=== PATIENT | female | born 1950 | race Caucasian/White ===

== ENCOUNTER 2022-09-09 07:56 | Outpatient (OUT) | payer MEDICARE, SELFPAY ==
--- NOTE | 2022-09-09 | MM_ITS ---
Patient: VERONIQUE MONTES DE OCA Exam Date: 09/09/2022 : 1950 Gender:F Ordering : DR BUD [facility]OU[facility] Admission #: [id number] Family : Order #: [id number] CLICK HERE TO VIEW EXAM RADIOLOGY REPORT PROCEDURE: MM TOMOSYNTHESIS DIAGNOSTIC BI, 09/09/2022, 07:50 US BREAST LT LIMITED, 09/09/2022, 08:25 COMPARISON: MG MAMM SCREEN 3D DYLAN CAD, 05/20/2020. MG MAMM SCREEN DYLAN W CAD, 02/27/2018. MG MAMM SCREEN DYLAN W CAD, 01/12/2017. MG MAMM DYLAN SCRN W CAD DIG, 07/19/2013. INDICATIONS: Subareolar mass of left breast, N63.42 Calculator Name NCI Breast Cancer Risk Assessment Tool 5 Year Breast Cancer Risk 1.30% Lifetime Breast Cancer Risk 3.30% Personal Breast Cancer No Personal Ovarian Cancer No Treatments None Family Cancers Aunt-maternal with breast cancer at age ~50; Mother with lymphoma cancer at age 80; Father with bladder/colon cancer at age 78; Uncle-paternal with colon cancer at age 82. LOCATION: [facility] BREAST COMPOSITION: Almost entirely fatty. FINDINGS: DIAGNOSTIC CATEGORY 2--BENIGN FINDING: RIGHT BREAST: No significant suspicious finding. No significant change has occurred. LEFT BREAST: No significant suspicious finding. No significant change has occurred. Ultrasound evaluation demonstrates a few minimally dilated ducts within the anterior breast with anechoic fluid; no mass, debris, or suspicious findings. Annual screening mammography is recommended. RECOMMENDATIONS: ROUTINE MAMMOGRAM AND CLINICAL EVALUATION IN 12 MONTHS. PLEASE NOTE: A NORMAL MAMMOGRAM DOES NOT EXCLUDE THE POSSIBILITY OF BREAST CANCER. A CLINICALLY SUSPICIOUS PALPABLE LUMP SHOULD BE BIOPSIED. Dictated by: Messi Marlow M.D. on 09/09/2022 at 11:36 Approved by: Messi Marlow M.D. on 09/09/2022 at 11:42
== END 2022-09-09 07:57 | disposition home or self-care (01) ==
LOC: MAMMO 07:57
PROVIDERS: PCP Family Medicine; Visit Provider Family Medicine
DX: N63.42 Unspecified lump in left breast, subareolar (principal)
CPT/HCPCS: 76642; 77066; G0279

== ENCOUNTER 2023-08-21 13:40 | Outpatient (OUT) | payer MEDICARE, SELFPAY ==
[2023-08-21 14:21] LABS: Basophils Percent Auto 0.6 % (0.2-2.0); Eosinophils Percent Auto 0.4 % (0.9-7.0); Hematocrit 34.4 % (36.0-48.0); Hemoglobin 11.2 g/dL (12.0-16.0); Immature Granulocytes Abs Auto 0.01 10^3/uL (0.00-0.03); Immature Granulocytes Pct Auto 0.1 % (0.0-0.5); Lymphocytes Absolute Auto 2.2 10^3/uL (1.2-3.8); Lymphocytes Percent Auto 32.1 % (20.5-60.0); Mean Corpuscular HGB Conc 32.6 g/dL (29.9-35.2); Mean Corpuscular Volume 95.3 fL (81.0-99.0); Mean Platelet Volume 9.3 fL (9.5-13.5); Monocytes Absolute Auto 0.8 10^3/uL (0.3-0.8); Monocytes Percent Auto 11.5 % (1.7-12.0); Neutrophils Absolute Auto 3.8 10^3/uL (1.4-6.5); Neutrophils Percent Auto 55.3 % (43.0-75.0); Platelet Count 217 10^3/uL (150-450); Red Blood Count 3.61 10^6/uL (4.20-5.40); Red Cell Distribution Width 12.7 % (11.0-15.0); White Blood Count 6.8 10^3/uL (4.0-11.0)
[2023-08-21 15:29] LABS: Alanine Aminotransferase 29 U/L (14-59); Albumin Level 3.9 g/dL (3.4-5.0); Alkaline Phosphatase 151 U/L (46-116); Anion Gap 14.9; Aspartate Amino Transferase 36 U/L (15-37); Bilirubin Total 0.6 mg/dL (0.2-1.0); Calcium 9.5 mg/dL (8.5-10.1); Carbon Dioxide 22.2 mmol/L (21.0-32.0); Chloride 104 mmol/L (98-107); Estimated GFR (African America 55 (>=60); Estimated GFR (Non-African Ame 46 (>=60); Globulin 3.9 g/dL; Glucose 102 mg/dL (74-106); Potassium 5.1 mmol/L (3.5-5.1); Sodium 136 mmol/L (136-145); Total Protein 7.8 g/dL (6.4-8.2)
== END 2023-08-21 13:41 | disposition home or self-care (01) ==
PROVIDERS: PCP Family Medicine; Visit Provider Internal Medicine Interventional Cardiology
DX: R55 Syncope and collapse (principal)
CPT/HCPCS: 36415; 80053; 85025

== ENCOUNTER 2023-12-20 13:54 | Outpatient (OUT) | payer MEDICARE, SELFPAY ==
--- NOTE | 2023-12-20 14:00 | MM_ITS ---
Patient Name: VERONIQUE MONTES DE OCA MR#: [id number] : 1950 Exam Date: 12/20/2023 Ordering Doctor: DR BUD LOUIS RADIOLOGY REPORT PROCEDURE: MM TOMOSYNTHESIS SCREENING BI COMPARISON: MM TOMOSYNTHESIS DIAGNOSTIC BI, 09/09/2022. MG MAMM SCREEN 3D DYLAN CAD, 05/20/2020. INDICATIONS: Screening Calculator Name NCI Breast Cancer Risk Assessment Tool 5 Year Breast Cancer Risk 1.30% Lifetime Breast Cancer Risk 3.10% Personal Breast Cancer No Personal Ovarian Cancer No Treatments None Family Cancers Aunt-maternal with breast cancer at age ~50; Mother with lymphoma cancer at age 80; Father with bladder/colon cancer at age 78; Uncle-paternal with colon cancer at age 82. LOCATION: [facility] BREAST COMPOSITION: The breasts are almost entirely fatty. FINDINGS: DIAGNOSTIC CATEGORY 2--BENIGN FINDING. NO CHANGE FROM COMPARISON. Scattered benign-appearing calcifications are present. RIGHT BREAST: No significant suspicious finding. LEFT BREAST: No significant suspicious finding. RECOMMENDATIONS: ROUTINE MAMMOGRAM AND CLINICAL EVALUATION IN 12 MONTHS. PLEASE NOTE: A NORMAL MAMMOGRAM DOES NOT EXCLUDE THE POSSIBILITY OF BREAST CANCER. A CLINICALLY SUSPICIOUS PALPABLE LUMP SHOULD BE BIOPSIED. Dictated by: Finn Solano MD on 12/20/2023 at 15:05 Approved by: Finn Solano MD on 12/20/2023 at 15:05
== END 2023-12-20 13:55 | disposition home or self-care (01) ==
LOC: MAMMO 13:56
PROVIDERS: PCP Family Medicine; Visit Provider Family Medicine
DX: Z12.31 Encounter for screening mammogram for malignant neoplasm of breast (principal); Z80.3 Family history of malignant neoplasm of breast; Z80.7 Family history of other malignant neoplasms of lymphoid, hematopoietic and related tissues; Z80.52 Family history of malignant neoplasm of bladder; Z80.0 Family history of malignant neoplasm of digestive organs
CPT/HCPCS: 77063; 77067

== ENCOUNTER 2024-03-20 12:05 | Outpatient (OUT) | payer MEDICARE, SELFPAY ==
--- OUTSIDE RECORDS SUMMARY | 2024-03-20 12:10 | XMS_ITS | CCD ---
Author Organization [facility] CliniSysd Care Team Providers Care 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 Name Role Phone PHYSICIAN, DEFAULT Admitting Unavailable PHYSICIAN, DEFAULT Attending Unavailable BOBBY, MATHEW Primary Care Unavailable Harry Alejandro Unavailable DEMETRICE FOX Admitting Unavailable DEMETRICE FOX Attending Unavailable DEMETRICE FOX Consulting Unavailable VALSANIA, DR CARMONA Primary Care Unavailable MERRILL, DR HENRY Lepe Attending Unavailable MERRILL, DR HENRY Lepe Consulting Unavailable MERRILL, DR HENRY Lepe Admitting Unavailable VALONE, DR CARMONA Primary Care Unavailable DAMIEN MOORE Consulting Unavailable MERRILL, DR HENRY Lepe Admitting Unavailable MERRILL, DR HENRY Lepe Attending Unavailable VALONE, DR CARMONA Primary Care Unavailable CARLOSEMILY Lepe Attending Unavailable CARLOS, EMILY Admitting Unavailable VALONE, DR CARMONA Primary Care Unavailable CARLOS, EMILY Consulting Unavailable ELTAHAWY, DR OSHEA Attending Unavailable ELTAHAWY, DR OSHEA Consulting Unavailable ELTAHAWY, DR OSHEA Admitting Unavailable VALONE, DR CARMONA Primary Care Unavailable Hope Nam Unavailable Lizzie Hare Unavailable MD Harry Alejandro Attending Provider [phone] DO Uday Louis Primary Care Provider MD Phillip Merchant Attending Provider [phone] DO Uday Louis Primary Care Provider DO Uday Louis Attending Provider Uday Louis DO Primary Care Provider [phone] DO Uday Louis Primary Care Provider MD Harry Alejandro Attending Provider DO Uday Louis Primary Care Provider MD Harry Alejandro Attending Provider Shoaibng, Uday Primary Care Unavailable Harry Alejandro Admitting Unavailable Harry Alejandro Attending Unavailable Furlong, Uday Primary Care Unavailable Harry Alejandro Admitting Unavailable Harry Alejandro Attending Unavailable Furlong, Uday Primary Care Unavailable Furlong, Uday Attending Unavailable Furlong, Uday Admitting Unavailable FURLONG, UDAY G Primary Care Unavailable NOAM RODRIGUEZ Attending Unavailable NOAM RODRIGUEZ Attending Unavailable NOAM RODRIGUEZ Referring Unavailable FURLONG, UDAY G Primary Care Unavailable NOAM RODRIGUEZ Attending Unavailable NOAM RODRIGUEZ Referring Unavailable FURLONG, UDAY G Primary Care Unavailable NOAM RODRIGUEZ Attending Unavailable NOAM RODRIGUEZ Referring Unavailable FURLONG, UDAY G Primary Care Unavailable PHONG DICKSON Referring Unavailable FURLONG, UDAY G Primary Care Unavailable MINAL MCDONALD Attending Unavailable FURLONG, UDAY G Primary Care Unavailable FURLONG, UDAY G Referring Unavailable FURLONG, UDAY G Primary Care Unavailable MINAL MCDONALD Attending Unavailable MINAL MCDONALD Referring Unavailable FURLONG, UDAY G Primary Care Unavailable Furlong DO Uday G Primary Care Provider CALOS, GENARO F Admitting Unavailable CALOS, GENARO F Attending Unavailable NOAM RODRIGUEZ Referring Unavailable FURLONG, UDAY G Primary Care Unavailable TITUS COLLINS Consulting Unavailable NOAM RODRIGUEZ Referring Unavailable FURLONG, UDAY G Primary Care Unavailable FURLONG, UDAY G Referring Unavailable FURLONG, UDAY G Primary Care Unavailable FURLONG, UDAY G Referring Unavailable FURLONG, UDAY G Primary Care Unavailable FURLONG, UDAY Primary Care Physician MISSY, UDAY Referring Unavailable CORI KAHN Attending Unavailable CORI KAHN Attending Unavailable TENISHALONG, UDAY Referring Unavailable CORI KAHN Attending Unavailable CORI KAHN Admitting Unavailable CORI KAHN Attending Unavailable YON KAHN Attending Unavailab le YON KAHN Admitting Unavailab le Unavailable Primary Care Provider UnavailMARLENE Moeller Attending Unavailable CRISS, CORI Perdue Attending Unavailable CRISS, CORI Perdue Admitting Unavailable CRISS, CORI Perdue Attending Unavailable CORINNA, JIMBO Admitting Unavailable CORINNA, JIMBO Attending Unavailable ELTAHAWY, EHAB Attending Unavailable CORINNA, JIMBO Attending Unavailable ELTAHAWY, EHAB Attending Unavailable ELTAHAWY, EHAB Attending Unavailable FURLONG, UDAY G Referring Unavailable FURLONG, UDAY G Primary Care Unavailable CASSIUS, ROSIE Attending Unavailable FURLONG, UDAY G Attending Unavailable FURLONG, UDAY G Referring Unavailable FURLONG, UDAY G Primary Care Unavailable FURLONG, UDAY G Referring Unavailable FURLONG, UDAY G Primary Care Unavailable FURLONG, UDAY G Attending Unavailable FURLONG, UDAY G Referring Unavailable FURLONG, UDAY G Primary Care Unavailable FURLONG, UDAY G Referring Unavailable FURLONG, UDAY G Primary Care Unavailable FURLONG, UDAY G Attending Unavailable FURLONG, UDAY G Referring Unavailable FURLONG, UDAY G Primary Care Unavailable Allergies Allergy Classification Reported Allergen(s) Allergy Type Date of Onset Reaction(s) Facility (9 sources) Nalbuphine; Translations: [Nubain] Drug Allergy 1 bad reaction sick [facility] Repository (20 sources) Nalbuphine; Translations: [nalbuphine] Drug Allergy 2 Unknown (qualifier value) [facility] Medications Current Medications Medication Drug Class(es) Dates Sig (Normalized) Sig (Original) [id number] 200 actuat albuterol 0.09 mg/actuat metered dose inhaler (14 sources) beta2-Adrenergic Agonist Start: 03-23-2023 take 2 puff(s) by inhalation every six hours as needed for wheezing albuterol (PROVENTIL HFA;VENTOLIN HFA) 90 mcg/actuation inhaler Indications: Moderate persistent asthma without complication Inhale 2 puffs every 6 (six) hours as needed for wheezing or shortness of breath. 18 g 1 03/23/2023 Active Albuterol (Eqv-ProAir HFA) 90 mcg/inh inhalation aerosol (2 sources) Start: 12-26-2023 Albuterol (Eqv-ProAir HFA) 90 mcg/inh inhalation aerosol 2 inh, As Directed Start Date: 12/26/23 Status: Ordered alendronic acid 70 mg oral tablet (11 sources) Bisphosphonate Start: 03-07-2022 take 1 tablet by mouth in the morning alendronate (FOSAMAX) 70 mg tablet Take 1 tablet (70 mg total) by mouth every 7 days. In a.m. with water on empty stomach, nothing else by mouth and remain upright for 30min 4 tablet 11 11/29/2023 Active amLODIPine 10 mg oral tablet (20 sources) Dihydropyridine Calcium Channel Paige Start: 12-26-2023 amLODIPine 10 mg Tab 10 mg = 1 tab(s) Start Date: 12/26/23 Status: Ordered Start: 06-23-2021 take 10 mg by mouth once daily in the morning Amlodipine Active 10 MG PO Every morning June 23, 2021 12:00am take 0.5 tablet by m outh in the morning amLODIPine (NORVASC) 10 mg tablet Take 0.5 tablets (5 mg total) by mouth in the morning. Active amLODIPine (Norv asc) 5 MG tablet 1 (one) time each day at the same time. Active amoxicillin 875 mg / clavulanate 125 mg oral tablet (2 sources) Penicillin-class Antibacterial Start: 11-28-2021 take 1 tablet by mouth every twelve hours Amoxicillin-Pot Clavulanate 875-125 MG 1 tablet Orally every 12 hrs for 10 day(s) Nov, Active Aspir-81 81 MG (8 sources) take 1 tablet by mouth once daily Aspir-81 81 MG 1 tablet Orally Once a day Active Aspirin (20 sources) Platelet Aggregation Inhibitor, Nonsteroidal Anti-inflammatory Drug Start: 12-26-2023 aspirin 81 mg Start Date: 12/26/23 Status: Ordered Start: 06-23-2021 take 1 tablet by leeroy th in the morning aspirin 81 mg Take 1 tablet (81 mg total) by mouth in the morning. 11/29/2023 Active atorvastatin 40 mg oral tablet (20 sources) HMG-CoA Reductase Inhibitor Start: 11-13-2023 take 1 tablet by mouth once daily atorvastatin (LIPITOR) 40 mg tablet take 1 tablet by mouth daily 90 tablet 1 11/13/2023 Active Start: 06-23-2021 End: 05-01-2023 take 1 tablet by mouth once daily atorvastatin (LIPITOR) 40 mg tablet TAKE ONE TABLET BY MOUTH DAILY 90 tablet 1 11/01/2022 Active Atorvastatin Jaspreet cium Active benzonatate 100 mg oral capsule (2 sources) Non-narcotic Antitussive Start: 11-28-2021 take 1 capsule by mouth every eight hours Tessalon Perles 100 MG 1 capsule as needed Orally Three times a day for 7 days Nov, Active Symbicort (20 sources) Corticosteroid, beta2-Adrenergic Agonist Start: 12-26-2023 Symbicort Inhalation, BID Start Date: 12/26/23 Status: Ordered Start: 06-23-2021 take 1 puff(s) by in halation twice daily Budesonide-Formoterol (Symbicort) 160-4.5 mcg/actuation Hfa Aerosol Inhaler Active 2 PUFF INHALATION Twice daily June 23, 2021 12:00am take 2 puff(s) by in halation twice daily budesonide-formoterol (Symbicort) 160-4.5 MCG/ACT inhaler Inhale 2 puffs twice a day by inhalation route. Active take 2 puff(s) by in halation in the morning budesonide-formoteroL (SYMBICORT) 80-4.5 mcg/actuation inhaler Inhale 2 puffs in the morning and 2 puffs before bedtime. Active take 2 puff(s) by in halation in the morning budesonide-formoteroL (SYMBICORT) 80-4.5 mcg/actuation inhaler Inhale 2 puffs in the morning and 2 puffs before bedtime. 0 Active Symbicort Active Calcium Citrate (6 sources) Calcium Citrate Active carvedilol 12.5 mg oral tablet (20 sources) alpha-Adrenergic Paige, beta-Adrenergic Paige Start: 06-23-2021 take 12.5 mg by mouth twice daily Carvedilol Active 12.5 MG PO Twice daily June 23, 2021 12:00am carvedilol (Core g) 6.25 MG tablet every 12 (twelve) hours. Active Carvedilol Activ e celecoxib 100 mg oral capsule (17 sources) Nonsteroidal Anti-inflammatory Drug Start: 12-26-2023 celecoxib 100 mg Cap 100 mg = 1 cap(s) Start Date: 12/26/23 Status: Ordered Start: 05-06-2023 take 1 capsule by [facility] twice daily as needed for pain celecoxib (CeleBREX) 100 mg capsule TAKE ONE CAPSULE BY MOUTH TWICE A DAY NEEDED FOR PAIN 60 capsule 3 05/06/2023 Active End: 11-29-2023 take 1 capsule by mouth in the morning as needed, then take 1 capsule by mouth at bedtime as needed celecoxib (CeleBREX) 100 mg capsule Take 1 capsule (100 mg total) by mouth in the morning and 1 capsule (100 mg total) before bedtime. Taking as needed . 11/29/2023 Discontinued (Side effects) Celecoxib Active clobetasol propionate 0.5 mg/ml medicated shampoo (3 sources) Corticosteroid Start: 11-01-2022 Clobetasol Propionate 0.05 % shampoo Indications: Other seborrheic dermatitis Apply to scalp, leave on 5 min, rinse. 2-3 x week 118 mL 11 11/01/2022 Active clopidogrel 75 mg oral tablet (9 sources) P2Y12 Platelet Inhibitor Start: 07-09-2021 take 1 tablet by mouth once daily Clopidogrel (Plavix) 75 mg tablet Active 75 MG PO Daily July 09, 2021 12:00am Plavix Active dicloxacillin 500 mg oral capsule (3 sources) Penicillin-class Antibacterial Start: 09-19-2022 dicloxacillin (Dynapen) 500 MG capsule 09/19/2022 Active doxycycline hyclate 100 mg oral tablet (1 source) Tetracycline-class Drug Start: 12-01-2021 take 1 tablet by mouth every twelve hours Doxycycline Hyclate 100 MG 1 tablet Orally Twice a day for 10 day(s) Nov, Active Ergocalciferol (20 sources) Provitamin D2 Compound Start: 12-26-2023 ergocalciferol Oral Start Date: 12/26/23 Status: Ordered Start: 07-13-2022 End: 11-23-2023 take 1 capsule by mouth every week ergocalciferol (DRISDOL) 1,250 mcg (50,000 unit) capsule take 1 capsule by mouth once weekly 12 capsule 1 11/23/2023 Active Start: 06-23-2021 take 1 capsule by [facility] week Ergocalciferol (Vitamin D2) (Vitamin D2) 1,250 mcg (50,000 unit) Capsule Active 1250 MCG PO every week June 23, 2021 12:00am estradiol 0.1 mg/ml vaginal cream (2 sources) Estrogen Start: 12-26-2023 Estrace 0.1 mg/g Cream See Instructions, 42.5 gm, Refill(s) 3, Apply pea size with your fingertip vaginally and around the urethra every night for 3 weeks and 3x/wk thereafter for maintenance., [facility] [id number], 155, cm, 12/26/23 9:59:00 EST, Height/Length Dosing, 64, kg, 12/26/23 9:59:00 EST, Weight Dosing Start Date: 12/26/23 Status: Ordered ferrous sulfate (3 sources) Ferrous Sulfate (IRON PO) Active hydroCHLOROthiazide 12.5 mg oral tablet (2 sources) Thiazide Diuretic Start: 03-12-2024 take 1 tablet by mouth once daily hydroCHLOROthiazide (HYDRODIURIL) 12.5 mg tablet Take 1 tablet (12.5 mg total) by mouth daily. 30 tablet 1 03/12/2024 Active losartan potassium 50 mg oral tablet (7 sources) Angiotensin 2 Receptor Paige take 1 tablet by mouth every twenty-fou r hours Losartan Potassium 50 MG 1 tablet Orally Once a day Active metoprolol tartrate 25 mg oral tablet (13 sources) beta-Adrenergic Paige Start: 12-26-2023 take 1 tablet by mouth once daily Lopressor 25 mg oral tablet 25 mg = 1 tab(s), Oral, Daily, Refills(s) 0 Start Date: 12/26/23 Status: Ordered take 1 tablet by leeroy th every twenty-four hours metoprolol succinate XL (Toprol-XL) 25 M G 24 hr tablet Take by mouth Do not crush or chew. Active montelukast 10 mg oral tablet (20 sources) Leukotriene Receptor Antagonist Start: 02-09-2024 take 1 tablet by mouth once daily montelukast (SINGULAIR) 10 mg tablet TAKE ONE TABLET BY MOUTH ONCE NIGHTLY 90 tablet 1 02/09/2024 Active Start: 02-03-2023 take 1 tablet by leeroy th once daily montelukast (SINGULAIR) 10 mg tablet TAKE ONE TABLET BY MOUTH ONCE NIGHTLY 90 tablet 1 02/03/2023 Active Start: 06-23-2021 End: 02-09-2024 take 1 tablet by mouth once daily montelukast (SINGULAIR) 10 mg tablet TAKE ONE TABLET BY MOUTH ONCE NIGHTLY 90 tablet 1 08/09/2022 02/03/2023 Discontinued Singulair Active Multi Vitamins oral tablet (2 sources) Start: 12-26-2023 Multi Vitamins oral tablet Oral, Daily Start Date: 12/26/23 Status: Ordered pviomyyh-wdb-lsdwrbl sulfate 4.5 mg iron powder in packet (5 sources) tlsuugni-uvs-utt mallory sulfate 4.5 mg iron powder in packet Multivitamin preparation (8 sources) Multivitamin Act azeb ckqtmhqsonbv-epw-yhiz-FA -vit K 45 mg iron- 800 mcg-120 mcg capsule (15 sources) take 1 tablet by mouth once in the morning nkkgqbejrcll-lop-ijde-F A-vit K 45 mg iron- 800 mcg-120 mcg capsule Take 1 tablet by mouth in the morning. Active multivitamin-min -iron-FA-vit K 45 mg iron- 800 mcg-120 mcg capsule nitroglycerin 0.4 mg sublingual tablet (20 sources) Nitrate Vasodilator Start: 06-23-2021 Nitroglyce rin Active 0.4 MG SUBLINGUAL As Directed June 23, 2021 12:00am nitroglycerin (N ITROSTAT) 0.4 MG SL tablet nitroglycerin 0.4 mg sublingual tablet Active predniSONE 20 mg oral tablet (7 sources) Start: 12-01-2021 take 1 tablet by mouth every twelve hours predniSONE 20 MG 1 tablet Orally 2 times a day for 5 day(s) Nov, Active Start: 11-28-2021 prednisone 10 MG as directed with food Orally 3 tablet x 3 days, 2 tablet x 3 days for 6 days Nov, Active Start: 07-08-2018 predniSONE 10 MG 3 tablets for 3 days, then 2 tablets for 3 days Orally Once a day for 6 days June, Not-Taking spironolactone 25 mg oral tablet (20 sources) Aldosterone Antagonist Start: 12-26-2023 spironolactone 25 mg Tab 25 mg = 1 tab(s) Start Date: 12/26/23 Status: Ordered Start: 06-13-2023 End: 12-10-2023 take 1 tablet by mouth in the morning spironolactone (ALDACTONE) 25 mg tablet Take 1 tablet (25 mg total) by mouth in the morning for 180 days. 90 tablet 1 06/13/2023 12/10/2023 Active Start: 12-21-2021 take 0.5 tablet by m outh once daily spironolactone (Aldactone) 25 MG tablet Take 0.5 tablets every day by oral route for 30 days. 12/21/2021 Active Start: 06-23-2021 take 12.5 mg by mout h once daily in the morning Spironolactone Active 12.5 MG PO Every morning June 23, 2021 12:00am Spironolactone A ctive valsartan 320 mg oral tablet (20 sources) Angiotensin 2 Receptor Paige Start: 06-23-2021 valsartan 320 mg Tab 320 mg = 1 tab(s) Start Date: 12/26/23 Status: Ordered valsartan (Diova n) 160 MG tablet every 12 (twelve) hours. Active Valsartan Active Vitamin D (8 sources) Vitamin D Active Completed/Discontinued Medications Medication Drug Class(es) Dates Sig (Normalized) Sig (Original) baclofen 10 mg oral tablet (14 sources) gamma-Aminobutyri c Acid-ergic Agonist Start: 06-23-2021 End: 05-15-2023 take 10 mg by mouth once daily Baclofen Discontinued 10 MG PO Daily June 23, 2021 12:00am May 15, 2023 10:05am End: 03-23-2023 take 1 tablet by mouth three times daily as needed baclofen (LIORESAL) 10 mg tablet Take 1 tablet (10 mg total) by mouth 3 (three) times a day as needed. 0 03/23/2023 Discontinued (Therapy completed) Baclofen Active lactulose 667 mg/ml oral solution (12 sources) Osmotic Laxative Start: 06-23-2021 End: 05-15-2023 take 1 mL by mouth once daily Lactulose Discontinued 15 ML PO Daily June 23, 2021 12:00am May 15, 2023 10:05am Lactulose Active nystatin [id number] unt/ml oral suspension (4 sources) Polyene Antifungal Start: 07-21-2018 take 6 mL by mouth four times daily Nystatin [id number] UNIT/ML 6 ml swish around in mouth and retain in mouth as long as possible before swallowing Four times a day for 10 days Jul, Not-Taking traMADol hydrochloride 50 mg oral tablet (4 sources) Opioid Agonist take 1 tablet by mouth every six hours traMADol HCl 50 MG 1 tablet as needed Orally every 6 hrs Not-Taking Problems Active Problems Problem Classification Problem Date Documented Da te Episodic/Chronic Acute bronchitis (1 source) Acute bronchitis, unspecified Episodic Acute cerebrovascular disease (16 sources) Nontraumatic intracerebral hemorrhage in hemisphere, cortical; Translations: [Nontraumatic intracerebral hemorrhage, unspecified] Onset: 06-10-2023 06-10-2023 Chronic Acute cerebrovascular disease (1 source) Acute cerebrovascular disease Onset: 06-10-2023 Aortic; peripheral; and visceral artery aneurysms (8 sources) Abdominal aortic aneurysm 3.0 to 5.0 centimeters in female; Translations: [Abdominal aortic aneurysm, without rupture] Onset: 08-02-2021 Resolved: 08-02-2021 Chronic Asthma (12 sources) Uncomplicated moderate persistent asthma; Translations: [Moderate persistent asthma, uncomplicated] Onset: 03-23-2023 03-23-2023 Chronic Chronic obstructive pulmonary disease and bronchiectasis (2 sources) Chronic obstructive lung disease 12-26-2023 Chronic Chronic obstructive pulmonary disease and bronchiectasis (1 source) Bronchitis, not specified as acute or chronic Episodic Congestive heart failure; nonhypertensive (2 sources) Diastolic dysfunction 12-26-2023 Chronic Coronary atherosclerosis and other heart disease (20 sources) Atherosclerotic heart disease of [place] coronary artery without angina pectoris; Translations: [Coronary atherosclerosis] Onset: 09-13-2016 Chronic Coronary atherosclerosis and other heart disease (1 source) Coronary atherosclerosis and other heart disease; Translations: [Atherosclerosis of [place] arteries of extremities with intermittent claudication, bilateral legs] Onset: 03-27-2023 Disorders of lipid metabolism (20 sources) Mixed hyperlipidemia; Translations: [Mixed hyperlipidemia] Onset: 03-07-2022 03-07-2022 Chronic Essential hypertension (20 sources) Essential hypertension; Translations: [Essential (primary) hypertension] Onset: 09-04-2019 03-07-2022 Chronic Fluid and electrolyte disorders (2 sources) Hyperkalemia; Translations: [Hyperkalemia] Onset: 03-12-2024 03-12-2024 Episodic Fracture of upper limb (1 source) Other fracture of lower end of right ulna, initial encounter for closed fracture; Translations: [Other fracture of lower end of right ulna, initial encounter for closed fracture] Onset: 08-08-2023 Episodic Hypertension with complications and secondary hypertension (2 sources) Hypertensive heart disease with heart failure; Translations: [Hypertensive heart disease with heart failure] Onset: 12-26-2023 Chronic Nutritional deficiencies (18 sources) Vitamin D deficiency; Translations: [Vitamin D deficiency, unspecified] Onset: 03-07-2022 03-07-2022 Chronic Occlusion or stenosis of precerebral arteries (14 sources) Left carotid artery stenosis; Translations: [Occlusion and stenosis of left carotid artery] Onset: 05-15-2023 Chronic Osteoarthritis (9 sources) Degenerative joint disease involving multiple joints; Translations: [Primary generalized (osteo)arthritis] 11-29-2023 Chronic Osteoporosis (15 sources) Osteoporosis; Translations: [Age-related osteoporosis without current pathological fracture] Onset: 03-07-2022 03-07-2022 Chronic Other and ill-defined heart disease (4 sources) Heart disease, unspecified; Translations: [HEART DISEASE UNSPECIFIED] Onset: 02-08-2021 Chronic Other circulatory disease (2 sources) Spider nevus; Translations: [Nevus, non-neoplastic] 01-02-2024 Episodic Other connective tissue disease (1 source) Pain in upper limb Onset: 08-08-2023 Episodic Other diseases of kidney and ureters (1 source) Disorder of kidney and/or ureter; Translations: [Disorder of kidney and ureter, unspecified] Onset: 12-26-2023 Episodic Other gastrointestinal disorders (15 sources) Irritable bowel syndrome characterized by constipation; Translations: [Irritable bowel syndrome with constipation] Onset: 09-19-2022 09-19-2022 Chronic Other injuries and conditions due to external causes (2 sources) Injury of head 12-26-2023 Episodic Other liver diseases (1 source) Alkaline phosphatase raised; Translations: [Abnormal levels of other serum enzymes] 03-24-2023 Episodic Other nervous system disorders (1 source) Other chronic pain; Translations: [OTHER CHRONIC PAIN] Onset: 10-12-2020 Chronic Other nervous system disorders (1 source) Slurred speech Onset: 06-10-2023 Episodic Other non-epithelial cancer of skin (2 sources) History of squamous cell carcinoma of skin; Translations: [Personal history of other malignant neoplasm of skin] 01-02-2024 Episodic Other skin disorders (2 sources) Lentiginosis; Translations: [Other melanin hyperpigmentation] 01-02-2024 Episodic Other skin disorders (2 sources) Seborrheic keratosis; Translations: [Other seborrheic keratosis] 01-02-2024 Episodic Other skin disorders (2 sources) Actinic keratosis; Translations: [Actinic keratosis] 01-02-2024 Episodic Peripheral and visceral atherosclerosis (20 sources) Peripheral vascular disease, unspecified; Translations: [Peripheral arterial disease with history of revascularization] Onset: 06-01-2021 Resolved: 08-02-2021 Chronic Residual codes; unclassified (2 sources) Other specified postprocedural states Onset: 08-02-2021 Resolved: 08-02-2021 Episodic Spondylosis; intervertebral disc disorders; other back problems (2 sources) Spondylosis without myelopathy or radiculopathy, lumbar region; Translations: [Other intervertebral disc degeneration, lumbar region] Onset: 10-12-2020 Chronic Thyroid disorders (15 sources) Thyroid nodule; Translations: [Nontoxic single thyroid nodule] Onset: 09-19-2022 09-19-2022 Chronic Unclassified (1 source) Low back pain, unspecified; Translations: [Low back pain, unspecified] Onset: 08-22-2022 Unclassified (1 source) ICH Onset: 06-10-2023 Unclassified (1 source) MAW Onset: 09-26-2023 Past or Other Problems Problem Classification Problem Date Documented Da te Episodic/Chronic Cardiac dysrhythmias (12 sources) Bradycardia; Translations: [Bradycardia, unspecified] Onset: 06-10-2023 06-11-2023 Episodic Genitourinary symptoms and ill-defined conditions (10 sources) Dysuria; Translations: [Dysuria] Onset: 03-23-2023 03-23-2023 Episodic Mood disorders (15 sources) Mild depression; Translations: [Mild depressive disorder] Onset: 03-07-2022 Resolved: 11-29-2023 03-07-2022 Chronic Mood disorders (15 sources) Mood disorders Onset: 03-23-2023 Resolved: 03-12-2024 03-23-2023 Other connective tissue disease (1 source) Muscle wasting and atrophy, not elsewhere classified, unspecified site; Translations: [MUSCLE WASTING ATROPHY NEC UNS SITE] Onset: 10-12-2020 Episodic Other connective tissue disease (1 source) Other muscle spasm; Translations: [OTHER MUSCLE SPASM] Onset: 10-12-2020 Episodic Other connective tissue disease (1 source) Sarcopenia; Translations: [SARCOPENIA] Onset: 10-12-2020 Episodic Other liver diseases (1 source) Abnormal levels of other serum enzymes; Translations: [Abnormal levels of other serum enzymes] Onset: 04-07-2023 Episodic Other nutritional; endocrine; and metabolic disorders (9 sources) Overweight; Translations: [Overweight] Onset: 11-29-2023 11-29-2023 Episodic Other screening for suspected conditions (not mental disorders or infectious disease) (4 sources) Patient encounter status; Translations: [Encounter for screening mammogram for malignant neoplasm of breast] Onset: 11-29-2023 11-29-2023 Episodic Pathological fracture (2 sources) Osteoporosis; Translations: [Age-related osteoporosis with current pathological fracture, unspecified site, sequela] Onset: 11-29-2023 11-29-2023 Episodic Spondylosis; intervertebral disc disorders; other back problems (4 sources) Low back pain; Translations: [LOW BACK PAIN] Onset: 10-06-2020 Episodic Urinary tract infections (4 sources) Recurrent urinary tract infection; Translations: [Urinary tract infection, site not specified] Onset: 03-23-2023 04-12-2023 Episodic Results Test Name Value Interpretation Reference Range Facility [facility] 02-05-2024 Thank you [place] [facility] Consult Note [place] [facility] Reason for visit: Palpitations HPI: Veronique Gaitan is a 73 y.o. year old with past medical history of CAD, hypertension , CAD s/p PCI, bilateral aortofemoral artery bypass grafts , DVT after left foot fracture approximately 17 years ago, AAA , COPD PVD, hyperlipidemia, diastolic heart failure had been seen by Dr. BURNS for description of palpitations. She was placed under the care of vascular surgery with Abbi and her blood pressure has been an issue and therefore her amlodipine dosage was cut down from 10 mg to 5 mg due to low blood pressure readings. Subsequently she was admitted to [facility] for a small temporal intracerebral hemorrhage and she recovered with no residual neurological deficits. Given this she was placed on a 30-day event monitor which revealed episodes of SVTs and PVCs the symptoms correlated with sinus rhythm as well as sinus tachycardia. Maximal heart rate was noted on 07/31/2023 at 12:42 PM at the rate of 142 bpm which appeared to be a long RP tachycardia. She is currently on Lopressor 12.5 twice daily, valsartan 320 once daily and amlodipine 5 mg once daily And her blood pressure today is elevated. PMH: Past Medical History: Diagnosis Date AAA (abdominal aortic aneurysm) ([facility]) COPD (chronic obstructive pulmonary disease) ([facility]) Coronary artery disease Diastolic dysfunction Hyperlipidemia Hypertension PVD (peripheral vascular disease) ([facility]) PSH: Past Surgical History: Procedure Laterality Date CARDIAC CATHETERIZATION CHOLECYSTECTOMY HYSTERECTOMY VASCULAR SURGERY SH: Social Determinants of Health Tobacco Use: Low Risk (01/02/2024) Received from [facility] Patient History Smoking Tobacco Use: Never Smokeless Tobacco Use: Never Passive Exposure: Not on file Recent Concern: Tobacco Use - Medium Risk (11/29/2023) Re[facility] from [facility] Patient History Smoking Tobacco Use: Former Smokeless Tobacco Use: Never Passive Exposure: Not on file Alcohol Use: Not At Risk (06/10/2023) Received from [facility], [facility] AUDIT-C Frequency of Alcohol Consumption: Never Average Number of Drinks: Patient does not drink Frequency of Binge Drinking: Never Financial Resource Strain: Low Risk (09/26/2023) [facility] Overall Financial Resource Strain (CARDIA) Difficulty of Paying Living Expenses: Not very hard Food Insecurity: No Food Insecurity (11/29/2023) Received from [facility], [facility] Hunger Screening Within the past 12 months we worried whether our food would run out before we got money to buy more.: Never True Within the past 12 months the food we bought just didn't last and we didn't have money to get more.: Never True Transportation Needs: No Transportation Needs (06/10/2023) Received from [facility], [facility] PRAPARE - Transportation Lack of Transportation (Medical): No Lack of Transportation (Non-Medical): No Physical Activity: Insufficiently Active (11/29/2023) [facility] from [facility] Exercise Vital Sign Days of Exercise per Week: 3 days Minutes of Exercise per Session: 20 min Stress: Stress Concern Present (09/26/2023) Received from [facility] [place] [facility] - Occupational Stress Questionnaire Feeling of Stress : Rather much Social Connections: Moderately Isolated (09/26/2023) Received from [facility] Social Connection and Isolation Panel [NHANES] Frequency of Communication with Friends and Family: Three times a week Frequency of Social Gatherings with Friends and Family: Three times a week Attends Judaism Services: More than 4 times per year Active Member of Clubs or Organizations: No Attends Club or Organization Meetings: Never Marital Status: Intimate Partner Violence: Unknown (04/06/2023) [place] Safety & Environment Fear of Current or Ex-Partner: Not on file Emotionally Abused: Not on file Physically Abused: Not on file Sexually Abused: Not on file Physically or Sexually Abused: Not on file Depression: Not at risk (11/29/2023) Received from [facility] PHQ-2 Total Score: 0 Housing Stability: Low Risk (06/10/2023) Received from [facility] Housing Instability Are you worried or concerned that in the next two months you may not have stable housing that you own, rent or stay in as a part of a household?: No Utilities: Not At Risk (06/10/2023) Received from [facility] Utilities Threatened with loss of utilities: No Health Literacy: Not on file (more content not included)... [facility] NURSNOTEon 02-05-2024 NURSNOTE RN educated pt on discharge instructions. RN encouraged pt to voice any questions or concerns. Pt verbalizes no questions or concerns at this time. Pt was walked off unit to proper entrance with all belongings. [facility] Letter (Out)on 01-05-2024 Letter (Out) [id number] Veronique Gaitan 1950 F Date Provider Department Center 01/05/2024 None-None [facility] Family History Problem Relation Age of Onset Coronary artery disease Mother Cancer Mother Cancer Father Family Status - Relation Status Age at Mother Father Normal [facility] No Panel Informationon 01-01 [facility] C Urineon 12-30-2023 Bacteria identified Cx Nom (U) Microbiology PROCEDURE: Urine Culture [R1] SOURCE: U Random BODY SITE: COLLECTED DATE/TIME: 12/26/2023 12:00 EST RECEIVED DATE/TIME: 12/28/2023 11:34 EST START DATE/TIME: 12/28/2023 11:34 EST FREE TEXT SOURCE: CRISS MARVIN, CORI KAHN PA-C, CORI Perdue FINAL REPORTS Final Report [] Verified Date/Time: 12/30/2023 07:13 EST 2,000 cfu/ml Mixed skin contaminants Performing Locations R1: This test was performed at: [facility], [address] [place] [address], [facility] , , [facility] Comment on above: Performed By: #### 2 [id number] #### [facility] [address] [place] [address] Ambulatory Visit Summaryon 1 02-24-2023 Ambulatory Visit Summary Ambulatory Visit Summary VERONIQUE GAITAN :1950 Visit Date:04/14/2023 Ambulatory Visit Instructions Your Care Team Primary Care Physician - UDAY LOUIS DO This Is Your Medications List albuterol (Albuterol (Eqv-ProAir HFA) 90 mcg/inh inhalation aerosol) amlodipine (amLODIPine 10 mg Tab) aspirin atorvastatin (atorvastatin 40 mg Tab) budesonide-formotero l (Symbicort) celecoxib (celecoxib 100 mg Cap) ergocalciferol estradiol topical (Estrace 0.1 mg/g Cream) metoprolol (Lopressor 25 mg oral tablet) montelukast (montelukast 10 mg Tab) multivitamin (Multi Vitamins oral tablet) spironolactone (spironolactone 25 mg Tab) valsartan (valsartan 320 mg Tab) Procedures Performed Appendectomy, Cardiac catheterization, CE - Cataract extraction, Cholecystectomy, Colonoscopy, Hysterectomy, Vascular surgery. Medications What How Much When Instructions Unchanged albuterol (Albuterol (Eqv-ProAir HFA) 90 mcg/ inh inhalation aerosol) 2 Inhalation As Directed Unchanged amlodipine (amLODIPine 10 mg Tab) 1 Tablets Unchanged aspirin 81 Milligram Unchanged atorvastatin (atorvastatin 40 mg Tab) 1 Tablets Unchanged budesonide-formotero l (Symbicort) Inhalation 2 times a day Unchanged celecoxib (celecoxib 100 mg Cap) 1 Capsules Unchanged ergocalciferol By Mouth Unchanged estradiol topical (Estrace 0.1 mg/ g Cream) See instructions Apply pea size with your fingertip vaginally and around the urethra every night for 3 weeks and 3x/ wk thereafter for maintenance. Unchanged metoprolol (Lopressor 25 mg oral tablet) 1 Tablets By Mouth Every day Unchanged montelukast (montelukast 10 mg Tab) Unchanged multivitamin (Multi Vitamins oral tablet) By Mouth Every day Unchanged spironolactone (spironolactone 25 mg Tab) 1 Tablets Unchanged valsartan (valsartan 320 mg Tab) 1 Tablets Allergies nalbuphine (Unknown) Problems Ongoing - Any problem that you are currently receiving treatment for. AAA (abdominal aortic aneurysm) Abnormal kidney function Chronic obstructive pulmonary disease Coronary artery disease Diastolic dysfunction Dysuria Head injury Hyperlipidemia Hypertension Microhematuria Peripheral vascular disease Recurrent UTI Stroke Patient Survey You may receive a survey via text or e-mail asking about your office visit. Please share your experience with us by completing your survey. We appreciate your feedback and thank you for choosing us for your care. Normal [facility] Office Visiton 12-26-2023 Follow-up visit [id number] Veronique Gaitan 1950 F Date Provider Department Center 12/26/2023 241-JIMBO WEINSTEIN Family History Problem Relation Age of Onset Coronary artery disease Mother Cancer Mother Cancer Father Family Status - Relation Status Age at Mother Father Level of Service:27668 [place] OFFICE/OUTPATIENT NEW MODERATE MDM 45 MINUTES Reason for Visit and Comments: Follow-up [447520] - Palpitations and increased blood pressure Normal [facility] Reminderson 12-26-2023 Reminders Reminders - From: Nataliia Brooks To: EU - Administrative; Sent: 12/26/2023 11:47:08 EST Show up: 02/28/2024 11:46:00 EST Subject: 6 month F/U Due Date/Time: 06/22/2024 11:46:00 EDT Reminder/Recall Patient needs scheduled with [facility] in [place] for a 6 month f/u with Bun and Creatinine levels. Due back in June of 2024 Normal [facility] URINALYSISOrdered By: SYSTEM SYSTEM on 12-26-2023 Clarity (U) Clear (12/26/23 12:00 PM) Normal Clear [facility] UA Auto SS Color (U) Light-Yellow 1 (12/26/23 12:00 PM) Normal Yellow [facility] UA Auto SS Comment on above: Interpretive Data: M icroscopic readings are only performed on those samples that meet specific criteria set forth by [facility]. pH (U) 6.0 *NA* (12/26/23 12:00 PM) Invalid Interpretation Code 5.0 - 9.0 [facility] UA Auto SS Specific gravity (U) [Rel density] 1.008 *NA* (12/26/23 12:00 PM) Invalid Interpretation Code 1.005 - 1.030 [facility] UA Auto SS URINALYSISOrdered By: Zhanna Delgado on 12-26-2023 UA Spec Desc Random Urine (12/26/23 12:00 PM) Normal [facility] UA Auto SS Urinalysis with MicroOrdered By: SYSTEM SYSTEM on 12-26-2023 Bilirubin Ql (U) Negative Normal Negative [facility] UA Auto SS Comment on above: Performed By: #### 4 [id number] #### [facility] [address] [place] [address] Glucose Ql (U) Negative Normal Negative [facility] UA Au to SS Comment on above: Performed By: #### 4 [id number] #### [facility] [address] [place] [address] Hemoglobin Auto test strip (U) [Mass/Vol] Negative Normal Negative [facility] UA Aut o SS Comment on above: Performed By: #### 4 [id number] #### [facility] [address] [place] [address] Ketones Auto test strip Ql (U) Negative Normal Negative [facility] Auto SS Comment on above: Performed By: #### 4 [id number] #### [facility] [address] [place] [address] Leukocyte esterase Auto test strip Ql (U) Negative Normal Negative [facility] A uto SS Comment on above: Performed By: #### 4 [id number] #### [facility] [address] [place] [address] Nitrite Auto test strip Ql (U) Negative Normal Negative FT [facility]A Auto SS Comment on above: Performed By: #### 4 [id number] #### [facility] [address] [place] [address] Protein Ql (U) Negative Normal Negative FT [facility]A Au to SS Comment on above: Performed By: #### 4 [id number] #### [facility] [address] [place] [address] Urobilinogen (U) [Mass/Vol] Negative Normal Negative FT [facility]A Auto SS Comment on above: Performed By: #### 4 [id number] #### [facility] [address] [place] [address] Urinalysis with Microon 12-14 Clarity (U) Clear Normal Clear [facility] Comment on above: Performed By: #### 4 [id number] #### [facility] [address] [place] [address] Color (U) Light-Yellow Normal Yellow [facility] Comment on above: Result Comment: Micr oscopic readings are only performed on those samples that meet specific criteria set forth by [facility]. Performed By: #### 4 [id number] #### [facility] [address] [place] [address] pH (U) 6.0 [pH] Invalid Interpretation Code 5.0-9.0 [facility] Comment on above: Performed By: #### 4 [id number] #### [facility] [address] [place] [address] Specific gravity (U) [Rel density] 1.008 Invalid Interpretation Code 1.005-1.030 [facility] Comment on above: Performed By: #### 4 [id number] #### [facility] [address] [place] [address] Type of Urine collection method Random Urine Normal [facility] Comment on above: Performed By: #### 4 [id number] #### [facility] [address] [place] [address] BASIC METABOLIC PANLon 11-28 Anion gap [Moles/Vol] 10 mmol/L Normal 5-15 [facility] Comment on above: Performed By: #### Sloane HAGAN, 67234-8, 31782-1 #### [facility] ([id number]) [address], [address] [place] [address] Calcium [Mass/Vol] 9.7 mg/dL Normal 8.5-10.5 [facility] Comment on above: Performed By: #### Sloane HAGAN, 76689-3, 95921-8 #### [facility] ([id number]) [address], [address] [place] [address] Chloride [Moles/Vol] 107 mmol/L Normal 98-109 [facility] Comment on above: Performed By: #### Sloane HAGAN, 24825-8, 89884-5 #### [facility] ([id number]) [address], [address] [place] [address] CO2 [Moles/Vol] 21 mmol/L Low 22-32 [facility] Comment on above: Performed By: #### Sloane HAGAN, 90354-5, 43826-9 #### [facility] ([id number]) [address], [address] [place] [address] Creatinine [Mass/Vol] 1.17 mg/dL High 0.40-1.00 [facility] Comment on above: Result Comment: METH OD TRACEABLE TO IDMS STANDARD Performed By: #### Sloane HAGAN, 69707-8, 05948-2 #### [facility] ([id number]) [address], [address] [place] [address] GFR/1.73 sq M.predicted among non-blacks MDRD (S/P/Bld) [Vol rate/Area] 49 mL/min/{1.73_m2} Low >59 [facility] Comment on above: Result Comment: Reported eGFR is based on the CKD-EPI 2020 equation that does not use a race coefficient. Performed By: #### Sloane HAGAN, 83655-1, 67709-2 #### [facility] ([id number]) [address], [address] [place] [address] Glucose [Mass/Vol] 97 mg/dL Normal 65-99 [facility] Comment on above: Performed By: #### Sloane HAGAN, 79694-2, 28396-3 #### [facility] ([id number]) [address], [address] [place] [address] Potassium [Moles/Vol] 5.5 mmol/L High 3.5-5.0 [facility] Comment on above: Performed By: #### Sloane HAGAN, 12288-4, 38487-1 #### [facility] ([id number]) [address], [address] [place] [address] Sodium [Moles/Vol] 138 mmol/L Normal 134-146 [facility] Comment on above: Performed By: #### Sloane HAGAN, 62080-2, 09681-0 #### [facility] ([id number]) [address], [address] [place] [address] Urea nitrogen [Mass/Vol] 34 mg/dL High 5-27 [facility] Comment on above: Performed By: #### Sloane HAGAN, 19948-1, 82301-9 #### [facility] ([id number]) [address], [address] [place] [address] Basic Metabolic Panelon 10-1 Anion gap [Moles/Vol] 10 mmol/L 5 - 15 mmol/L [facility] Calcium [Mass/Vol] 9.7 mg/dL 8.5 - 10. 5 mg/dL [facility] Chloride [Moles/Vol] 107 mmol/L 98 - 10 9 mmol/L [facility] CO2 [Moles/Vol] 21 mmol/L Low 22 - 32 mmol/L [facility] Creatinine [Mass/Vol] 1.17 mg/dL High 0.40 - 1.00 mg/dL [facility] Comment on above: METHOD TRACEABLE TO [facility] STANDARD eGFR (CKD-EPI)non-race dependent 49 Low - PINF [facility] Comment on above: Reported eGFR is based on the CKD-EPI 2020 equation that does not use a race coefficient. Glucose [Mass/Vol] 97 mg/dL 65 - 99 mg/dL [facility] Interpretation and review of laboratory results Abnormal [facility] Potassium [Moles/Vol] 5.5 mmol/L High 3.5 - 5.0 mmol/L [facility] Sodium [Moles/Vol] 138 mmol/L 134 - 146 mmol/L [facility] Urea nitrogen [Mass/Vol] 34 mg/dL High 5 - 27 mg/dL [facility] 36on 09-25-2023 36 Patient called to make you aware that when you started her on metoprolol last month, it made her palpitations go away. She states now palpitations are slowly coming back. Patient wanted to know if you wanted to increase the dose of metoprolol. I then asked her what her BP and HR have been. She said this morning her BP was 140's systolic and HR was 48. Please advise. Thanks. Normal [facility] Office Visiton 08-21-2023 Follow-up visit [id number] Veronique Gaitan 1950 F Date Provider Department Center 08/21/2023 [facility] Family History Problem Relation Age of Onset Coronary artery disease Mother Cancer Mother Cancer Father Family Status - Relation Status Age at Mother Father Level of Service:92743 [place] OFFICE/OUTPATIENT ESTABLISHED MOD MDM 30 MIN Normal [facility] XR FOREARM RT 2 VWSon 2023 XR FOREARM RT 2 VWS XR FOREARM RT 2 VWS CLINICAL HISTORY: Injury and pain Comparison: None Views: 2 view FINDINGS: * Nondisplaced spiral fracture distal ulnar shaft. No displacement. No angulation. Calcification of triangular cartilage complex. Advanced osteoarthritis of the medial carpus. IMPRESSION: * Acute nondisplaced fracture distal ulnar shaft Finalized by Phillip Sal MD on 08/08/2023 9:17 AM Normal [facility] MR BRAIN W WO CONTon 024 MR BRAIN W WO CONT MR BRAIN W WO CONT MR BRAIN W WO CONT 07/12/2023 9:57 AM INDICATION: 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 (CMS-HCC) COMPARISON: 06/10/2023 brain MRI, 06/10/2023 CT head, 06/09/2023 CT brain. TECHNIQUE: Multiplanar multisequence MR images of the brain were obtained with and without intravenous contrast. FINDINGS: Continued evolution of late subacute hemorrhage in the left temporal lobe measuring 1.8 x 1.2 cm. No new or enlarging intraparenchymal hemorrhage. No territorial infarct, significant mass effect, midline shift or extra-axial fluid collection. No significant cortical atrophy for age. Unchanged encephalomalacia and likely gliosis in the left frontal operculum. Moderate to severe burden of subcortical T2/FLAIR hyperintensities compatible chronic microvascular ischemic changes. Globes and orbits unremarkable. Bilateral maxillary antrostomies. Paranasal sinuses and mastoid air cells are clear. Major intracranial arterial flow voids are broadly preserved. No pathologic intraparenchymal enhancement. IMPRESSION: * Continued evolution and decrease in size of the late subacute left temporal intraparenchymal hematoma. No new or enlarging intracranial hemorrhage. * Moderate to severe burden of probable chronic microvascular ischemic changes. Approved by Resident Andry Underwood MD on 07/13/2023 8:41 AM Fareed Covarrubias have personally reviewed the image(s) and agree with and/or edited the report Finalized by Fareed Magallon on 07/13/2023 11:07 AM Normal [facility] Office Visiton 06-19-2023 Follow-up visit [id number] Veronique Gaitan Manuel 1950 F Date Provider Department Center 06/19/2023 271-DORIE DEWEY CARD [facility] Family History Problem Relation Age of Onset Coronary artery disease Mother Cancer Mother Cancer Father Family Status - Relation Status Age at Mother Father Level of Service:50700 [place] OFFICE/OUTPATIENT ESTABLISHED LOW MDM 20 MIN Normal [facility] BASIC METABOLIC PANLon 06-11 Anion gap [Moles/Vol] 10 mmol/L Normal 5-15 [facility] Comment on above: Performed By: #### Sloane HAGAN, 83714-7, 41244-3 #### [facility] ([id number]) [address], [address] [place] [address] Calcium [Mass/Vol] 9.2 mg/dL Normal 8.5-10.5 [facility] Comment on above: Performed By: #### Sloane HAGAN, 83100-2, 28550-3 #### [facility] ([id number]) [address], [address] [place] [address] Chloride [Moles/Vol] 107 mmol/L Normal 98-109 [facility] Comment on above: Performed By: #### Sloane HAGAN, 59772-7, 80585-6 #### [facility] ([id number]) [address], [address] [place] [address] CO2 [Moles/Vol] 23 mmol/L Normal 22-32 [facility] Comment on above: Performed By: #### Sloane HAGAN, 04648-5, 01488-9 #### [facility] ([id number]) [address], [address] [place] [address] Creatinine [Mass/Vol] 0.77 mg/dL Normal 0.40-1.00 [facility] Comment on above: Result Comment: METH OD TRACEABLE TO IDMS STANDARD Performed By: #### Sloane HAGAN, 22758-6, 63071-4 #### [facility] ([id number]) [address], [facility] [address] [place] [address] GFR/1.73 sq M.predicted among non-blacks MDRD (S/P/Bld) [Vol rate/Area] 81 mL/min/{1.73_m2} Normal >59 [facility] Comment on above: Result Comment: Reported eGFR is based on the CKD-EPI 2020 equation that does not use a race coefficient. Performed By: #### Sloane HAGAN, 72223-3, 33876-8 #### [facility] ([id number]) [address] [address] [place] [address] Glucose [Mass/Vol] 90 mg/dL Normal 65-99 [facility] Comment on above: Performed By: #### Sloane HAGAN, 81707-5, 61330-7 #### [facility] ([id number]) [address] [address] Potassium [Moles/Vol] 4.5 mmol/L Normal 3.5-5.0 [facility] Comment on above: Performed By: #### Sloane HAGAN, 84917-5, 40768-3 #### [facility] ([id number]) [address] [address] Sodium [Moles/Vol] 140 mmol/L Normal 134-146 [facility] Comment on above: Performed By: #### Sloane HAGAN, 78413-8, 32039-8 #### [facility] ([id number]) [address] [address] [place] [address] Urea nitrogen [Mass/Vol] 21 mg/dL Normal 5-27 [facility] Comment on above: Performed By: #### Sloane HAGAN, 02026-4, 44303-2 #### [facility] ([id number]) [address] [address] [place] [address] CBC AND AUTO DIFFon 06-12-19 24 ABSOLUTE BASOPHIL 0.0 X10E9/L Normal 0.0-0.2 [facility] [facility] Comment on above: Performed By: #### Sloane HAGAN, 53019-4, 46562-9 #### [facility] ([id number]) [address], [address] [place] [address] ABSOLUTE NEUTROPHIL 3.7 X10E9/L Normal 1.5-6.6 [facility] Comment on above: Performed By: #### Sloane HAGAN, 61483-4, 63436-3 #### [facility] ([id number]) [address], [address] [place] [address] Basophils/100 WBC (Bld) 0.7 % Normal [facility] Comment on above: Performed By: #### Sloane HAGAN, 51323-9, 46947-7 #### [facility] ([id number]) [address], [address] [place] [address] Eosinophils (Bld) [#/Vol] 0.0 10*3/uL Normal 0.0-0.4 [facility] Comment on above: Performed By: #### Sloane HAGAN, 65783-5, 95319-7 #### [facility] ([id number]) [address], [address] [place] [address] Eosinophils/100 WBC (Bld) 0.7 % Normal [facility] Comment on above: Performed By: #### Sloane HAGAN, 89141-2, 65330-1 #### [facility] ([id number]) [address], [address] [place] [address] Erythrocyte distribution width (RBC) [Ratio] 13.6 % Normal 11.5-15.0 [facility] Comment on above: Performed By: #### Sloane HAGAN, 44600-6, 88271-5 #### [facility] ([id number]) [address], [address] [place] [address] Hematocrit (Bld) [Volume fraction] 36.5 % Normal 35-47 [facility] Comment on above: Performed By: #### Sloane HAGAN, 87920-3, 25465-9 #### [facility] ([id number]) [address], [address] [place] [address] Hemoglobin (Bld) [Mass/Vol] 12.3 g/dL Normal 11.7-15.5 [facility] Comment on above: Performed By: #### Sloane HAGAN, 94081-9, 12088-6 #### [facility] ([id number]) [address], [address] [place] [address] Lymphocytes (Bld) [#/Vol] 1.9 10*3/uL Normal 1.0-3.5 [facility] Comment on above: Performed By: #### Sloaen HAGAN, 91907-1, 72264-1 #### [facility] ([id number]) [address], [address] [place] [address] Lymphocytes/100 WBC (Bld) 28.6 % Normal [facility] Comment on above: Performed By: #### Sloane HAGAN, 16826-3, 73808-0 #### [facility] ([id number]) [address], [address] [place] [address] MCH (RBC) [Entitic mass] 32.3 pg Normal 27-34 [facility] Comment on above: Performed By: #### Sloane HAGAN, 01515-2, 65373-4 #### [facility] ([id number]) [address], [address] [place] [address] MCHC (RBC) [Mass/Vol] 33.6 g/dL Normal 32-36 [facility] Comment on above: Performed By: #### Sloane HAGAN, 20557-9, 84972-8 #### [facility] ([id number]) [address], [address] [place] [address] MCV (RBC) [Entitic vol] 96 fL Normal 80-100 [facility] Comment on above: Performed By: #### C DANYA, 25020-7, 60017-7 #### [facility] ([id number]) [address], [address] [place] [address] Monocytes (Bld) [#/Vol] 0.8 10*3/uL Normal 0-0.9 [facility] Comment on above: Performed By: #### C DANYA, 84353-7, 61709-7 #### [facility] ([id number]) [address], [address] [place] [address] Monocytes/100 WBC (Bld) 12.6 % Normal [facility] Comment on above: Performed By: #### Sloane HAGAN, 90056-9, 56298-6 #### [facility] ([id number]) [address], [address] [place] [address] Neutrophils/100 WBC (Bld) 57.4 % Normal [facility] Comment on above: Performed By: #### Sloane HAGAN, 24929-1, 21673-3 #### [facility] ([id number]) [address], [address] [place] [address] Platelet mean volume (Bld) [Entitic vol] 8.0 fL Normal 7-12 [facility] Comment on above: Performed By: #### Sloane HAGAN, 53009-3, 58375-4 #### [facility] ([id number]) [address], [address] [place] [address] Platelets (Bld) [#/Vol] 152 10*3/uL Normal 150-450 [facility] Comment on above: Performed By: #### Sloane HAGAN, 23524-3, 35892-6 #### [facility] ([id number]) [address], [address] [place] [address] RBC COUNT 3.80 X10E12/L Normal 3.80-5.20 [facility] Comment on above: Performed By: #### Sloane HAGAN, 59414-4, 52505-7 #### [facility] ([id number]) [address], [address] [place] [address] WBC (Bld) [#/Vol] 6.5 10*3/uL Normal 4.0-11.0 [facility] Comment on above: Performed By: #### Sloane HAGAN, 77929-8, 07626-0 #### [facility] ([id number]) [address], [address] [place] [address] BASIC METABOLIC PANLon 06-10 Anion gap [Moles/Vol] 9 mmol/L Normal 5-15 [facility] Comment on above: Performed By: #### Sloane HAGAN, 90037-1, 24240-8 #### [facility] ([id number]) [address], [address] [place] [address] Calcium [Mass/Vol] 9.4 mg/dL Normal 8.5-10.5 [facility] Comment on above: Performed By: #### Sloane HAGAN, 39432-2, 32519-7 #### [facility] ([id number]) [address], [address] [place] [address] Chloride [Moles/Vol] 108 mmol/L Normal 98-109 [facility] Comment on above: Performed By: #### Sloane HAGAN, 12506-9, 09102-6 #### [facility] ([id number]) [address], [address] [place] [address] CO2 [Moles/Vol] 23 mmol/L Normal 22-32 [facility] Comment on above: Performed By: #### Sloane HAGAN, 02720-2, 15727-3 #### [facility] ([id number]) [address], [address] [place] [address] Creatinine [Mass/Vol] 0.80 mg/dL Normal 0.40-1.00 [facility] Comment on above: Result Comment: METH OD TRACEABLE TO IDMS STANDARD Performed By: #### Sloane HAGAN, 29347-4, 96462-0 #### [facility] ([id number]) [address], [address] [place] [address] GFR/1.73 sq M.predicted among non-blacks MDRD (S/P/Bld) [Vol rate/Area] 78 mL/min/{1.73_m2} Normal >59 [facility] Comment on above: Result Comment: Reported eGFR is based on the CKD-EPI 2020 equation that does not use a race coefficient. Performed By: #### Sloane HAGAN, 99410-0, 50951-5 #### [facility] ([id number]) [address], [address] [place] [address] Glucose [Mass/Vol] 89 mg/dL Normal 65-99 [facility] Comment on above: Performed By: #### Sloane HAGAN, 13889-1, 05058-4 #### [facility] ([id number]) [address], [address] [place] [address] Potassium [Moles/Vol] 4.2 mmol/L Normal 3.5-5.0 [facility] Comment on above: Performed By: #### Sloane HAGAN, 86683-5, 28335-4 #### [facility] ([id number]) [address], [address] [place] [address] Sodium [Moles/Vol] 140 mmol/L Normal 134-146 [facility] Comment on above: Performed By: #### Sloane HAGAN, 16467-9, 58973-6 #### [facility] ([id number]) [address], [address] [place] [address] Urea nitrogen [Mass/Vol] 18 mg/dL Normal 5-27 [facility] Comment on above: Performed By: #### Sloane HAGAN, 64044-7, 13376-5 #### [facility] ([id number]) [address], [address] [place] [address] CBC AND AUTO DIFFon 06-11-19 ABSOLUTE BASOPHIL 0.0 X10E9/L Normal 0.0-0.2 [facility] Comment on above: Performed By: #### Sloane HAGAN, 03984-9, 88274-4 #### [facility] ([id number]) [address], [address] [place] [address] ABSOLUTE NEUTROPHIL 3.1 X10E9/L Normal 1.5-6.6 [facility] Comment on above: Performed By: #### Sloane HAGAN, 17012-4, 10831-8 #### [facility] ([id number]) [address], [address] [place] [address] Basophils/100 WBC (Bld) 0.6 % Normal [facility] Comment on above: Performed By: #### Sloane HAGAN, 71226-2, 13927-5 #### [facility] ([id number]) [address], [address] [place] [address] Eosinophils (Bld) [#/Vol] 0.1 10*3/uL Normal 0.0-0.4 [facility] Comment on above: Performed By: #### Sloane HAGAN, 93163-9, 50740-4 #### [facility] ([id number]) [address], [address] [place] [address] Eosinophils/100 WBC (Bld) 0.9 % Normal [facility] Comment on above: Performed By: #### Sloane HAGAN, 51595-5, 38324-9 #### [facility] ([id number]) [address], [address] [place] [address] Erythrocyte distribution width (RBC) [Ratio] 13.6 % Normal 11.5-15.0 [facility] Comment on above: Performed By: #### Sloane HAGAN, 36113-5, 41848-6 #### [facility] ([id number]) [address] [address] [place] [address] Hematocrit (Bld) [Volume fraction] 34.6 % Low 35-47 [facility] Comment on above: Performed By: #### Sloane HAGAN, 64180-7, 81600-2 #### [facility] ([id number]) [address], [facility] [address] [place] [address] Hemoglobin (Bld) [Mass/Vol] 11.9 g/dL Normal 11.7-15.5 [facility] Comment on above: Performed By: #### Sloane HAGAN, 18504-3, 18085-2 #### [facility] ([id number]) [address], [facility] [address] [place] [address] Lymphocytes (Bld) [#/Vol] 2.2 10*3/uL Normal 1.0-3.5 [facility] Comment on above: Performed By: #### Sloane HAGAN, 62482-7, 03397-1 #### [facility] ([id number]) [address], [facility] [address] [place] [address] Lymphocytes/100 WBC (Bld) 35.5 % Normal [facility] Comment on above: Performed By: #### Sloane HAGAN, 62877-0, 25420-7 #### [facility] ([id number]) [address], [facility] [address] [place] [address] MCH (RBC) [Entitic mass] 32.5 pg Normal 27-34 [facility] Comment on above: Performed By: #### Sloane HAGAN, 79375-4, 67348-4 #### [facility] ([id number]) [address], [facility] [address] [place] [address] MCHC (RBC) [Mass/Vol] 34.3 g/dL Normal 32-36 [facility] Comment on above: Performed By: #### Sloane HAGAN, 29828-4, 89211-9 #### [facility] ([id number]) [address], [address] [place] [address] MCV (RBC) [Entitic vol] 95 fL Normal 80-100 [facility] Comment on above: Performed By: #### Sloane HAGAN, 09949-7, 10469-8 #### [facility] ([id number]) [address], [address] [place] [address] Monocytes (Bld) [#/Vol] 0.8 10*3/uL Normal 0-0.9 [facility] Comment on above: Performed By: #### Sloane HAGAN, 14499-6, 72423-9 #### [facility] ([id number]) [address], [address] [place] [address] Monocytes/100 WBC (Bld) 12.7 % Normal [facility] Comment on above: Performed By: #### Sloane HAGAN, 92022-6, 27131-6 #### [facility] ([id number]) [address], [address] [place] [address] Neutrophils/100 WBC (Bld) 50.3 % Normal [facility] Comment on above: Performed By: #### Sloane HAGAN, 73409-5, 86621-1 #### [facility] ([id number]) [address], [address] [place] [address] Platelet mean volume (Bld) [Entitic vol] 8.0 fL Normal 7-12 [facility] Comment on above: Performed By: #### Sloane HAGAN, 85432-0, 45714-3 #### [facility] ([id number]) [address], [address] [place] [address] Platelets (Bld) [#/Vol] 158 10*3/uL Normal 150-450 [facility] Comment on above: Performed By: #### Sloane HAGAN, 36115-6, 79076-9 #### [facility] ([id number]) [address], [address] [place] [address] RBC COUNT 3.65 X10E12/L Low 3.80-5.20 [facility] Comment on above: Performed By: #### C DANYA, 26639-2, 43016-6 #### [facility] ([id number]) [address] [address] [place] [address] WBC (Bld) [#/Vol] 6.1 10*3/uL Normal 4.0-11.0 [facility] Comment on above: Performed By: #### Sloane HAGAN, 08883-6, 05378-3 #### [facility] ([id number]) [address] [address] PROTIME AND INRon 06-11-2023 INR Coag (PPP) [Relative time] 1.5 {INR} High 0.8-1.1 [facility] Comment on above: Performed By: #### Sloane HAGAN, 68230-5, 70740-8 #### [facility] ([id number]) [address] [address] PT Coag (PPP) [Time] 17.6 s High 9.8-13.2 [facility] Comment on above: Performed By: #### Sloane HAGAN, 18148-8, 20424-3 #### [facility] ([id number]) [address], [address] [place] [address] TSH WITH REFLEXon 06-11-2023 TSH 1.87 uIU/mL Normal 0.49-4.67 [facility] Comment on above: Performed By: #### Sloane HAGAN, 72913-9, 34551-4 #### [facility] ([id number]) [address], [address] [place] [address] XR CHEST 1 VWon 06-11-2023 XR CHEST 1 VW XR CHEST 1 VW XR CHEST 1 VW: 06/11/2023 5:14 PM CLINICAL INDICATION: Pain TECHNIQUE: AP view of the chest COMPARISON: 11/13/2007. FINDINGS: The cardiomediastinal silhouette and pulmonary vessels are within normal limits. Linear right basilar atelectasis. Hazy left mid and lower lung airspace opacity. There is no pneumothorax. IMPRESSION: Bibasilar atelectasis, no acute process. Finalized by Aleyda Bear MD on 06/11/2023 7:08 PM Normal [facility] BASIC METABOLIC PANLon 06-09 Anion gap [Moles/Vol] 7 mmol/L Normal 5-15 [facility] Comment on above: Performed By: #### Sloane MARTINEZ, 2324-2, 2777-1, 2731-8 #### [facility] ([id number]) [address], [address] [place] [address] Calcium [Mass/Vol] 9.0 mg/dL Normal 8.5-10.5 [facility] Comment on above: Performed By: #### Sloane MARTINEZ, 2324-2, 2777-1, 2731-8 #### [facility] ([id number]) [address], [address] [place] [address] Chloride [Moles/Vol] 105 mmol/L Normal 98-109 [facility] Comment on above: Performed By: #### Sloane MARTINEZ, 2324-2, 2777-1, 2731-8 #### [facility] ([id number]) [address] [place] [address] CO2 [Moles/Vol] 24 mmol/L Normal 22-32 [facility] Comment on above: Performed By: #### Sloane MARTINEZ, 2324-2, 2777-1, 2731-8 #### [facility] ([id number]) [address], [address] [place] [address] Creatinine [Mass/Vol] 0.80 mg/dL Normal 0.40-1.00 [facility] Comment on above: Result Comment: METH OD TRACEABLE TO IDMS STANDARD Performed By: #### Sloane MARTINEZ, 4-2, 2776-, 8 #### [facility] ([id number]) [address], [address] [place] [address] GFR/1.73 sq M.predicted among non-blacks MDRD (S/P/Bld) [Vol rate/Area] 78 mL/min/{1.73_m2} Normal >59 [facility] Comment on above: Result Comment: Reported eGFR is based on the CKD-EPI 2020 equation that does not use a race coefficient. Performed By: #### Sloane MARTINEZ, 4-2, 2776-, 8 #### [facility] ([id number]) [address], [address] [place] [address] Glucose [Mass/Vol] 101 mg/dL High 65-99 [facility] Comment on above: Performed By: #### Sloane MARTINEZ, 4-2, 2776-, 2730-8 #### [facility] ([id number]) [address], [facility] [address] [place] [address] Potassium [Moles/Vol] 4.6 mmol/L Normal 3.5-5.0 [facility] Comment on above: Performed By: #### Sloane MARTINEZ, 4-2, 2776-, 8 #### [facility] ([id number]) [address], [address] [place] [address] Sodium [Moles/Vol] 136 mmol/L Normal 134-146 [facility] Comment on above: Performed By: #### Sloane MARTINEZ, 2324-2, 2776-, 2730-8 #### [facility] ([id number]) [address], [address] [place] [address] Urea nitrogen [Mass/Vol] 25 mg/dL Normal 5-27 [facility] Comment on above: Performed By: #### Sloane MARTINEZ, 2324-2, 2777-1, 2731-8 #### [facility] ([id number]) [address], [address] [place] [address] CBC AND AUTO DIFFon 06-10-19 24 ABSOLUTE BASOPHIL 0.0 X10E9/L Normal 0.0-0.2 [facility] Comment on above: Performed By: #### Sloane HENLEY, 16111-1, PINSadi, HAFeli #### [facility] ([id number]) [address], [address] [place] [address] ABSOLUTE NEUTROPHIL 4.8 X10E9/L Normal 1.5-6.6 [facility] Comment on above: Performed By: #### Sloane HENLEY, 81766-0, HAI GLOVER #### [facility] ([id number]) [address], [address] [place] [address] Basophils/100 WBC (Bld) 0.6 % Normal [facility] Comment on above: Performed By: #### Sloane HENLEY, 54836-9, ADALBERTO, HAFeli #### [facility] ([id number]) [address], [address] [place] [address] Eosinophils (Bld) [#/Vol] 0.1 10*3/uL Normal 0.0-0.4 [facility] Comment on above: Performed By: #### Sloane HENLEY, 59827-7, PINSadi, HAFeli #### [facility] ([id number]) [address], [address] [place] [address] Eosinophils/100 WBC (Bld) 0.7 % Normal [facility] Comment on above: Performed By: #### Sloane HENLEY, 27191-7, PINSadi, HAI #### [facility] ([id number]) [address], [address] [place] [address] Erythrocyte distribution width (RBC) [Ratio] 13.4 % Normal 11.5-15.0 [facility] Comment on above: Performed By: #### C KALE, 78760-6, ADALBERTO, HAFeli #### [facility] ([id number]) [address], [address] [place] [address] Hematocrit (Bld) [Volume fraction] 35.9 % Normal 35-47 [facility] Comment on above: Performed By: #### Sloane HENLEY 25195-8, ADALBERTO HAFeli #### [facility] ([id number]) [address], [address] [place] [address] Hemoglobin (Bld) [Mass/Vol] 12.5 g/dL Normal 11.7-15.5 [facility] Comment on above: Performed By: #### Sloane HENLEY, 32351-3, ADALBERTO HAFeli #### [facility] ([id number]) [address] [place] [address] Lymphocytes (Bld) [#/Vol] 2.2 10*3/uL Normal 1.0-3.5 [facility] Comment on above: Performed By: #### Sloane HENLEY 14711-9, ADALBERTO HAFeli #### [facility] ([id number]) [address], [address] [place] [address] Lymphocytes/100 WBC (Bld) 28.2 % Normal [facility] Comment on above: Performed By: #### Sloane HENLEY 82148-8, ADALBERTO HAFeli #### [facility] ([id number]) [address], [address] [place] [address] MCH (RBC) [Entitic mass] 33.0 pg Normal 27-34 [facility] Comment on above: Performed By: #### Sloane HENLEY, 91349-5, PINSadi, HA1C #### [facility] ([id number]) [address], [address] [place] [address] MCHC (RBC) [Mass/Vol] 34.9 g/dL Normal 32-36 [facility] Comment on above: Performed By: #### Sloane HENLEY, 31839-2, PINSadi, HA1C #### [facility] ([id number]) [address], [address] [place] [address] MCV (RBC) [Entitic vol] 95 fL Normal 80-100 [facility] Comment on above: Performed By: #### Sloane HENLEY, 09069-9, PINR, HA1C #### [facility] ([id number]) [address] [place] [address] Monocytes (Bld) [#/Vol] 0.7 10*3/uL Normal 0-0.9 [facility] Comment on above: Performed By: #### Sloane HENLEY, 86420-5, PINR, HAFeli #### [facility] ([id number]) [address] [place] [address] Monocytes/100 WBC (Bld) 9.4 % Normal [facility] Comment on above: Performed By: #### Sloane HENLEY, 96236-5, PINR, HA1C #### [facility] ([id number]) [address] [place] [address] Neutrophils/100 WBC (Bld) 61.1 % Normal [facility] Comment on above: Performed By: #### Sloane HENLEY, 41715-7, PINSadi, HA1C #### [facility] ([id number]) [address] [place] [address] Platelet mean volume (Bld) [Entitic vol] 7.6 fL Normal 7-12 [facility] Comment on above: Performed By: #### Sloane HENLEY, 87167-7, PINR, HA1C #### [facility] ([id number]) [address], [address] [place] [address] Platelets (Bld) [#/Vol] 177 10*3/uL Normal 150-450 [facility] Comment on above: Performed By: #### Sloane HENLEY, 40792-8, PINSadi, HA1C #### [facility] ([id number]) [address], [address] [place] [address] RBC COUNT 3.79 X10E12/L Low 3.80-5.20 [facility] Comment on above: Performed By: #### Sloane HENLEY, 23664-6, PINSadi, HA1C #### [facility] ([id number]) [address] [place] [address] WBC (Bld) [#/Vol] 7.9 10*3/uL Normal 4.0-11.0 [facility] Comment on above: Performed By: #### Sloane HENLEY, 75535-1, ADALBERTO, HA1C #### [facility] ([id number]) [address], [address] [place] [address] ABSOLUTE BASOPHIL 0.0 X10E9/L Normal 0.0-0.2 [facility] Comment on above: Performed By: #### ADALBERTO Anton BCA, 16258-1 #### [facility] ([id number]) [address] [place] [address] ABSOLUTE NEUTROPHIL 2.9 X10E9/L Normal 1.5-6.6 [facility] Comment on above: Performed By: #### DAILY Anton BCAR, 20716-2 #### [facility] ([id number]) [address] [place] [address] Basophils/100 WBC (Bld) 0.7 % Normal [facility] Comment on above: Performed By: #### DAILY Anton BCAR, 18353-8 #### [facility] ([id number]) [address] [place] [address] Eosinophils (Bld) [#/Vol] 0.1 10*3/uL Normal 0.0-0.4 [facility] Comment on above: Performed By: #### C KALE, PINR, 56410-9 #### [facility] ([id number]) [address] [place] [address] Eosinophils/100 WBC (Bld) 1.3 % Normal [facility] Comment on above: Performed By: #### Sloane HENLEY, PINR, 96925-7 #### [facility] ([id number]) [address] [place] [address] Erythrocyte distribution width (RBC) [Ratio] 13.3 % Normal 11.5-15.0 [facility] Comment on above: Performed By: #### Sloane HENLEY, PINR, 09068-0 #### [facility] ([id number]) [address] [place] [address] Hematocrit (Bld) [Volume fraction] 35.3 % Normal 35-47 [facility] Comment on above: Performed By: #### Sloane HENLEY, PINR, 10778-7 #### [facility] ([id number]) [address] [place] [address] Hemoglobin (Bld) [Mass/Vol] 12.4 g/dL Normal 11.7-15.5 [facility] Comment on above: Performed By: #### Sloane HENLEY, PINR, 34374-4 #### [facility] ([id number]) [address] [place] [address] Lymphocytes (Bld) [#/Vol] 2.8 10*3/uL Normal 1.0-3.5 [facility] Comment on above: Performed By: #### Sloane HENLEY, PINR, 64260-1 #### [facility] ([id number]) [address] [place] [address] Lymphocytes/100 WBC (Bld) 41.4 % Normal [facility] Comment on above: Performed By: #### Sloane HENLEY, PINR, 06009-0 #### [facility] ([id number]) [address] [place] [address] 57288 MCH (RBC) [Entitic mass] 32.8 pg Normal 27-34 [facility] Comment on above: Performed By: #### Sloane HENLEY, PINR, 54945-2 #### [facility] ([id number]) [address] [place] [address] 05163 MCHC (RBC) [Mass/Vol] 35.3 g/dL Normal 32-36 [facility] Comment on above: Performed By: #### Sloane HENLEY, PINR, 63812-3 #### [facility] ([id number]) [address] [place] [address] 57692 MCV (RBC) [Entitic vol] 93 fL Normal 80-100 [facility] Comment on above: Performed By: #### Sloane HENLEY, PINR, 21521-1 #### [facility] ([id number]) [address] [place] [address] 57933 Monocytes (Bld) [#/Vol] 1.0 10*3/uL High 0-0.9 [facility] Comment on above: Performed By: #### Sloane HENLEY, PINR, 67209-8 #### [facility] ([id number]) [address] [place] [address] 67657 Monocytes/100 WBC (Bld) 14.3 % Normal [facility] Comment on above: Performed By: #### Sloane HENLEY, PINR, 80924-3 #### [facility] ([id number]) [address] [place] [address] 09523 Neutrophils/100 WBC (Bld) 42.3 % Normal [facility] Comment on above: Performed By: #### Sloane HENLEY, PINR, 86922-7 #### [facility] ([id number]) [address] [place] [address] 43055 Platelet mean volume (Bld) [Entitic vol] 7.2 fL Normal 7-12 [facility] Comment on above: Performed By: #### DAILY Anton BCAR, 13152-8 #### [facility] ([id number]) [address] [place] [address] 15737 Platelets (Bld) [#/Vol] 191 10*3/uL Normal 150-450 [facility] Comment on above: Performed By: #### Sloane HENLEY PINR, 83724-6 #### [facility] ([id number]) [address] [place] [address] 73063 RBC COUNT 3.79 X10E12/L Low 3.80-5.20 [facility] Comment on above: Performed By: #### DAILY Anton BCAR, 51138-3 #### [facility] ([id number]) [address] [place] [address] 96731 WBC (Bld) [#/Vol] 6.8 10*3/uL Normal 4.0-11.0 [facility] Comment on above: Performed By: #### DAILY Anton BCAR, 98259-0 #### [facility] ([id number]) [address] [place] [address] BRAIN WO CONT STROKE ALER Ton 06-10-2023 CT BRAIN WO CONT STROKE ALERT CT BRAIN WO CONT STROKE ALERT CT BRAIN WO CONT STROKE ALERT 06/10/2023 12:15 AM INDICATION: Stroke, follow up; assessment of stroke/hemorrhage:, Slurred speech COMPARISON: None. TECHNIQUE: Serial axial images were obtained on a multidetector CT through the head without the use of intravenous contrast, as per the standard departmental protocol. Multiplanar 2D MPR reformatted images were then generated. FINDINGS: Extra-axial spaces: The ventricles, sulci and cisterns are age-appropriate. Brain: No midline shift. Hyperattenuating slightly heterogeneous round area in left temporal lobe measuring 1.7 x 1.5 cm and 72 Hounsfield units and mild surrounding hypoattenuation suggesting edema with mild effacement of adjacent sulci. No acute territorial infarct. Confluent hypodense areas in white matter, although nonspecific, are likely sequela of chronic microangiopathy. Mild intracranial atherosclerosis with vascular calcification. Pneumatized spaces: Visualized paranasal sinuses and mastoid air cells are well aerated. Calvarium: No displaced calvarial fracture. Orbits: Bilateral pseudophakia. Globes intact. Soft tissues: No hematomas or masses. IMPRESSION: * Acute intracerebral hemorrhage in the left temporal lobe measuring 1.7 x 1.5 cm. Mild surrounding edema. This report contains a significant result and/or recommendation, which requires the attention of the licensed caregiver responsible for this patient. This report was called to NOAM RODRIGUEZ M.D. by Dr. Stevie Jarquin on 06/10/2023 12:49 AM. Approved by Resident: Stevie Jarquin MD on 06/10/2023 12:40 AM I, Ritu Gee MD have personally reviewed the image(s) and agree with and/or edited the report Finalized by Ritu Gee MD on 06/10/2023 1:08 AM Normal [facility] CT CTA CAROTIDon 06-10-[address] CTA CAROTID CLINICAL INFORMATION: Neuro deficit, acute, stroke suspected TECHNIQUE: CT angiogram performed following intravenous administration of nonionic intravenous contrast. Coronal and sagittal and 3-D volume rendered maximum intensity projection images generated and reviewed under concurrent physician supervision. Automated exposure control utilized. The [place] Symptomatic Carotid Endarterectomy Trial (NASCET) method for calculating the degree of stenosis was utilized for stenosis measurements. All CT scans at this facility use dose modulation, iterative reconstruction, and/or weight based dosing when appropriate to reduce radiation dose to as low as reasonably achievable. COMPARISON: No relevant prior studies available. FINDINGS: The aortic arch and origins of great vessels were not visualized. The common, internal, and external carotid arteries are patent bilaterally. There are described calcifications seen in the carotid artery bifurcation extending into the origins of the internal carotid arteries bilaterally however no hemodynamically significant stenoses are identified. The vertebral arteries are patent bilaterally. IMPRESSION: * Atherosclerotic changes in the carotid artery bifurcations bilaterally. No hemodynamically significant stenoses are identified. Finalized by Finn Linn MD on 06/10/2023 1:27 AM Normal [facility] CT CTA HEADon 06-10-[address] CTA HEAD CLINICAL INFORMATION: Stroke, follow up; Stroke, follow up screening for LVO (large vessel occlusion) TECHNIQUE: CT angiogram of the head was performed following intravenous administration of nonionic intravenous contrast. 3-D maximum intensity projection images generated and reviewed under concurrent physician supervision. Automated exposure control was utilized. Arterial blood flow was measured to assist the stroke clinical team in the diagnosis of large vessel occlusion in patients undergoing screening for acute ischemic stroke using Rapid AI software when clinically indicated. All CT scans at this facility use dose modulation, iterative reconstruction, and/or weight based dosing when appropriate to reduce radiation dose to as low as reasonably achievable. COMPARISON: No relevant prior studies available. FINDINGS: Intracranial portions of the internal carotid arteries widely patent bilaterally. The anterior middle terminate are also widely patent and unremarkable. No stenoses, occlusions, or aneurysms are identified. The vertebrobasilar system is normal in appearance. No basilar tip aneurysms are seen. IMPRESSION: * Normal CT angiogram of the intracranial vessels. Finalized by Finn Linn MD on 06/10/2023 1:30 AM Normal [facility] DRUG SCREEN, URINEon 024 AMPHETAMINE/METHAMP Negative Normal NEG [facility] Comment on above: Result Comment: AMPH /METH screening cut off = 1000 ng/mL Performed By: #### D BRIZUELA #### [facility] ([id number]) [address], [address] [place] [address] BARBITURATES Negative Normal NEG [facility] Comment on above: Result Comment: Maren iturates screening cut off value = 200 ng/mL Performed By: #### D BRIZUELA #### [facility] ([id number]) [address] [address] BENZODIAZEPINES Negative Normal [facility] Comment on above: Result Comment: Pietro odiazepines screening cut off value = 200 ng/mL Performed By: #### D BRIZUELA #### [facility] ([id number]) [address], [address] [place] [address] CANNABINOIDS Negative Normal NEG [facility] Comment on above: Result Comment: Octavia abinoids/THC screening cut off value = 50 ng/mL Performed By: #### D BRIZUELA #### [facility] ([id number]) [address], [address] [place] [address] COCAINE METABOLITE Negative Normal NEG [facility] Comment on above: Result Comment: Coca ine screening cut off value = 300 ng/mL Performed By: #### D BRIZUELA #### [facility] ([id number]) [address], [address] [place] [address] ECSTASY Negative Normal NEG [facility] Comment on above: Result Comment: Ecst asy screening cut off value = 500 ng/mL This report is intended for use in clinical monitoring or management of patients. Performed By: #### D BRIZUELA #### [facility] ([id number]) [address], [address] [place] [address] METHADONE Negative Normal [facility] Comment on above: Result Comment: Meth adone screening cut off value = 300 ng/mL. Performed By: #### D BRIZUELA #### [facility] ([id number]) [address], [address] [place] [address] OPIATES Negative Normal NEG [facility] Comment on above: Result Comment: Opia luz maria screening cut off value = 300 ng/mL NOTE: This test is used for the detection of codeine, hydrocodone (>1000 ng/mL), morphine and hydromorphone (>900 ng/mL) in urine. Performed By: #### D BRIZUELA #### [facility] ([id number]) [address], [address] [place] [address] OXYCODONE Negative Normal NEG [facility] Comment on above: Result Comment: Oxyc odone screening cut off value = 300 ng/mL NOTE: This test is used for the detection of oxycodone and oxymorphone in urine. Performed By: #### D BRIZUELA #### [facility] ([id number]) [address], [address] [place] [address] PHENCYCLIDINE Negative Normal NEG [facility] Comment on above: Result Comment: Phen cyclidine screening cut off value = 25 ng/mL Performed By: #### D BRIZUELA #### [facility] ([id number]) [address], [address] [place] [address] Glucose Glucometer (BldC) [M ass/Vol]on 06-10-2023 Glucose [Mass/Vol] 88 mg/dL Normal 65-99 [facility] Glucose [Mass/Vol] 125 mg/dL High 65-99 [facility] Glucose [Mass/Vol] 101 mg/dL High 65-99 [facility] Glucose [Mass/Vol] 94 mg/dL Normal 65-99 [facility] HGB A1C (GLYCO-HGB)on 2023 Glucose [Mass/Vol] 108 mg/dL Normal [facility] Comment on above: Performed By: #### C KALE, 85966-6, HAI GLOVER #### [facility] ([id number]) [address] [place] [address] HbA1c (Bld) [Mass fraction] 5.4 % Normal 4.4-5.6 [facility] Comment on above: Result Comment: NOTE ADA Guidelines Result HgbA1c Normal : less than 5.7 % Prediabetes : 5.7 % to 6.4 % Diabetes : > 6.4 % Use with caution in patients with abnormal hemoglobin variants as the half-life of red blood cells and in vivo glycation rates are affected. Performed By: #### C BCA, 20135-4, PINSadi HA1C #### [facility] ([id number]) [address] [place] [address] Lipid 1996 panelon 04-27-202 4 Cholesterol [Mass/Vol] 102 mg/dL Low 150-200 [facility] Comment on above: Performed By: ###Allison Anton BCA, 87003-8, HAI GLOVER #### [facility] ([id number]) [address], [address] [place] [address] Cholesterol in HDL [Mass/Vol] 39 mg/dL Low >39 [facility] Comment on above: Result Comment: HDL <40 mg/dL - High Risk HDL > or = 40mg/dL- Desirable HDL >60 mg/dL - Negative Risk Performed By: ###Allison Anton BCA, 67020-4, HAI GLOVER #### [facility] ([id number]) [address], [address] [place] [address] Cholesterol in LDL [Mass/Vol] 44 mg/dL Normal <130 [facility] Comment on above: Result Comment: LDL <100 mg/dL - Desirable LDL >160 mg/dL - High Risk Performed By: #### Sloane HENLEY, 04119-3, HAI GLOVER #### [facility] ([id number]) [address], [address] [place] [address] Cholesterol in VLDL [Mass/Vol] 19 mg/dL Normal 0-30 [facility] Comment on above: Performed By: ###Allison Anton BCA 69105-3, HAI GLOVER #### [facility] ([id number]) [address], [address] [place] [address] CHOLESTEROL:HDL 2.6 Normal 1.0-5.0 [facility] Comment on above: Performed By: ###Yaya Link BCA31-1, HAI GLOVER #### [facility] ([id number]) [address], [address] [place] [address] Triglyceride [Mass/Vol] 94 mg/dL Normal 27-150 [facility] Comment on above: Performed By: #### C KALE, 99359-6, ADALBERTO, LIGIA1C #### [facility] ([id number]) [address] [place] [address] MR BRAIN W WO CONTon 024 MR BRAIN W WO CONT MR BRAIN W WO CONT HISTORY: A 73-year-old female with the history of the intracranial hemorrhage. Stroke. Follow-up examination. TECHNIQUE: Multiplanar and multisequence MRI examination of the brain is performed without and with intravenous contrast administration. COMPARISON: Comparison is made with the CT scan of brain of 06/09/2023. FINDINGS: Ventricular system is normal in size and configuration. There are numerous foci of signal abnormality in the deep white matter supratentorially consistent with severe degree of small vessels ischemic change. There is a 1.8 cm parenchymal hemorrhage or hematoma involving the left temporal lobe. There is surrounding parenchymal edema. Hemorrhage appears to be acute in age. There is no evidence of intracranial mass. No midline shift of the structures is identified. Cerebellum and brainstem are unremarkable. Postcontrast examination reveals no evidence of abnormal enhancing pathology. Cavernous carotid and vertebrobasilar arteries are patent. Dural venous sinuses are patent without evidence of thrombosis. IMPRESSION: * There is a 1.8 cm parenchymal hematoma involving the left temporal lobe with surrounding parenchymal edema. * Severe small vessels ischemic change in the deep white matter supratentorially. * No abnormal enhancing pathology seen. Finalized by Noé Lopez MD on 06/10/2023 12:07 PM Normal [facility] PROTIME AND INRon 06-10-2023 INR Coag (PPP) [Relative time] 0.9 {INR} Normal 0.8-1.1 [facility] Comment on above: Performed By: #### C KALE, 14756-9, ADALBERTO, LIGIA1C #### [facility] ([id number]) [address] [place] [address] PT Coag (PPP) [Time] 11.0 s Normal 9.8-13.2 [facility] Comment on above: Performed By: #### Sloane HENLEY, 92647-4, ADALBERTO, HA1C #### [facility] ([id number]) [address], [address] [place] [address] INR Coag (PPP) [Relative time] 0.9 {INR} Normal 0.8-1.1 [facility] Comment on above: Performed By: #### Sloane HENLEY, PINR, 83565-8 #### [facility] ([id number]) [address] [place] [address] PT Coag (PPP) [Time] 11.0 s Normal 9.8-13.2 [facility] Comment on above: Result Comment: NEW REFERENCE RANGE Performed By: #### Sloane HENLEY, PINR, 65824-9 #### [facility] ([id number]) [address] [place] [address] Troponin I.cardiac High sens itivity method [Mass/Vol]on 06-10-2023 1 HOUR TROP I, HIGH SENSITIVITY 6 ng/L Normal <16 [facility] Comment on above: Performed By: #### Sloane MARTINEZ, 2324-2, 2777-1, 2731-8 #### [facility] ([id number]) [address], [address] [place] [address] TROPONIN I, HIGH SENSITIVITY 6 ng/L Normal <16 [facility] Comment on above: Performed By: #### Sloane MARTINEZ, 2324-2, 2777-1, 2731-8 #### [facility] ([id number]) [address] [place] [address] aPTT Coag (PPP) [Time]on aPTT Coag (Bld) [Time] 33 s Normal 26-37 [facility] Comment on above: Result Comment: NEW REFERENCE RANGE Performed By: #### C BCA, PINR, 42097-9 #### [facility] ([id number]) [address] [facility] [place] [address] US carotid doppler BIon 04-0 US carotid doppler BI [facility] [address] [place] [address] [place] [address] Ultrasound Report Signed Patient: Veronique Gaitan MR#: [id number] : 1950 Acct:[id number] Age/Sex: 73 / F ADM Date: 05/15/23 Loc: [facility] Room: Type: [facility] Attending Dr: Harry Alejandro MD Ordering Provider: Harry Alejandro MD Date of Service: 05/15/23 US/US carotid doppler BI: [id number] Copies to: Harry Alejandro MD CAROTID DUPLEX INDICATION: Follow-up known carotid occlusive disease PROCEDURE: Color-flow duplex scanning is used to interrogate the extracranial carotid arterial system, as well as both vertebral arteries. Both carotid bifurcations show mild to moderate heterogeneous plaque formation. The proximal right internal carotid artery shows a highest peak systolic velocity of 67.5 cm/s with an end-diastolic velocity of 24.1 cm/s . The mid internal carotid artery measures 81.8 cm/s peak systolic and 31.8 cm/s end diastolic. The distal segment measures 87.8 cm/s peak systolic with an end diastolic velocity of 26.3 cm/s . The velocities of the right common carotid artery are 110 cm/s peak systolic and 18 cm/s end-diastolic proximally and 91.9 cm/s peak systolic and 21.1 cm/s end diastolic distally. The peak systolic velocity ratio of the internal to the common carotid artery is 0.96. The right external carotid artery measures 109 cm/s peak systolic. The right vertebral artery is patent at 72.7 cm/s with antegrade flow. The proximal left internal carotid artery shows a highest peak systolic velocity of 159 cm/s with an end-diastolic velocity of 46.8 cm/s . The mid internal carotid artery measures 157 cm/s peak systolic and 52.3 cm/s end diastolic. The distal segment measures 96.9 cm/s peak systolic with an end diastolic velocity of 29.2 cm/s . The velocities of the left common carotid artery are 105 cm/s peak systolic and 20.3 cm/s end-diastolic proximally and 90.1 cm/s peak systolic and 25.5 cm/s end diastolic distally. The peak systolic velocity ratio of the internal to the common carotid artery is 1.76 . The left external carotid artery measures 107 cm/s peak systolic. The left vertebral artery is patent at 53.7 cm/s with antegrade flow. US/US carotid doppler BI IMPRESSION: Mild plaque formation is noted in the right internal carotid artery with less than 50% stenosis. 50-69% stenosis is seen in the left extracranial internal carotid artery. Both vertebral arteries are patent with antegrade flow. Impression dictated by: Harry Alejandro M.D.05/15/2023 10:01 AM Dictation Location: [place] [address] Tech: Tracie Horan Transcribed By: JANE 05/15/23 1001 Dictated By: Harry Alejandro MD 05/15/23 1000 Signed By: 05/15/23 1001 Normal [facility] Office Visiton 04-19-2023 Follow-up visit [id number] Veronique Gaitan 1950 F Date Provider Department Center 04/19/2023 Mark-DORIE DEWEY CARLENE Paz [facility] Family History Problem Relation Age of Onset Coronary artery disease Mother Cancer Mother Cancer Father Family Status - Relation Status Age at Mother Father Level of Service:19133 DE OFFICE/OUTPATIENT ESTABLISHED LOW MDM 20 MIN Normal [facility] ALP Isos Sudhir [Interp]on 03-17 ALK PHOS ISOENZYME See Below [facility] Comment on above: Result Comment: NOTE TEST RESULT FLAG UNIT REF.RANGE ------- Alkaline Phosphatase 162 H U/L 34-123 Alk Phos Bone % 78.6 H % 10.7-68.3 Bone Fraction 127.3 H U/L 12.9-52.6 Alk Phos Liver % 21.4 L % 26.0-86.2 Liver Fraction 34.7 U/L 16.0-69.3 Alk Phos Intestine % 0.0 % 0.0-24.2 Intestine Fraction 0.0 U/L 0.0-16.3 Test Performed By: [facility] [address] [place] [address] Tower Erector Helper: Kirill Hathaway III, M.D. CLIA #[id number] Performed By: #### 4 9243-9 #### [facility] ([id number]) [address] [place] [address] COMPLETE BLOOD COUNTon 04-07 Erythrocyte distribution width (RBC) [Ratio] 13.5 % Normal 11.5-15.0 [facility] Comment on above: Performed By: #### Sloane MARTINEZ, 2324-2, 2776-, 273-8 #### [facility] ([id number]) [address] [place] [address] Hematocrit (Bld) [Volume fraction] 37.7 % Normal 35-47 [facility] Comment on above: Performed By: #### Sloane MARTINEZ, 4-2, 2776-, 2731-8 #### [facility] ([id number]) [address] [place] [address] Hemoglobin (Bld) [Mass/Vol] 12.6 g/dL Normal 11.7-15.5 [facility] Comment on above: Performed By: #### Sloane MARTINEZ, 4-2, 2776-, 273-8 #### [facility] ([id number]) [address] [place] [address] MCH (RBC) [Entitic mass] 31.7 pg Normal 27-34 [facility] Comment on above: Performed By: #### Sloane MARTINEZ, 2324-2, 2776-02, 2730-09 #### [facility] ([id number]) [address] [place] [address] MCHC (RBC) [Mass/Vol] 33.5 g/dL Normal 32-36 [facility] Comment on above: Performed By: #### Sloane MARTINEZ, 2323-2, 2776-, 8 #### [facility] ([id number]) [address], [facility] [address] [place] [address] MCV (RBC) [Entitic vol] 95 fL Normal 80-100 [facility] Comment on above: Performed By: #### Sloane MARTINEZ, 2323-2, 2776-02, 2730-09 #### [facility] ([id number]) [address], [facility] [address] [place] [address] Platelet mean volume (Bld) [Entitic vol] 7.8 fL Normal 7-12 [facility] Comment on above: Performed By: #### Sloane MARTINEZ, 2323-2, 2776-02, 2730-09 #### [facility] ([id number]) [address] [address] [place] [address] Platelets (Bld) [#/Vol] 205 10*3/uL Normal 150-450 [facility] Comment on above: Performed By: #### Sloane MARTINEZ, 2323-2, 2776-02, 2730-09 #### [facility] ([id number]) [address], [facility] [address] [place] [address] RBC COUNT 3.98 X10E12/L Normal 3.80-5.20 [facility] Comment on above: Performed By: #### Sloane MARTINEZ, 2323-2, 2776-02, 8 #### [facility] ([id number]) [address] [address] [place] [address] WBC (Bld) [#/Vol] 6.0 10*3/uL Normal 4.0-11.0 [facility] Comment on above: Performed By: #### Sloane , 2324-2, 2777-1, 2731-8 #### [facility] ([id number]) [address] [place] [address] GGTon 04-07-2023 Gamma glutamyl transferase [Catalytic activity/Vol] 14 U/L Normal 7-33 [facility] Comment on above: Performed By: #### Sloane , 2324-2, 2777-1, 2731-8 #### [facility] ([id number]) [address] [place] [address] PHOSPHORUSon 04-07-2023 Phosphate [Mass/Vol] 4.2 mg/dL Normal 2.4-4.9 [facility] Comment on above: Performed By: #### Sloane , 2324-2, 2777-1, 1-8 #### [facility] ([id number]) [address] [place] [address] Parathyrin.intact [Mass/Vol] on 04-07-2023 PTH INTACT 76 pg/mL Normal 12-88 [facility] Comment on above: Performed By: #### Sloane , 2324-2, 2777-1, 2731-8 #### [facility] ([id number]) [address] [place] [address] URINALYSISon 04-07-2023 Bilirubin Ql (U) Negative Normal NEG [facility] BLOOD/HGB Small Abnormal NEG [facility] Color (U) YELLOW Normal YELLOW [facility] Glucose Ql (U) Negative Normal NEG [facility] Ketones Ql (U) Negative Normal NEG [facility] Leukocyte esterase Test strip Ql (U) Large Abnormal NEG [facility] MUCOUS PRESENT Abnormal NONE [facility] Nitrite Ql (U) Negative Normal NEG [facility] pH (U) 5.5 [pH] Normal 5.0-8.5 [facility] Protein Ql (U) Trace Abnormal NEG [facility] R.B.CELLS 1 /hpf Normal 0-5 [facility] Specific gravity (U) [Rel density] 1.018 Normal 1.003-1.035 [facility] SQUAMOUS EPITHELIUM 2 /hpf Normal 0-5 [facility] Normal CLEAR [facility] Urobilinogen (U) [Mass/Vol] mg/dL Normal <1.1 [facility] W.B.CELLS 7 /hpf High 0-5 [facility] US ankle/arm indiceson 03-27 US ankle/arm indices [facility] [place] [address] [place] [address] Ultrasound Report Signed Patient: Veronique Gaitan MR#: [id number] : 1950 Acct:[id number] Age/Sex: 72 / F ADM Date: 03/27/23 Loc: [facility] Room: Type: [facility] Attending Dr: Harry Alejandro MD Ordering Provider: Harry Alejandro MD Date of Service: 03/27/23 US/US ankle/arm indices: I70.213 Copies to: Harry Alejandro MD LOWER EXTREMITY SEGMENTAL ARTERIAL DOPSCAN (PVR) INDICATION: Known peripheral vascular occlusive disease status post bilateral iliac intervention PROCEDURE: Right arm blood pressure is 164 , left is 154 . Pressures at the right ankle are 154 using the posterior tibial artery, and 155 using the dorsalis pedis artery with ankle-brachial index of 0.94 0.95 . Pressures at the left ankle are 150 using the posterior tibial artery, and 152 with ankle-brachial index of 0.91 0.93 . Wave forms by plethysmography are mildly blunted US/US ankle/arm indices IMPRESSION: Mild bilateral peripheral vascular occlusive disease at rest. The ankle brachial indices are within normal limits but the plethysmographic waveforms suggest at least mild disease. Impression dictated by: Harry Alejandro M.D.03/27/2023 10:20 AM Dictation Location: [place] [address] Tech: Liya Scarlet Transcribed By: JANE 03/27/23 1020 Dictated By: Harry Alejandro MD 03/27/23 1018 Signed By: 03/27/23 1020 Normal [facility] Bacteria identified Cx Nom ( U)on 03-24-2023 Service comment (Unsp spec) [Interp] NO GROWTH AT <1000 CFU/mL [facility] COMPREHENSIVE METABOLIC PANE Prince 03-23-2023 Albumin [Mass/Vol] 4.3 g/dL Normal 3.2-5.3 [facility] Comment on above: Performed By: #### Sloane HAGAN, 02662-8, 07248-3 #### [facility] ([id number]) [address], [address] [place] [address] ALP [Catalytic activity/Vol] 173 U/L High 39-130 [facility] Comment on above: Performed By: #### Sloane HAGAN, 68623-9, 70850-4 #### [facility] ([id number]) [address], [address] [place] [address] ALT [Catalytic activity/Vol] 23 U/L Normal 0-31 [facility] Comment on above: Performed By: #### Sloane HAGAN, 89218-4, 17794-2 #### [facility] ([id number]) [address], [address] [place] [address] Anion gap [Moles/Vol] 9 mmol/L Normal 5-15 [facility] Comment on above: Performed By: #### Sloane HAGAN, 06207-9, 31716-1 #### [facility] ([id number]) [address], [address] [place] [address] AST [Catalytic activity/Vol] 27 U/L Normal 0-41 [facility] Comment on above: Performed By: #### Sloane HAGAN, 85621-0, 01781-1 #### [facility] ([id number]) [address], [address] [place] [address] Bilirubin [Mass/Vol] 0.5 mg/dL Normal 0.3-1.2 [facility] Comment on above: Performed By: #### Sloane HAGAN, 86256-8, 48070-4 #### [facility] ([id number]) [address], [address] [place] [address] Calcium [Mass/Vol] 9.7 mg/dL Normal 8.5-10.5 [facility] Comment on above: Performed By: #### Sloane HAGAN, 78135-2, 62501-9 #### [facility] ([id number]) [address], [address] [place] [address] Chloride [Moles/Vol] 104 mmol/L Normal 98-109 [facility] Comment on above: Performed By: #### Sloane HAGAN, 92891-1, 71874-6 #### [facility] ([id number]) [address], [address] [place] [address] CO2 [Moles/Vol] 25 mmol/L Normal 22-32 [facility] Comment on above: Performed By: #### Sloane HAGAN, 41237-8, 96845-5 #### [facility] ([id number]) [address], [facility] [address] [place] [address] Creatinine [Mass/Vol] 0.92 mg/dL Normal 0.40-1.00 [facility] Comment on above: Result Comment: METH OD TRACEABLE TO IDMS STANDARD Performed By: #### Sloane HAGAN, 10273-3, 91918-7 #### [facility] ([id number]) [address] [address] [place] [address] GFR/1.73 sq M.predicted among non-blacks MDRD (S/P/Bld) [Vol rate/Area] 66 mL/min/{1.73_m2} Normal >59 [facility] Comment on above: Result Comment: Reported eGFR is based on the CKD-EPI 2020 equation that does not use a race coefficient. Performed By: #### Sloane HAGAN, 01740-3, 92736-1 #### [facility] ([id number]) [address], [address] [place] [address] Glucose [Mass/Vol] 91 mg/dL Normal 65-99 [facility] Comment on above: Performed By: #### Sloane HAGAN, 03973-2, 03263-8 #### [facility] ([id number]) [address], [address] [place] [address] Potassium [Moles/Vol] 4.5 mmol/L Normal 3.5-5.0 [facility] Comment on above: Performed By: #### Sloane HAGAN, 76986-5, 60961-4 #### [facility] ([id number]) [address], [address] [place] [address] Protein [Mass/Vol] 7.4 g/dL Normal 6.0-8.0 [facility] Comment on above: Performed By: #### Sloane HAGAN, 80659-5, 04036-8 #### [facility] ([id number]) [address], [address] [place] [address] Sodium [Moles/Vol] 138 mmol/L Normal 134-146 [facility] Comment on above: Performed By: #### Sloane HAGAN, 12877-7, 00223-7 #### [facility] ([id number]) [address], [address] [place] [address] Urea nitrogen [Mass/Vol] 24 mg/dL Normal 5-27 [facility] Comment on above: Performed By: #### Sloane HAGAN, 04687-3, 35672-9 #### [facility] ([id number]) [address], [address] [place] [address] Comprehensive metabolic pane prince 03-23-2023 Albumin [Mass/Vol] 4.3 g/dL 3.2 - 5.3 g/dL [facility] ALP [Catalytic activity/Vol] 173 U/L High 39 - 130 U/L [facility] ALT No additional P-5'-P [Catalytic activity/Vol] 23 U/L 0 - 31 U/L [facility] Anion gap [Moles/Vol] 9 mmol/L 5 - 15 mmol/L [facility] AST [Catalytic activity/Vol] 27 U/L 0 - 41 U/L [facility] Bilirubin [Mass/Vol] 0.5 mg/dL 0.3 - 1 .2 mg/dL [facility] Calcium [Mass/Vol] 9.7 mg/dL 8.5 - 10. 5 mg/dL [facility] Chloride [Moles/Vol] 104 mmol/L 98 - 10 9 mmol/L [facility] CO2 [Moles/Vol] 25 mmol/L 22 - 32 mmol/L [facility] Creatinine [Mass/Vol] 0.92 mg/dL 0.40 - 1.00 mg/dL [facility] Comment on above: METHOD TRACEABLE TO [facility] STANDARD eGFR (CKD-EPI)non-race dependent 66 - PINF [facility] Comment on above: Reported eGFR is based on the CKD-EPI 2020 equation that does not use a race coefficient. Glucose [Mass/Vol] 91 mg/dL 65 - 99 mg/dL [facility] Potassium [Moles/Vol] 4.5 mmol/L 3.5 - 5.0 mmol/L [facility] Protein [Mass/Vol] 7.4 g/dL 6.0 - 8.0 g/dL [facility] Sodium [Moles/Vol] 138 mmol/L 134 - 146 mmol/L [facility] Urea nitrogen [Mass/Vol] 24 mg/dL 5 - 27 mg/dL [facility] Lipid 1996 panelon 4 Cholesterol [Mass/Vol] 147 mg/dL Low 150 - 200 mg/dL [facility] Cholesterol in HDL [Mass/Vol] 50 mg/dL 39 - PINF mg/dL [facility] Comment on above: HDL <40 mg/dL - High Risk HDL > or = 40mg/dL- Desirable HDL >60 mg/dL - Negative Risk Cholesterol in LDL [Mass/Vol] 73 mg/dL NINF - 130 mg/dL [facility] Comment on above: LDL <100 mg/dL - Desirable LDL >160 mg/dL - High Risk Cholesterol in VLDL [Mass/Vol] 24 mg/dL 0 - 30 mg/dL [facility] Cholesterol.total/Chol esterol in HDL [Mass ratio] 2.9 {ratio} 1.0 - 5.0 [facility] Triglyceride [Mass/Vol] 121 mg/dL 27 - 150 mg/dL [facility] Cholesterol [Mass/Vol] 147 mg/dL Low 150-200 [facility] Comment on above: Performed By: #### C DANYA, 69008-8, 82351-8 #### [facility] ([id number]) [address], [address] [place] [address] Cholesterol in HDL [Mass/Vol] 50 mg/dL Normal >39 [facility] Comment on above: Result Comment: HDL <40 mg/dL - High Risk HDL > or = 40mg/dL- Desirable HDL >60 mg/dL - Negative Risk Performed By: #### C DANYA, 80835-8, 82110-8 #### [facility] ([id number]) [address], [address] [place] [address] Cholesterol in LDL [Mass/Vol] 73 mg/dL Normal <130 [facility] Comment on above: Result Comment: LDL <100 mg/dL - Desirable LDL >160 mg/dL - High Risk Performed By: #### Sloane HAGAN, 54659-5, 77593-3 #### [facility] ([id number]) [address], [address] [place] [address] Cholesterol in VLDL [Mass/Vol] 24 mg/dL Normal 0-30 [facility] Comment on above: Performed By: #### Sloane HAGAN, 03440-3, 03939-9 #### [facility] ([id number]) [address], [address] [place] [address] CHOLESTEROL:HDL 2.9 Normal 1.0-5.0 [facility] Comment on above: Performed By: #### Sloane HAGAN, 34522-0, 82890-9 #### [facility] ([id number]) [address], [address] [place] [address] Triglyceride [Mass/Vol] 121 mg/dL Normal 27-150 [facility] Comment on above: Performed By: #### Sloane HAGAN, 76588-0, 65927-5 #### [facility] ([id number]) [address], [address] [place] [address] No Panel Informationon 03-23 Interpretation and review of laboratory results Abnormal [facility] POCT urinalysis dipstick onl yOrdered By: Allie Blake on 03-23-2023 Appearance (U) clear [facility] External Poct Urine Bilirubin Negative [facility] Urine Blood Moderate [facility] Urine Color yellow [facility]ct Urine Glucose Negative [facility] Urine Ketones Negative [facility] Urine Leukocyte Esterase Trace [facility] Urine Nitrite Negative [facility] Urine Ph 5.[address] [facility] External Poct Urine Protein Negative [facility] External [facility]ct Urine Specific Maple 1.030 [facility] Comment on above: >=1.030 External Poct Urine Urobilinogen 0.2 [facility] URINE CULTUREon 03-23-2023 Bacteria identified Cx Nom (U) CULTURE RESULTS NO GROWTH AT <1000 CFU/mL Normal [facility] Comment on above: Performed By: #### 6 30-4 #### [facility] ([id number]) [address] [place] [address] Vitamin D 25 hydroxyon 03-23 Vitamin D+Metabolites [Mass/Vol] 75.6 ng/mL 30 - 100 ng/mL [facility] Comment on above: Vitamin D status 25 [place] Vitamin D Deficiency <20 ng/mL Insufficiency 20-29 ng/mL Sufficiency 30-100 ng/mL Toxicity >100 ng/mL NOTE: A pediatric reference range has not been established by the academic dean of this kit. The [place] [employer] recommends a Vitamin D level of = or >20ng/mL in infants and children. Vitamin D+Metabolites [Mass/ Vol]on 03-23-2023 [facility] VITAMIN D 25 HYD TOT 75.6 ng/mL Normal 30-100 [facility] Comment on above: Result Comment: Vitamin D status 25 [place] Vitamin D Deficiency <20 ng/mL Insufficiency 20-29 ng/mL Sufficiency 30-100 ng/mL Toxicity >100 ng/mL NOTE: A pediatric reference range has not been established by the academic dean of this kit. The [place] [employer] recommends a Vitamin D level of = or >20ng/mL in infants and children. Performed By: #### C , 82280-7, 30208-8 #### [facility] ([id number]) [address] [place] [address] XR thoracic spine 3V*on 08-13 XR thoracic spine 3V* [facility] [place] [address] [place] [address] XRay Report Signed Patient: Veronique Gaitan MR#: [id number] : 1950 Acct:[id number] Age/Sex: 72 / F ADM Date: 08/22/22 Loc: XD Room: Type: [facility] Attending Dr: Uday Louis DO Copies to: Uday Louis DO Ordering Provider: Uday Louis DO Date of Service: 08/22/22 XR/XR cervical spine 2V: M54.2 ([id number]) XR/XR thoracic spine 3V*: M54.6, G89,29 ([id number]) XR/XR lumbar spine 2-3V*: M54.6, G89,29 CLINICAL DATA: Follow-up fractures. CERVICAL SPINE - 2 views COMPARISON: None AP and lateral views were obtained. There is osteopenia. C7 and T1 are not well seen on the lateral view. There are no acute compression fractures. There is slight anterolisthesis of C3 on C4 and C4 on C5. There is also minor retrolisthesis of C5 on C6. There is disc space narrowing at C5-6 and C6-7. There are small endplate spurs and mild bilateral facet disease. No prevertebral soft tissue swelling is noted. XR/XR cervical spine 2V IMPRESSION: OSTEOPENIA AND DEGENERATIVE CHANGES. THORACIC SPINE - 3 views COMPARISON: Chest x-ray 07/08/[address] abdomen 06/10/2021 AP, lateral and swimmer's views were obtained. There is osteopenia. No displacement is seen. There is redemonstration of slight wedge deformity and superior and plate concavity at T11 as well as minor superior endplate concavity at T12 there is moderate anterior wedge deformity at T6 which was not seen on the prior. The pedicles appear intact. There is minor endplate spurring. No paraspinal soft tissue masses are seen. IMPRESSION: OSTEOPENIA AND MINOR DEGENERATIVE CHANGES. 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 NEW T6 COMPRESSION DEFORMITY. LUMBAR SPINE - 2 views COMPARISON: CT 06/02/2021 AP and lateral views were obtained. The bony structures are osteopenic. There is subtle thoracolumbar dextroscoliotic curvature. No acute compression fractures or displacement are seen. There is disc space narrowing at the lumbosacral junction. There is no prominent endplate spurring though there is mild lower lumbar facet disease. The SI joints are intact. There are bilateral iliac artery stents. IMPRESSION: OSTEOPENIA, SUBTLE SCOLIOSIS AND MINOR DEGENERATIVE CHANGES. Impression dictated by: Clementina Arroyo M.D.08/22/2022 4:43 PM Dictation Location: [place] [address] Transcribed By: [facility] 08/22/22 1643 Dictated By: Clementina Arroyo MD 08/22/22 1636 Signed By: 08/22/22 1643 Normal [facility] CBC (INCLUDES DIFF/PLT)on Basophils (Bld) [#/Vol] 0.047 10*3/uL Normal 0-200 [facility] Comment on above: Performed By: #### 6 399 #### [facility] [place] [address] Lumber Checker: Vance Gandhi MD Basophils/100 WBC (Bld) 0.6 % Normal [facility] Comment on above: Performed By: #### 6 399 #### [facility] [place] [address] Lumber Checker: Vance Gandhi MD Eosinophils (Bld) [#/Vol] 0.032 10*3/uL Normal 15-500 [facility] Comment on above: Performed By: #### 6 399 #### [facility] [place] [address] Lumber Checker: Vance Gandhi MD Eosinophils/100 WBC (Bld) 0.4 % Normal [facility] Comment on above: Performed By: #### 6 399 #### [facility] [place] [address] Lumber Checker: Vance Gandhi MD Erythrocyte distribution width (RBC) [Ratio] 12.1 % Normal 11.0-15.0 [facility] Comment on above: Performed By: #### 6 399 #### [facility] of [address], [address] [place] [address] Lumber Checker: Vance Gandhi MD Hematocrit (Bld) [Volume fraction] 34.8 % Low 35.0-45.0 [facility] Comment on above: Performed By: #### 6 399 #### [facility] of [place] [address] Lumber Checker: Vance Gandhi MD Hemoglobin (Bld) [Mass/Vol] 11.9 g/dL Normal 11.7-15.5 [facility] Comment on above: Performed By: #### 6 399 #### [facility] of [place] [address] Lumber Checker: Vance Gandhi MD Lymphocytes (Bld) [#/Vol] 1.983 10*3/uL Normal 850-3900 [facility] Comment on above: Performed By: #### 6 399 #### [facility] of [place] [address] Lumber Checker: Vance Gandhi MD Lymphocytes/100 WBC (Bld) 25.1 % Normal [facility] Comment on above: Performed By: #### 6 399 #### [facility] of [place] [address] Lumber Checker: Vance Gandhi MD MCH (RBC) [Entitic mass] 34.2 pg High 27.0-33.0 [facility] Comment on above: Performed By: #### 6 399 #### [facility] of [place] [address] Lumber Checker: Vance Gandhi MD MCHC (RBC) [Mass/Vol] 34.2 g/dL Normal 32.0-36.[address] [facility] Comment on above: Performed By: #### 6 399 #### [facility] of [place] [address] Lumber Checker: Vance Gandhi MD MCV (RBC) [Entitic vol] 100.0 fL Normal 80.0-100.0 [facility] Comment on above: Performed By: #### 6 399 #### [facility] of [place] [address] Lumber Checker: Vance Gandhi MD Monocytes (Bld) [#/Vol] 0.909 10*3/uL Normal 200-950 [facility] Comment on above: Performed By: #### 6 399 #### [facility] of [place] [address] Lumber Checker: Vance Gandhi MD Monocytes/100 WBC (Bld) 11.5 % Normal [facility] Comment on above: Performed By: #### 6 399 #### [facility] of [place] [address] Lumber Checker: Vance Gandhi MD Neutrophils (Bld) [#/Vol] 4.93 10*3/uL Normal 3801-1340 [facility] Comment on above: Performed By: #### 6 399 #### [facility] of [place] [address] Lumber Checker: Vance Gandhi MD Neutrophils/100 WBC (Bld) 62.4 % Normal [facility] Comment on above: Performed By: #### 6 399 #### [facility] of [place] [address] Lumber Checker: Vance Gandhi MD Platelet mean volume (Bld) [Entitic vol] 9.0 fL Normal 7.5-12.5 [facility] Comment on above: Performed By: #### 6 399 #### [facility] of [place] [address] Lumber Checker: Vance Gandhi MD Platelets (Bld) [#/Vol] 232 10*3/uL Normal 140-400 [facility] Comment on above: Performed By: #### 6 399 #### [facility] of [place] [address] Lumber Checker: Vance Gandhi MD RBC (Bld) [#/Vol] 3.48 10*6/uL Low 3.80-5.10 [facility] Comment on above: Performed By: #### 6 399 #### [facility] [address], [address] Lumber Checker: Vance Gandhi MD WBC (Bld) [#/Vol] 7.9 10*3/uL Normal 3.8-10.8 [facility] Comment on above: Performed By: #### 6 399 #### [facility] [address], [address] [place] [address] Lumber Checker: Vance Gandhi MD CBC AUTO DIFFon 08-12-2021 BASO # 0.0 103/ul Normal 0.0-0.1 [facility] Comment on above: Performed By: #### C BC #### [facility] [address] [place] [address] Dr. Nathanael Flores Basophils/100 WBC (Bld) 0.6 % Normal 0.2-2.0 [facility] Comment on above: Performed By: #### C BC #### [facility] [address] [place] [address] [address] Nathanael Flores EO # 0.0 103/ul Normal 0.0-0.7 [facility] Comment on above: Performed By: #### C BC #### [facility] [address] [place] [address] [address] Nathanael Flores Eosinophils/100 WBC (Bld) 0.4 % Critically low 0.9-7.0 [facility] Comment on above: Performed By: #### C BC #### [facility] [address] [place] [address] Dr. Nathanael Flores Erythrocyte distribution width (RBC) [Ratio] 13.4 % Normal 11.0-15.0 [facility] Comment on above: Performed By: #### C BC #### [facility] [address] [place] [address] Dr. Nathanael Flores Hematocrit (Bld) [Volume fraction] 34.6 % Critically low 36.0-48.0 [facility] Comment on above: Performed By: #### C BC #### [facility] [address] [place] [address] [address] Nathanael Flores Hemoglobin (Bld) [Mass/Vol] 11.1 g/dL Critically low 12.0-16.0 [facility] Comment on above: Performed By: #### C BC #### [facility] [address] [place] [address] [address] Nathanael Flores IG # 0.06 10e3/ul Critically high 0.00-0.03 [facility] Comment on above: Performed By: #### C BC #### [facility] [address] [place] [address] [address] Nathanael Flores IG % 0.9 % Critically high 0.0-0.5 [facility] Comment on above: Performed By: #### C BC #### [facility] [address] [place] [address] [address] Nathanael Flores LYMPH # 1.9 103/ul Normal 1.2-3.8 [facility] Comment on above: Performed By: #### C BC #### [facility] [address] [place] [address] [address] Nathanael Flores Lymphocytes/100 WBC (Bld) 27.1 % Normal 20.5-60.0 [facility] Comment on above: Performed By: #### C BC #### [facility] [address] [place] [address] [address] Nathanael Flores MANUAL DIFF REQ NO Normal [facility] Comment on above: Performed By: #### C BC #### [facility] [address] [place] [address] [address] Nathanael Flores MCH (RBC) [Entitic mass] 33.6 pg Normal 26.7-34.0 [facility] Comment on above: Performed By: #### C BC #### [facility] [address] [place] [address] [address] Nathanael Flores MCHC (RBC) [Mass/Vol] 32.1 g/dL Normal 29.9-35.2 [facility] Comment on above: Performed By: #### C BC #### [facility] [address] [place] [address] [address] Nathanael Flores MCV (RBC) [Entitic vol] 104.8 fL Critically high 81.0-99.0 [facility] Comment on above: Performed By: #### C BC #### [facility] [address] [place] [address] [address] Nathanael Flores MONO # 0.8 103/ul Normal 0.3-0.8 [facility] Comment on above: Performed By: #### C BC #### [facility] [address] [place] [address] [address] Nathanael Flores Monocytes/100 WBC (Bld) 10.9 % Normal 1.7-12.0 [facility] Comment on above: Performed By: #### C BC #### [facility] [address] [place] [address] Dr. Nathanael Flores NEUT # 4.2 103/ul Normal 1.4-6.5 [facility] Comment on above: Performed By: #### C BC #### [facility] [address] [place] [address] Dr. Nathanael Flores Neutrophils/100 WBC (Bld) 60.1 % Normal 43.0-75.0 [facility] Comment on above: Performed By: #### C BC #### [facility] [address] [place] [address] Dr. Nathanael Flores Platelet mean volume (Bld) [Entitic vol] 9.2 fL Critically low 9.5-13.5 [facility] Comment on above: Performed By: #### C BC #### [facility] [address] [place] [address] Dr. Nathanael Flores PLT 191 103/ul Normal 150-450 [facility] Comment on above: Performed By: #### C BC #### [facility] [address] [place] [address] Dr. Nathanael Flores RBC 3.30 106/ul Critically low 4.20-5.40 [facility] Comment on above: Performed By: #### C BC #### [facility] [address] [address] [address] Nathanael Flores WBC 7.0 103/ul Normal 4.0-11.0 [facility] Comment on above: Performed By: #### C BC #### [facility] [address] [place] [address] [address] Nathanael Flores LIPID PROFILEon 08-12-2021 CHOL-HDL RATIO NORM SEE BELOW Normal [facility] Comment on above: Result Comment: 3.3 - 4.4 LOW RISK 4.4 - 7.1 AVERAGE RISK 7.1 - 11.0 MODERATE RISK >11.0 HIGH RISK Performed By: #### L IPID, CMP #### [facility] [address] [place] [address] [address] Nathanael Flores Cholesterol [Mass/Vol] 139 mg/dL Normal <=200 [facility] Comment on above: Performed By: #### L IPID, CMP #### [facility] [address] [address] [address] Nathanael Flores Cholesterol in HDL [Mass/Vol] 47 mg/dL Normal 40-60 [facility] Comment on above: Performed By: #### L IPID, CMP #### [facility] [address] [address] [address] Nathanael Flores Cholesterol in LDL [Mass/Vol] 69.2 mg/dL Normal [facility] Comment on above: Performed By: #### L IPID, CMP #### [facility] [address] [place] [address] [address] Nathanael Flores Cholesterol.total/Chol esterol in HDL [Mass ratio] 3.0 {ratio} Normal [facility] Comment on above: Performed By: #### L IPID, CMP #### [facility] [address] [place] [address] [address] Nathanael Flores HDL NORMAL > or = 60 mg/dl - LOW CARDIOVASCULAR RISK <40 mg/dl - HIGH CARDIOVASCULAR RISK Normal [facility] Comment on above: Performed By: #### L IPID, CMP #### [facility] [address] [address] [address] Nathanael Flores LDL CALC NORMAL SEE BELOW Normal [facility] Comment on above: Result Comment: <100 mg/dl OPTIMAL 100 - 129 mg/dl NEAR OR ABOVE OPTIMAL 130 - 159 mg/dl BORDERLINE HIGH 160 - 189 mg/dl HIGH >190 mg/dl VERY HIGH Performed By: #### L IPID, CMP #### [facility] [address] [place] [address] [address] Nathanael Flores Triglyceride [Mass/Vol] 114 mg/dL Normal <=150 [facility] Comment on above: Performed By: #### L IPID, CMP #### [facility] [address] [address] [address] Nathanael Flores VLDL CALC 22.8 mg/dL Normal [facility] Comment on above: Performed By: #### L IPID, CMP #### [facility] [address] [place] [address] Dr. Nathanael Flores PROF 14(COMP METB)on 022 Albumin [Mass/Vol] 3.4 g/dL Normal 3.4-5.0 [facility] Comment on above: Performed By: #### L IPID, CMP #### [facility] [address] [place] [address] Dr. Nathanael Flores Albumin/Globulin [Mass ratio] 0.9 {ratio} Normal [facility] Comment on above: Performed By: #### L IPID, CMP #### [facility] [address] [place] [address] Dr. Nathanael Flores ALP [Catalytic activity/Vol] 83 U/L Normal 46-116 [facility] Comment on above: Performed By: #### L IPID, CMP #### [facility] [address] [place] [address] Dr. Nathanael Flores ALT [Catalytic activity/Vol] 29 U/L Normal 14-59 [facility] Comment on above: Performed By: #### L IPID, CMP #### [facility] [address] [place] [address] Dr. Nathanael Flores Anion gap [Moles/Vol] 10.5 mmol/L Normal [facility] Comment on above: Performed By: #### L IPID, CMP #### [facility] [address] [address] [address] Nathanael Flores AST [Catalytic activity/Vol] 21 U/L Normal 15-37 [facility] Comment on above: Performed By: #### L IPID, CMP #### [facility] [address] [place] [address] [address] Nathanael Flores Bilirubin [Mass/Vol] 0.3 mg/dL Normal 0.2-1.0 [facility] Comment on above: Performed By: #### L IPID, CMP #### [facility] [address] [place] [address] [address] Nathanael Flores Calcium [Mass/Vol] 9.2 mg/dL Normal 8.5-10.1 [facility] Comment on above: Performed By: #### L IPID, CMP #### [facility] [address] [place] [address] Dr. Nathanael Flores Chloride [Moles/Vol] 106 mmol/L Normal 98-107 [facility] Comment on above: Performed By: #### L IPID, CMP #### [facility] [address] [place] [address] Dr. Nathanael Flores CO2 [Moles/Vol] 25.0 mmol/L Normal 21.0-32.0 [facility] Comment on above: Performed By: #### L IPID, CMP #### [facility] [address] [place] [address] Dr. Nathanael Flores Creatinine [Mass/Vol] 0.91 mg/dL Normal 0.55-1.02 [facility] Comment on above: Performed By: #### L IPID, CMP #### [facility] [address] [place] [address] Dr. Nathanael Flores EGFR-AF GREENLANDIC >60 Normal >=60 [facility] Comment on above: Performed By: #### L IPID, CMP #### [facility] [address] [place] [address] [address] Nathanael Flores EGFR-NON AF GREENLANDIC >60 Normal >=60 [facility] Comment on above: Performed By: #### L IPID, CMP #### [facility] [address] [place] [address] [address] Nathanael Flores Globulin (S) [Mass/Vol] 3.6 g/dL Normal [facility] Comment on above: Performed By: #### L IPID, CMP #### [facility] [address] [place] [address] [address] Nathanael Flores Glucose [Mass/Vol] 98 mg/dL Normal 74-106 [facility] Comment on above: Performed By: #### L IPID, CMP #### [facility] [address] [place] [address] [address] Nathanael Flores Potassium [Moles/Vol] 4.5 mmol/L Normal 3.5-5.1 [facility] Comment on above: Performed By: #### L IPID, CMP #### [facility] [address] [place] [address] Dr. Nathanael Flores Protein [Mass/Vol] 7.0 g/dL Normal 6.4-8.2 [facility] Comment on above: Performed By: #### L IPID, CMP #### [facility] [address] [place] [address] [address] Nathanael Flores Sodium [Moles/Vol] 137 mmol/L Normal 136-145 [facility] Comment on above: Performed By: #### L IPID, CMP #### [facility] [address] [place] [address] Dr. Nathanael Flores Urea nitrogen [Mass/Vol] 16.0 mg/dL Normal 7.0-18.0 [facility] Comment on above: Performed By: #### L IPID, CMP #### [facility] [address] [address] [address] Nathanael Flores Urea nitrogen/Creatinine [Mass ratio] 17.6 mg/mg Normal [facility] Comment on above: Performed By: #### L IPID, CMP #### [facility] [address] [place] [address] Dr. Nathanael Flores PROF CHEM 8 (BAS METB)on Anion gap [Moles/Vol] 14.8 mmol/L Normal [facility] Comment on above: Performed By: #### B MP #### [facility] [address] [place] [address] [address] Nathanael Flores Calcium [Mass/Vol] 9.5 mg/dL Normal 8.4-10.2 [facility] Comment on above: Performed By: #### B MP #### [facility] [address] [place] [address] [address] Nathanael Flores Chloride [Moles/Vol] 101 mmol/L Normal 98-107 [facility] Comment on above: Performed By: #### B MP #### [facility] [address] [place] [address] [address] Nathanael Flores CO2 [Moles/Vol] 24.9 mmol/L Normal 22.0-30.0 [facility] Comment on above: Performed By: #### B MP #### [facility] [address] [place] [address] [address] Nathanael Flores Creatinine [Mass/Vol] 0.98 mg/dL Normal 0.52-1.04 [facility] Comment on above: Performed By: #### B MP #### [facility] [address] [address] [address] Nathanael Flores EGFR-AF GREENLANDIC >60 Normal >=60 [facility] Comment on above: Performed By: #### B MP #### [facility] [address] [place] [address] [address] Nathanael Flores EGFR-NON AF GREENLANDIC 56 mL/min/1.73m2 Critically low >=60 [facility] Comment on above: Performed By: #### B MP #### [facility] [address] [place] [address] [address] Nathanael Flores Glucose [Mass/Vol] 114 mg/dL Critically high 74-106 [facility] Comment on above: Performed By: #### B MP #### [facility] [address] [address] [address] Nathanael Flores Potassium [Moles/Vol] 4.7 mmol/L Normal 3.4-5.0 [facility] Comment on above: Performed By: #### B MP #### [facility] [address] [place] [address] [address] Nathanael Flores Sodium [Moles/Vol] 136 mmol/L Critically low 137-145 [facility] Comment on above: Performed By: #### B MP #### [facility] [address] [place] [address] [address] Nathanael Flores Urea nitrogen [Mass/Vol] 21.0 mg/dL Critically high 7.0-17.0 [facility] Comment on above: Performed By: #### B MP #### [facility] [address] [place] [address] [address] Nathanael Flores Urea nitrogen/Creatinine [Mass ratio] 21.4 mg/mg Normal [facility] Comment on above: Performed By: #### B MP #### [facility] [address] [address] [address] Nathanael Flores PROF CHEM 8 (BAS METB)on Anion gap [Moles/Vol] 10.7 mmol/L Normal [facility] Comment on above: Performed By: #### B MP #### [facility] [address] [place] [address] [address] Nathanael Flores Calcium [Mass/Vol] 9.9 mg/dL Normal 8.4-10.2 [facility] Comment on above: Performed By: #### B MP #### [facility] [address] [address] [address] Nathanael Flores Chloride [Moles/Vol] 102 mmol/L Normal 98-107 [facility] Comment on above: Performed By: #### B MP #### [facility] [address] [place] [address] [address] Nathanael Flores CO2 [Moles/Vol] 28.0 mmol/L Normal 22.0-30.0 [facility] Comment on above: Performed By: #### B MP #### [facility] [address] [place] [address] [address] Nathanael Flores Creatinine [Mass/Vol] 0.95 mg/dL Normal 0.52-1.04 [facility] Comment on above: Performed By: #### B MP #### [facility] [address] [place] [address] [address] Nathanael Flores EGFR-AF GREENLANDIC >60 Normal >=60 [facility] Comment on above: Performed By: #### B MP #### [facility] [address] [place] [address] [address] Nathanael Flores EGFR-NON AF GREENLANDIC 58 mL/min/1.73m2 Critically low >=60 [facility] Comment on above: Performed By: #### B MP #### [facility] [address] [place] [address] [address] Nathanael Flores Glucose [Mass/Vol] 97 mg/dL Normal 74-106 [facility] Comment on above: Performed By: #### B MP #### [facility] [address] [place] [address] [address] Nathanael Flores Potassium [Moles/Vol] 4.7 mmol/L Normal 3.4-5.0 [facility] Comment on above: Performed By: #### B MP #### [facility] [address] [place] [address] [address] Nathanael Flores Sodium [Moles/Vol] 136 mmol/L Critically low 137-145 [facility] Comment on above: Performed By: #### B MP #### [facility] [address] [place] [address] [address] Nathanael Flores Urea nitrogen [Mass/Vol] 18.0 mg/dL Critically high 7.0-17.0 [facility] Comment on above: Performed By: #### B MP #### [facility] [address] [address] [address] Nathanael Flores Urea nitrogen/Creatinine [Mass ratio] 18.9 mg/mg Normal [facility] Comment on above: Performed By: #### B MP #### [facility] [id number] Nathanael Flores Dermatopathologyon Dermatopathology [facility] [address] [place] [id number] DERMATOPATHOLOGY REPORT Name:VERONIQUE GAITAN [facility] Rec #. [id number] Location: [facility] Date of Procedure: 03/10/2020 Race: Date Received: 03/12/2020 /Sex: 1950 (Age: 69) / F Date Reported: 03/13/2020 Other: Submitting Physician:MARLENE GARCIA MD FINAL DIAGNOSIS A. 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 B. SKIN, L LOWER LEG, SHAVE EXCISION: CHANGES CONSISTENT WITH PREVIOUS PROCEDURE, INKED MARGINS FREE IN PLANES OF SECTIONS EXAMINED WITHOUT RESIDUAL INVASIVE SQUAMOUS CELL CARCINOMA. Electronically Signed Out by MICHELINE LOUIE M.D. Electronically Signed Out By MICHELINE LOUIE MD/[facility] By the signature on this report, the individual or group listed as making the Final Interpretation/Diagn osis certifies that they have reviewed this case. Clinical History: A: Verruca vs SCC. 1.0 x 0.7 cm. Biopsy. B: SCC, see attached path. Shave Excision. Specimens Submitted As: A: SKIN, R ANTERIOR THIGH B: SKIN, L LOWER LEG Gross Description: A: Received in formalin is a hawkins piece of skin measuring [id number]. The specimen is inked and embedded in toto. B: Received in formalin is one hawkins-brown piece of skin measuring [id number]. The specimen is inked and embedded in toto in two blocks. [facility]/03/12/2020 Microscopic Description: A. 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 B. Microscopic examination reveals a specimen that extends into the subcutaneous fat. An area with horizontally oriented collagen and vertically oriented vessels is present. Normal [facility] Comment on above: Performed By: #### D #### Dermatopathology Vital Signs Date Time Vital Sign Value Performing Clinician Facility 03-12-2024 10:30-0500 Body mass index (BMI) [Ratio] 27.96 kg/m2 Rosie Velazquez MD Work Phone: [facility] 03-12-2024 10:30-0500 Body weight 67.13 kg Rosie Velazquez MD Work Phone: [facility] 03-12-2024 10:30-0500 Diastolic blood pressure 75 mm[Hg] Rosie Velazquez MD Work Phone: [facility] 03-12-2024 10:30-0500 Heart rate 67 /min Rosie Velazquez MD Work Phone: [facility] 03-12-2024 10:30-0500 Systolic blood pressure 158 mm[Hg] Rosie Velazquez MD Work Phone: [facility] 12-26-2023 09:31-0500 Blood Pressure Location [facility] 12-26-2023 09:31-0500 Diastolic blood pressure 79 mm[Hg] CORI CR[facility] 12-26-2023 09:31-0500 Heart rate 55 /min CORI [facility] 12-26-2023 09:31-0500 Respiratory rate 19 /min CORI [facility] 12-26-2023 09:31-0500 Systolic blood pressure 150 mm[Hg] CORI CR[facility] 11-29-2023 10:31-0400 Body height 154.9 cm Uday DLVR [employer] DO [facility] 11-29-2023 10:31-0400 Body mass index (BMI) [Ratio] 26.7 kg/m2 Uday [employer]R [employer] DO [facility] 11-29-2023 10:31-0400 Body temperature 97.5 [degF] Uday Furlong DO Work Phone: [facility] 11-29-2023 10:31-0400 Body weight 64.09 kg Uday Furlong DO Work Phone: [facility] [facility] 11-29-2023 10:31-0400 Diastolic blood pressure 62 mm[Hg] Uday Furlong DO Work Phone: [facility] 11-29-2023 10:31-0400 Heart rate 67 /min Uday Furlong DO Work Phone: [facility] 11-29-2023 10:31-0400 SaO2% (BldA) [Mass fraction] 95 % Uday Furlong DO Work Phone: [facility] 11-29-2023 10:31-0400 Systolic blood pressure 120 mm[Hg] Uday Furlong DO Work Phone: [facility] 05-15-2023 10:06-0400 Body height 160.02 cm DO Uday Furlong Work Phone: [facility] 05-15-2023 10:06-0400 Body mass index (BMI) [Ratio] 21.7 kg/m2 DO Uday Furlong Work Phone: [facility] 05-15-2023 10:06-0400 Body temperature 98 [degF] DO Uday Furlong Work Phone: [facility] 05-15-2023 10:06-0400 Body weight 55.79 kg DO Uday Furlong Work Phone: [facility] 05-15-2023 10:06-0400 Diastolic blood pressure 60 mm[Hg] DO Uday Furlong Work Phone: [facility] 05-15-2023 10:06-0400 Heart rate 64 /min DO Uday Furlong Work Phone: [facility] 05-15-2023 10:06-0400 SaO2% (BldA) [Mass fraction] 96 % DO Uday Furlong Work Phone: [facility] 05-15-2023 10:06-0400 Systolic blood pressure 130 mm[Hg] DO Uday Furlong Work Phone: [facility] 03-27-2023 10:30-0500 Body height 160.02 cm Harry Alejandro Other [employer] Other 03-27-2023 10:30-0500 Body mass index (BMI) [Ratio] 21.79 kg/m2 Harry Beanrer Other [employer] Other 03-27-2023 10:30-0500 Body temperature 97.8 [degF] Harry Alejandro Other [employer] Other 03-27-2023 10:30-0500 Body weight 55.79 kg Harry Alejandro Other [employer] Other 03-27-2023 10:30-0500 Diastolic blood pressure 64 mm[Hg] Harry Beanrer Other [employer] Other 03-27-2023 10:30-0500 SaO2% (BldA) [Mass fraction] 96 % Harry Beanrer Other [employer] Other 03-27-2023 10:30-0500 Systolic blood pressure 114 mm[Hg] Harry Robledoehrer Other [employer] Other 03-23-2023 13:42-0500 Body height 162.6 cm Uday Furlong DO Work Phone: [employer] 03-23-2023 13:42-0500 Body mass index (BMI) [Ratio] 21.15 kg/m2 Uday Furlong DO Work Phone: [employer] 03-23-2023 13:42-0500 Body temperature 98.1 [degF] Uday Furlong DO Work Phone: [employer] 03-23-2023 13:42-0500 Body weight 55.88 kg Uday Furlong DO Work Phone: [employer] 03-23-2023 13:42-0500 Diastolic blood pressure 56 mm[Hg] Uday Furlong DO [facility] 03-23-2023 13:42-0500 Heart rate 64 /min Uday Furlong DO [facility] 03-23-2023 13:42-0500 SaO2% (BldA) [Mass fraction] 99 % Uday Furlong DO Work Phone: [employer] 03-23-2023 13:42-0500 Systolic blood pressure 104 mm[Hg] Uday Furlong DO Work Phone: [employer] 03-22-2022 11:45-0500 Body height 160.02 cm Harry Alejandro Other [employer] Other 03-22-2022 11:45-0500 Body mass index (BMI) [Ratio] 19.13 kg/m2 Harry Alejandro Other [employer] Other 03-22-2022 11:45-0500 Body temperature 97.2 [degF] Harry Alejandro Other [employer] Other 03-22-2022 11:45-0500 Body weight 48.99 kg Harry Velardesadi Other [employer] Other 03-22-2022 11:45-0500 Diastolic blood pressure 62 mm[Hg] Harry Beanalejandro Other [employer] Other 03-22-2022 11:45-0500 SaO2% (BldA) [Mass fraction] 98 % Harry Beanalejandro Other [employer] Other 03-22-2022 11:45-0500 Systolic blood pressure 130 mm[Hg] Harry Beanalejandro Other [employer] Other 12-01-2021 17:30-0400 Body height 160.02 cm Lizzie Ananya Other [employer] Other 12-01-2021 17:30-0400 Body mass index (BMI) [Ratio] 19.84 kg/m2 Lizzie Ananya Other [employer] Other 12-01-2021 17:30-0400 Body temperature 99.1 [degF] Lizzie Ananya Other [employer] Other 12-01-2021 17:30-0400 Body weight 50.8 kg Lizzie Ananya Other [employer] Other 12-01-2021 17:30-0400 Diastolic blood pressure 72 mm[Hg] Lizzie Ananya Other [employer] Other 12-01-2021 17:30-0400 Respiratory rate 18 /min Lizzie Ananya Other [employer] Other 12-01-2021 17:30-0400 SaO2% (BldA) [Mass fraction] 99 % Lizzie Hare Other [employer] Other 12-01-2021 17:30-0400 Systolic blood pressure 117 mm[Hg] Lizzie Hare Other [employer] Other 11-28-2021 10:55-0400 Body height 160.02 cm Hope Nam Other [employer] Other 11-28-2021 10:55-0400 Body mass index (BMI) [Ratio] 19.84 kg/m2 Hope Nam Other [employer] Other 11-28-2021 10:55-0400 Body temperature 96.2 [degF] Hope Nam Other [facility] Other 11-28-2021 10:55-0400 Body weight 50.8 kg Hope Nam Other [facility] Other 11-28-2021 10:55-0400 Respiratory rate 18 /min Hope Nam Other [facility] Other 11-28-2021 10:55-0400 SaO2% (BldA) [Mass fraction] 99 % Hope Nam Other [employer] Other 08-02-2021 10:45-0400 Body height 160.02 cm Harry Alejandro Other [employer] Other 08-02-2021 10:45-0400 Body mass index (BMI) [Ratio] 21.96 kg/m2 Harry Alejandro Other [employer] Other 08-02-2021 10:45-0400 Body temperature 98 [degF] Harry Buehrer Other [employer] Other 08-02-2021 10:45-0400 Body weight 56.25 kg Harry Buehrer Other [employer] Other 08-02-2021 10:45-0400 Diastolic blood pressure 62 mm[Hg] Harry Buehrer Other [employer] Other 08-02-2021 10:45-0400 SaO2% (BldA) [Mass fraction] 99 % Harry Buehrer Other [employer] Other 08-02-2021 10:45-0400 Systolic blood pressure 120 mm[Hg] Harry Buehrer Other [employer] Other 06-15-2021 11:45-0400 Body height 160.02 cm Harry Buehrer Other [facility] Other 06-15-2021 11:45-0400 Body mass index (BMI) [Ratio] 21.96 kg/m2 Harry Buehrer Other [employer] Other 06-15-2021 11:45-0400 Body temperature 97.5 [degF] Harry Buehrer Other [employer] Other 06-15-2021 11:45-0400 Body weight 56.25 kg Harry Buehrer Other [employer] Other 06-15-2021 11:45-0400 Diastolic blood pressure 70 mm[Hg] Harry Buehrer Other [facility] Other 06-15-2021 11:45-0400 SaO2% (BldA) [Mass fraction] 98 % Harry Buehrer Other [employer] Other 06-15-2021 11:45-0400 Systolic blood pressure 130 mm[Hg] Harry Buehrer Other [facility] Other 06-01-2021 11:00-0400 Body height 160.02 cm Harry Meenaehrer Other [facility] Other 06-01-2021 11:00-0400 Body mass index (BMI) [Ratio] 21.96 kg/m2 Harry Meenaehrer Other [facility] Other 06-01-2021 11:00-0400 Body temperature 97.5 [degF] Harry Buehrer Other [facility] Other 06-01-2021 11:00-0400 Body weight 56.25 kg Harry Beanrer Other [facility] Other 06-01-2021 11:00-0400 Diastolic blood pressure 66 mm[Hg] Harry Buehrer Other [employer] Other 06-01-2021 11:00-0400 SaO2% (BldA) [Mass fraction] 98 % Harry Buehrer Other [facility] Other 06-01-2021 11:00-0400 Systolic blood pressure 130 mm[Hg] Harry Buehrer Other [employer] Other Encounters Encounter Date Encounter Type Care Provider Facility Start: 06-14-2024 ambulatory CORI Brennan ty:ATUL Paz Start: 03-12-2024 End: 03-12-2024 Office outpatient visit 25 minutes Rosie Velazquez MD Work Phone: [facility] Comment on above: High potassium (Prim mariusz Dx); 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) Start: 03-12-2024 End: 03-12-2024 Orders Only Uday Sofiya Missy DO Work Phone: [facility] Start: 02-09-2024 End: 02-09-2024 Refill Uday Arriaza Missy DO Work Phone: [facility] Start: 02-05-2024 End: 02-05-2024 ambulatory [facility] Start: 01-02-2024 End: 01-02-2024 Bamboo flowsheet Marlene Garcia MD Work Phone: [facility] Start: 01-02-2024 End: 01-02-2024 Bamboo flowsfeng Garcia MD Work Phone: [facility] Start: 01-02-2024 End: 01-02-2024 Telephone encounter Marlene Dsouza RN [facility] Start: 01-02-2024 End: 01-02-2024 Office outpatient visit 15 minutes Marlene Garcia MD Work Phone: [facility] Comment on above: Seborrheic keratosis (Primary Dx); Capillary angioma; Lentigines; History of SCC (squamous cell carcinoma) of skin; Actinic keratosis Start: 01-02-2024 End: 01-02-2024 ambulatory MARLENE GARCIA Not Available Start: 12-26-2023 End: 12-26-2023 ambulatory CORI KAHN Facility:[facility] Start: 12-26-2023 End: 12-26-2023 Lab Drop off CORI KAHN [facility] Start: 12-26-2023 End: 12-26-2023 ambulatory CORI Iron CRISS Facility:[facility] Start: 12-26-2023 End: 12-26-2023 Patient encounter procedure CORI Perdue CRISS [facility] Start: 12-21-2023 End: 12-21-2023 Telephone encounter [facility] Start: 12-01-2023 End: 12-04-2023 Telephone encounter [facility] Start: 11-29-2023 End: 11-29-2023 ambulatory [facility] Start: 11-29-2023 End: 11-29-2023 Office outpatient visit 25 minutes Uday Sofiya Windthorst DO Work Phone: [facility] Comment on above: Essential hypertensi on (Primary Dx); Encounter for screening mammogram for malignant neoplasm of breast; Osteoporosis with current pathological fracture, unspecified osteoporosis type, sequela; Overweight; Moderate persistent asthma without complication; Primary osteoarthritis involving multiple joints Start: 11-29-2023 End: 11-29-2023 ambulatory [facility] Start: 11-23-2023 End: 11-23-2023 Refill [facility] DO Work Phone: [facility] Start: 10-10-2023 ambulatory UDAY TENISHAJACKY Facility :[facility] [place] Start: 09-26-2023 End: 09-26-2023 ambulatory [facility] Start: 08-21-2023 End: 08-21-2023 ambulatory [facility] Start: 08-15-2023 ambulatory CORI E CRISS Facili ty:[facility] Start: 08-08-2023 End: 08-09-2023 Emergency department patient visit MINAL MCDONALD [facility] Start: 07-27-2023 End: 07-27-2023 ambulatory [facility] Start: 07-12-2023 End: 07-12-2023 ambulatory PHONG DICKSON [facility] Start: 06-19-2023 End: 06-19-2023 ambulatory [facility] Start: 06-19-2023 End: 06-19-2023 ambulatory [facility] Start: 06-12-2023 End: 06-12-[address] [facility] Start: 06-10-2023 End: 06-12-2023 Evaluation and management of inpatient GENARO Rosas [facility] Start: 06-10-2023 End: 06-11-2023 Emergency department patient visit NOAM RODRIGUEZ [facility] Start: 05-15-2023 End: 05-15-2023 ambulatory Uday Furlong Facility:[facility] Start: 05-15-2023 End: 05-15-2023 ambulatory DO Uday Furlong Work Phone: [facility] Work Phone: Start: 05-15-2023 End: 05-15-2023 Patient encounter procedure DO Uday Furlong Work Phone: [facility] Vascular Surgery Work Phone: Start: 05-06-2023 Refill Uday G Furlo ng DO Work Phone: [facility] Start: 04-28-2023 Refill Uday G Furlo ng DO Work Phone: [facility] Start: 04-19-2023 End: 04-19-2023 ambulatory [facility] Start: 04-14-2023 ambulatory UDAY FURLONG Facility :[facility] Start: 04-12-2023 Orders Only Uday Suazo ng DO Work Phone: [facility] Comment on above: Hematuria, unspecifi ed type (Primary Dx); Recurrent UTI Start: 04-07-2023 End: 04-07-2023 ambulatory [facility] Start: 03-27-2023 Office outpatient vi sit 25 minutes Harry Alejandro [facility] Vascular Surgery Start: 03-27-2023 End: 03-27-2023 ambulatory [facility] Facility:[facility] Start: 03-27-2023 End: 03-27-2023 ambulatory DO Uday Louis Work Phone: [facility] [employer] Other Start: 03-27-2023 End: 03-27-2023 Patient encounter procedure DO Uday Louis Work Phone: [facility]-Ultrasound [facility] Start: 03-24-2023 Orders Only Uday Suazo ng DO Work Phone: [facility] Comment on above: Elevated alkaline ph osphatase level (Primary Dx) Start: 03-23-2023 End: 03-23-2023 [facility] Start: 03-23-2023 End: 03-23-2023 Office outpatient visit 25 minutes Uday Louis DO Work Phone: [facility] Comment on above: Essential hypertensi on (Primary Dx); Dysuria; Mixed hyperlipidemia; Vitamin D deficiency; Moderate persistent asthma without complication Start: 03-23-2023 End: 03-23-2023 ambulatory [facility] Start: 02-03-2023 Refill Uday Suazo ng DO Work Phone: [facility] Start: 08-22-2022 End: 08-22-2022 ambulatory [facility] Facility:[facility] Start: 08-22-2022 End: 08-22-2022 ambulatory DO Uday Furlong Work Phone: [facility] Work Phone: Start: 08-22-2022 End: 08-22-2022 Patient encounter procedure DO Uday Furlong Work Phone: [facility]XRay [facility] [place] Work Phone: Start: 03-22-2022 End: 03-22-2022 ambulatory Harry Alejandro Other [facility] Other Start: 03-22-2022 Office outpatient vi sit 25 minutes Harry Alejandro [facility] Vascular Surgery Start: 03-03-2022 End: 03-03-2022 ambulatory DO Uday Furlong Work Phone: [facility] Work Phone: Start: 03-03-2022 End: 03-03-2022 Departed Referred DO Uday Furlong Work Phone: [facility]-Lab [facility] [place] Work Phone: Start: 02-01-2022 End: 02-01-2022 ambulatory DO Uday Furlong Work Phone: [facility] Work Phone: Start: 02-01-2022 End: 02-01-2022 Patient encounter procedure DO Uday Furlong Work Phone: [facility]-Ultrasound [facility] Start: 12-01-2021 End: 12-01-2021 ambulatory Lizzie Haer Other [facility] Other Start: 12-01-2021 Office outpatient vi sit 15 minutes Lizzie Hare [facility] [place] Start: 11-28-2021 End: 11-28-2021 ambulatory Hope Nam Other [facility] Other Start: 11-28-2021 Office outpatient vi sit 25 minutes Hope Nam [facility] [place] Start: 08-12-2021 End: 08-13-2021 ambulatory EMILYMELLISSA GONZALEZ Facility:[facility] Start: 08-02-2021 End: 08-02-2021 ambulatory Harry Buchasityrer Other [facility] Other Start: 08-02-2021 Office outpatient vi sit 25 minutes Harry Buehrer [facility] Start: 06-15-2021 End: 06-15-2021 ambulatory Harry Buehrer Other [facility] Other Start: 06-15-2021 Office outpatient vi sit 25 minutes Harry Buehrer [facility] Start: 06-09-2021 End: 06-09-2021 ambulatory Harry Buehrer Other [facility] Other Start: 06-09-2021 Telephone encounter Harry Buehrer [facility] Start: 06-01-2021 End: 06-01-2021 ambulatory Harry Buehrer Other [facility] Other Start: 06-01-2021 Office outpatient ne w 45 minutes Harry Buehrer [facility] Start: 02-25-2021 ambulatory DAMIEN MOORE Facility:[facility] Start: 02-08-2021 End: 02-09-[address] DORIE DEWEY Facility:[facility] Start: 12-02-2020 End: 12-03-2020 ambulatory DEMETRICE FOX Facility:[facility] Start: 10-06-2020 End: 10-07-[address] HENRY MERRILL Facility:[facility] Start: 03-12-2018 End: 03-13-2018 Patient encounter procedure DEFAULT PHYSICIAN Facility:[facility] Procedures Date Procedure Procedure Detail Performing Clinician Start: 03-12-2024 Adult depression scr eening assessment Uday Louis DO Work Phone: Start: 01-02-2024 CRYOTHERAPY SKIN LESION Marlene Garcia MD Work Phone: Start: 12-20-2023 Mammography Mayte spain CMA Start: 11-29-2023 Adult depression scr eening assessment Uday Furlong DO Work Phone: Start: 09-26-2023 Adult depression scr eening assessment Uday Furlong DO Work Phone: Start: 06-19-2023 Follow-up visit Follow-up UDAY SUAZONG Start: 05-15-2023 Doppler ultrasonogra phy of bilateral carotid arteries DO Uday Furlong Work Phone: Start: 03-27-2023 Ankle brachial press ure index DO Uday Tenishalong Work Phone: Start: 03-23-2023 Urnls dip stick/tabl et rgnt non-auto w/o micrscp Udaymahsa Stevenlong DO Work Phone: Start: 03-23-2023 Adult depression scr eening assessment Uday Furlong DO Work Phone: Start: 09-19-2022 Adult depression scr eening assessment Uday Furlong DO Work Phone: Start: 09-12-2022 Mammography Uday bai DO Work Phone: Start: 08-22-2022 Radiography of thora cic spine DO Uday Furlong Work Phone: Start: 08-22-2022 X-ray of cervical spine DO Uday Furlong Work Phone: Start: 08-22-2022 X-ray of lumbar spin e, two or three views DO Uday Furlong Work Phone: Start: 02-01-2022 Ankle brachial press ure index DO Uday Furlong Work Phone: Appendectomy CORI KAHN Cardiac catheterization MANAV KAHN Cholecystectomy CORI PHILLIPS Colonoscopy CORI KAHN Extraction of cataract ALEXUS KAHN Hysterectomy CORI KAHN Vascular surgery (qu alifier value) CORI KAHN Plan of Treatment Date Care Activity Detail Author Start: 03-12-2025 Adult BMI Screening Adult BMI Screen ing [facility] Start: 03-12-2025 Depression Screening Depression Scre ening [facility] Start: 03-12-2025 Tobacco Screening Tobacco Screening [facility] Start: 03-11-2025 Screening for malign ant neoplasm of colon [facility] Start: 01-01-2025 End: 01-01-2025 Patient encounter procedure 01/01/2025 9:00 AM EST Office Visit [facility] [address] [place] [address] Marlene Garcia MD [address] [place] [address] [facility] Start: 12-19-2024 Screening for malign ant neoplasm of breast Mammogram [facility] Start: 11-28-2024 Adult BMI Screening Adult BMI Screen ing [facility] Start: 11-28-2024 Depression Screening Depression Scre ening [facility] Start: 11-28-2024 Fall Risk Screening Fall Risk Screen ing [facility] Start: 11-28-2024 Tobacco Screening Tobacco Screening [facility] Start: 09-26-2024 End: 09-26-2024 Patient encounter procedure 09/26/2024 9:00 AM EDT Office Visit [facility] [address] [place] [address] [facility] Start: 09-25-2024 Adult BMI Screening Adult BMI Screen ing [facility] Start: 09-25-2024 Depression Screening Depression Scre ening [facility] Start: 09-25-2024 Fall Risk Screening Fall Risk Screen ing [facility] Start: 09-25-2024 Medicare Annual Well ness Visit Medicare Annual Wellness Visit [facility] Start: 09-25-2024 Tobacco Screening Tobacco Screening [facility] Start: 05-29-2024 End: 05-29-2024 Patient encounter procedure 05/29/2024 9:30 AM EDT [facility] [address] [place] [address] Uday Louis, DO [address], [facility] [address] [facility] Start: 03-25-2024 End: 03-25-2024 Patient encounter procedure 03/25/2024 11:00 AM EST Office Visit [facility] [address] [place] [address] Uday Louis, [address], [facility] [address] [facility] Start: 03-23-2024 Adult BMI Screening Adult BMI Screen ing [facility] Start: 03-23-2024 Depression Screening Depression Scre ening [facility] Start: 03-23-2024 Fall Risk Screening Fall Risk Screen ing [facility] Start: 03-23-2024 Tobacco Screening Tobacco Screening [facility] Start: 03-12-2024 End: 03-12-2024 Patient encounter procedure 03/12/2024 10:30 AM EST Office Visit [facility] [address] [place] [phone] Rosie Velazquez MD [address] [place] [address], [address] [place] [address] [facility] Start: 02-22-2024 End: 02-22-2024 Patient encounter procedure 02/22/2024 9:30 AM EST Office Visit [facility] [address] [place] [address] [facility] Start: 01-02-2024 End: 01-02-2024 Patient encounter procedure 01/02/2024 1:35 PM EST Office Visit [facility] [address] [place] [phone] Marlene Garcia MD [address] [place] [address] Arrived [facility] Comment on above: Arrived Start: 12-06-2023 Influenza vaccination Influenza Vacc ine [facility] Comment on above: Postponed from 10/14 (Patient Refused) Start: 11-29-2023 End: 11-28-2024 DBT Breast - bilateral screening Mammography screening bilateral with CAD Imaging Routine Encounter for screening mammogram for malignant neoplasm of breast Expected: 11/29/2023, Expires: 11/28/2024 [facility]: Comment on above: Expected: 11/29/2023 , Expires: 11/28/2024 Start: 11-29-2023 End: 11-29-2023 Patient encounter procedure 11/29/2023 10:30 AM EDT [facility] [address] [place] [address] Uday Louis, DO [address], [place] [address] [facility] Start: 10-27-2023 Adult BMI Screening Adult BMI Screen ing [facility] Start: 10-27-2023 Tobacco Screening Tobacco Screening [facility] Start: 10-15-2023 COVID-19 Vaccine ( season) COVID-19 Vaccine () [facility] Start: 10-15-2023 COVID-19 Vaccine ( season) COVID-19 Vaccine ( season) [facility] Start: 10-15-2023 Influenza vaccination P [facility] Start: 09-26-2023 End: 09-26-2023 Patient encounter procedure 09/26/2023 9:00 AM EDT Office Visit [facility] - Family Medicine [address] [place] [address] [facility] Start: 09-20-2023 Depression Screening Depression Scre ening [facility] Start: 09-13-2023 Screening for malign ant neoplasm of breast Mammogram [facility] Start: 08-30-2023 Fall Risk Screening Fall Risk Screen ing [facility] Start: 03-22-2023 End: 03-22-2023 Patient encounter procedure 03/22/2023 9:40 AM EST Office Visit [facility] Family Medicine [address] [place] [address] Uday Louis, DO [address], [facility] [address] [facility] Start: 10-14-2022 COVID-19 Vaccine ( season) COVID-19 Vaccine ( season) [facility] Start: 10-14-2022 Influenza vaccination Influenza Vacc ine [facility] Start: 03-03-2022 Superficial Wound Culture Supe rficial Wound Culture [facility] Start: 02-01-2022 Ankle brachial press ure index [facility] Start: 11-14-2017 Pneumococcal Vaccine : 65+ Years (2 of 2 - PCV) Pneumococcal Vaccine: 65+ Years (2 of 2 - PCV) [facility] Start: 2000 Administration of varicella zoster vaccine Zoster (Shingles) Vaccine (1 of 2) [facility] Start: 1969 DTaP,Tdap and Td Vac cines (1 - Tdap) DTaP,Tdap and Td Vaccines (1 - Tdap) [facility] Start: 1968 Adult BMI Follow Up Plan Adult BMI Follow Up Plan [facility] Start: 1950 Medicare Annual Well ness Visit Medicare [facility] Start: 1950 Screening for malign ant neoplasm of colon [facility] End: 03-24-2024 Alkaline phosphatase, isoenzymes Alkaline phosphatase, isoenzymes Lab Routine Elevated alkaline phosphatase level 1 Occurrences starting 03/24/2023 until 03/24/2024 [facility] Work Phone: Comment on above: 1 Occurrences starti ng 03/24/2023 until 03/24/2024 Ankle brachial press ure index [facility] Bacteria identified in Unspecified specimen by Aerobe culture [facility] End: 03-12-2025 Basic metabolic 2000 panel - Serum or Plasma Basic Metabolic Panel Lab Routine High potassium 1 Occurrences starting 03/12/2024 until 03/12/2025 [facility] Work Phone: Comment on above: 1 Occurrences starti ng 03/12/2024 until 03/12/2025 End: 03-24-2024 CBC panel - Blood by Automated count CBC Lab Routine Elevated alkaline phosphatase level 1 Occurrences starting 03/24/2023 until 03/24/2024 [facility] Comment on above: 1 Occurrences starti ng 03/24/2023 until 03/24/2024 End: 03-24-2024 Gamma glutamyl transferase [Enzymatic activity/volume] in Serum or Plasma GGT Lab Routine Elevated alkaline phosphatase level 1 Occurrences starting 03/24/2023 until 03/24/2024 [facility] Comment on above: 1 Occurrences starti ng 03/24/2023 until 03/24/2024 End: 03-24-2024 Parathyroid Hormone, intact Parathyroid Hormone, intact Lab Routine Elevated alkaline phosphatase level 1 Occurrences starting 03/24/2023 until 03/24/2024 [facility] Comment on above: 1 Occurrences starti ng 03/24/2023 until 03/24/2024 End: 03-24-2024 Phosphate [Mass/volume] in Serum or Plasma Phosphorus Lab Routine Elevated alkaline phosphatase level 1 Occurrences starting 03/24/2023 until 03/24/2024 [facility] Comment on above: 1 Occurrences starti ng 03/24/2023 until 03/24/2024 End: 03-24-2024 Urinalysis Urinalysis (clean catch) Lab Routine Elevated alkaline phosphatase level 1 Occurrences starting 03/24/2023 until 03/24/2024 [facility] Comment on above: 1 Occurrences starti ng 03/24/2023 until 03/24/2024 US.doppler Carotid arteries - bilateral [facility] Immunizations Immunization Date Immunization Notes Care Provider Fa colt 01-22-2022 Influenza, High-dose , Quadrivalent Uday Furlong DO Work Phone: [facility] 01-22-2022 influenza virus vacc ine, unspecified formulation Uday Furlong DO Work Phone: [facility] 10-27-2021 Covid-19, Mrna, Lnp- s, Bivalent, Pf, 30mcg/0.3 ml Uday Furlong DO Work Phone: [facility] 02-02-2021 COVID-19 mRNA, Comir escobar (Pfizer) DO Uday Furlong Work Phone: [facility] 06-04-2020 COVID-19 mRNA-1273 (Moderna) DO Uday Furlong Work Phone: [facility] 05-13-2020 COVID-19 mRNA, Comir escobar (Pfizer) DO Uday Furlong Work Phone: [facility] 04-20-2018 influenza, injectabl e, quadrivalent, preservative free Uday Furlong DO Work Phone: [facility] 11-14-2016 influenza, injectabl e, quadrivalent, preservative free Uday Furlong DO Work Phone: [facility] 11-14-2016 pneumococcal polysaccharide vaccine, 23 valent Uday Furlong DO Work Phone: [facility] Payers Date Payer Category Payer Self-pay [id number] 2021 Medicare ANTHEM MEDICARE ANTHEM MEDICARE ADVANTAGE [id number] 2021-Present [phone] [address] [place] [address] [id number] 2021 Medicare (Managed Care) [facility] [id number] 2021 Medicare HMO [facility] MEDIC[facility] [id number] 2021 Medicare [id number] 1959 Medicare [id number] 2.16.840.1.440950.19 1950 Unknown [id number] 2..840.1.641579.3.579. 2.647 1950 Unknown [id number] 2.16.840.1.660136.3.579. 2.593 1950 Unknown [id number] 2.16.840.1.367334.3.579. 2.593 1950 Unknown [id number] 2.16.840.1.105205.3.579. 2.593 1950 Unknown [id number] 2.16.840.1.696745.3.579. 2.593 1950 Unknown [id number] 2.16.840.1.501965.3.579. 2.593 1950 Unknown [id number] 2.16.840.1.784890.3.579. 2.1286 1950 Unknown [id number] 2.16.840.1.508786.3.579. 2.1286 1950 Unknown [id number] 2.16.840.1.278145.3.579. 2.1286 1950 Unknown [id number] 2.16.840.1.280111.3.579. 2.1286 1950 Unknown [id number] 2.16.840.1.371147.3.579. 2.1286 1950 Unknown [id number] 2.16.840.1.909934.3.579. 2.1286 1950 Unknown [id number] 2.16.840.1.948627.3.579. 2.1286 1950 Unknown [id number] 2.16.840.1.077901.3.579. 2.1286 1950 Unknown [id number] 2.16.840.1.139404.3.579. 2.1286 1950 Unknown [id number] 2.16.840.1.925911.3.579. 2.1286 1950 Unknown [id number] 2.16.840.1.150536.3.579. 2.1286 1950 Unknown [id number] 2.16.840.1.059055.3.579. 2.1286 1950 Unknown [id number] 2.16.840.1.648600.3.579. 2.1259 1950 Unknown [id number] 2.16.840.1.665803.3.579. 2.727 1950 Unknown [id number] 2.16.840.1.012092.3.579. 2.727 1950 Unknown [id number] 2.16.840.1.620980.3.579. 2.1286 1950 Unknown [id number] 2.16.840.1.678416.3.579. 2.1286 1950 Unknown [id number] 2.16.840.1.791201.3.579. 2.1286 1950 Unknown [id number] 2.16.840.1.977795.3.579. 2.1286 1950 Unknown [id number] 2.16.840.1.632127.3.579. 2.1286 1950 Unknown [id number] 2.16.840.1.698472.3.579. 2.1286 Unknown Unknown [id number] 2.16.840.1.300283.3.579. 2.531 Unknown [id number] 2.16.840.1.763007.3.579. 2.531 Unknown [id number] 2.16.840.1.672871.3.579. 2.531 Social History Date Type Detail Facility Unknown if ever smoked [facility] Other Start: 09-19-2022 End: 11-29-2023 Sex Assigned At [facility] Other Start: 07-08-2021 End: 06-10-2023 Tobacco smoking status MTIS Ex-smoker (finding) [facility] Start: 1950 Sex Assigned At Female [facility] Start: 03-07-2022 End: 12-23-2022 Tobacco smoking status NHIS Never smoked tobacco [facility] Start: 03-07-2022 End: 06-10-2023 Tobacco use and exposure Smokeless tobacco non-user [facility] Start: 03-23-2023 End: 03-12-2024 Alcohol intake Ex-drinker (finding) [facility] Start: 09-19-2022 End: 11-29-2023 History of [address] function [facility] Do you belong to any clubs or organizations such as scientology groups, unions, fraternal or athletic groups, or school groups? No [facility] Are you now , , , , never or living with a partner? [facility] How often to you hav e a drink containing alcohol? Never [facility] How many standard dr inks containing alcohol do you have on a typical day? Patient does not drink [facility] How hard is it for y ou to pay for the very basics like food, housing, medical care, and heating Somewhat hard [facility] Do you feel stress - tense, restless, nervous, or anxious, or unable to sleep at night because your mind is troubled all the time - these days [OSQ] To some extent [facility] Start: 1950 Sex Assigned At Not on file [facility] History of tobacco use [facility] History of tobacco use Cigarette Smoker P [facility] How hard is it for y ou to pay for the very basics like food, housing, medical care, and heating Not very hard [facility] Do you feel stress - tense, restless, nervous, or anxious, or unable to sleep at night because your mind is troubled all the time - these days [OSQ] Rather much [facility] Start: 09-18-2014 Sex Female (finding) [facility] Start: 08-08-2023 End: 01-02-2024 Alcoholic beverage intake Lifetime non-drinker (finding) [facility] Start: 12-23-2022 Alcohol Comment caffeine 2-3 cups/day [facility] Medical Equipment Procedure Code Equipment Code Equipment Origin al Text Equipment Identifier Dates Multiple periphe ral artery stent, bare-metal [id number] FDA Start: 07-08-2021 Multiple periphe ral artery stent, bare-metal ()[id number] FDA Start: 07-08-2021 Multiple periphe ral artery stent, bare-metal ()[id number] FDA Start: 07-08-2021 Multiple periphe ral artery stent, bare-metal ()[id number] FDA Start: 07-08-2021 Goals Date Patient Goal Desired Activity /State Personal health goal Comment on above: Formatting of this n ote might be different from the original. Evaluation of progress towards goal: home self care Functional Status Date Assessment Result Facility 12-26-2023 Functional Status N/A [facility] Clinical Notes 10-06-2020 to 03-12-2024 Telephone Encounter - Bon Adams CMA - 03/12/2024 1:49 PM ESTTelephone Encounter - Cindy Tidwell - 03/12/2024 1:49 PM ESTTelephone Encounter - Bon Adams CMA - 03/12/2024 1:49 PM EST Note Date & Type Note Facility 03-12-2024 Miscellaneous Notes her neurologist message me that her blood pressure was up. I sent in hydrochlorothiazide 12.5 mg daily for her. Have her set up a follow up appointment in 1-2 months. May I would be a little too far down the road . I tried calling pt. [facility] [employer] to get a appt scheduled. Scheduled documented in this encounter [employer] 03-12-2024 Telephone encounter Note her neurologist message me that her blood pressure was up. I sent in hydrochlorothiazide 12.5 mg daily for her. Have her set up a follow up appointment in 1-2 months. May I would be a little too far down the road . I tried calling pt. [facility] get a [facility]t [facility]24 Telephone encounter Note [facility]uled [facility] 03-12-2024 History of Present illness Narrative Reason for visit: HPI: Veronique Gaitan is a 73 y.o. female who presents for follow up for a left temporal intraparenchymal hemorrhage in May 2023. Patient has past medical history of hypertension, hyperlipidemia, CAD and COPD. Overall patient has made good recovery. At the time DSA and MRI were negative. Patient's main complaints today are and daily headache mainly in the morning described as all over, not associated with any migrainous features. Of note patient states that her blood pressure has been elevated recently with systolic of 150 to 170s. Of note of note patient also sees Cardiology and had a loop recorder placed on February 15, 2024 for palpitations. Patient is present with long-time friend today. Patient is able to ambulate and do ADLs independently without difficulty. She denies bilateral facial droop, inability to speak, loss of vision bilaterally, numbness or tingling of both feet, numbness or tingling of both hands, slurred speech, swallowing difficulty, and weakness of any extremity . Overall she feels her condition is recently worse. Stroke risk factors include: hyperlipidemia and hypertension. The following portions of the patient's history were reviewed and updated as appropriate: allergies, current medications, past medical history, past social history, problem list, and medication reconciliation was completed including current medication and post discharge medication. Review of Systems Review of Systems Constitutional: Negative for decreased appetite, malaise/fatigue, weight gain and weight loss. HENT: Negative for nosebleeds. Eyes: Negative for blurred vision, double vision, vision loss in left eye, vision loss in right eye and visual disturbance. Cardiovascular: Negative for irregular heartbeat, leg swelling, near-syncope, palpitations and syncope. Respiratory: Negative for shortness of breath and sleep disturbances due to breathing. Hematologic/Lymphatic: Negative for bleeding problem. Does not bruise/bleed easily. Skin: Negative for poor wound healing. Musculoskeletal: Negative for falls, muscle cramps, muscle weakness, myalgias and neck pain. Gastrointestinal: Negative for dysphagia. Neurological: Negative for aphonia, difficulty with concentration, disturbances in coordination, dizziness, focal weakness, headaches, light-headedness, loss of balance, numbness, paresthesias, seizures, sensory change, vertigo and weakness. Psychiatric/Behavioral: Positive for memory loss. Negative for altered mental status and depression. The patient does not have insomnia and is not nervous/anxious. Past Medical History Past Medical History: Diagnosis Date Back pain, chronic Heart disease High cholesterol ICH (intracerebral hemorrhage) ([facility]) 06/10/2023 Osteoarthritis Palpitations Vitamin D deficiency Past Surgical History Past Surgical History: Procedure Laterality Date AORTA - FEMORAL ARTERY BYPASS GRAFT Bilateral Dr. Alejandro CARDIAC CATHETERIZATION x 2 with stents Diagnostic cerebral angiogram N/A 06/12/2023 Performed by Genaro Amin MD at [facility] CARDIAC CATH LABS INSERTION LOOP RECORDER 02/16/2024 Family History The patient has a family history of Family History Problem Relation Age of Onset Heart disease Mother at age 81 Thyroid cancer Mother Aortic aneurysm Mother Hyperlipidemia Mother Lung cancer Father 74 Cancer Father bladder-cause of at age 82 Hyperlipidemia Sister Sinusitis Brother Hyperlipidemia Daughter Hyperlipidemia Son Deep vein thrombosis Son 51 x 2 Pulmonary embolism Son 52 No Known Problems Son at age 19-MVA Hyperlipidemia Maternal Grandmother Social History Social History Socioeconomic History Marital status: Spouse name: Not on file Number of children: Not on file Years of education: Not on file Highest education level: Not on file Occupational History Not on file Tobacco Use Smoking status: Former Types: Cigarettes Smokeless tobacco: Never Vaping Use Vaping status: Never Used Substance and Sexual Activity Alcohol use: Not Currently Drug use: Never Sexual activity: Not Currently Other Topics Concern Not on file Social History Narrative Not on file Social Drivers of Health Financial Resource Strain: Low Risk (09/26/2023) Overall Financial Resource Strain (CARDIA) Difficulty of Paying Living Expenses: Not very hard Food Insecurity: No Food Insecurity (11/29/2023) Hunger Screening Food Insecurity - Worry: Never True Food Insecurity - Inability: Never True Transportation Needs: No Transportation Needs (06/10/2023) PRAPARE - Transportation Lack of Transportation (Medical): No Lack of Transportation (Non-Medical): No Physical Activity: Insufficiently Active (11/29/2023) Exercise Vital Sign Days of Exercise per Week: 3 days Minutes of Exercise per Session: 20 min Stress: Stress Concern Present (09/26/2023) [employer] [place] [employer] - Occupational Stress Questionnaire Feeling of Stress : Rather much Social Connections: Moderately Isolated (09/26/2023) Social Connection and Isolation Panel [NHANES] Frequency of Communication with Friends and Family: Three times a week Frequency of Social Gatherings with Friends and Family: Three times a week Attends Judaism Services: More than 4 times per year Active Member of Clubs or Organizations: No Attends Club or Organization Meetings: Never Marital Status: Interpersonal Safety: Not At Risk (06/10/2023) Humiliation, Afraid, Rape, and Kick questionnaire Fear of Current or Ex-Partner: No Emotionally Abused: No Physically Abused: No Sexually Abused: No Housing Instability: Low Risk (06/10/2023) Housing Instability Housing Instability: No Current Medications: Current Outpatient Medications: albuterol (PROVENTIL HFA;VENTOLIN HFA) 90 mcg/actuation inhaler, Inhale 2 puffs every 6 (six) hours as needed for wheezing or shortness of breath., Disp: 18 g, Rfl: 1 alendronate (FOSAMAX) 70 mg tablet, Take 1 tablet (70 mg total) by mouth every 7 days. In a.m. with water on empty stomach, nothing else by mouth and remain upright for 30min, Disp: 4 tablet, Rfl: 11 amLODIPine (NORVASC) 10 mg tablet, Take 0.5 tablets (5 mg total) by mouth in the morning., Disp: , Rfl: aspirin 81 mg, Take 1 tablet (81 mg total) by mouth in the morning., Disp: , Rfl: atorvastatin (LIPITOR) 40 mg tablet, take 1 tablet by mouth daily, Disp: 90 tablet, Rfl: 1 budesonide-formoteroL (SYMBICORT) 80-4.5 mcg/actuation inhaler, Inhale 2 puffs in the morning and 2 puffs before bedtime., Disp: , Rfl: celecoxib (CeleBREX) 100 mg capsule, Take 1 capsule (100 mg total) by mouth in the morning and 1 capsule (100 mg total) before bedtime. Taking as needed ., Disp: , Rfl: ergocalciferol (DRISDOL) 1,250 mcg (50,000 unit) capsule, take 1 capsule by mouth once weekly, Disp: 12 capsule, Rfl: 1 metoprolol tartrate (LOPRESSOR) 25 mg tablet, Take 1 tablet (25 mg total) by mouth in the morning. Takes 1/2 tab in morning and 1/2 tab at bedtime., Disp: , Rfl: montelukast (SINGULAIR) 10 mg tablet, TAKE ONE TABLET BY MOUTH ONCE NIGHTLY, Disp: 90 tablet, Rfl: 1 iuzmpcqfomis-diy-rbvj-FA-vit K 45 mg iron- 800 mcg-120 mcg capsule, Take 1 tablet by mouth in the morning., Disp: , Rfl: nitroglycerin (NITROSTAT) 0.4 MG SL tablet, nitroglycerin 0.4 mg sublingual tablet, Disp: , Rfl: valsartan (DIOVAN) 320 mg tablet, Take 1 tablet (320 mg total) by mouth in the morning., Disp: , Rfl: Allergies: Allergies Allergen Reactions Nalbuphine Last Neuro Imaging: MRI brain 05/2023 Objective: BP 158/75 Pulse 67 Wt 67.1 kg (148 lb) BMI 27.96 kg/m Physical Exam: Physical Exam: Mental Status: Orientation: Oriented. Level of consciousness: alert. Speech: Normal quality. Language: Normal. Cranial Nerves: CN II: Visual kelly full to confrontation. CN III, IV, : CN III: EOM full. CN VII: Facial expression fully symmetric. Motor: Power: Pronator drift: None. Sensory: Light touch normal in upper and lower extremities. Gait/Coord/DTR: Casual gait with normal base and stride and without ataxia or circumduction. Coordination: Normal. NIH Stroke Scale 1a Level of consciousness: 0=alert; keenly responsive 1b. LOC questions: 0=Performs both tasks correctly 1c. LOC commands: 0=Performs both tasks correctly 2. Best Gaze: 0=normal 3. Visual: 0=No visual loss 4. Facial Palsy: 0=Normal symmetric movement 5a. Motor left arm: 0=No drift, limb holds 90 (or 45) degrees for full 10 seconds 5b. Motor right arm: 0=No drift, limb holds 90 (or 45) degrees for full 10 seconds 6a. motor left le=No drift, limb holds 90 (or 45) degrees for full 10 seconds 6b Motor right le=No drift, limb holds 90 (or 45) degrees for full 10 seconds 7. Limb Ataxia: 0=Absent 8. Sensory: 0=Normal; no sensory loss 9. Best Language: 0=No aphasia, normal 10. Dysarthria: 0=Normal 11. Extinction and Inattention: 0=No abnormality 12. Distal motor function: 0=Normal Total: 0 MRS: 0 Risk Factor Management: Hypertension target range 130-140/70-80 Lipid range - LDL < 100 and checked every 6 months, fasting Assessment: Patient Active Problem List Diagnosis Coronary atherosclerosis Essential hypertension Osteoporosis without current pathological fracture Mixed hyperlipidemia Vitamin D deficiency Irritable bowel syndrome with constipation Thyroid nodule Peripheral arterial disease with history of revascularization ([facility]) ICH (intracerebral hemorrhage) ([facility]) Bradycardia Moderate persistent asthma without complication Left carotid stenosis Overweight Osteoarthritis Patient is a 73-year-old female who a left temporal intraparenchymal hemorrhage due to uncontrolled hypertension in May of 2023 with past medical history of hypertension, hyperlipidemia, CAD and COPD. Patient's main complaints today are daily headache mainly in the morning described as diffuse with no migrainous features associated with high blood pressure. Exam today is overall nonfocal. 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 Will have the patient follow up in approximately 6 months to 1 year. Plan: Continue ASA daily Continue cholesterol medication Continue BP meds and monitor BP at home and call cardiology/PCP for med adjustment. Followup with cardiology regarding LOOP results. Followup in 6 months to 1 year. Call for any questions/concerns. Reason for visit: HPI: Veronique Gaitan is a 73 y.o. 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 She denies any stroke symptoms , including difficulty with word finding or speaking. Overall she feels her condition is controlled and unchanged. Stroke risk factors include: hyperlipidemia and hypertension. Hyperlipidemia well managed with medication. She reports she has been taking her blood pressure at home three times a day and it usually runs in the 150s, but has gotten as high as 172/88. She reports daily palpitations and headaches. Her headaches are bilateral, worse in the morning after awakening, and she denies any light sensitivity, sound sensitivity, nausea, or vomiting. She says the pain starts on the sides of her head and radiates to the top and feels like a pressure inside her head. She has no previous diagnosis of sleep apnea, does not snore, and sleeps through the night without awakening but has never undergone a sleep study. She had a loop monitor placed on 02/15/2024 but has not received results yet. Review of Systems Review of Systems Constitutional: Negative for decreased appetite, malaise/fatigue, weight gain and weight loss. HENT: Negative for nosebleeds. Eyes: Negative for blurred vision, double vision, vision loss in left eye, vision loss in right eye and visual disturbance. Cardiovascular: Positive for palpitations. Negative for leg swelling, near-syncope and syncope. Respiratory: Negative for shortness of breath, sleep disturbances due to breathing and snoring. Hematologic/Lymphatic: Negative for bleeding problem. Does not bruise/bleed easily. Skin: Negative for poor wound healing. Musculoskeletal: Positive for arthritis, back pain, joint pain and stiffness. Negative for falls, muscle cramps, muscle weakness, myalgias and neck pain. Gastrointestinal: Negative for dysphagia. Neurological: Positive for headaches and light-headedness. Negative for aphonia, difficulty with concentration, disturbances in coordination, dizziness, focal weakness, loss of balance, numbness, paresthesias, seizures, sensory change, vertigo and weakness. Past Medical History Past Medical History: Diagnosis Date Back pain, chronic Heart disease High cholesterol ICH (intracerebral hemorrhage) ([facility]) 06/10/2023 Osteoarthritis Palpitations Vitamin D deficiency Past Surgical History Past Surgical History: Procedure Laterality Date AORTA - FEMORAL ARTERY BYPASS GRAFT Bilateral Dr. Alejandro CARDIAC CATHETERIZATION x 2 with stents Diagnostic cerebral angiogram N/A 06/12/2023 Performed by Genaro Amin MD at [facility] CARDIAC CATH LABS INSERTION LOOP RECORDER 02/16/2024 Family History The patient has a family history of Family History Problem Relation Age of Onset Heart disease Mother at age 81 Thyroid cancer Mother Aortic aneurysm Mother Hyperlipidemia Mother Lung cancer Father 74 Cancer Father bladder-cause of at age 82 Hyperlipidemia Sister Sinusitis Brother Hyperlipidemia Daughter Hyperlipidemia Son Deep vein thrombosis Son 51 x 2 Pulmonary embolism Son 52 No Known Problems Son at age 19-MVA Hyperlipidemia Maternal Grandmother Social History Social History Socioeconomic History Marital status: Spouse name: Not on file Number of children: Not on file Years of education: Not on file Highest education level: Not on file Occupational History Not on file Tobacco Use Smoking status: Former Types: Cigarettes Smokeless tobacco: Never Vaping Use Vaping status: Never Used Substance and Sexual Activity Alcohol use: Not Currently Drug use: Never Sexual activity: Not Currently Other Topics Concern Not on file Social History Narrative Not on file Social Drivers of Health Financial Resource Strain: Low Risk (09/26/2023) Overall Financial Resource Strain (CARDIA) Difficulty of Paying Living Expenses: Not very hard Food Insecurity: No Food Insecurity (11/29/2023) Hunger Screening Food Insecurity - Worry: Never True Food Insecurity - Inability: Never True Transportation Needs: No Transportation Needs (06/10/2023) PRAPARE - Transportation Lack of Transportation (Medical): No Lack of Transportation (Non-Medical): No Physical Activity: Insufficiently Active (11/29/2023) Exercise Vital Sign Days of Exercise per Week: 3 days Minutes of Exercise per Session: 20 min Stress: Stress Concern Present (09/26/2023) [employer] [place] [employer] - Occupational Stress Questionnaire Feeling of Stress : Rather much Social Connections: Moderately Isolated (09/26/2023) Social Connection and Isolation Panel [NHANES] Frequency of Communication with Friends and Family: Three times a week Frequency of Social Gatherings with Friends and Family: Three times a week Attends Judaism Services: More than 4 times per year Active Member of Clubs or Organizations: No Attends Club or Organization Meetings: Never Marital Status: Interpersonal Safety: Not At Risk (06/10/2023) Humiliation, Afraid, Rape, and Kick questionnaire Fear of Current or Ex-Partner: No Emotionally Abused: No Physically Abused: No Sexually Abused: No Housing Instability: Low Risk (06/10/2023) Housing Instability Housing Instability: No Current Medications: Current Outpatient Medications: albuterol (PROVENTIL HFA;VENTOLIN HFA) 90 mcg/actuation inhaler, Inhale 2 puffs every 6 (six) hours as needed for wheezing or shortness of breath., Disp: 18 g, Rfl: 1 alendronate (FOSAMAX) 70 mg tablet, Take 1 tablet (70 mg total) by mouth every 7 days. In a.m. with water on empty stomach, nothing else by mouth and remain upright for 30min, Disp: 4 tablet, Rfl: 11 amLODIPine (NORVASC) 10 mg tablet, Take 0.5 tablets (5 mg total) by mouth in the morning., Disp: , Rfl: aspirin 81 mg, Take 1 tablet (81 mg total) by mouth in the morning., Disp: , Rfl: atorvastatin (LIPITOR) 40 mg tablet, take 1 tablet by mouth daily, Disp: 90 tablet, Rfl: 1 budesonide-formoteroL (SYMBICORT) 80-4.5 mcg/actuation inhaler, Inhale 2 puffs in the morning and 2 puffs before bedtime., Disp: , Rfl: celecoxib (CeleBREX) 100 mg capsule, Take 1 capsule (100 mg total) by mouth in the morning and 1 capsule (100 mg total) before bedtime. Taking as needed ., Disp: , Rfl: ergocalciferol (DRISDOL) 1,250 mcg (50,000 unit) capsule, take 1 capsule by mouth once weekly, Disp: 12 capsule, Rfl: 1 metoprolol tartrate (LOPRESSOR) 25 mg tablet, Take 1 tablet (25 mg total) by mouth in the morning. Takes 1/2 tab in morning and 1/2 tab at bedtime., Disp: , Rfl: montelukast (SINGULAIR) 10 mg tablet, TAKE ONE TABLET BY MOUTH ONCE NIGHTLY, Disp: 90 tablet, Rfl: 1 kmwclunlgafs-gta-ebzw-FA-vit K 45 mg iron- 800 mcg-120 mcg capsule, Take 1 tablet by mouth in the morning., Disp: , Rfl: nitroglycerin (NITROSTAT) 0.4 MG SL tablet, nitroglycerin 0.4 mg sublingual tablet, Disp: , Rfl: valsartan (DIOVAN) 320 mg tablet, Take 1 tablet (320 mg total) by mouth in the morning., Disp: , Rfl: Allergies: Allergies Allergen Reactions Nalbuphine Last Neuro Imaging: Repeated brain MRI (06/2023) :showed resolving temporal ICH with no underlying mass Objective: BP 158/75 Pulse 67 Wt 67.1 kg (148 lb) BMI 27.96 kg/m Physical Exam: Physical Exam: Mental Status: Orientation: Oriented. Level of consciousness: alert. Attention span is normal. Concentration is normal. Speech: Normal quality and patient has normal vocabulary. Language: Normal. No aphasia or word finding difficulties. Cranial Nerves: CN II: Visual kelly full to confrontation. CN III, IV, : CN III: PERRLA, EOM full, no nystagmus and no ptosis. Pupil Size: right = left. CN V: Facial sensation intact. CN VII: Facial expression fully symmetric. CN VIII: CN VIII normal. CN IX, X: CN IX and X normal. CN XI: CN XI normal. CN XII: CN XII normal. Motor: Muscle Bulk: Normal. Muscle Tone: Normal. Power: Normal strength throughout. Fasciculations: No Myotonia: No myotonia. Sensory: Light touch normal in upper and lower extremities. Gait/Coord/DTR: Coordination: Normal. Tremor: Absent. Involuntary Movements: no abnormal movement. Risk Factor Management: Hypertension target range 130-140/70-80 Lipid range - LDL < 100 and checked every 6 months, fasting Diabetes - HgB A1C <7 Assessment: Patient Active Problem List Diagnosis Coronary atherosclerosis Essential hypertension Osteoporosis without current pathological fracture Mixed hyperlipidemia Vitamin D deficiency Irritable bowel syndrome with constipation Thyroid nodule Peripheral arterial disease with history of revascularization ([facility]) ICH (intracerebral hemorrhage) ([facility]) Bradycardia Moderate persistent asthma without complication Left carotid stenosis Overweight Osteoarthritis Assessment: Veronique Gaitan is a right handed 73 y.o. 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 Patient is being seen in clinic today for routine follow up. Plan: Strict blood pressure control, goal < 130/80. Currently following with cardiology. 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 Continue ASA Continue hyperlipidemia medications. Follow up in 6 months-1 year. Aurea Sae, MS-3 documented in this encounter [facility] 03-12-2024 Instructions Rosie Velazquez MD - 03/12/2024 10:30 AM EST Continue ASA daily Continue cholesterol medication Continue BP meds and monitor BP at home and call cardiology/PCP for med adjustment. Followup with cardiology regarding LOOP results. Followup in 6 months to 1 year. Call for any questions/concerns. documented in this encounter [facility] 03-12-2024 Miscellaneous Notes Disclaimer: This note is intended for educational purposes only. It does not constitute a patient visit and is not to be used or relied on for treatment, billing, or any other purposes. It has been created solely for to enable the student to practice documentation to achieve the expected level of competency in charting and receive feedback regarding same. This note is not a part of the legal medical record. documented in this encounter [facility] 03-12-2024 Progress note Formatting of t his note might be different from the original. Disclaimer: This note is intended for educational purposes only. It does not constitute a patient visit and is not to be used or relied on for treatment, billing, or any other purposes. It has been created solely for to enable the student to practice documentation to achieve the expected level of competency in charting and receive feedback regarding same. This note is not a part of the legal medical record. [facility] 01-02-2024 History of Present illness Narrative Skin Check Location: Patient requests a full body skin examination Dermatologic history: history of Actinic Keratosis, history of Squamous Cell Carcinoma Last visit: 11/2022 (shave excision of SCC left gutiérrez) Follow up Diagnosis: AK Location: left lower lip Symptoms: still gets a scab Procedure performed: Shave biopsy 10/2022, cryotherapy 12/07/2022 Current treatment: lip ointment Established patient All pertinent medical history, medications, and allergies were reviewed. General Exam: alert, oriented to person, place, and time, normal affect, well appearing Unaccompanied Scalp, Examined , exam limited by hair Right leg Examined Head, Face Examined Left leg Examined Neck Examined Right foot Examined Chest Examined Left foot Examined Back Examined Buttocks Examined Abdomen Examined Digits,nails: Examined Right arm Examined Left arm Examined Lymphatics: Not examined Hands Examined 1. Seborrheic keratosis Stuck on verrucous, hawkins-brown papules and plaques. Patient was counseled regarding these benign growths. Removal is normally not necessary, but they may be removed if they are symptomatic or for cosmetic reasons. 2. Capillary angioma Scattered willett-red papule(s). The patient was informed that angiomas are benign growths on the the skin. No treatment is necessary. 3. Lentigines Scattered hawkins macules in sun-exposed areas. The patient was informed that lentigines are benign pigmented lesions that occur on sun-exposed and sun-damaged skin. No treatment is necessary. Recommended regular use of broad spectrum sunscreen SPF 30 or higher 4. History of SCC (squamous cell carcinoma) of skin Left Gutiérrez No evidence of recurrence at SCC scar. The patient was counseled that scars from excisional sites of nonmelanoma skin cancers should be monitored closely for recurrence. The patient was instructed to contact the office for any new, changing, or symptomatic moles. The patient was also instructed to contact the office for any new lesions that develop within or around the previous surgery scar. 5. Actinic keratosis (4) Chest - Medial (Center), Left Eyebrow, Left Lower Vermilion Lip, Left Nasal Sidewall Erythematous scaly papules Patient was counseled regarding these sun-induced growths that can develop into squamous cell carcinoma if left untreated. Discussed treatment with cryotherapy. It was emphasized that any treated lesions that fail to resolve should be re-evaluated. 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 Method: Liquid nitrogen was used to treat the lesion(s) with two 5-10 second freeze-thaw cycles. Number of lesions treated: 4 Post-procedure instructions: Instructions were given orally and in writing. The office will be contacted if the lesion fails to resolve despite treatment, or if a side effect develops such as abnormal crusting, scabbing, redness or tenderness Cryotherapy, skin lesion - Chest - Medial (Center), Left Eyebrow, Left Lower Vermilion Lip, Left Nasal Sidewall Next Visit: 1 year documented in this encounter [facility] 01-02-2024 Miscellaneous Notes Per January 2024 recall, patient is due for follow up with vascular fellow. Please call and schedule patient. Called patient and scheduled appt. documented in this encounter [facility] 01-02-2024 Telephone encounter Note Per January 2024 recall, patient is due for follow up with vascular fellow. Please call and schedule patient. [facility] 01-02-2024 Telephone encounter Note [facility] and [facility] Evaluation + Plan note Diagnostic Tests PendingBUN 12/26/23Creatinine 12/26/23 [facility] 12-26-2023 Evaluation + Plan note Diagnostic Tests PendingUrine Culture 12/26/[address] [facility] 12-26-2023 Note Thank you [place] Electrophysiology Consult Note [place] [facility] Reason for visit: Palpitations HPI: Veronique Gaitan is a 73 y.o. year old with past medical history of CAD, hypertension , CAD s/p PCI, bilateral aortofemoral artery bypass grafts , DVT after left foot fracture approximately 17 years ago, AAA , COPD PVD, hyperlipidemia, diastolic heart failure had been seen by Dr. BURNS for description of palpitations. She was placed under the care of vascular surgery with Abbi and her blood pressure has been an issue and therefore her amlodipine dosage was cut down from 10 mg to 5 mg due to low blood pressure readings. Subsequently she was admitted to [facility] for a small temporal intracerebral hemorrhage and she recovered with no residual neurological deficits. Given this she was placed on a 30-day event monitor which revealed episodes of SVTs and PVCs the symptoms correlated with sinus rhythm as well as sinus tachycardia. Maximal heart rate was noted on 07/31/2023 at 12:42 PM at the rate of 142 bpm which appeared to be a long RP tachycardia. She is currently on Lopressor 12.5 twice daily, valsartan 320 once daily and amlodipine 5 mg once daily And her blood pressure today is elevated. PMH: Past Medical History: Diagnosis Date AAA (abdominal aortic aneurysm) ([facility]) COPD (chronic obstructive pulmonary disease) ([facility]) Coronary artery disease Diastolic dysfunction Hyperlipidemia Hypertension PVD (peripheral vascular disease) ([facility]) PSH: Past Surgical History: Procedure Laterality Date CARDIAC CATHETERIZATION CHOLECYSTECTOMY HYSTERECTOMY VASCULAR SURGERY SH: Social Determinants of Health Tobacco Use: Low Risk (12/26/2023) Patient History Smoking Tobacco Use: Never Smokeless Tobacco Use: Never Passive Exposure: Not on file Alcohol Use: Not on file Financial Resource Strain: Not on file Food Insecurity: Not on file Transportation Needs: Not on file Physical Activity: Not on file Stress: Not on file Social Connections: Not on file Intimate Partner Violence: Unknown (04/06/2023) [place] Safety & Environment Fear of Current or Ex-Partner: Not on file Emotionally Abused: Not on file Physically Abused: Not on file Sexually Abused: Not on file Physically or Sexually Abused: Not on file Depression: Not on file Housing Stability: Not on file Utilities: Not on file Allergies: Allergies Allergen Reactions Nalbuphine Weight: 61.7kg Visit Vitals BP 166/87 (BP Location: Left arm, Patient Position: Sitting, BP Cuff Size: Adult) Pulse 60 Resp 12 Ht 1.626 m (5' 4 ) Wt 61.7 kg (136 lb) SpO2 98% BMI 23.34 kg/m??? Smoking Status Never BSA 1.67 m??? Meds: Current Outpatient Medications on File Prior to Visit Medication Sig Dispense Refill alendronate (Fosamax) 70 mg tablet Take 70 mg by mouth once a week. amLODIPine (Norvasc) 10 mg tablet TAKE ONE TABLET BY MOUTH DAILY (Patient taking differently: Take 5 mg by mouth in the morning. TAKE ONE TABLET BY MOUTH DAILY) 90 tablet 3 amLODIPine (Norvasc) 5 mg tablet Take 1 tablet (5 mg) by mouth in the morning. 90 tablet 3 aspirin 81 mg EC tablet Take 1 tablet every day by oral route. atorvastatin (Lipitor) 40 mg tablet Take 1 tablet every day by oral route. budesonide-formoteroL (Symbicort) 80-4.5 mcg/actuation inhaler Inhale 2 puffs twice a day. carvedilol (Coreg) 12.5 mg tablet TAKE ONE TABLET BY MOUTH EVERY MORNING WITH BREAKFAST AND TAKE ONE TABLET BY MOUTH EVERY EVENING WITH MEAL 180 tablet 3 celecoxib (CeleBREX) 100 mg capsule Take 100 mg by mouth if needed each day. ergocalciferol (Vitamin D-2) 1.25 MG (47747 Units) capsule Take 1 capsule every week by oral route. metoprolol tartrate (Lopressor) 25 mg tablet Take 0.5 tablets (12.5 mg) by mouth in the morning and at bedtime. 90 tablet 3 montelukast (Singulair) 10 mg tablet Take 1 tablet every day by oral route. nitroglycerin (Nitrostat) 0.[address] 1 tablet as needed by sublingual route. valsartan (Diovan) 320 mg tablet TAKE ONE TABLET BY MOUTH EVERY MORNING 90 tablet 3 spironolactone (Aldactone) 25 mg tablet Take 0.5 tablets every day by oral route for 30 days. (Patient not taking: Reported on 12/26/2023) 45 tablet 3 No current facility-administered medications on file prior to visit. ROS: Cardio Basic Cardiovascular Symptoms: no lightheadedness, no leg edema, no syncope, no orthopnea, no PND, no claudication, Constitutional Constitutional: no fever, no night sweats, no significant weight gain, no significant weight loss, no exercise intolerance Eyes Eyes: no dry eyes, no irritation, no vision change ENMT Ears: no difficulty hearing, no ear pain Nose: no frequent nosebleeds, Mouth/Throat: no sore throat, no bleeding gums, no snoring, no dry mouth, no mouth ulcers, no oral abnormalities, no teeth problems Respiratory Respiratory: no cough, no wheezing, no (more content not included)... [facility] 12-26-2023 Hospital Discharge instructions Patient Education 12/26/2023 10:21:58 Dysuria Dysuria Dysuria is pain or discomfort during urination. The pain or discomfort may be felt in the part of the body that drains urine from the bladder (urethra) or in the surrounding tissue of the genitals. The pain may also be felt in the groin area, lower abdomen, or lower back. You may have to urinate frequently or have the sudden feeling that you have to urinate (urgency). Dysuria can affect anyone, but it is more common in females. Dysuria can be caused by many different things, including: Urinary tract infection. Kidney stones or bladder stones. Certain STIs (sexually transmitted infections), such as chlamydia. Dehydration. Inflammation of the tissues of the vagina. Use of certain medicines. Use of certain soaps or scented products that cause irritation. Follow these instructions at home: Medicines Take sjdu-[id number]-[id number] and prescription medicines only as told by your health care provider. If you were prescribed an antibiotic medicine, take it as told by your health care provider. Do not stop taking the antibiotic even if you start to feel better. Eating and drinking Drink enough fluid to keep your urine pale yellow. Avoid caffeinated beverages, tea, and alcohol. These beverages can irritate the bladder and make dysuria worse. In males, alcohol may irritate the prostate. General instructions Watch your condition for any changes. Urinate often. Avoid holding urine for long periods of time. If you are female, you should wipe from front to back after urinating or having a bowel movement. Use each piece of toilet paper only once. Empty your bladder after sex. Keep all follow-up visits. This is important. If you had any tests done to find the cause of dysuria, it is up to you to get your test results. Ask your health care provider, or the department that is doing the test, when your results will be ready. Contact a health care provider if: You have a fever. You develop pain in your back or sides. You have nausea or vomiting. You have blood in your urine. You are not urinating as often as you usually do. Get help right away if: Your pain is severe and not relieved with medicines. You cannot eat or drink without vomiting. You are confused. You have a rapid heartbeat while resting. You have shaking or chills. You feel extremely weak. Summary Dysuria is pain or discomfort while urinating. Many different conditions can lead to dysuria. If you have dysuria, you may have to urinate frequently or have the sudden feeling that you have to urinate (urgency). Watch your condition for any changes. Keep all follow-up visits. Make sure that you urinate often and drink enough fluid to keep your urine pale yellow. This information is not intended to replace advice given to you by your health care provider. Make sure you discuss any questions you have with your health care provider. Document Revised: 09/11/2020 Document Reviewed: 09/11/2020 CYBRA Patient Education 2023 [employer]. Follow Up Care 12/04/2023 10:11:01 With:CORI KAHN PA-C, URL Address: [address] [place] [id number] When: Unknown [facility] 12-26-2023 Note Urology Office/Clini c Note Chief Complaint Referral HPI Staff 73 yo female referred by Dr[address] Louis for recurrent UTI and hematuria. UCx: 03/23/23 - neg A1c - 5.4 done 06/10/23 BMP 11/29/23 - Cr 1.17, eGFR 49 Dysuria: yes Pt. states having some burning with urination, on and off for a couple of years Incomplete bladder emptying: yes, PVR 20mL Hematuria: Pt. states she has not seen any blood Frequency: 2-3 hours Urgency: rarely Nocturia: 2x's Stream: weak stream Post void dripping: no Wearing pads/ Depends: yes, Pt. will use at least 2 pads a day. Pt. states there is not a lot of urine on the pads Urge incontinence: a few times a month Stress incontinence: no Incontinence without Sensory Awareness: no Abdominal pain: no Flank pain: lower back pain, on going for the past couple months History of Present Illness staff HPI reviewed and agree. Review of Systems PHQ Score Initial Depression Screen Score: 2 SCORE no fever, chills, malaise, myalgia. no rash/lesions. no chest pain, palpitations, or SOB. no abdominal pain, nausea, vomiting. no unilateral calf swelling, redness, pain Physical Exam Vitals & Measurements HR: 55(Peripheral) RR: 19 BP: 150/79 HT: 61 in HT: 155 cm WT: 64 kg WT: 141.096 lb BMI: 26.64 General: nontoxic, NAD Mouth: moist mucosa Lungs: normal respiratory effort Cardio: regular rate, good distal perfusion Abdomen: nondistended, no suprapubic distention or tenderness, no CVA tenderness Neurologic: Grossly normal Skin: No rashes or suspicious lesions Assessment/Plan 73 yo female with hx of skin cancer who was referred by Dr. Louis for recurrent UTI and hematuria. Latest A1c 06/10/23 - 5.4 BBSQ 11 - changing pad 2x/day, good control. Does not find sx bothersome enough to warrant tx at this time. Family hx~bladder and thyroid CA. PSH ~appendectomy, hysterectomy, cholecystectomy, bowel surgery, BL bypass surgery 2021, hx of CVA, not on AC. 1. Dysuria (R30.0: Dysuria) Referred for recurrent UTI but no +cx found. Main sx is intermittent dysuria. UA in office today: UA shows trace-intact blood and trace leuks. current UTI symptoms yes c/o dysuria which has been ongoing for a few years, lower back pain which started a few mos ago Pt states dysuria typically improves after ATB course. but comes right back. 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 -- Increase fluids. Aim for at least 2L daily. PVR today 20 mL. We will start pt on topical estrogen cream. Reasoning, side effects, risks/benefits discussed. Rx sent to pharmacy. Pt advised to contact our office with all future UTI sx so we can monitor urine cx results, treat appropriately (may require extended course abx), and monitor frequency of infections. Pt advised if develops fever, severe flank pain, vomiting - needs to go to ER. -Micro and urine culture sent today. -Start Estrace cream every night for 2-3 weeks 3x/wk thereafter for maintenance -Consider further workup if pt remains symptomatic after Estrace cream -Follow up within 6 months Ordered: E&M of New Patient Moderate 45-59 Min 07007 2. Abnormal kidney function (N28.9: Disorder of kidney and ureter, unspecified) BMP 11/29/23 - Cr 1.17, eGFR 49 Advised pt that eGFR can improve with hydration. Recommended increasing water intake. Will recheck labs prior to 6 mos visit. -BUN and Cr prior to 6 mos appt Ordered: BUN Creatinine E&M of New Patient Moderate 45-59 Min 65666 3. Microhematuria (R31.29: Other microscopic hematuria) Also shares that she has always had microscopic hematuria. Denies gross hematuria. No smoking history. today's in-office UA shows trace-intact hgb. we will send for microscopic eval and culture. if shows significant microhematuria and completely negative cx, then we will need to proceed with hematuria eval. hematuria eval components were not discussed in depth during today's visit. if + will need phone call or o.v. to discuss at length. if micro negative then no additional action needed at this time - pt aware that no news is good news in this regard. Ordered: [id number] Measure Post Void residual urine and/or bladder capacity by US- non-imaging Urnls Dip Stick Auto w/o Microscopy POC [id number] Orders: estradiol topical, See Instructions, 42.5 gm, Refill(s) 3, Apply pea size with your fingertip vaginally and around the urethra every night for 3 weeks and 3x/wk thereafter for maintenance., [facility] [id number], 155, cm, 12/26/23 9:59:00 EST, Height/Length Dosing, 6... Follow-up With When Contact Information CORI KAHN PA-C, URL [address] [place] [address] Additional Instructions: 6 mos w/ BUN and Cr Patient Education Dysuria Documentation recorded by the alec Dickson accu (more content not included)... [facility] Comment on above: Result Comment: Elec tronically Signed By: CORI KAHN PA-C\.br\Date and Time Signed: 12/26/23 10:38 EST\.br\Electronically Co-Signed By: Gladys Dickson\.br\Date and Time Co-Signed: 12/26/23 10:25 EST 12-26-2023 Note Patient Education Urology Dysuria Dysuria is pain or discomfort during urination. The pain or discomfort may be felt in the part of the body that drains urine from the bladder (urethra) or in the surrounding tissue of the genitals. The pain may also be felt in the groin area, lower abdomen, or lower back. You may have to urinate frequently or have the sudden feeling that you have to urinate (urgency). Dysuria can affect anyone, but it is more common in females. Dysuria can be caused by many different things, including: ??? Urinary tract infection. ??? Kidney stones or bladder stones. ??? Certain STIs (sexually transmitted infections), such as chlamydia. ??? Dehydration. ??? Inflammation of the tissues of the vagina. ??? Use of certain medicines. ??? Use of certain soaps or scented products that cause irritation. Follow these instructions at home: Medicines ??? Take axzf-gla-yjoiejn and prescription medicines only as told by your health care provider. ??? If you were prescribed an antibiotic medicine, take it as told by your health care provider. Do not stop taking the antibiotic even if you start to feel better. Eating and drinking ??? Drink enough fluid to keep your urine pale yellow. ??? Avoid caffeinated beverages, tea, and alcohol. These beverages can irritate the bladder and make dysuria worse. In males, alcohol may irritate the prostate. General instructions ??? Watch your condition for any changes. ??? Urinate often. Avoid holding urine for long periods of time. ??? If you are female, you should wipe from front to back after urinating or having a bowel movement. Use each piece of toilet paper only once. ??? Empty your bladder after sex. ??? Keep all follow-up visits. This is important. ??? If you had any tests done to find the cause of dysuria, it is up to you to get your test results. Ask your health care provider, or the department that is doing the test, when your results will be ready. Contact a health care provider if: ??? You have a fever. ??? You develop pain in your back or sides. ??? You have nausea or vomiting. ??? You have blood in your urine. ??? You are not urinating as often as you usually do. Get help right away if: ??? Your pain is severe and not relieved with medicines. ??? You cannot eat or drink without vomiting. ??? You are confused. ??? You have a rapid heartbeat while resting. ??? You have shaking or chills. ??? You feel extremely weak. Summary ??? Dysuria is pain or discomfort while urinating. Many different conditions can lead to dysuria. ??? If you have dysuria, you may have to urinate frequently or have the sudden feeling that you have to urinate (urgency). ??? Watch your condition for any changes. Keep all follow-up visits. ??? Make sure that you urinate often and drink enough fluid to keep your urine pale yellow. This information is not intended to replace advice given to you by your health care provider. Make sure you discuss any questions you have with your health care provider. Document Revised: 09/11/2020 Document Reviewed: 09/11/2020 CYBRA Patient Education ? 2023 [employer]. [facility] 12-21-2023 Miscellaneous Notes ----- Message from Dr. Uday Louis DO sent at 12/20/2023 5:07 PM EST ----- Her mammogram was normal. Recheck in 1 year Read results to pt. Pt verbalizes understanding. documented in this encounter [facility] 12-21-2023 Telephone encounter Note ----- Message from Dr. Uday Louis DO sent at 12/20/2023 5:07 PM EST ----- Her mammogram was normal. [facility]heck in 1 [facility]23 Telephone encounter Note Read results to pt. Pt verbalizes understanding. [facility] 12-01-2023 Miscellaneous Notes ----- Message from Dr. Uday Louis DO sent at 12/01/2023 9:53 AM EDT ----- Her kidney tests have worsened significantly since last labs. GFR is now 49. Have her stop her Celebrex. I was also reviewing the [facility]ology [facility] and they recommended that she cut back on her amlodipine 10 mg to 5 mg daily as well as taking 1/2 of spironolactone 25 mg daily. Is that how she is taking her medications? Her potassium was elevated at 5.5 possibly due to a combination of the spironolactone and the valsartan with chronic kidney disease. Read note to pt. 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 She also stated that Dr Louis wanted her to see a urologist before but she couldn't due to a broken arm. Do you still want her to see one? I sent the referral on April [address] Ang in [place]. I guess we can send it again. I would recommend that she cut back on her spironolactone to just 1/2 tablet a day Called and spoke with the pt. Pt verbalizes understanding. documented in this encounter [facility] 12-01-2023 Telephone encounter Note ----- Message from Dr. Uday Louis DO sent at 12/01/2023 9:53 AM EDT ----- Her kidney tests have worsened significantly since last labs. GFR is now 49. Have her stop her Celebrex. I was also reviewing the [facility]ology [facility] and they recommended that she cut back on her amlodipine 10 mg to 5 mg daily as well as taking 1/2 of spironolactone 25 mg daily. Is that how she is taking her medications? Her potassium was elevated at 5.5 possibly due to a combination of the spironolactone and the valsartan with chronic kidney disease. [facility] 12-01-2023 Telephone encounter Note Read note to pt. 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 She also stated that Dr Louis wanted her to see a urologist before but she couldn't due to a broken arm. Do you still want her to see one? [facility] 12-01-2023 Telephone encounter Note I sent the referral on April [address] Ang in [place]. I guess we can send it again. I would recommend that she cut back on her spironolactone to just 1/2 tablet a day [facility] 12-01-2023 Telephone encounter Note Called and spoke with the pt. Pt verbalizes understanding. [facility] 11-29-2023 History of Present illness Narrative Subjective Patient ID: Veronique Gaitan is a 73 y.o. female. Veronique presents today for a CV recheck. She is taking her medications. She does not have any side effects. She is frustrated with her right arm fracture. It is still causing problems. The orthopedist ordered physical therapy but she can not afford it. She is taking Celebrex with mild benefit. Neurologist recommended that she take a baby aspirin. She said that her previous physician told her that she did have a heart attack but she has not had any interventions. She keeps gaining weight and wonders what she can do to stop it. She was not as active since she broke her arm. She also was eating a lot of frozen dinners which probably contributed it to it. She does have swelling in her feet usually in the evening but none now. The following portions of the patient's history were reviewed and updated as appropriate: allergies, current medications, past family history, past medical history, past social history, past surgical history, problem list, and medication reconciliation was completed including current medication and post discharge medication. Review of Systems Objective Physical Exam Vitals reviewed. Constitutional: General: She is not in acute distress. Appearance: She is normal weight. She is not ill-appearing. HENT: Head: Normocephalic. Eyes: Extraocular Movements: Extraocular movements intact. Conjunctiva/sclera: Conjunctivae normal. Cardiovascular: Rate and Rhythm: Normal rate and regular rhythm. Heart sounds: Normal heart sounds. No murmur heard. Pulmonary: Effort: Pulmonary effort is normal. No respiratory distress. Breath sounds: Normal breath sounds. No wheezing, rhonchi or rales. Abdominal: General: Bowel sounds are normal. There is no distension. Palpations: Abdomen is soft. Tenderness: There is no abdominal tenderness. Musculoskeletal: General: Deformity (Thoracic kyphosis) present. Right lower leg: No edema. Left lower leg: No edema. Lymphadenopathy: Cervical: No cervical adenopathy. Neurological: General: No focal deficit present. Mental Status: She is alert and oriented to person, place, and time. Psychiatric: Attention and Perception: Attention normal. Mood and Affect: Mood and affect normal. Speech: Speech normal. Behavior: Behavior normal. Behavior is cooperative. Thought Content: Thought content normal. Cognition and Memory: Cognition normal. Judgment: Judgment normal. Assessment/Plan Veronique was seen today for hypertension and hyperlipidemia. Diagnoses and all orders for this visit: Essential hypertension - Basic Metabolic Panel; Future Blood pressure at goal. Check BMP. Encounter for screening mammogram for malignant neoplasm of breast - Cancel: Mammography screening bilateral with CAD; Future - Mammography screening bilateral with CAD; Future Recommended mammogram to screen for breast cancer. She is long overdue for 1. She does agree and would pursue further evaluation and treatment. Order sent to [facility] per her request Osteoporosis with current pathological fracture, unspecified osteoporosis type, sequela She has osteoporosis and had a recent fracture. She is not taking anything. We discussed risks and benefits of medication and treatment. She does not have any stomach issues. She agrees to Fosamax 70 mg weekly. Overweight She is overweight. We discussed diet and exercise. Encouraged her to get more active. She is due exercises in the house while holding onto furniture with an exercise program that she watches. Moderate persistent asthma without complication Stable. Primary Osteoarthritis involving multiple joints Continue Celebrex. Check BMP. She is deriving benefit from it. Other orders - aspirin 81 mg; Take 1 tablet (81 mg total) by mouth in the morning. - alendronate (FOSAMAX) 70 mg tablet; Take 1 tablet (70 mg total) by mouth every 7 days. In a.m. with water on empty stomach, nothing else by mouth and remain upright for 30min documented in this encounter [employer] 08-21-2023 Note [facility] Cardiology Clinic Note Chief Complaint: Chief Complaint: Patient here for follow up 30 day event monitor. C/o heart racing and pounding . She had been keeping track of her BP for awhile but then broke her ulna and isn't able to. C/o MCBRIDE. Denies chest pain. Hasn't restarted aspirin yet, as she was waiting to hear what Dr. Dewey recommended. HPI: Veronique Gaitan is a 73 y.o. female CAD, hypertension, PVD, hyperlipidemia, and diastolic dysfunction. She had routine labs performed last month. Sees vascular surgery in [place] and had recent LE dopplers. Scheduled for carotid dopplers next month. PCP advised her to cut amlodipine dose in half last month for hypotension Recently admitted to [facility] for a small temporal intracerebral hemorrhage Thankfully, she has no residual neurological deficits She denies chest pain, she has intermittent palpitations, she has no new cardiovascular symptoms Admitting Provider: Genaro Amin MD Discharge Provider: Genaro Amin MD Primary Care Physician at Discharge: Uday G DO Missy [phone] Admission Date: 06/10/2023 Discharge Date: No discharge date for patient encounter. Primary Discharge Diagnosis Small left temporal intracerebral hemorrhage, hypertension controlled, tox screen negative, DSA negative, etiology unknow Secondary Discharge Diagnosis -CAD s/p 2 stents on ASA -Bilateral aortofemoral artery bypass grafts previously on Plavix -H/o DVT after left foot fracture/casting 17 years ago -AAA -HTN (well controlled) -HLD, COPD, IBS Discharge Disposition Another Hospital Code Status at Discharge: DNR CCA DNI Active Issues Requiring Follow-up Issue: Stroke Responsible Individual: Stroke team What is Needed: Follow-up Follow-up Appointments Arranged: Yes Issue: Bradycardia, CAD Responsible Individual: Cardiology What is Needed: Follow-up Follow-up Appointments Arranged: Yes Issue: HTN, HLD, other comorbid Responsible Individual: PCP What is Needed: Follow-up Follow-up Appointments Arranged: Yes Outpatient Follow-Up Future Appointments Date Time Provider Department Center 07/27/2023 11:30 AM [facility] VASCULAR FELLOW [facility] 09/26/2023 9:00 AM [facility] IM/FM NURSE [facility] Referrals and Follow-ups to Schedule MR brain with and without contrast Does this patient need sedation?: No Sedation Release to patient via MyChart?: Immediate Patients may NOT have an MRI if they have an implanted cardiac defibrillator or cardiac pacemaker UNLESS pacemaker is Medtronic Revo, Medtronic Advisa, [employer], Vela/St. Eamon or Biotronik brand. Obtain orbit x-rays (Eye Foreign Body Localization) for any eye injury from metal. UPDATE 08/21/2023 She saw neurology; they are okay with her restarting aspirin She has been complaining of palpitations; she denies significant lightheadedness, dizziness, or syncope She unfortunately fractured her right forearm after banging it on a metal rail. There were no cardiovascular symptoms prior to this. This was accidental. Notably, she drinks a lot of tea and coffee. She also uses inhalers infrequently for history of asthma. Cardiology ROS: Review of Systems Constitutional: Positive for malaise/fatigue. Cardiovascular: Positive for dyspnea on exertion and palpitations. Musculoskeletal: Positive for arthritis, back pain and joint pain. All other systems reviewed and are negative. Past Medical History She has a past medical history of AAA (abdominal aortic aneurysm), COPD (chronic obstructive pulmonary disease) ([facility]), Coronary artery disease, Diastolic dysfunction, Hyperlipidemia, Hypertension, and PVD (peripheral vascular disease) ([facility]). Surgical History She has a past surgical history that includes Cardiac catheterization; Cholecystectomy; Hysterectomy; and Vascular surgery. Social History She has no history on file for tobacco use, alcohol use, and drug use. Family History Family History Problem Relation Name Age of Onset Coronary artery disease Mother Cancer Mother Cancer Father Allergies Nalbuphine Medications Current Outpatient Medications: amLODIPine (Norvasc) 10 mg tablet, TAKE ONE TABLET BY MOUTH DAILY, Disp: 90 tablet, Rfl: 3 atorvastatin (Lipitor) 40 mg tablet, Take 1 tablet every day by oral route., Disp: , Rfl: budesonide-formoteroL (Symbicort) 80-4.5 mcg/actuation inhaler, Inhale 2 puffs twice a day., Disp: , Rfl: celecoxib (CeleBREX) 100 mg capsule, Take 100 mg by mouth if needed each day., Disp: , Rfl: ergocalciferol (Vitamin D-2) 1.25 MG (09883 Units) capsule, Take 1 capsule every week by oral route., Disp: , Rfl: montelukast (Singulair) 10 mg tablet, Take 1 tablet every day by oral route., Disp: , Rfl: nitroglycerin (Nitrostat) 0.4 mg SL tablet, Place 1 tablet as needed by sublingual route., Disp: , Rfl: spironolactone (Aldactone) 25 mg tablet, Take 0.5 tablets (more content not included)... [facility] 06-19-2023 Note [facility] Cardiology Clinic Note Chief Complaint: Patient here for follow up [facility] admission for stroke. Carvedilol was stopped. Since she had intracerebral hemorrhage, aspirin was also stopped. Denies chest pain, SOB, and lightheadedness. She has follow up in July with neurologist. HPI: Veronique Gaitan is a 73 y.o. female CAD, hypertension, PVD, hyperlipidemia, and diastolic dysfunction. She had routine labs performed last month. Sees vascular surgery in [place] and had recent LE dopplers. Scheduled for carotid dopplers next month. PCP advised her to cut amlodipine dose in half last month for hypotension Recently admitted to [facility] for a small temporal intracerebral hemorrhage Thankfully, she has no residual neurological deficits She denies chest pain, she has intermittent palpitations, she has no new cardiovascular symptoms Admitting Provider: Genaro Amin MD Discharge Provider: Genaro Amin MD Primary Care Physician at Discharge: Uday Louis [phone] Admission Date: 06/10/2023 Discharge Date: No discharge date for patient encounter. Primary Discharge Diagnosis Small left temporal intracerebral hemorrhage, hypertension controlled, tox screen negative, DSA negative, etiology unknow Secondary Discharge Diagnosis -CAD s/p 2 stents on ASA -Bilateral aortofemoral artery bypass grafts previously on Plavix -H/o DVT after left foot fracture/casting 17 years ago -AAA -HTN (well controlled) -HLD, COPD, IBS Discharge Disposition Another Hospital Code Status at Discharge: DNR CCA DNI Active Issues Requiring Follow-up Issue: Stroke Responsible Individual: Stroke team What is Needed: Follow-up Follow-up Appointments Arranged: Yes Issue: Bradycardia, CAD Responsible Individual: Cardiology What is Needed: Follow-up Follow-up Appointments Arranged: Yes Issue: HTN, HLD, other comorbid Responsible Individual: PCP What is Needed: Follow-up Follow-up Appointments Arranged: Yes Outpatient Follow-Up Future Appointments Date Time Provider Department Center 07/27/2023 11:30 AM [facility]LLOW [facility] 09/26/2023 9:00 AM [facility] IM/FM NURSE [facility] Referrals and Follow-ups to Schedule MR brain with and without contrast Does this patient need sedation?: No Sedation Release to patient via MyChart?: Immediate Patients may NOT have an MRI if they have an implanted cardiac defibrillator or cardiac pacemaker UNLESS pacemaker is Medtronic Revo, Medtronic Advisa, [employer], Vela/St. [place]amon or Biotronik brand. Obtain orbit x-rays (Eye Foreign Body Localization) for any eye injury from metal. Cardiology ROS: Review of Systems Constitutional: Positive for malaise/fatigue. Cardiovascular: Positive for palpitations (rare, with exertion). Musculoskeletal: Positive for arthritis, back pain and joint pain. All other systems reviewed and are negative. Past Medical History She has a past medical history of AAA (abdominal aortic aneurysm), COPD (chronic obstructive pulmonary disease) ([facility]), Coronary artery disease, Diastolic dysfunction, Hyperlipidemia, Hypertension, and PVD (peripheral vascular disease) ([facility]). Surgical History She has a past surgical history that includes Cardiac catheterization; Cholecystectomy; Hysterectomy; and Vascular surgery. Social History She has no history on file for tobacco use, alcohol use, and drug use. Family History Family History Problem Relation Name Age of Onset Coronary artery disease Mother Cancer Mother Cancer Father Allergies Nalbuphine Medications Current Outpatient Medications: amLODIPine (Norvasc) 10 mg tablet, TAKE ONE TABLET BY MOUTH DAILY, Disp: 90 tablet, Rfl: 3 amLODIPine (Norvasc) 5 mg tablet, Take 1 tablet (5 mg) by mouth in the morning., Disp: 90 tablet, Rfl: 3 aspirin 81 mg EC tablet, Take 1 tablet every day by oral route., Disp: , Rfl: atorvastatin (Lipitor) 40 mg tablet, Take 1 tablet every day by oral route., Disp: , Rfl: carvedilol (Coreg) 12.5 mg tablet, TAKE ONE TABLET BY MOUTH EVERY MORNING WITH BREAKFAST AND TAKE ONE TABLET BY MOUTH EVERY EVENING WITH MEAL, Disp: 180 tablet, Rfl: 3 ergocalciferol (Vitamin D-2) 1.25 MG (62521 Units) capsule, Take 1 capsule every week by oral route., Disp: , Rfl: montelukast (Singulair) 10 mg tablet, Take 1 tablet every day by oral route., Disp: , Rfl: nitroglycerin (Nitrostat) 0.4 mg SL tablet, Place 1 tablet as needed by sublingual route., Disp: , Rfl: spironolactone (Aldactone) 25 mg tablet, Take 0.5 tablets every day by oral route for 30 days., Disp: 45 tablet, Rfl: 3 valsartan (Diovan) 320 mg tablet, TAKE ONE TABLET BY MOUTH EVERY MORNING, Disp: 90 tablet, Rfl: 3 Last Recorded Vitals BP 120/72 (BP Location: Right arm, Patient Position: Sitting) Pulse 58 Ht 1.626 m (5' 4 ) Wt 56.7 kg (125 lb) SpO2 98% BMI 21.46 kg/m??? Physical Examination: GE (more content not included)... [facility] 04-19-2023 Note [facility] Cardiology Clinic Note Chief Complaint: Patient here for 1 year follow up CAD, hypertension, PVD, hyperlipidemia, and diastolic dysfunction. She had routine labs performed last month. Sees vascular surgery in [place] and had recent LE dopplers. Scheduled for carotid dopplers next month. PCP advised her to cut amlodipine dose in half last month for hypotension. She is still taking 10mg daily because she wanted to see what Dr. Dewey advised first. Denies chest pain, palpitations, and lightheadedness/syncope. Has a burning sensation in her chest. HPI: Veronique Gaitan is a 73 y.o. female Cardiology ROS: Review of Systems Constitutional: Positive for malaise/fatigue. Cardiovascular: Positive for dyspnea on exertion and palpitations (rare, with exertion). Musculoskeletal: Positive for arthritis, back pain and joint pain. Neurological: Positive for headaches. All other systems reviewed and are negative. Past Medical History She has a past medical history of AAA (abdominal aortic aneurysm), COPD (chronic obstructive pulmonary disease) ([facility]), Coronary artery disease, Diastolic dysfunction, Hyperlipidemia, Hypertension, and PVD (peripheral vascular disease) ([facility]). Surgical History She has a past surgical history that includes Cardiac catheterization; Cholecystectomy; Hysterectomy; and Vascular surgery. Social History She has no history on file for tobacco use, alcohol use, and drug use. Family History Family History Problem Relation Name Age of Onset Coronary artery disease Mother Cancer Mother Cancer Father Allergies Nalbuphine Medications Current Outpatient Medications: amLODIPine (Norvasc) 10 mg tablet, TAKE ONE TABLET BY MOUTH DAILY, Disp: 90 tablet, Rfl: 3 aspirin 81 mg EC tablet, Take 1 tablet every day by oral route., Disp: , Rfl: atorvastatin (Lipitor) 40 mg tablet, Take 1 tablet every day by oral route., Disp: , Rfl: budesonide-formoteroL (Symbicort) 160-4.5 mcg/actuation inhaler, Inhale 2 puffs twice a day by inhalation route., Disp: , Rfl: carvedilol (Coreg) 12.5 mg tablet, TAKE ONE TABLET BY MOUTH EVERY MORNING WITH BREAKFAST AND TAKE ONE TABLET BY MOUTH EVERY EVENING WITH MEAL, Disp: 180 tablet, Rfl: 3 ergocalciferol (Vitamin D-2) 1.25 MG (69188 Units) capsule, Take 1 capsule every week by oral route., Disp: , Rfl: montelukast (Singulair) 10 mg tablet, Take 1 tablet every day by oral route., Disp: , Rfl: nitroglycerin (Nitrostat) 0.4 mg SL tablet, Place 1 tablet as needed by sublingual route., Disp: , Rfl: spironolactone (Aldactone) 25 mg tablet, Take 0.5 tablets every day by oral route for 30 days., Disp: 45 tablet, Rfl: 3 valsartan (Diovan) 320 mg tablet, TAKE ONE TABLET BY MOUTH EVERY MORNING, Disp: 90 tablet, Rfl: 3 Last Recorded Vitals BP 130/76 (BP Location: Left arm, Patient Position: Sitting) Pulse 62 Ht 1.626 m (5' 4 ) Wt 54 kg (119 lb) SpO2 96% BMI 20.43 kg/m??? Physical Examination: GENERAL: alert and oriented x3, well developed, in no acute distress. HEAD: atraumatic, normocephalic. EYES: MAURILIO, EOMI. NECK: trachea midline, no JVD present, no carotid bruits present. CARDIAC: S1, S2 present. RRR. No murmur, rubs, or gallops. RESPIRATORY: CTAB, no increased effort of breathing, no rales, rhonchi, or wheezing. ABDOMEN: soft, nontender, nondistended. EXTREMITIES: no lower extremity edema, peripheral pulses are 2+ bilaterally. No rash/skin discoloration present. NEURO: strength/sensation equal and symmetric in bilateral upper and lower extremities. PSYCH: appropriate mood, affect, and judgement. INVESTIGATIONS: Echocardiogram 03/04/2018 Global left ventricular systolic function is normal; EF 65% No regional wall motion abnormality Unable to assess diastolic dysfunction Normal right ventricular systolic function The left atrium is normal size The right atrium is not enlarged Doppler study suggest mildly elevated right-sided pressures No significant valvular abnormalities Lexiscan stress test 04/22/2020: No reversible ischemia Small defect in the mid anterior wall likely breast attenuation artifact Abnormal exercise test with EKG changes Assessment: 1. Palpitations 2. Diastolic dysfunction 3. Dyspnea on exertion 4. Coronary atherosclerosis 5. Essential hypertension 6. Chronic obstructive lung disease 7. Hyperlipidemia 8. Peripheral vascular disease -follows with vascular surgery Plan: 1. Continue medical therapy including aspirin, moderate to high intensity statin therapy, a beta-paige plus or minus an angiotensin-converting enzyme inhibitor/receptor paige 2. Agree with decreasing the Norvasc to 5 mg 3. May need to cut down on dose of Diovan. 3. Follow-up with vascular surgery for her peripheral vascular disease; consider addition of low-dose diuretic such as Eliquis 2.5 mg p.o. twice daily given trial data to support its beneficial effects in p (more content not included)... [facility] 03-27-2023 Evaluation note Encounter Date Diagnosis Assessment Notes Mar, Peripheral artery disease (ICD-10 - I73.9) Mar, Left carotid stenosis (ICD-10 - I65.22) Mar, Other [Peripheral arterial occlusive disease Will continue to follow her annually. By physical examination and noninvasive studies she has patent stents with mild peripheral arterial occlusive disease based on the plethysmographic waveforms. Left carotid stenosis We will order a carotid duplex for send she has not had one in several years and I will see her back when it is completed to review the findings with her. [facility] Other 02-08-2024 History of Present illness Narrative* Uday Louis, - 03/23/2023 1:30 PM EST Subjective Patient ID: Veronique Gaitan is a 72 y.o. female. Joy presents for a CV recheck. She has been taking her medications and she checks her blood pressure at home. Her BP is running low at home. She feels tired. She is having some burning with urination and frequency. She has a history of UTI's. She is having intermittent shortness of breath. She is using symbicort daily and singulair. She never smoked. She was diagnosed with asthma in the past. She doesn't have a rescue inhaler available. Urinary Tract Infection This is a recurrent problem. The current episode started 1 to 4 weeks ago. The problem occurs intermittently. The problem has been unchanged. The quality of the pain is described as burning. The painis mild. There has been no fever. She is Not sexually active. There is No history of pyelonephritis. Associated symptoms include frequency. Treatments tried: cranberry juice. The treatment provided no relief. Her past medical history is significant for recurrent UTIs. Hypertension Associated symptoms include shortness of breath. Hyperlipidemia Associated symptoms include shortness of breath. The following portions of the patient's history were reviewed and updated as appropriate: allergies, current medications, past family history, past medical history, past social history, past surgicalhistory, problem list, and medication reconciliation was completed including current medication andpost discharge medication. Review of Systems Constitutional: Negative. HENT: Negative. Eyes: Negative. Respiratory: Positive for shortness of breath and wheezing. Cardiovascular: Negative. Genitourinary: Positive for frequency. Musculoskeletal: Positive for back pain and gait problem. Objective Physical Exam Vitals reviewed. Constitutional: Appearance: She is normal weight. HENT: Head: Normocephalic. Cardiovascular: Rate and Rhythm: Normal rate and regular rhythm. Heart sounds: Normal heart sounds. No murmur heard. Pulmonary: Effort: Pulmonary effort is normal. No respiratory distress. Breath sounds: Normal breath sounds. No wheezing, rhonchi or rales. Abdominal: General: Bowel sounds are normal. There is no distension. Palpations: Abdomen is soft. Tenderness: There is no abdominal tenderness. Neurological: General: No focal deficit present. Mental Status: She is alert and oriented to person, place, and time. Psychiatric: Attention and Perception: Attention normal. Mood and Affect: Mood and affect normal. Speech: Speech normal. Behavior: Behavior normal. Behavior is cooperative. Thought Content: Thought content normal. Cognition and Memory: Cognition normal. Judgment: Judgment normal. Assessment/Plan Veronique was seen today for urinary tract infection, hypertension and hyperlipidemia. Diagnoses and all orders for this visit: Essential hypertension - Comprehensive metabolic panel; Future BP is running low. Decrease amlodipine from 10 mg to 5 mg. Continue to monitor BP and record results. Dysuria - POCT urinalysis dipstick only - Urine culture (clean catch); Future Urine showed moderate blood and trace leukocyte esterase. Check urine culture. Mixed hyperlipidemia - Lipid panel; Future Check lipid panel Vitamin D deficiency - Vitamin D 25 hydroxy; Future Check Vitamin D Moderate persistent asthma without complication - albuterol (PROVENTIL HFA;VENTOLIN HFA) 90 mcg/actuation inhaler; Inhale 2 puffs every 6 (six) hours as needed for wheezing or shortness of breath. She should have a rescue inhaler available. I will send one in for her. May need maintenance inhaler adjusted. Consider PFTs. [facility]* Encounter Date Diagnosis Assessment Notes Treatment Notes Treatment Clinical Notes Mar, Peripheral vascular disease, unspecified (ICD-10 - I73.9) Mar, Other specified postprocedural states (ICD-10 - Z98.890) Mar, Other [Area of occlusive disease She is doing quite well at this time both clinically and by physical examination with patent bilateral stents. She continues on aspirin and atorvastatin. We will change her to annual follow-up. I am not sure I know the etiology of the left thigh abnormality. Initially I thought it was an area where she had a previous trauma with fat necrosis but she denies any distant injury. [facility] Other 10-19-2022 Evaluation note* Encounter Date Diagnosis Assessment Notes Treatment Notes Treatment Clinical Notes Nov, Bronchitis (ICD-10 - J40) Acute bronchitis material was printed Drink plenty fluids, get plenty of rest. Continue your home medications as prescribed except the prednisone 10 mg tablets as well as Augmentin (amoxicillin with clavulanate). Continue your Flonase inhaler as well as your albuterol inhaler. Continue to use the nasal saline rinses. Go to the ER for worsening symptoms or concerns. [facility] Other 10-16-2022 Evaluation note* Encounter Date Diagnosis Assessment Notes Treatment Notes Treatment Clinical Notes Nov, Acute bronchitis, unspecified organism (ICD-10 - J20.9) No testing performed today. Discussed diagnosis with patient in detail. Advised patient that cough may linger for 3 weeks. Will treat today with antibiotic. Reviewed allergies and recent antibiotic use. Advised to take medications as prescribed, reviewed side effects of steroid, take with food and plenty of water, finish entire course. Encouraged supportive care as directed, push fluids and rest, may use Tylenol as needed for fever/discomfort, cool mist humidifier. May use Tessalon Perles as needed for cough. Patient to follow up with PCP or UC after course of medication if symptoms do not improve. Immediate eval if SOB, difficulty breathing, chest pain, dizziness, or other concerning symptoms. 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 She will continue on Plavix for 3-months. I will see her back in 6 months with ABIs. Abdominal aortic aneurysm She has a 3.5 centimeter infrarenal abdominal aortic aneurysm which we will follow again in May 2022 with ultrasound [facility] Other 05-03-2022 Evaluation note* Encounter Date Diagnosis Assessment Notes Treatment Notes Treatment Clinical Notes June, Peripheral artery disease (ICD-10 - I73.9) June, Other [Abdominal aort ic aneurysm and aortoiliac occlusive disease This patient's anatomy is complicated by her aneurysm. It may be that we can intervene for the iliac disease and leave the aneurysm untreated but the extent of thrombus is quite problematic. I will send her films to [facility] for review and also discuss her findings with Dr. Shetty. She may require repair of the aneurysm to exclude thrombus as well as revascularization of the iliacs. Femoral-femoral bypass graft is also a possibility for her with a unilimb graft.] [facility] Other 04-19-2022 Evaluation note* Encounter Date Diagnosis Assessment Notes Treatment Notes Treatment Clinical Notes May, Peripheral artery disease (ICD-10 - I73.9) May, Other Peripheral vasc ular occlusive disease This patient does not have immediate limb threat but had a clear change beginning in March when she went from mild claudication that was manageable to severe very short distance claudication with additional numbness in the foot. 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 She understands and agrees with that plan. [facility] Other 08-24-2021 NotePAIN MANAGEMENT Consultation Date: 10-06-20 CHIEF COMPLAINT: Low back pain. HISTORY OF PRESENT ILLNESS: Today in the office I saw Marilee Gaitan. This is a very pleasant 70 year-old female who has had chronic low back pain. The patient lives at home. She describes the pain as a 7/10, an achy, throbbing sensation. ADL: Sitting, transitioning, walking, housework, activities aggravate the pain. MEDICATIONS: The patient takes baclofen 10 mg at h.s., she cannot tolerate NSAIDs secondary to GI distress. The patient also takes [id number]-juwhbzz, however, it helps to a certain degree. The patient has had a recent cardiac work-up including a cardiac cath and an echo. The patient has some congestion in her chest. PAST MEDICAL HISTORY / PAST SURGICAL HISTORY and REVIEW OF SYSTEMS are noted on the chart along with the MEDICATIONS, ALLERGIES, and radiological images. PHYSICAL EXAM: GENERAL:This is a very pleasant, cooperative female who has sarcopenia, temporal muscle loss is noted, thoracic kyphosis is present. HEAD:Atraumatic, normocephalic. NECK:Crepitus is noted along the cervical spine. Cervicothoracic kyphosis is noted, thoracic kyphosis is present. This is not rigid in that the patient upon changing of the posture is able to gain a slight component of the thoracic kyphosis which would also impede and create restrictive problems of the lung. ABDOMEN:Soft, nondistended. BACK:The patient has significant paravertebral spasming along the thoracolumbar junction in the upper lumbar spine. Extension, compression, and direct palpation along the posterior elements aggravate the pain concordant with facet arthropathy, lumbar spondylosis. EXTREMITIES:Global atrophy of the muscles are noted bilaterally in the upper and lower extremities. Loss of interspinous space is noted. NEUROLOGICALLY:No radicular symptomatology. PSYCHIATRICALLY:Affect is appropriate. IMPRESSION: 1. Chronic low back pain. 2. Lumbar spondylosis. 3. Lumbar degenerative disc disease. 4. Muscle atrophy. 5. Sarcopenia. 6. Muscle spasm. PLAN: 1. The patient will add magnesium to her diet. 2. A multivitamin regimen was given including a protein supplement. 3. The patient will be scheduled for a diagnostic medial branch block at the level of T12-L1 and L2-L3. The patient understands and would like to proceed. cc:Dr. Meek. [facility] Signed and Approved by: DR HENRY MERRILL 10/20/2020 09:19:00[facility] noteNo InformationNort [facility] Other Evaluation noteNo assessment information available [facility] Work Phone: Evaluation note* Diagnosis Elevated alkaline phosphatase level- Primary documented in this encounter [facility] SystemEvaluation note* Diagnosis Essential hypertension- Primary Unspecified essential hypertension Dysuria Mixed hyperlipidemia Vitamin D deficiency Moderate persistent asthma without complication documented in this encounter [facility]* Diagnosis Hematuria, unspecified type- Primary Recurrent UTI Urinary tract infection, site not specified documented in this encounter [facility]* Diagnosis Onset Date Resolution Status Left carotid stenosis acute [facility] Work Phone: Evaluation note* Diagnosis Essential hypertension- Primary Unspecified essential hypertension Encounter for screening mammogram for malignant neoplasm of breast Osteoporosis with current pathological fracture, unspecified osteoporosis type, sequela Overweight Moderate persistent asthma without complication Primary osteoarthritis involving multiple joints documented in this encounter 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 SystemHistory general Narrative - Reported* Type Description Date Medical History Benign essential HTN Medical History Hypercholesteremia Medical History Osteoporosis Medical History Coronary artery dise ase with prior percutaneous coronary angioplasty and stenting x2 Medical History Skin cancer Medical History [ ] Surgical History appendectomy Surgical History cholecystectomy Surgical History colonoscopy Surgical History hysterectomy Surgical History sinus surgery Surgical History tonsillectomy and adenoidectomy Surgical History [ ] [facility] Other SIGK[facility] general Narrative - Reported* Type Description Date Medical History Benign essential HTN Medical History Hypercholesteremia Medical History Osteoporosis Medical History Coronary artery dise ase with prior percutaneous coronary angioplasty and stenting x2 Medical History Skin cancer Surgical History appendectomy Surgical History cholecystectomy Surgical History colonoscopy Surgical History hysterectomy Surgical History sinus surgery Surgical History tonsillectomy and adenoidectomy [facility] Other [facility] general Narrative - Reported* Type Description Date Medical History Benign essential HTN Medical History Hypercholesteremia Medical History Osteoporosis Medical History Coronary artery dise ase with prior percutaneous coronary angioplasty and stenting x2 Medical History Skin cancer Medical History [ ] Surgical History appendectomy Surgical History cholecystectomy Surgical History colonoscopy Surgical History hysterectomy Surgical History sinus surgery Surgical History tonsillectomy and adenoidectomy Surgical History [ ] Surgical History Bilateral iliac pawel oplasty and stent placement June 202106/2021 Hospitalization History See Above [facility] Other [facility] general Narrative - Reported* Type Description Date Medical History Benign essential HTN Medical History Hypercholesteremia Medical History Osteoporosis Medical History Coronary artery dise ase with prior percutaneous coronary angioplasty and stenting x2 Medical History Skin cancer Medical History [ ] Surgical History appendectomy Surgical History cholecystectomy Surgical History colonoscopy Surgical History hysterectomy Surgical History sinus surgery Surgical History tonsillectomy and adenoidectomy Surgical History Bilateral iliac pawel oplasty and stent placement June 202106/2021 Surgical History LEFT LEG SKIN CANCER REMOVED Hospitalization History See Above [facility] Other Hospital course Narrative No data available for this section [facility] Hospital Discharge instructions No data available for this section [facility] InstructionsNot on filedocumented in this encounter [facility] filedocumented in this [facility] filedocumented in this encounter [facility] on filedocumented in this encounter [facility] on filedocumented in this encounter [facility]Not on filedocumented in this encounter [facility]Not on filedocumented in this encounter [facility]ructionsNot on filedocumented in this encounter [facility] No data available for this section [facility] reason for referral (narrative)* Consultation (Routine) - Pending Review Specialty Diagnoses / Procedures Referred By Luciano echevarria Referred To Contact Urology Diagnoses Hematuria, unspecified type Recurrent UTI Uday Louis DO [address] [facility] [address] Pino Ang MD [address] [place] [address] Referral ID Status Reason Start Date Expiration Date Visits Requested Visits Authorized [id number] Pending Review Specialty Services Required 04/12/2023 04/11/2024 1 1 [employer] Summary Purpose Family History No Family History Records Found Relationship Condition Age at Onset Recorded Date/T laith Not Specified Abdominal aortic aneurysm (AAA) Unknown Heart disease Unknown Hypertension Unknown Relationship Condition Age at Onset Recorded Date/T laith Not Specified Abdominal aortic aneurysm (AAA) Unknown father Unknown family member Unknown Not Specified Hypertension Unknown Heart disease Unknown Unknown Advance Directives No Advanced Directives Records Found Advance Directive Response Recorded Date/ Time Advance Directives No May 15 3:22pm Advance Directive Response Recorded Date/ Time Advance Directives No May 15 4:22pm Advance Directive Response Recorded Date/ Time Advance Directives No March 10:28am Date Activated Date Inactivated Comments 06/10/2023 3:04 AM 06/12/2023 4:51 PM Chief Complaint and Reason for Visit Chief Complaint I70.213 Chief Complaint M54.50 G89.29 M54.2 Chief Complaint I70.213 To go over Carotid U/S; Carotid U/S at 9:30am I65.23 Reason for Visit Left carotid stenosi s Additional Source Comments INFORMATION SOURCE (unrecogn ized section and content) DATE CREATED AUTHOR 03/27/2018 [facility] DATE CREATED AUTHOR AUTHOR'S ORGANIZ ATION 03/14/2020 [facility] DATE CREATED AUTHOR AUTHOR'S ORGANIZ ATION 08/20/2021 [facility] DATE CREATED AUTHOR AUTHOR'S ORGANIZ ATION 08/31/2021 [facility] DATE CREATED AUTHOR AUTHOR'S ORGANIZ ATION 05/25/2023 [facility] DATE CREATED AUTHOR AUTHOR'S ORGANIZ ATION 08/09/2023 [facility] DATE CREATED AUTHOR AUTHOR'S ORGANIZ ATION 12/02/2023 [facility] DATE CREATED AUTHOR AUTHOR'S ORGANIZ ATION 12/28/2023 [facility] DATE CREATED AUTHOR AUTHOR'S ORGANIZ ATION 01/01/2024 [facility] DATE CREATED AUTHOR AUTHOR'S ORGANIZ ATION 01/05/2024 [facility] DATE CREATED AUTHOR AUTHOR'S ORGANIZ ATION 02/04/2024 [facility] DATE CREATED AUTHOR AUTHOR'S ORGANIZ ATION 02/06/2024 [facility] DATE CREATED AUTHOR AUTHOR'S ORGANIZ ATION 03/14/2024 [facility] REASON FOR VISIT (unrecogniz ed section and content) Reason Comments Urinary Tract Infection Hypertension Hyperlipidemia Reason Comments Med Refill Reason Comments Hypertension Hyperlipidemia Reason Comments Skin Check Care Teams (unrecognized sec tion and content) Team Status: Inactive Member Role Status Dates Harry Alejandro MD Attending Provider Active Uday Louis DO Primary Care Provider Active Team Status: Active Member Role Status Dates Uday Louis DO Primary Care Provider Active Team Status: Inactive Member Role Status Dates Uday Louis DO Primary Care Provider Active Phillip Merchant MD Attending Provider Active Team Status: Inactive Member Role Status Dates Uday Louis DO Primary Care Provider, Attending Tommy srinivasan Active 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 Relationship Specialty Start Date End Date TenisharichardsonAlfredoUday Sofiya [address] [place] [address] PCP - General Family Medicine 12/02/21 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 Relationship Specialty Start Date End Date TenisharichardsonAlfredoUday Sofiya [address], [place] [address] PCP - General Family Medicine 12/02/21 Team Status: Inactive Member Role Status Dates Uday Louis DO Primary Care Provider Active Start: March 27, 2023 End: March 27, 2023 Harry Alejandro MD Attending Provider Active S tart: March 27, 2023 End: March 27, 2023 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 Relationship Specialty Start Date End Date TenisharichardsonUday [address], [place] [address] PCP - General Family Medicine 12/02/21 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 Relationship Specialty Start Date End Date TenisharichardsonUday [address], [place] [address] PCP - General Family Medicine 12/02/21 Team Status: Inactive Member Role Status Dates Uday Louis DO Primary Care Provider Active Start: May 15, 2023 End: May 15, 2023 Harry Alejandro MD Attending Provider Active S tart: May 15, 2023 End: May 15, 2023 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 Relationship Specialty Start Date End Date Uday Louis DO [address], [place] [address] PCP - General Family Medicine 08/08/23 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 Relationship Specialty Start Date End Date Uday Louis [address] [place] [address] PCP - General Family Medicine 08/08/23 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 Relationship Specialty Start Date End Date Uday Louis [address] [place] [address] PCP - General Family Medicine 08/08/23 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 Relationship Specialty Start Date End Date Uday Louis [address] [place] [address] PCP - General Family Medicine 08/08/23 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 Relationship Specialty Start Date End Date Uday Louis [address] [place] [address] PCP - General Family Medicine 08/08/23 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 Relationship Specialty Start Date End Date Uday Louis [address] [place] [address] PCP - General Family Medicine 08/08/23 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 Relationship Specialty Start Date End Date TenisharichardsonUday [address], [place] [address] PCP - General Family Medicine 12/02/21 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 Relationship Specialty Start Date End Date Uday Louis DO [address], [place] [address] PCP - General Family Medicine 08/08/23 Goals (unrecognized section and content) Goals may be documented in a n alternate section FOR RECORDS PERTAINING TO PATIENTS WHO ARE OR HAVE BEEN ENROLLED IN A CHEMICAL DEPENDENCY/SUBSTANCEABUSE PROGRAM, SOME INFORMATION MAY BE OMITTED. This clinical summary was aggregated from multiple sources. Caution should be exercised in using it in the provision of clinical care. This summary normalizes information from multiple sources, and as a consequence, information in this document may materially change the coding, format and clinical context of patient data. In addition, data may be omitted in some cases. CLINICAL DECISIONS SHOULD BE BASED ON THE PRIMARY CLINICAL RECORDS. [employer] [facility]. provides no warranty or guarantee of the accuracy or completeness of information in this document.
[2024-03-20 13:09] LABS: Anion Gap 13.4; BUN Creatinine Ratio 21.5; Calcium 9.4 mg/dL (8.5-10.1); Carbon Dioxide 29.2 mmol/L (21.0-32.0); Chloride 103 mmol/L (98-107); Estimated GFR (African America >60 (>=60 mL/min/1.73m^2); Estimated GFR (Non-African Ame 50 (>=60 mL/min/1.73m^2); Glucose 97 mg/dL (74-106); Potassium 4.6 mmol/L (3.5-5.1); Sodium 141 mmol/L (136-145)
== END 2024-03-20 12:06 | disposition home or self-care (01) ==
LOC: LAB 12:07
PROVIDERS: PCP Family Medicine; Visit Provider Internal Medicine Interventional Cardiology
DX: I10 Essential (primary) hypertension (principal)
CPT/HCPCS: 36415; 80048

== ENCOUNTER 2024-05-13 08:31 | Outpatient (OUT) | payer MEDICARE, SELFPAY ==
--- NOTE | 2024-05-13 | PCN_ITS ---
CARDIAC STRESS TEST Requesting Physician: Rodney Dewey M.D. Procedure Date: 05/13/2024 LEXISCAN EKG STRESS TEST REASON FOR THE TEST: Chest pain and palpitations. The test was discussed with the patient in details, including risks and benefits, and she was agreeable to proceed. Resting 12-lead EKG showed sinus bradycardia with heart rate 46 beats per minute, otherwise normal EKG. Resting blood pressure 158/78 mm/Hg. Lexiscan 0.4 mg IV was injected and the patient was monitored for a few minutes. Peak heart rate 81 beats per minute, which represents 55% of age predicted maximum heart rate, and peak blood pressure 146/86 mm/Hg. The patient did not have any symptoms throughout the test. EKG throughout the test did not show any significant T or ST changes or any significant arrhythmias. CONCLUSION: 1. Negative Lexiscan EKG stress test for ischemia. 2. The nuclear perfusion images result will be reported separately. [facility]
--- NOTE | 2024-05-13 08:15 | NM_ITS ---
Patient Name Site Name SUZY GAITAN [facility] Account No Medical Record Number Age Sex Date Time [id number] [facility]:[id number] F 05/13/2024 09:17 At the Request Of Rodney Dewey CORRECTION Corrected on: 05/13/2024; Patient Name: Suzy Gaitan : 1950 RADIOLOGY REPORT PROCEDURE: NM MATTHEW PERF SPECT REST STR COMPARISON: None. INDICATIONS: CHEST PAIN, CORONARY ARTERY DISEASE TECHNIQUE: Exam Description: Stress/Rest one day protocol gated SPECT Rest Imagin.0 mCi Tc-99m Cardiolite IV on 05/13/2024 Stress Imaging 31.1 mCi Tc-99m Cardiolite IV on 05/13/2024 Exercise Protocol: 0.4 mg Lexiscan given IV Heart Rate (bpm): Rest: 53 Max: 81 PMHR: 55 Blood Pressure: Rest: 138/78 Max: 146/86 Symptoms: Rest and peak stress ECG findings were pending and the exercise portion of the study was pending per attending physician [facility] . For more details please see separate cardiac stress test report. FINDINGS: QUALITY OF STUDY: Good PERFUSION DEFECT: LOCATION: Anteroapical SIZE: small SEVERITY: Mild TYPE: Fixed WALL MOTION: LV SIZE: 48 mL. TID / TCD: 0.8 LVEF: Calculated EF 89%. SUMMARY: Myocardial perfusion imaging study is normal CONCLUSION: Normal perfusion images without evidence of ischemia or infarct Normal LV EF 89% No TID, TID 0.8 EKG stress test result is reported separately. Dictated by: Cristian Fonseca MD on 05/13/2024 at 17:52 Approved by: Cristian Fonseca MD on 05/13/2024 at 18:11 Dictated by: Cristian Fonseca MD on 05/13/2024 at 18:18 Approved by: Cristian Fonseca MD on 05/13/2024 at 18:18
--- OUTSIDE RECORDS SUMMARY | 2024-05-13 08:51 | XMS_ITS | CCD ---
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 Name Role Phone PHYSICIAN, DEFAULT Admitting Unavailable PHYSICIAN, DEFAULT Attending Unavailable BOBBY, MATHEW Primary Care Unavailable Harry Alejandro Unavailable DEMETRICE FOX Admitting Unavailable DEMETRICE FOX Attending Unavailable DEMETRICE FOX Consulting Unavailable VALSANIA, DR CARMONA Primary Care Unavailable MERRILL, DR HENRY Lepe Attending Unavailable MERRILL, DR HENRY Lpee Consulting Unavailable MERRILL, DR HENRY Lepe Admitting [...] Hare Unavailable MD Harry Alejandro Attending Provider [phone] DO Uday Louis Primary Care Provider MD Phillip Merchant Attending Provider DO Uday Louis Primary Care Provider [phone] DO Uday Louis Attending Provider [phone] DO Uday Louis Primary Care Provider MD Harry Alejandro Attending Provider [phone] DO Uday Louis Primary Care Provider MD Harry Alejandro Attending Provider Furlong, Uday Primary Care Unavailable aHrry Alejandro Admitting Unavailable Harry Alejandro Attending Unavailable Furlong, Uday Primary Care Unavailable Harry Alejandro Admitting Unavailable Harry Alejandro Attending Unavailable Furlong, Uday Primary Care Unavailable Furlong, Uday Attending Unavailable Furlong, Uday Admitting Unavailable CALOS, GENARO F Admitting Unavailable CALOS, GENARO F Attending Unavailable NOAM RODRIGUEZ Referring Unavailable FURLONG, UDAY G Primary Care Unavailable KALIFA MUHAMAD U Consulting Unavailable NOAM RODRIGUEZ Referring Unavailable FURLONG, UDAY G Primary Care Unavailable FURLONG, UDAY G Referring Unavailable FURLONG, UDAY G Primary Care Unavailable FURLONG, UDAY G Referring Unavailable FURLONG, UDAY G Primary Care Unavailable FURLONG, UDAY Primary Care Physician TENISHALONG, UDAY Referring Unavailable CORI KAHN Attending Unavailable CORI KAHN Attending Unavailable FURLONG, UDAY Referring Unavailable CORI KAHN Attending Unavailable CORI KAHN Admitting Unavailable CORI KAHN Attending Unavailable YON KAHN Attending Unavailab le CRISSYON Admitting Unavailab le Unavailable Primary Care Provider UnavailMARLENE Moeller Attending Unavailable CORI KAHN E Attending Unavailable CRISSCORI PHILLIPS E Admitting Unavailable CRISSCORI E Attending Unavailable Furlong Uday RODRIGUEZ Primary Care Provider [phone] Tenishalong Uday RODRIGUEZ Primary Care Provider GABRIELENG, UDAY G Attending Unavailable FURLONG, UDAY G Referring Unavailable FURLONG, UDAY G Primary Care Unavailable FURLONG, UDAY G Referring Unavailable FURLONG, UDAY G Primary Care Unavailable FURLONG, UDAY G Referring Unavailable FURLONG, UDAY G Primary Care Unavailable FURLONG, UDAY G Attending Unavailable FURLONG, UDAY G Referring Unavailable FURLONG, UDAY G Primary Care Unavailable ROSIE VELAZQUEZ Attending Unavailable FURLONG, UDAY G Referring Unavailable FURLONG, UDAY G Primary Care Unavailable FURLONG, UDAY G Attending Unavailable FURLONG, UDAY G Referring Unavailable FURLONG, UDAY G Primary Care Unavailable FURLONG, UDAY G Primary Care Unavailable NOAM RODRIGUEZ Attending Unavailable NOAM RODRIGUEZ Attending Unavailable NOAM RODRIGUEZ Referring Unavailable FURLONG, UDAY G Primary Care Unavailable NOAM RODRIGUEZ Attending Unavailable NOAM RODRIGUEZ Referring Unavailable FURLONG, UDAY G Primary Care Unavailable NOAM RODRIGUEZ Attending Unavailable NOAM RODRIGUEZ Referring Unavailable FURLONG, UDAY G Primary Care Unavailable PHONG VALLEJO Referring Unavailable FURLONG, UDAY G Primary Care Unavailable CHEHADEMINAL Attending Unavailable FURLONG, UDAY G Primary Care Unavailable FURLONG, UDAY G Referring Unavailable FURLONG, UDAY G Primary Care Unavailable CHEHADEMINAL Attending Unavailable CHEMINAL COLEMAN Referring Unavailable FURLONG, UDAY G Primary Care Unavailable ROSIE VELAZQUEZ Referring Unavailable FURLONG, UDAY G Primary Care Unavailable DORIE DEWEY Attending Unavailable JOSE, DORIE Attending Unavailable JOSE, DORIE Attending Unavailable JIMBO WEINSTEIN Referring Unavailable JIMBO WEINSTEIN Admitting Unavailable JIMBO WEINSTEIN Attending Unavailable ELTAHAWElsy, DORIE Attending Unavailable JIMBO WEINSTEIN Attending Unavailable Allergies Allergy Classification Reported Allergen(s) Allergy Type Date of Onset Reaction(s) Facility (9 sources) Nalbuphine; Translations: [Nubain] Drug Allergy 1 bad reaction sick [facility] (20 sources) Nalbuphine; Translations: [nalbuphine] Drug Allergy 2 Unknown (qualifier value) [facility] Medications Current Medications Medication Drug Class(es) Dates Sig (Normalized) Sig (Original) [id number] 200 actuat albuterol 0.09 mg/actuat metered dose inhaler (20 sources) beta2-Adrenergic Agonist Start: 05-01-2024 take 1 puff(s) by inhalation every four to six hours as needed Albuterol Sulfate 90 mcg/actuation HFA aerosol inhaler Active 2 PUFF INHALATION EVERY 4-6 HOURS as needed May 01, 2024 12:00am Start: 03-23-2023 take 2 puff(s) by in halation every six hours as needed for wheezing [...] Ordered alendronic acid 70 mg oral tablet (14 sources) Bisphosphonate Start: 03-07-2022 take 1 tablet by mouth in the morning alendronate (FOSAMAX) 70 mg tablet Take 1 tablet (70 mg total) by mouth every 7 days. In a.m. with water on empty stomach, nothing else by mouth and remain upright for 30min 4 tablet 11 11/29/2023 Active amLODIPine 5 mg oral tablet (20 sources) Dihydropyridine Calcium Channel Paige Start: 04-06-2024 take 1 tablet by mouth once daily Amlodipine 5 mg tablet Active 5 MG PO Daily April 06, 2024 1:00am Start: 06-23-2021 End: 04-06-2024 take 1 tablet by mouth once daily in the morning Amlodipine 10 mg tablet Discontinued 10 MG PO Every morning June 23, 2021 12:00am April 06, 2024 12:46pm take 0.5 tablet by m outh in [...] tablet (20 sources) HMG-CoA Reductase Inhibitor Start: 05-07-2024 take 1 tablet by mouth once daily atorvastatin (LIPITOR) 40 mg tablet TAKE 1 TABLET BY MOUTH DAILY 90 tablet 1 05/07/2024 Active Start: 06-23-2021 End: 05-07-2024 take 1 tablet by mouth once daily atorvastatin (LIPITOR) 40 mg tablet take 1 tablet by mouth daily 90 tablet 1 11/13/2023 05/07/2024 Discontinued Atorvastatin Jaspreet cium Active azithromycin 250 mg oral tablet (1 source) Macrolide Antimicrobial Start: 05-01-2024 Azithromycin 250 mg tablet Active 0 PO .COMPLEX May 01, 2024 12:00am For 250 mg dose pack: take 500 mg today (day 1), then 250 mg for 4 days (days 2-5) PO benzonatate 100 mg oral capsule (2 sources) Non-narcotic Antitussive Start: 11-28-2021 take 1 capsule by mouth every eight hours Tessalon Perles 100 MG 1 capsule as needed Orally Three times a day for 7 days Nov, Active Symbicort (20 sources) Corticosteroid, beta2-Adrenergic Agonist Start: 12-26-2023 Symbicort Inhalation, BID Start Date: 12/26/23 Status: Ordered Start: 06-23-2021 End: 04-06-2024 take 1 puff(s) by inhalation twice daily Budesonide-Formoterol (Symbicort) 160-4.5 mcg/actuation Hfa Aerosol Inhaler Discontinued 2 PUFF INHALATION Twice daily June 23, 2021 12:00am April 06, 2024 12:50pm End: 03-25-2024 take 2 puff(s) by inhalation in the morning budesonide-formoteroL (SYMBICORT) 80-4.5 mcg/actuation inhaler Inhale 2 puffs in the morning and 2 puffs before bedtime. 03/25/2024 Discontinued (Therapy completed) take 2 puff(s) by in halation twice [...] the morning and 2 puffs before bedtime. Suspended take 2 puff(s) by in halation in the morning budesonide-formoteroL (SYMBICORT) 80-4.5 mcg/actuation inhaler Inhale 2 puffs in the morning and 2 puffs before bedtime. 0 Active Symbicort Active Calcium Citrate (6 sources) Calcium Citrate Active carvedilol 6.25 mg oral tablet (20 sources) alpha-Adrenergic Paige, beta-Adrenergic Paige Start: 03-20-2024 End: 03-20-2025 carvediloL (COREG) 6.25 mg tablet Take 1 tablet (6.25 mg total) by mouth. 03/20/2024 03/20/2025 Active Start: 06-23-2021 End: 04-06-2024 take 1 tablet by mouth twice daily Carvedilol 12.5 mg tablet Discontinued 12.5 MG PO Twice daily June 23, 2021 12:00am April 06, 2024 12:46pm carvedilol (Core g) 6.25 MG tablet every 12 (twelve) hours. Active Carvedilol Activ e celecoxib (20 sources) Nonsteroidal Anti-inflammatory Drug Start: 04-06-2024 celecoxib (Celebr ex) Active PO as needed April 06, 2024 1:00am Start: 04-06-2024 celecoxib (Michelle ebrex) Active PO as needed April 06, 2024 12:00am Start: 12-26-2023 celecoxib 100 mg Cap 100 mg = 1 cap(s) Start Date: 12/26/23 Status: Ordered Start: 05-06-2023 take 1 capsule by [facility] twice daily as needed for pain celecoxib [...] x week 118 mL 11 11/01/2022 Active dicloxacillin 500 mg oral capsule (3 sources) Penicillin-class Antibacterial Start: 09-19-2022 dicloxacillin (Dynapen) 500 MG capsule 09/19/2022 Active doxycycline hyclate 100 mg oral tablet (1 source) Tetracycline-class Drug Start: 12-01-2021 take 1 tablet by mouth every twelve hours Doxycycline Hyclate 100 MG 1 tablet Orally Twice a day for 10 day(s) Nov, Active ergocalciferol 1.25 mg oral capsule (20 sources) Provitamin D2 Compound Start: 05-05-2024 take 1 capsule by mouth every week ergocalciferol (DRISDOL) 1,250 mcg (50,000 unit) capsule TAKE 1 CAPSULE BY MOUTH ONCE WEEKLY 12 capsule 1 05/05/2024 Active Start: 12-26-2023 ergocalciferol Oral Start Date: 12/26/23 Status: Ordered Start: 12-27-2022 End: 05-05-2024 take 1 capsule by mouth every week ergocalciferol (DRISDOL) 1,250 mcg (50,000 unit) capsule take 1 capsule by mouth once weekly 12 capsule 1 11/23/2023 05/05/2024 Discontinued Start: 06-23-2021 take 1 capsule by [facility] every week Ergocalciferol (Vitamin D2) (Vitamin D2) 1,250 mcg (50,000 unit) Capsule Active 1250 MCG PO every week June 23, 2021 12:00am estradiol 0.1 mg/ml vaginal cream (2 sources) Estrogen Start: 12-26-2023 Estrace 0.1 mg/g Cream See Instructions, 42.5 gm, Refill(s) 3, Apply pea size with your fingertip vaginally and around the urethra every night for 3 weeks and 3x/wk thereafter for maintenance., [facility] [id number], 155, cm, 12/26/23 9:59:00 EST, Height/Length Dosing, 64, kg, 12/26/23 9:59:00 EST, Weight Dosing Start Date: 12/26/23 Status: Ordered ferrous sulfate (3 sources) Ferrous Sulfate (IRON PO) Active 30 actuat fluticasone furoate 0.1 mg/actuat / umeclidinium 0.0625 mg/actuat / vilanterol 0.025 mg/actuat dry powder inhaler (3 sources) Anticholiner gic, Corticostero id, beta2-Adrene rgic Agonist Start: 03-25-2024 take 1 puff(s) by inhalation once daily fluticasone-umeclidin- vilanter (TRELEGY ELLIPTA) 100-62.5-25 mcg blister with device Inhale 1 puff once daily. 28 each 5 03/25/2024 Active hydroCHLOROthiazide 12.5 mg oral tablet (9 sources) Thiazide Diuretic Start: 05-05-2024 take 1 tablet by mouth once daily hydroCHLOROthiazide (HYDRODIURIL) 12.5 mg tablet TAKE 1 TABLET BY MOUTH DAILY 90 tablet 05/05/2024 Active Start: 03-12-2024 End: 05-05-2024 take 1 tablet by mouth once daily Hydrochlorothiazide 12.5 mg tablet Active 12.5 MG PO Daily April 06, 2024 1:00am losartan potassium 50 mg oral tablet (7 sources) Angiotensin 2 Receptor Paige take 1 tablet by mouth every twenty-four hours Losartan Potassium 50 MG 1 tablet Orally Once a day Active metoprolol tartrate 25 mg oral tablet (19 sources) beta-Adrenergic Paige Start: Metoprolol Tartrate 25 mg tablet Active 12.5 MG PO Twice daily April 06, 2024 1:00am Start: 12-26-2023 End: 03-25-2024 take 1 tablet by mouth once daily Lopressor 25 mg oral tablet 25 mg = 1 tab(s), Oral, Daily, Refills(s) 0 Start Date: 12/26/23 Status: Ordered take 1 tablet by leeroy th every twenty-four hours metoprolol succinate XL (Toprol-XL) 25 MG 24 hr tablet Take by mouth Do not crush or chew. Active montelukast 10 mg oral tablet (20 sources) Leukotriene Receptor Antagonist Start: 06-23-2021 End: 05-01-2024 take 1 tablet by mouth once daily montelukast (SINGULAIR) 10 mg tablet TAKE ONE TABLET BY MOUTH ONCE NIGHTLY 90 tablet 1 02/09/2024 Active Singulair Active Multi Vitamins oral tablet (2 sources) Start: 12-26-2023 Multi Vitamins oral tablet Oral, Daily Start Date: 12/26/23 Status: Ordered yphokopj-pns-ctkuuiw sulfate 4.5 mg iron powder in packet (5 sources) nyvvwwno-pjp-tty mallory sulfate 4.5 mg iron powder in packet Multivitamin preparation (8 sources) Multivitamin Act azeb pkmkmewqrsrr-uzw-eazl-FA -vit K 45 mg iron- 800 mcg-120 mcg capsule (20 sources) take 1 tablet by mouth once in the morning iehzbpbqvbtv-qge-zwqr-F A-vit K 45 mg iron- 800 mcg-120 mcg capsule Take 1 tablet by mouth in the morning. Active take 1 tablet by leeroy th once in the morning yhknxsnpjakv-wzl-luxu-FA-vit K 45 mg iro n- 800 mcg-120 mcg capsule Take 1 tablet by mouth in the morning. Suspended multivitamin-min -iron-FA-vit K 45 mg iron- 800 mcg-120 mcg capsule nitroglycerin 0.4 mg sublingual tablet (20 sources) Nitrate Vasodilator Start: 06-23-2021 Nitroglyce rin 0.4 mg tablet, sublingual Active 0.4 MG SUBLINGUAL As Directed as needed for Chest Pain June 23, 2021 12:00am nitroglycerin (N ITROSTAT) 0.4 MG SL tablet nitroglycerin 0.4 mg sublingual tablet Active predniSONE 20 mg oral tablet (8 sources) Start: 05-01-2024 take 2 tablets by mouth once daily Prednisone 20 mg tablet Active 20 MG PO .COMPLEX May 01, 2024 12:00am Take 2 tabs po daily x 5 days Start: 12-01-2021 take 1 tablet by leeroy th every twelve hours predniSONE 20 MG 1 [...] for 30 days. 12/21/2021 Active Start: 06-23-2021 End: 04-06-2024 Spironolactone 25 mg tablet Discontinued 12.5 MG PO Every morning June 23, 2021 12:00am April 06, 2024 12:49pm Start: 06-23-2021 take 12.5 mg by mout h once daily in the morning Spironolactone Active 12.5 MG PO Every morning June 23, 2021 12:00am Spironolactone A ctive valsartan 320 mg oral tablet (20 sources) Angiotensin 2 Receptor Paige Start: 06-23-2021 take 1 tablet by mouth once daily at bedtime Valsartan 320 mg tablet Active 320 MG PO Daily at bedtime June 23, 2021 12:00am valsartan (Diova n) 160 MG tablet every 12 (twelve) hours. Active Valsartan Active Vitamin D (8 sources) Vitamin D Active Completed/Discontinued Medications Medication Drug Class(es) Dates Sig (Normalized) Sig (Original) baclofen 10 mg oral tablet (17 sources) gamma-Aminobutyri c Acid-ergic Agonist Start: 06-23-2021 End: 05-15-2023 take 1 tablet by mouth once daily as needed for pain Baclofen 10 mg tablet Discontinued 10 MG PO Daily as needed for Pain June 23, 2021 12:00am May 15, 2023 10:05am End: 03-23-2023 take 1 tablet by mouth three times daily as needed baclofen (LIORESAL) 10 mg tablet Take 1 tablet (10 mg total) by mouth 3 (three) times a day as needed. 0 03/23/2023 Discontinued (Therapy completed) Baclofen Active cefdinir 300 mg oral capsule (3 sources) Cephalosporin Antibacterial Start: 04-06-2024 End: 05-01-2024 take 1 capsule by mouth every twelve hours Cefdinir 300 mg capsule Discontinued 300 MG PO Every 12 hours 20 April 06, 2024 1:00am May 01, 2024 10:28am Ciprofloxacin-D examethasone 0.3-0.1 % drops,suspensio n (2 sources) Start: 04-08-2024 End: 05-01-2024 Ciprofloxacin-Dexam ethasone 0.3-0.1 % drops,suspension Discontinued 4 DROPS OTIC Twice daily 7.5 7 April 08, 2024 1:00am May 01, 2024 10:28am Start: 04-08-2024 Ciprofloxacin- Dexamethasone 0.3-0.1 % drops,suspension Active 4 DROPS OTIC Twice daily 7.5 7 April 08, 2024 12:00am clopidogrel 75 mg oral tablet (12 sources) [id number] Platelet Inhibitor Start: 07-09-2021 End: 04-06-2024 take 1 tablet by mouth once daily Clopidogrel (Plavix) 75 mg tablet Discontinued 75 MG PO Daily 90 90 July 09, 2021 12:00am April 06, 2024 12:49pm Plavix Active lactulose 667 mg/ml oral solution (15 sources) Osmotic Laxative Start: 06-23-2021 End: 05-15-2023 take 1 mL by mouth once daily Lactulose 10 gram/15 mL Solution Discontinued 15 ML PO Daily June 23, 2021 12:00am May 15, 2023 10:05am Lactulose Active Nirmatrelvir-Ritonavir (Paxlovid) 300 mg (150 mg x 2)-100 mg tablets,dose pack (2 sources) Start: 04-08-2024 End: 05-01-2024 Nirmatrelvir-Ritonavir (Paxlovid) 300 mg (150 mg x 2)-100 mg tablets,dose pack Discontinued 0 PO .COMPLEX April 08, 2024 1:00am May 01, 2024 10:15am take TWO 150 mg tablets of nirmatrelvir with ONE 100 mg tablet of ritonavir twice daily for 5 days PO Start: 04-08-2024 Nirmatrelvir-R itonavir (Paxlovid) 300 mg (150 mg x 2)-100 mg tablets,dose pack Active 0 PO .COMPLEX April 08, 2024 12:00am take TWO 150 mg tablets of nirmatrelvir with ONE 100 mg tablet of ritonavir twice daily for 5 days PO nystatin [id number] unt/ml oral suspension (4 sources) Polyene Antifungal Start: 07-21-2018 take 6 mL by mouth four times daily Nystatin [id number] UNIT/ML 6 ml swish around in mouth [...] Acute bronchitis, unspecified Episodic Acute cerebrovascular disease (20 sources) Nontraumatic intracerebral hemorrhage in hemisphere, cortical; Translations: [Nontraumatic intracerebral hemorrhage, unspecified] Onset: 06-10-2023 12-26-2023 Chronic Acute cerebrovascular disease (1 source) Acute cerebrovascular disease Onset: 06-10-2023 Aortic; peripheral; and visceral artery aneurysms (8 sources) Abdominal aortic aneurysm 3.0 to 5.0 centimeters in female; Translations: [Abdominal aortic aneurysm, without rupture] Onset: 08-02-2021 Resolved: 08-02-2021 Chronic Asthma (20 sources) Uncomplicated moderate persistent asthma; Translations: [Moderate persistent asthma, uncomplicated] Onset: 06-11-2023 06-11-2023 Chronic Chronic obstructive pulmonary disease and bronchiectasis (6 sources) Chronic obstructive lung disease; Translations: [Chronic obstructive pulmonary disease, unspecified] Onset: 03-25-2024 12-26-2023 Chronic Chronic obstructive pulmonary disease and bronchiectasis (1 source) Bronchitis, not specified as acute or chronic Episodic Congestive heart failure; nonhypertensive (2 sources) Diastolic dysfunction 12-26-2023 Chronic Coronary atherosclerosis and other heart disease (20 sources) Atherosclerotic heart disease of [place] coronary artery without angina pectoris; Translations: [Coronary arteriosclerosis] Onset: 09-13-2016 Chronic Coronary atherosclerosis and other heart disease (1 source) Coronary atherosclerosis and other heart disease; Translations: [Atherosclerosis of [place] arteries of extremities with intermittent claudication, bilateral legs] Onset: 03-27-2023 Disorders of lipid metabolism (20 sources) Mixed hyperlipidemia; Translations: [Hyperlipidemia] Onset: 03-07-2022 12-26-2023 Chronic Essential hypertension (20 sources) Essential (primary) hypertension; Translations: [Hypertensive disorder] Onset: 09-04-2019 12-26-2023 Chronic Fluid and electrolyte disorders (3 sources) Hyperkalemia; Translations: [Hyperkalemia] Onset: 03-12-2024 03-12-2024 Episodic Genitourinary symptoms and ill-defined conditions (9 sources) Dysuria; Translations: [Dysuria] Onset: 03-23-2023 Episodic Hypertension with complications and secondary hypertension (6 sources) Benign hypertensive heart disease; Translations: [Hypertensive heart disease with heart failure] Onset: 12-26-2023 03-25-2024 Chronic Nonspecific chest pain (2 sources) Other chest pain; Translations: [Other chest pain] Onset: 03-20-2024 Episodic Nutritional deficiencies (20 sources) Vitamin D deficiency, unspecified; Translations: [Vitamin D deficiency] Onset: 03-07-2022 03-07-2022 Chronic Occlusion or stenosis of precerebral arteries (20 sources) Left carotid artery stenosis; Translations: [Occlusion and stenosis of left carotid artery] Onset: 05-15-2023 Chronic Osteoarthritis (12 sources) Osteoarthritis; Translations: [Unspecified osteoarthritis, unspecified site] 11-29-2023 Chronic Osteoporosis (20 sources) Osteoporosis; Translations: [Age-related osteoporosis without current pathological fracture] Onset: 03-07-2022 03-07-2022 Chronic Other and ill-defined heart disease (4 sources) Heart disease, unspecified; Translations: [HEART DISEASE UNSPECIFIED] Onset: 02-08-2021 Chronic Other circulatory disease (2 sources) Spider nevus; Translations: [Nevus, non-neoplastic] 01-02-2024 Episodic Other diseases of kidney and ureters (1 source) Disorder of kidney and/or ureter; Translations: [Disorder of kidney and ureter, unspecified] Onset: 12-26-2023 Episodic Other gastrointestinal disorders (20 sources) Irritable bowel syndrome characterized by constipation; Translations: [Irritable bowel syndrome with constipation] Onset: 09-19-2022 09-19-2022 Chronic Other injuries and conditions due to external causes (2 sources) Injury of head 12-26-2023 Episodic Other nervous system disorders (1 source) Other chronic pain; Translations: [OTHER CHRONIC PAIN] Onset: 10-12-2020 Chronic Other non-epithelial cancer of skin (2 sources) History of squamous cell carcinoma of skin; Translations: [Personal history of other malignant neoplasm of skin] 01-02-2024 Episodic Other skin disorders (2 sources) Lentiginosis; Translations: [Other melanin hyperpigmentation] 01-02-2024 Episodic Other skin disorders (2 sources) Seborrheic keratosis; Translations: [Other seborrheic keratosis] 01-02-2024 Episodic Other skin disorders (2 sources) Actinic keratosis; Translations: [Actinic keratosis] 01-02-2024 Episodic Otitis media and related conditions (8 sources) Otitis media of left ear; Translations: [Otitis media, unspecified, left ear] 04-06-2024 Episodic Peripheral and visceral atherosclerosis (20 sources) [...] disc degeneration, lumbar region] Onset: 10-12-2020 Chronic Sprains and strains (2 sources) Low back strain; Translations: [Strain of muscle, fascia and tendon of lower back, initial encounter] Onset: 03-25-2024 03-25-2024 Episodic Thyroid disorders (20 sources) Thyroid nodule; Translations: [Nontoxic single thyroid nodule] Onset: 09-19-2022 09-19-2022 Chronic Unclassified (1 source) Low back pain, unspecified; Translations: [Low back pain, unspecified] Onset: 08-22-2022 Unclassified (1 source) ICH Onset: 06-10-2023 Unclassified (1 source) MAW Onset: 09-26-2023 Urinary tract infections (3 sources) Recurrent urinary tract infection; Translations: [Urinary tract infection, site not specified] 12-26-2023 Episodic Viral infection (4 sources) Disease caused by 2019-nCoV; Translations: [COVID-19] 04-08-2024 Episodic Past or Other Problems Problem Classification Problem Date Documented Da te Episodic/Chronic Cardiac dysrhythmias (20 sources) Bradycardia, unspecified; Translations: [Bradycardia] Onset: 06-10-2023 06-11-2023 Episodic Fracture of upper limb (1 source) Other fracture of lower end of right ulna, initial encounter for closed fracture; Translations: [Other fracture of lower end of right ulna, initial encounter for closed fracture] Onset: 08-08-2023 Episodic Mood disorders (20 sources) Mild depression; Translations: [Mild depressive disorder] Onset: 03-07-2022 Resolved: 11-29-2023 11-29-2023 Chronic Mood disorders (20 sources) Mood disorders Onset: 11-29-2023 Resolved: 03-25-2024 11-29-2023 Other connective tissue disease (1 source) Muscle wasting and atrophy, not elsewhere classified, unspecified site; Translations: [MUSCLE WASTING ATROPHY NEC UNS SITE] Onset: 10-12-2020 Episodic Other connective tissue disease (1 source) Other muscle spasm; Translations: [OTHER MUSCLE SPASM] Onset: 10-12-2020 Episodic Other connective tissue disease (1 source) Sarcopenia; Translations: [SARCOPENIA] Onset: 10-12-2020 Episodic Other connective tissue disease (1 source) Pain in upper limb Onset: 08-08-2023 Episodic Other liver diseases (1 source) Alkaline phosphatase raised; Translations: [Abnormal levels of other serum enzymes] 03-24-2023 Episodic Other liver diseases (1 source) Abnormal levels of other serum enzymes; Translations: [Abnormal levels of other serum enzymes] Onset: 04-07-2023 Episodic Other nervous system disorders (1 source) Slurred speech Onset: 06-10-2023 Episodic Other nutritional; endocrine; and metabolic disorders (13 sources) Overweight; Translations: [Overweight] Onset: 11-29-2023 11-29-2023 Episodic Other screening for suspected conditions (not mental disorders or infectious disease) (4 sources) Abnormal renal function; Translations: [Encounter for screening mammogram for malignant neoplasm of breast] Onset: 11-29-2023 12-26-2023 Episodic Pathological fracture (2 sources) Age-related osteoporosis with current pathological fracture, unspecified site, sequela; Translations: [Osteoporosis] Onset: 11-29-2023 11-29-2023 Episodic Screening and history of mental health and substance abuse codes (1 source) Patient encounter status; Translations: [Encounter for screening for depression] 09-26-2023 Episodic Spondylosis; intervertebral disc disorders; other back problems (4 sources) Low back pain; Translations: [LOW BACK PAIN] Onset: 10-06-2020 Episodic Results Test Name Value Interpretation Reference Range Facility Influenza virus B Ag [Presen ce] in Upper respiratory specimen by Rapid immunoassayon 04-08-2024 FLUBV Ag IA.rapid Ql (Nph) Influenza virus B Ag [Presence] in Upper respiratory specimen by Rapid immunoassay [facility] No Panel Informationon 04-08 Influenza Type A (Rapid) Negative [facility] POC SARS CoV-2 Antigen Positive [facility] BASIC METABOLIC PANLon 04-02 Anion gap [Moles/Vol] 10 mmol/L Normal 5-15 [facility] Comment on above: Performed By: #### C BC, 2324-2, 2777-1, 2731-8 #### [facility] ([id number]) [address] [place] [address] Calcium [Mass/Vol] 9.3 mg/dL Normal 8.5-10.5 [facility] Comment on above: Performed By: #### Sloane MARTINEZ, 4-2, 2776-, 8 #### [facility] ([id number]) [address] [place] [address] Chloride [Moles/Vol] 103 mmol/L Normal 98-109 [facility] Comment on above: Performed By: #### Sloane MARTINEZ, 2323-2, 2776-, 2730-8 #### [facility] ([id number]) [address], [address] [place] [address] CO2 [Moles/Vol] 25 mmol/L Normal 22-32 [facility] Comment on above: Performed By: #### Sloane MARTINEZ, 2323-2, 2776-02, 8 #### [facility] ([id number]) [address], [address] [place] [address] Creatinine [Mass/Vol] 1.08 mg/dL High 0.40-1.00 [facility] Comment on above: Result Comment: METH OD TRACEABLE TO IDMS STANDARD Performed By: #### Sloane MARTINEZ, 2323-2, 2776-02, 8 #### [facility] ([id number]) [address], [address] [place] [address] GFR/1.73 sq M.predicted among non-blacks MDRD (S/P/Bld) [Vol rate/Area] 54 mL/min/{1.73_m2} Low >59 [facility] Comment on above: Result Comment: Reported eGFR is based on the CKD-EPI 2020 equation that does not use a race coefficient. Performed By: #### Sloane MARTINEZ, 2323-2, 2776-, 8 #### [facility] ([id number]) [address] [place] [address] Glucose [Mass/Vol] 109 mg/dL High 65-99 [facility] Comment on above: Performed By: #### Sloane MARTINEZ, 2324-2, 2777-1, 2731-8 #### [facility] ([id number]) [address], [address] [place] [address] Potassium [Moles/Vol] 4.5 mmol/L Normal 3.5-5.0 [facility] Comment on above: Performed By: #### Sloane , 2324-2, 2777-1, 2731-8 #### [facility] ([id number]) [address], [address] [place] [address] Sodium [Moles/Vol] 138 mmol/L Normal 134-146 [facility] Comment on above: Performed By: #### Sloane BC, 2324-2, 2777-1, 2731-8 #### [facility] ([id number]) [address], [address] [place] [address] Urea nitrogen [Mass/Vol] 25 mg/dL Normal 5-27 [facility] Comment on above: Performed By: #### Sloane , 2324-2, 2777-1, 2731-8 #### [facility] ([id number]) [address], [address] [place] [address] 36on 03-28-2024 36 Regarding lab results from 03/20/2024: MD Erinn Sabillon MA Her serum creatinine is a little on the high side; please repeat a BMP in a week. Thank you Spoke with patient and she will have repeat labs in a few days. Order faxed to [facility]. Normal [facility] Office Visiton 03-20-2024 Follow-up visit [id number] Veronique Gaitan 1950 F Date Provider Department Center 03/20/2024 271-DORIE DEWEY CARLENE Bermudez Family History Problem Relation Age of Onset Coronary artery disease Mother Cancer Mother Cancer Father Family Status - Relation Status Age at Mother Father Level of Service:76139 [place] OFFICE/OUTPATIENT ESTABLISHED MOD MDM 30 MIN [facility] HPon 02-05-2024 HP Thank you [facility] Consult Note [place] [facility] Reason for visit: Palpitations HPI: [...] pressure readings. Subsequently she was admitted to [facility] for a small temporal intracerebral hemorrhage and [...] History: Diagnosis Date AAA (abdominal aortic aneurysm) ([facility]) COPD (chronic obstructive pulmonary disease) ([facility]) Coronary artery disease Diastolic dysfunction Hyperlipidemia Hypertension PVD (peripheral vascular disease) ([facility]) PSH: Past Surgical History: Procedure Laterality Date CARDIAC CATHETERIZATION CHOLECYSTECTOMY HYSTERECTOMY VASCULAR SURGERY SH: Social Determinants of Health Tobacco Use: Low Risk (01/02/2024) Received from [facility] Patient History Smoking Tobacco Use: Never Smokeless Tobacco Use: Never Passive Exposure: Not on file Recent Concern: Tobacco Use - Medium Risk (11/29/2023) Received from [facility], [facility] [employer] [facility] Patient History Smoking Tobacco Use: Former Smokeless Tobacco Use: Never Passive Exposure: Not on file Alcohol Use: Not At Risk (06/10/2023) Received from [employer] [facility], [facility] AUDIT-C Frequency of Alcohol Consumption: Never Average Number of Drinks: Patient does not drink Frequency of Binge Drinking: Never Financial Resource Strain: Low Risk (09/26/2023) [facility] Overall Financial Resource Strain (CARDIA) Difficulty of Paying Living Expenses: Not very hard Food Insecurity: No Food Insecurity (11/29/2023) Received from [facility] Hunger Screening Within the past 12 months we worried whether our food would run out before we got money to buy more.: Never True Within the past 12 months the food we bought just didn't last and we didn't have money to get more.: Never True Transportation Needs: No Transportation Needs (06/10/2023) Received from [facility], [facility] - Transportation Lack of Transportation (Medical): No Lack of Transportation (Non-Medical): No Physical Activity: Insufficiently Active (11/29/2023) Received from [facility] [employer] Exercise Vital Sign Days of Exercise per Week: 3 days Minutes of Exercise per Session: 20 min Stress: Stress Concern Present (09/26/2023) Received from [facility], [employer] [facility] [employer] [place] [employer] - Occupational Stress Questionnaire Feeling of Stress : Rather much Social Connections: Moderately Isolated (09/26/2023) [facility] Social Connection and Isolation Panel [NHANES] Frequency of Communication with Friends and Family: Three times a week Frequency of Social Gatherings with Friends and Family: Three times a week Attends Confucianism Services: More than 4 times per year Active Member of Clubs or Organizations: No Attends Club or Organization Meetings: Never Marital Status: Intimate Partner Violence: Unknown (04/06/2023) [place] Safety & Environment Fear of Current or Ex-Partner: Not on file Emotionally Abused: Not on file Physically Abused: Not on file Sexually Abused: Not on file Physically or Sexually Abused: Not on file Depression: Not at risk (11/29/2023) Received from [facility], [employer] [facility] PHQ-2 Total Score: 0 Housing Stability: Low Risk (06/10/2023) Received from [facility], [facility] Housing Instability Are you worried or concerned that in the next two months you may not have stable housing that you own, rent or stay in as a part of a household?: No Utilities: Not At Risk (06/10/2023) Received from [facility], [facility] Utilities Threatened with loss of utilities: No Health Literacy: Not on file (more content not included)... [facility] NURSNOTEon 02-05-2024 NURSNOTE RN educated pt on discharge instructions. RN encouraged pt to voice any questions or concerns. Pt verbalizes no questions or concerns at this time. Pt was walked off unit to proper entrance with all belongings. [facility] Letter (Out)on 01-05-2024 Letter (Out) [id number] Veronique Gaitan 1950 F Date Provider Department Center 01/05/2024 None-None [facility] AUTH [place] Medical C Family History Problem Relation Age of Onset Coronary artery disease Mother Cancer Mother Cancer Father Family Status - Relation Status Age at Mother Father [facility] No Panel Informationon 01-01 [facility] C Urineon 12-30-2023 Bacteria identified Cx Nom (U) Microbiology PROCEDURE: Urine Culture [R1] SOURCE: U Random BODY SITE: COLLECTED DATE/TIME: 12/26/2023 12:00 EST RECEIVED DATE/TIME: 12/28/2023 11:34 EST START DATE/TIME: 12/28/2023 11:34 EST FREE TEXT SOURCE: CORI KAHN PA-C, PA-C, CORI Perdue FINAL REPORTS Final Report [] Verified Date/Time: 12/30/2023 07:13 EST 2,000 cfu/ml Mixed skin contaminants Performing Locations R1: This test was performed at: [facility], [address] [place] [address], [facility] , , [facility] Comment on above: Performed By: #### 2 [id number] #### [facility] [address] [place] [address] Ambulatory Visit Summaryon 1 02-24-2023 Ambulatory Visit [...] for choosing us for your care. Normal [facility] Office Visiton 12-26-2023 Follow-up visit [id number] Veronique Gaitan Manuel 1950 F Date Provider Department Center 12/26/2023 Violeta-JIMBO WEINSTEIN CARLENE [facility] Family History Problem Relation Age of Onset Coronary artery disease Mother Cancer Mother Cancer Father Family Status - Relation Status Age at Mother Father Level of Service:23746 [place] OFFICE/OUTPATIENT NEW MODERATE MDM 45 MINUTES Reason for Visit and Comments: Follow-up [066748] - Palpitations and increased blood pressure [facility] Reminderson 12-26-2023 Reminders Reminders - From: Ntaaliia Brooks To: EU - Administrative; Sent: 12/26/2023 11:47:08 EST Show up: 02/28/2024 11:46:00 EST Subject: 6 month F/U Due Date/Time: 06/22/2024 11:46:00 EDT Reminder/Recall Patient needs scheduled with [facility] in [place] for a 6 month f/u with Bun and Creatinine levels. Due back in June of 2024 Normal [facility] URINALYSISOrdered By: SYSTEM SYSTEM on 12-26-2023 Clarity (U) Clear (12/26/23 12:00 PM) Normal Clear [facility] UA Auto SS Color (U) Light-Yellow 1 (12/26/23 12:00 PM) Normal Yellow [facility] Auto SS Comment on above: Interpretive Data: M icroscopic readings are only performed on those samples that meet specific criteria set forth by [facility]. pH (U) 6.0 *NA* (12/26/23 12:00 PM) Invalid Interpretation Code 5.0 - 9.0 [facility] UA Auto SS Specific gravity (U) [Rel density] 1.008 *NA* (12/26/23 12:00 PM) Invalid Interpretation Code 1.005 - 1.030 [facility] UA Auto SS URINALYSISOrdered By: Zhanna Delgado on 12-26-2023 UA Spec Desc Random Urine (12/26/23 12:00 PM) Normal [facility] UA Auto SS Urinalysis with MicroOrdered By: SYSTEM SYSTEM on 12-26-2023 Bilirubin Ql (U) Negative Normal Negative [facility] UA Auto SS Comment on above: Performed By: #### 4 [id number] #### [facility] [address] [place] [address] Glucose Ql (U) Negative Normal Negative [facility] UA Au to SS Comment on above: Performed By: #### 4 [id number] #### [facility] [address] [place] [address] Hemoglobin Auto test strip (U) [Mass/Vol] Negative Normal Negative [facility] UA Aut o SS Comment on above: Performed By: #### 4 [id number] #### [facility] [address] [place] [address] Ketones Auto test strip Ql (U) Negative Normal Negative [facility] UA Auto SS Comment on above: Performed By: #### 4 [id number] #### [facility] [address] [place] [address] Leukocyte esterase Auto test strip Ql (U) Negative Normal Negative [facility] UA A uto SS Comment on above: Performed By: #### 4 [id number] #### [facility] [address] [place] [address] Nitrite Auto test strip Ql (U) Negative Normal Negative [facility] UA Auto SS Comment on above: Performed By: #### 4 [id number] #### [facility] [address] [place] [address] Protein Ql (U) Negative Normal Negative [facility] UA Au to SS Comment on above: Performed By: #### 4 [id number] #### [facility] [address] [place] [address] Urobilinogen (U) [Mass/Vol] Negative Normal Negative [facility]A Auto SS Comment on above: Performed By: #### 4 [id number] #### [facility] [address] [place] [address] Urinalysis with Microon 12-14 Clarity (U) Clear Normal Clear [facility] Comment on above: Performed By: #### 4 [id number] #### [facility] [address] [place] [address] Color (U) Light-Yellow Normal Yellow [facility] Comment on above: Result Comment: Micr oscopic readings are only performed on those samples that meet specific criteria set forth by [facility]. Performed By: #### 4 [id number] #### [facility] [address] [place] [address] pH (U) 6.0 [pH] Invalid Interpretation Code 5.0-9.0 [facility] Comment on above: Performed By: #### 4 [id number] #### [facility] [address] [place] [address] Specific gravity (U) [Rel density] 1.008 Invalid Interpretation Code 1.005-1.030 [facility] Comment on above: Performed By: #### 4 [id number] #### [facility] [address] [place] [address] Type of Urine collection method Random Urine Normal [facility] Comment on above: Performed By: #### 4 [id number] #### [facility] [address] [place] [address] BASIC METABOLIC PANLon 11-28 Anion gap [Moles/Vol] 10 mmol/L Normal 5-15 [facility] Comment on above: Performed By: #### C DANYA, 54794-7, 12263-5 #### [facility] ([id number]) [address], [address] [place] [address] Calcium [Mass/Vol] 9.7 mg/dL Normal 8.5-10.5 [facility] Comment on above: Performed By: #### C DANYA, 05157-8, 26150-3 #### [facility] ([id number]) [address], [address] [place] [address] Chloride [Moles/Vol] 107 mmol/L Normal 98-109 [facility] Comment on above: Performed By: #### C DANYA, 06913-2, 00525-8 #### [facility] ([id number]) [address], [address] [place] [address] CO2 [Moles/Vol] 21 mmol/L Low 22-32 [facility] Comment on above: Performed By: #### Sloane HAGAN, 78722-9, 30913-0 #### [facility] ([id number]) [address] [place] [address] Creatinine [Mass/Vol] 1.17 mg/dL High 0.40-1.00 [facility] Comment on above: Result Comment: METH OD TRACEABLE TO IDMS STANDARD Performed By: #### Sloane HAGAN, 82500-6, 81150-9 #### [facility] ([id number]) [address] [place] [address] GFR/1.73 sq M.predicted among non-blacks MDRD (S/P/Bld) [Vol rate/Area] 49 mL/min/{1.73_m2} Low >59 [facility] Comment on above: Result Comment: Reported eGFR is based on the CKD-EPI 2020 equation that does not use a race coefficient. Performed By: #### Sloane HAGAN, 57669-5, 94516-8 #### [facility] ([id number]) [address] [place] [address] Glucose [Mass/Vol] 97 mg/dL Normal 65-99 [facility] Comment on above: Performed By: #### Sloane HAGAN, 37053-8, 94273-4 #### [facility] ([id number]) [address] [place] [address] Potassium [Moles/Vol] 5.5 mmol/L High 3.5-5.0 [facility] Comment on above: Performed By: #### Sloane HAGAN, 66440-5, 06235-7 #### [facility] ([id number]) [address] [place] [address] Sodium [Moles/Vol] 138 mmol/L Normal 134-146 [facility] Comment on above: Performed By: #### C , 39131-5, 29166-9 #### [facility] ([id number]) [address] [place] [address] Urea nitrogen [Mass/Vol] 34 mg/dL High 5-27 [facility] Comment on above: Performed By: #### C DANYA, 12880-3, 28363-8 #### [facility] ([id number]) [address] [place] [address] Basic Metabolic Panelon 11-13 Anion gap [Moles/Vol] 10 mmol/L 5 - 15 mmol/L [facility] Calcium [Mass/Vol] 9.7 mg/dL 8.5 - 10. 5 mg/dL [facility] Chloride [Moles/Vol] 107 mmol/L 98 - 10 9 mmol/L [facility] CO2 [Moles/Vol] 21 mmol/L Low 22 - 32 mmol/L [facility] Creatinine [Mass/Vol] 1.17 mg/dL High 0.40 - 1.00 mg/dL [facility] Comment on above: METHOD TRACEABLE TO [facility] STANDARD eGFR (CKD-EPI)non-race dependent 49 Low - PINF [facility] Comment on above: Reported eGFR is based on the CKD-EPI 2020 equation that does not use a race coefficient. Glucose [Mass/Vol] 97 mg/dL 65 - 99 mg/dL [facility] Interpretation and review of laboratory results Abnormal [facility] Potassium [Moles/Vol] 5.5 mmol/L High 3.5 - 5.0 mmol/L [facility] Sodium [Moles/Vol] 138 mmol/L 134 - 146 mmol/L [facility] Urea nitrogen [Mass/Vol] 34 mg/dL High 5 - 27 mg/dL [facility] 36on 09-25-2023 36 Patient called to [...] HR was 48. Please advise. Thanks. Normal [facility] Office Visiton 08-21-2023 Follow-up visit [id number] Veronique Gaitan 1950 F Date Provider Department Center 08/21/2023 271-LOLICISCOVAHID DORIE CARD [facility] Family History Problem Relation Age of Onset Coronary artery disease Mother Cancer Mother Cancer Father Family Status - Relation Status Age at Mother Father Level of Service:28802 [place] OFFICE/OUTPATIENT ESTABLISHED MOD MDM 30 MIN Normal [facility] XR FOREARM RT 2 VWSon 2023 XR [...] Sal MD on 08/08/2023 9:17 AM Normal [facility] MR BRAIN W WO CONTon 07-12- 024 MR BRAIN W WO CONT MR [...] Andry Underwood MD on 07/13/2023 8:41 AM I, Fareed Magallon have personally reviewed the image(s) and agree with and/or edited the report Finalized by Fareed Magallon on 07/13/2023 11:07 AM Normal [facility] Office Visiton 06-19-2023 Follow-up visit [id number] Veronique Gaitan 1950 F Date Provider Department Center 06/19/2023 271-DORIE DEWEY CARD [facility] Family History Problem Relation Age of Onset Coronary artery disease Mother Cancer Mother Cancer Father Family Status - Relation Status Age at Mother Father Level of Service:48770 [place] OFFICE/OUTPATIENT ESTABLISHED LOW MDM 20 MIN Normal [facility] BASIC METABOLIC PANLon 06-11 Anion gap [Moles/Vol] 10 mmol/L Normal 5-15 [facility] Comment on above: Performed By: #### C , 29052-1, 42890-2 #### [facility] ([id number]) [address] [place] [address] Calcium [Mass/Vol] 9.2 mg/dL Normal 8.5-10.5 [facility] Comment on above: Performed By: #### C DANYA, 41993-9, 29128-3 #### [facility] ([id number]) [address] [place] [address] Chloride [Moles/Vol] 107 mmol/L Normal 98-109 [facility] Comment on above: Performed By: #### C DANYA, 04277-4, 16138-9 #### [facility] ([id number]) [address] [place] [address] CO2 [Moles/Vol] 23 mmol/L Normal 22-32 [facility] Comment on above: Performed By: #### C DANYA, 48064-7, 28327-3 #### [facility] ([id number]) [address] [place] [address] Creatinine [Mass/Vol] 0.77 mg/dL Normal 0.40-1.00 [facility] Comment on above: Result Comment: METH OD TRACEABLE TO IDMS STANDARD Performed By: #### C DANYA, 07559-1, 70937-5 #### [facility] ([id number]) [address] [place] [address] GFR/1.73 sq M.predicted among non-blacks MDRD (S/P/Bld) [Vol rate/Area] 81 mL/min/{1.73_m2} Normal >59 [facility] Comment on above: Result Comment: Reported eGFR is based on the CKD-EPI 2020 equation that does not use a race coefficient. Performed By: #### Sloane HAGAN, 87905-7, 15367-3 #### [facility] ([id number]) [address] [place] [address] Glucose [Mass/Vol] 90 mg/dL Normal 65-99 [facility] Comment on above: Performed By: #### Sloane HAGAN, 89855-8, 48856-9 #### [facility] ([id number]) [address] [place] [address] Potassium [Moles/Vol] 4.5 mmol/L Normal 3.5-5.0 [facility] Comment on above: Performed By: #### Sloane HAGAN, 38284-2, 34445-7 #### [facility] ([id number]) [address] [place] [address] Sodium [Moles/Vol] 140 mmol/L Normal 134-146 [facility] Comment on above: Performed By: #### C DANYA, 16731-5, 83666-2 #### [facility] ([id number]) [address] [place] [address] Urea nitrogen [Mass/Vol] 21 mg/dL Normal 5-27 [facility] Comment on above: Performed By: #### C DANYA, 46235-7, 51776-5 #### [facility] ([id number]) [address], [address] [place] [address] CBC AND AUTO DIFFon 06-12-19 24 ABSOLUTE BASOPHIL 0.0 X10E9/L Normal 0.0-0.2 [facility] Comment on above: Performed By: #### Sloane HAGAN, 35813-3, 23730-7 #### [facility] ([id number]) [address] [place] [address] ABSOLUTE NEUTROPHIL 3.7 X10E9/L Normal 1.5-6.6 [facility] Comment on above: Performed By: #### Sloane HAGAN, 89319-6, 61562-1 #### [facility] ([id number]) [address] [place] [address] Basophils/100 WBC (Bld) 0.7 % Normal [facility] Comment on above: Performed By: #### Sloane HAGAN, 45272-6, 62289-9 #### [facility] ([id number]) [address] [place] [address] Eosinophils (Bld) [#/Vol] 0.0 10*3/uL Normal 0.0-0.4 [facility] Comment on above: Performed By: #### Sloane HAGAN, 04907-2, 38595-5 #### [facility] ([id number]) [address] [place] [address] Eosinophils/100 WBC (Bld) 0.7 % Normal [facility] Comment on above: Performed By: #### Sloane HAGAN, 92111-6, 24143-0 #### [facility] ([id number]) [address] [place] [address] Erythrocyte distribution width (RBC) [Ratio] 13.6 % Normal 11.5-15.0 [facility] Comment on above: Performed By: #### Sloane HAGAN, 04195-7, 91212-5 #### [facility] ([id number]) [address] [place] [address] Hematocrit (Bld) [Volume fraction] 36.5 % Normal 35-47 [facility] Comment on above: Performed By: #### Sloane HAGAN, 65574-1, 74451-5 #### [facility] ([id number]) [address] [place] [address] Hemoglobin (Bld) [Mass/Vol] 12.3 g/dL Normal 11.7-15.5 [facility] Comment on above: Performed By: #### Sloane HAGAN, 89829-7, 65126-2 #### [facility] ([id number]) [address] [place] [address] Lymphocytes (Bld) [#/Vol] 1.9 10*3/uL Normal 1.0-3.5 [facility] Comment on above: Performed By: #### Sloane HAGAN, 79503-7, 62938-5 #### [facility] ([id number]) [address] [place] [address] Lymphocytes/100 WBC (Bld) 28.6 % Normal [facility] Comment on above: Performed By: #### Sloane HAGAN, 64621-4, 74013-1 #### [facility] ([id number]) [address] [place] [address] MCH (RBC) [Entitic mass] 32.3 pg Normal 27-34 [facility] Comment on above: Performed By: #### Sloane HAGAN, 01855-4, 62544-4 #### [facility] ([id number]) [address], [address] [place] [address] MCHC (RBC) [Mass/Vol] 33.6 g/dL Normal 32-36 [facility] Comment on above: Performed By: #### Sloane HAGAN, 26481-5, 01862-4 #### [facility] ([id number]) [address], [address] [place] [address] MCV (RBC) [Entitic vol] 96 fL Normal 80-100 [facility] Comment on above: Performed By: #### Sloane HAGAN, 56813-8, 52352-4 #### [facility] ([id number]) [address], [address] [place] [address] Monocytes (Bld) [#/Vol] 0.8 10*3/uL Normal 0-0.9 [facility] Comment on above: Performed By: #### Sloane HAGAN, 02678-1, 84728-9 #### [facility] ([id number]) [address], [address] [place] [address] Monocytes/100 WBC (Bld) 12.6 % Normal [facility] Comment on above: Performed By: #### Sloane HAGAN, 70536-3, 15571-7 #### [facility] ([id number]) [address], [address] [place] [address] Neutrophils/100 WBC (Bld) 57.4 % Normal [facility] Comment on above: Performed By: #### Sloane HAGAN, 63280-4, 64369-9 #### [facility] ([id number]) [address], [address] [place] [address] Platelet mean volume (Bld) [Entitic vol] 8.0 fL Normal 7-12 [facility] Comment on above: Performed By: #### Sloane HAGAN, 11702-0, 56037-5 #### [facility] ([id number]) [address], [address] [place] [address] Platelets (Bld) [#/Vol] 152 10*3/uL Normal 150-450 [facility] Comment on above: Performed By: #### C DANYA, 16576-2, 94951-3 #### [facility] ([id number]) [address], [address] [place] [address] RBC COUNT 3.80 X10E12/L Normal 3.80-5.20 [facility] Comment on above: Performed By: #### C DANYA, 15607-8, 06014-3 #### [facility] ([id number]) [address] [place] [address] WBC (Bld) [#/Vol] 6.5 10*3/uL Normal 4.0-11.0 [facility] Comment on above: Performed By: #### Sloane HAGAN, 66647-4, 62211-4 #### [facility] ([id number]) [address], [address] [place] [address] BASIC METABOLIC PANLon 06-10 Anion gap [Moles/Vol] 9 mmol/L Normal 5-15 [facility] Comment on above: Performed By: #### Sloane HAGAN, 69403-7, 05051-7 #### [facility] ([id number]) [address] [place] [address] Calcium [Mass/Vol] 9.4 mg/dL Normal 8.5-10.5 [facility] Comment on above: Performed By: #### Sloane HAGAN, 73807-6, 78995-4 #### [facility] ([id number]) [address], [address] [place] [address] Chloride [Moles/Vol] 108 mmol/L Normal 98-109 [facility] Comment on above: Performed By: #### Sloane HAGAN, 10091-9, 57421-8 #### [facility] ([id number]) [address], [address] [place] [address] CO2 [Moles/Vol] 23 mmol/L Normal 22-32 [facility] Comment on above: Performed By: #### C DANYA, 73039-7, 04439-5 #### [facility] ([id number]) [address], [address] [place] [address] Creatinine [Mass/Vol] 0.80 mg/dL Normal 0.40-1.00 [facility] Comment on above: Result Comment: METH OD TRACEABLE TO IDMS STANDARD Performed By: #### C DANYA, 29482-6, 99019-9 #### [facility] ([id number]) [address], [facility] [address] [place] [address] GFR/1.73 sq M.predicted among non-blacks MDRD (S/P/Bld) [Vol rate/Area] 78 mL/min/{1.73_m2} Normal >59 [facility] Comment on above: Result Comment: Reported eGFR is based on the CKD-EPI 2020 equation that does not use a race coefficient. Performed By: #### Sloane HAGAN, 10940-3, 45838-3 #### [facility] ([id number]) [address], [address] [place] [address] Glucose [Mass/Vol] 89 mg/dL Normal 65-99 [facility] Comment on above: Performed By: #### C DANYA, 98871-1, 92628-5 #### [facility] ([id number]) [address], [address] [place] [address] Potassium [Moles/Vol] 4.2 mmol/L Normal 3.5-5.0 [facility] Comment on above: Performed By: #### Sloane HAGAN, 31692-8, 78915-6 #### [facility] ([id number]) [address], [address] [place] [address] Sodium [Moles/Vol] 140 mmol/L Normal 134-146 [facility] Comment on above: Performed By: #### Sloane HAGAN, 93110-5, 06106-5 #### [facility] ([id number]) [address], [address] [place] [address] Urea nitrogen [Mass/Vol] 18 mg/dL Normal 5-27 [facility] Comment on above: Performed By: #### Sloane HAGAN, 23977-1, 49793-0 #### [facility] ([id number]) [address], [address] [place] [address] CBC AND AUTO DIFFon 06-11-19 24 ABSOLUTE BASOPHIL 0.0 X10E9/L Normal 0.0-0.2 [facility] Comment on above: Performed By: #### Sloane HAGAN, 92936-1, 20675-5 #### [facility] ([id number]) [address], [address] [place] [address] ABSOLUTE NEUTROPHIL 3.1 X10E9/L Normal 1.5-6.6 [facility] Comment on above: Performed By: #### Sloane HAGAN, 81605-2, 64595-2 #### [facility] ([id number]) [address], [address] [place] [address] Basophils/100 WBC (Bld) 0.6 % Normal [facility] Comment on above: Performed By: #### Sloane HAGAN, 92948-0, 97533-7 #### [facility] ([id number]) [address], [address] [place] [address] Eosinophils (Bld) [#/Vol] 0.1 10*3/uL Normal 0.0-0.4 [facility] Comment on above: Performed By: #### Sloane HAGAN, 30536-0, 42637-5 #### [facility] ([id number]) [address], [address] [place] [address] Eosinophils/100 WBC (Bld) 0.9 % Normal [facility] Comment on above: Performed By: #### Sloane HAGAN, 00151-1, 33567-8 #### [facility] ([id number]) [address], [facility] [address] [place] [address] Erythrocyte distribution width (RBC) [Ratio] 13.6 % Normal 11.5-15.0 [facility] Comment on above: Performed By: #### Sloane HAGAN, 31390-9, 97033-5 #### [facility] ([id number]) [address], [facility] [address] [place] [address] Hematocrit (Bld) [Volume fraction] 34.6 % Low 35-47 [facility] Comment on above: Performed By: #### Sloane HAGAN, 65287-3, 16280-4 #### [facility] ([id number]) [address], [facility] [address] [place] [address] Hemoglobin (Bld) [Mass/Vol] 11.9 g/dL Normal 11.7-15.5 [facility] Comment on above: Performed By: #### Sloane HAGAN, 71571-0, 45833-9 #### [facility] ([id number]) [address], [facility] [address] [place] [address] Lymphocytes (Bld) [#/Vol] 2.2 10*3/uL Normal 1.0-3.5 [facility] Comment on above: Performed By: #### Sloane HAGAN, 91157-4, 44680-4 #### [facility] ([id number]) [address], [facility] [address] [place] [address] Lymphocytes/100 WBC (Bld) 35.5 % Normal [facility] Comment on above: Performed By: #### Sloane HAGAN, 67473-6, 15659-2 #### [facility] ([id number]) [address], [address] [place] [address] MCH (RBC) [Entitic mass] 32.5 pg Normal 27-34 [facility] Comment on above: Performed By: #### Sloane HAGAN, 29558-4, 26461-9 #### [facility] ([id number]) [address], [address] [place] [address] MCHC (RBC) [Mass/Vol] 34.3 g/dL Normal 32-36 [facility] Comment on above: Performed By: #### Sloane HAGAN, 40185-3, 37119-2 #### [facility] ([id number]) [address], [facility] [address] [place] [address] MCV (RBC) [Entitic vol] 95 fL Normal 80-100 [facility] Comment on above: Performed By: #### Sloane HAGAN, 14012-1, 79855-3 #### [facility] ([id number]) [address] [place] [address] Monocytes (Bld) [#/Vol] 0.8 10*3/uL Normal 0-0.9 [facility] Comment on above: Performed By: #### Sloane HAGAN, 78523-9, 92755-0 #### [facility] ([id number]) [address] [place] [address] Monocytes/100 WBC (Bld) 12.7 % Normal [facility] Comment on above: Performed By: #### Sloane HAGAN, 37398-9, 14008-9 #### [facility] ([id number]) [address] [place] [address] Neutrophils/100 WBC (Bld) 50.3 % Normal [facility] Comment on above: Performed By: #### Sloane HAGAN, 80230-1, 78246-0 #### [facility] ([id number]) [address], [address] [place] [address] Platelet mean volume (Bld) [Entitic vol] 8.0 fL Normal 7-12 [facility] Comment on above: Performed By: #### C DANYA, 20866-3, 46519-0 #### [facility] ([id number]) [address], [address] [place] [address] Platelets (Bld) [#/Vol] 158 10*3/uL Normal 150-450 [facility] Comment on above: Performed By: #### Sloane HAGAN, 63454-5, 24409-3 #### [facility] ([id number]) [address], [facility] [address] [place] [address] RBC COUNT 3.65 X10E12/L Low 3.80-5.20 [facility] Comment on above: Performed By: #### Sloane HAGAN, 28775-8, 93337-2 #### [facility] ([id number]) [address], [address] [place] [address] WBC (Bld) [#/Vol] 6.1 10*3/uL Normal 4.0-11.0 [facility] Comment on above: Performed By: #### Sloane HAGAN, 03228-9, 89005-0 #### [facility] ([id number]) [address], [address] [place] [address] PROTIME AND INRon 06-11-2023 INR Coag (PPP) [Relative time] 1.5 {INR} High 0.8-1.1 [facility] Comment on above: Performed By: #### Sloane HAGAN, 32282-5, 21937-0 #### [facility] ([id number]) [address], [address] [place] [address] PT Coag (PPP) [Time] 17.6 s High 9.8-13.2 [facility] Comment on above: Performed By: #### Sloane HAGAN, 51315-7, 17175-5 #### [facility] ([id number]) [address], [address] [place] [address] TSH WITH REFLEXon 06-11-2023 TSH 1.87 uIU/mL Normal 0.49-4.67 [facility] Comment on above: Performed By: #### [place], [address]-9, 07906-4 #### [facility] ([id number]) [address], [address] [place] [address] XR CHEST 1 VWon 06-11-2023 XR CHEST [...] Bear MD on 06/11/2023 7:08 PM Normal [facility] BASIC METABOLIC PANLon 06-09 Anion gap [Moles/Vol] 7 mmol/L Normal 5-15 [facility] Comment on above: Performed By: #### Sloane MARTINEZ, 2324-2, 2777-1, 2730-8 #### [facility] ([id number]) [address], [address] [place] [address] Calcium [Mass/Vol] 9.0 mg/dL Normal 8.5-10.5 [facility] Comment on above: Performed By: #### Sloane MARTINEZ, 2324-2, 2777-1, 2731-8 #### [facility] ([id number]) [address], [address] [place] [address] Chloride [Moles/Vol] 105 mmol/L Normal 98-109 [facility] Comment on above: Performed By: #### Sloane MARTINEZ, 2324-2, 2777-1, 2731-8 #### [facility] ([id number]) [address], [address] [place] [address] CO2 [Moles/Vol] 24 mmol/L Normal 22-32 [facility] Comment on above: Performed By: #### Sloane MARTINEZ, 2324-2, 2776-, 8 #### [facility] ([id number]) [address], [address] [place] [address] Creatinine [Mass/Vol] 0.80 mg/dL Normal 0.40-1.00 [facility] Comment on above: Result Comment: METH OD TRACEABLE TO IDMS STANDARD Performed By: #### Sloane MARTINEZ, 4-2, 2776-, 2730-09 #### [facility] ([id number]) [address], [address] [place] [address] GFR/1.73 sq M.predicted among non-blacks MDRD (S/P/Bld) [Vol rate/Area] 78 mL/min/{1.73_m2} Normal >59 [facility] Comment on above: Result Comment: Reported eGFR is based on the CKD-EPI 2020 equation that does not use a race coefficient. Performed By: #### Sloane MARTINEZ, 4-2, 2776-02, 2730-09 #### [facility] ([id number]) [address], [address] [place] [address] Glucose [Mass/Vol] 101 mg/dL High 65-99 [facility] Comment on above: Performed By: #### Sloane MARTINEZ, 4-2, 2776-02, 8 #### [facility] ([id number]) [address], [facility] [address] [place] [address] Potassium [Moles/Vol] 4.6 mmol/L Normal 3.5-5.0 [facility] Comment on above: Performed By: #### Sloane MARTINEZ, 4-2, 2776-, 8 #### [facility] ([id number]) [address], [address] [place] [address] Sodium [Moles/Vol] 136 mmol/L Normal 134-146 [facility] Comment on above: Performed By: #### C BC, 2324-2, 2777-1, 2731-8 #### [facility] ([id number]) [address], [address] [place] [address] Urea nitrogen [Mass/Vol] 25 mg/dL Normal 5-27 [facility] Comment on above: Performed By: #### C JUAN, 2324-2, 2777-1, 2731-8 #### [facility] ([id number]) [address], [facility] [address] [place] [address] CBC AND AUTO DIFFon 06-10-19 24 ABSOLUTE BASOPHIL 0.0 X10E9/L Normal 0.0-0.2 [facility] Comment on above: Performed By: #### Sloane HENLEY, 15131-3, PINR, HA1C #### [facility] ([id number]) [address] [address] [place] [address] ABSOLUTE NEUTROPHIL 4.8 X10E9/L Normal 1.5-6.6 [facility] Comment on above: Performed By: #### Sloane HENLEY, 59704-3, PINR, HA1C #### [facility] ([id number]) [address] [address] [place] [address] Basophils/100 WBC (Bld) 0.6 % Normal [facility] Comment on above: Performed By: #### C BCA, 05096-7, PINR, HA1C #### [facility] ([id number]) [address] [address] [place] [address] Eosinophils (Bld) [#/Vol] 0.1 10*3/uL Normal 0.0-0.4 [facility] Comment on above: Performed By: #### Sloane BCA, 35709-5, PINR, HA1C #### [facility] ([id number]) [address] [place] [address] Eosinophils/100 WBC (Bld) 0.7 % Normal [facility] Comment on above: Performed By: #### C KALE, 96049-5, PINR, HA1C #### [facility] ([id number]) [address], [facility] [address] [place] [address] Erythrocyte distribution width (RBC) [Ratio] 13.4 % Normal 11.5-15.0 [facility] Comment on above: Performed By: #### Sloane HENLEY 14252-5, PINSadi, HA1C #### [facility] ([id number]) [address], [facility] [address] [place] [address] Hematocrit (Bld) [Volume fraction] 35.9 % Normal 35-47 [facility] Comment on above: Performed By: #### Sloane HENLEY, 04342-7, PINR, HA1C #### [facility] ([id number]) [address], [facility] [address] [place] [address] Hemoglobin (Bld) [Mass/Vol] 12.5 g/dL Normal 11.7-15.5 [facility] Comment on above: Performed By: #### Sloane HENLEY, 86146-9, PINSadi, HA1C #### [facility] ([id number]) [address], [facility] [address] [place] [address] Lymphocytes (Bld) [#/Vol] 2.2 10*3/uL Normal 1.0-3.5 [facility] Comment on above: Performed By: #### Sloane HENLEY, 71947-3, PINR, HA1C #### [facility] ([id number]) [address] [place] [address] Lymphocytes/100 WBC (Bld) 28.2 % Normal [facility] Comment on above: Performed By: #### Sloane HENLEY, 93802-1, PINR, HA1C #### [facility] ([id number]) [address] [place] [address] MCH (RBC) [Entitic mass] 33.0 pg Normal 27-34 [facility] Comment on above: Performed By: #### C KALE, 87918-7, PINR, HA1C #### [facility] ([id number]) [address], [address] [place] [address] MCHC (RBC) [Mass/Vol] 34.9 g/dL Normal 32-36 [facility] Comment on above: Performed By: #### C KALE, 85178-7, PINR, HA1C #### [facility] ([id number]) [address] [place] [address] MCV (RBC) [Entitic vol] 95 fL Normal 80-100 [facility] Comment on above: Performed By: #### C KALE, 64744-6, PINR, HA1C #### [facility] ([id number]) [address], [address] [place] [address] Monocytes (Bld) [#/Vol] 0.7 10*3/uL Normal 0-0.9 [facility] Comment on above: Performed By: #### C KALE, 98524-1, PINR, HA1C #### [facility] ([id number]) [address] [place] [address] Monocytes/100 WBC (Bld) 9.4 % Normal [facility] Comment on above: Performed By: #### C KALE, 01769-8, PINR, HA1C #### [facility] ([id number]) [address] [place] [address] Neutrophils/100 WBC (Bld) 61.1 % Normal [facility] Comment on above: Performed By: #### C KALE, 81412-5, PINR, HA1C #### [facility] ([id number]) [address] [place] [address] Platelet mean volume (Bld) [Entitic vol] 7.6 fL Normal 7-12 [facility] Comment on above: Performed By: #### Sloane HENLEY, 45830-1, PINR, HA1C #### [facility] ([id number]) [address] [place] [address] Platelets (Bld) [#/Vol] 177 10*3/uL Normal 150-450 [facility] Comment on above: Performed By: #### Sloane HENLEY, 47430-5, ADALBERTO HA1C #### [facility] ([id number]) [address] [place] [address] RBC COUNT 3.79 X10E12/L Low 3.80-5.20 [facility] Comment on above: Performed By: #### Sloane HENLEY, 06847-8, PINR, HA1C #### [facility] ([id number]) [address] [place] [address] WBC (Bld) [#/Vol] 7.9 10*3/uL Normal 4.0-11.0 [facility] Comment on above: Performed By: #### Sloane HENLEY, 75295-9, ADALBERTO, HA1C #### [facility] ([id number]) [address] [place] [address] ABSOLUTE BASOPHIL 0.0 X10E9/L Normal 0.0-0.2 [facility] Comment on above: Performed By: #### ADALBERTO Anton BCA, 55531-6 #### [facility] ([id number]) [address] [place] [address], [place] [address] ABSOLUTE NEUTROPHIL 2.9 X10E9/L Normal 1.5-6.6 [facility] Comment on above: Performed By: #### ADALBERTO Anton BCA, 06915-7 #### [facility] ([id number]) [address] [place] [address] Basophils/100 WBC (Bld) 0.7 % Normal [facility] Comment on above: Performed By: #### Sloane HENLEY, PINR, 43284-5 #### [facility] ([id number]) [address] [place] [address] Eosinophils (Bld) [#/Vol] 0.1 10*3/uL Normal 0.0-0.4 [facility] Comment on above: Performed By: #### Sloane HENLEY PINR, 13024-0 #### [facility] ([id number]) [address] [place] [address] Eosinophils/100 WBC (Bld) 1.3 % Normal [facility] Comment on above: Performed By: #### Sloane HENLEY PINR, 11983-6 #### [facility] ([id number]) [address] [place] [address] Erythrocyte distribution width (RBC) [Ratio] 13.3 % Normal 11.5-15.0 [facility] Comment on above: Performed By: #### Sloane HENLEY PINR, 41665-9 #### [facility] ([id number]) [address] [place] [address] Hematocrit (Bld) [Volume fraction] 35.3 % Normal 35-47 [facility] Comment on above: Performed By: #### Sloane HENLEY PINR, 25822-8 #### [facility] ([id number]) [address] [place] [address] Hemoglobin (Bld) [Mass/Vol] 12.4 g/dL Normal 11.7-15.5 [facility] Comment on above: Performed By: #### Sloane HENLEY PINR, 45083-3 #### [facility] ([id number]) [address] [place] [address] Lymphocytes (Bld) [#/Vol] 2.8 10*3/uL Normal 1.0-3.5 [facility] Comment on above: Performed By: #### Sloane HENLEY, PINR, 53689-0 #### [facility] ([id number]) [address] [place] [address] Lymphocytes/100 WBC (Bld) 41.4 % Normal [facility] Comment on above: Performed By: #### Sloane HENLEY, PINR, 22680-5 #### [facility] ([id number]) [address] [place] [address] MCH (RBC) [Entitic mass] 32.8 pg Normal 27-34 [facility] Comment on above: Performed By: #### Sloane HENLEY, PINR, 54131-3 #### [facility] ([id number]) [address] [place] [address] 24694 MCHC (RBC) [Mass/Vol] 35.3 g/dL Normal 32-36 [facility] Comment on above: Performed By: #### Sloane HENLEY, PINR, [id number] #### [facility] ([id number]) [address] [place] [address] 88552 MCV (RBC) [Entitic vol] 93 fL Normal 80-100 [facility] Comment on above: Performed By: #### Sloane HENLEY, PINR, [id number] #### [facility] ([id number]) [address] [place] [address] 26069 Monocytes (Bld) [#/Vol] 1.0 10*3/uL High 0-0.9 [facility] Comment on above: Performed By: #### Sloane HENLEY, PINR, [id number] #### [facility] ([id number]) [address] [place] [address] 91457 Monocytes/100 WBC (Bld) 14.3 % Normal [facility] Comment on above: Performed By: #### Sloane HENLEY PINR, [id number] #### [facility] ([id number]) [address] [place] [address] 29771 Neutrophils/100 WBC (Bld) 42.3 % Normal [facility] Comment on above: Performed By: #### Sloane HENLEY PINR, [id number] #### [facility] ([id number]) [address] [place] [address] 82955 Platelet mean volume (Bld) [Entitic vol] 7.2 fL Normal 7-12 [facility] Comment on above: Performed By: #### DAILY Anton BCAR, [id number] #### [facility] ([id number]) [address] [place] [address] 09093 Platelets (Bld) [#/Vol] 191 10*3/uL Normal 150-450 [facility] Comment on above: Performed By: #### Sloane HENLEY PINR, [id number] #### [facility] ([id number]) [address] [place] [address] 15602 RBC COUNT 3.79 X10E12/L Low 3.80-5.20 [facility] Comment on above: Performed By: #### Sloane HENLEY PINR, [id number] #### [facility] ([id number]) [address] [place] [address] 03066 WBC (Bld) [#/Vol] 6.8 10*3/uL Normal 4.0-11.0 [facility] Comment on above: Performed By: #### Sloane HENLEY, PINR, [id number] #### [facility] ([id number]) [address] [place] [address] BRAIN WO CONT STROKE ALER Ton [...] Stevie Jarquin MD on 06/10/2023 12:40 AM IRitu MD have personally reviewed the image(s) and agree with and/or edited the report Finalized by Ritu Gee MD on 06/10/2023 1:08 AM Normal [facility] CT CTA CAROTIDon 06-10-[address] CTA CAROTID CLINICAL INFORMATION: Neuro deficit, acute, stroke suspected TECHNIQUE: CT angiogram performed following intravenous administration of nonionic intravenous contrast. Coronal and sagittal and 3-D volume rendered maximum intensity projection images generated and reviewed under concurrent physician supervision. Automated exposure control utilized. [employer] Symptomatic Carotid Endarterectomy Trial (NASCET) method for [...] Linn MD on 06/10/2023 1:27 AM Normal [facility] CT CTA HEADon 06-10-2023 CT CTA HEAD [...] Linn MD on 06/10/2023 1:30 AM Normal [facility] DRUG SCREEN, URINEon 024 AMPHETAMINE/METHAMP Negative Normal NEG [facility] Comment on above: Result Comment: AMPH /METH screening cut off = 1000 ng/mL Performed By: #### D BRIZUELA #### [facility] ([id number]) [address] [place] [address] BARBITURATES Negative Normal NEG [facility] Comment on above: Result Comment: Maren iturates screening cut off value = 200 ng/mL Performed By: #### D BRIZUELA #### [facility] ([id number]) [address] [place] [address] BENZODIAZEPINES Negative Normal NEG [facility] Comment on above: Result Comment: Pietro odiazepines screening cut off value = 200 ng/mL Performed By: #### D BRIZUELA #### [facility] ([id number]) [address] [place] [address] CANNABINOIDS Negative Normal NEG [facility] Comment on above: Result Comment: Octavia abinoids/THC screening cut off value = 50 ng/mL Performed By: #### D BRIZUELA #### [facility] ([id number]) [address] [place] [address] COCAINE METABOLITE Negative Normal NEG [facility] Comment on above: Result Comment: Coca ine screening cut off value = 300 ng/mL Performed By: #### D BRIZUELA #### [facility] ([id number]) [address] [place] [address] ECSTASY Negative Normal [facility] Comment on above: Result Comment: Ecst asy screening cut off value = 500 ng/mL This report is intended for use in clinical monitoring or management of patients. Performed By: #### D BRIZUELA #### [facility] ([id number]) [address] [place] [address] METHADONE Negative Normal NEG [facility] Comment on above: Result Comment: Meth adone screening cut off value = 300 ng/mL. Performed By: #### D BRIZUELA #### [facility] ([id number]) [address] [place] [address] OPIATES Negative Normal NEG [facility] Comment on above: Result Comment: Opia luz maria screening cut off value = 300 ng/mL NOTE: This test is used for the detection of codeine, hydrocodone (>1000 ng/mL), morphine and hydromorphone (>900 ng/mL) in urine. Performed By: #### D BRIZUELA #### [facility] ([id number]) [address] [place] [address] OXYCODONE Negative Normal NEG [facility] Comment on above: Result Comment: Oxyc odone screening cut off value = 300 ng/mL NOTE: This test is used for the detection of oxycodone and oxymorphone in urine. Performed By: #### D BRIZUELA #### [facility] ([id number]) [address] [place] [address] PHENCYCLIDINE Negative Normal NEG [facility] Comment on above: Result Comment: Phen cyclidine screening cut off value = 25 ng/mL Performed By: #### D BRIZUELA #### [facility] ([id number]) [address] [place] [address] Glucose Glucometer (BldC) [M ass/Vol]on 06-10-2023 Glucose [Mass/Vol] 88 mg/dL Normal 65-99 [facility] Glucose [Mass/Vol] 125 mg/dL High 65-99 [facility] Glucose [Mass/Vol] 101 mg/dL High 65-99 [facility] Glucose [Mass/Vol] 94 mg/dL Normal 65-99 [facility] HGB A1C (GLYCO-HGB)on 2023 Glucose [Mass/Vol] 108 mg/dL Normal [facility] Comment on above: Performed By: #### C BCA, 85835-5, PINR, HA1C #### [facility] ([id number]) [address], [address] [place] [address] HbA1c (Bld) [Mass fraction] 5.4 % Normal 4.4-5.6 [facility] Comment on above: Result Comment: NOTE ADA Guidelines Result HgbA1c Normal : less than 5.7 % Prediabetes : 5.7 % to 6.4 % Diabetes : > 6.4 % Use with caution in patients with abnormal hemoglobin variants as the half-life of red blood cells and in vivo glycation rates are affected. Performed By: #### Sloane HENLEY, 62552-5, HAI GLOVER #### [facility] ([id number]) [address] [place] [address] Lipid 1996 panelon 4 Cholesterol [Mass/Vol] 102 mg/dL Low 150-200 [facility] Comment on above: Performed By: ###Allison Anton BCA, 13153-4, HAI GLOVER #### [facility] ([id number]) [address], [address] [place] [address] Cholesterol in HDL [Mass/Vol] 39 mg/dL Low >39 [facility] Comment on above: Result Comment: HDL <40 mg/dL - High Risk HDL > or = 40mg/dL- Desirable HDL >60 mg/dL - Negative Risk Performed By: ###Allison Anton BCA, 54668-8, ADALBERTO HAFeli #### [facility] ([id number]) [address] [place] [address] Cholesterol in LDL [Mass/Vol] 44 mg/dL Normal <130 [facility] Comment on above: Result Comment: LDL <100 mg/dL - Desirable LDL >160 mg/dL - High Risk Performed By: ###Allison Anton BCA, 76671-6, ADALBERTO HA1C #### [facility] ([id number]) [address], [address] [place] [address] Cholesterol in VLDL [Mass/Vol] 19 mg/dL Normal 0-30 [facility] Comment on above: Performed By: #### C BCA, 24454-4, PINR, HA1C #### [facility] ([id number]) [address], [address] [place] [address] CHOLESTEROL:HDL 2.6 Normal 1.0-5.0 [facility] Comment on above: Performed By: #### C BCA, 51892-6, PINR, HA1C #### [facility] ([id number]) [address], [address] [place] [address] Triglyceride [Mass/Vol] 94 mg/dL Normal 27-150 [facility] Comment on above: Performed By: #### C BCA, 05657-2, PINR, HA1C #### [facility] ([id number]) [address], [address] [place] [address] MR BRAIN W WO CONTon 024 MR [...] Lopez MD on 06/10/2023 12:07 PM Normal [facility] PROTIME AND INRon 06-10-2023 INR Coag (PPP) [Relative time] 0.9 {INR} Normal 0.8-1.1 [facility] Comment on above: Performed By: #### Sloane HENLEY, 05892-4, PINSadi HA1C #### [facility] ([id number]) [address] [place] [address] PT Coag (PPP) [Time] 11.0 s Normal 9.8-13.2 [facility] Comment on above: Performed By: #### Sloane HENLEY, 09312-5, PINSadi, HA1C #### [facility] ([id number]) [address] [place] [address] INR Coag (PPP) [Relative time] 0.9 {INR} Normal 0.8-1.1 [facility] Comment on above: Performed By: #### Sloane HENLEY, PINR, 88747-2 #### [facility] ([id number]) [address] [place] [address] PT Coag (PPP) [Time] 11.0 s Normal 9.8-13.2 [facility] Comment on above: Result Comment: NEW REFERENCE RANGE Performed By: #### C BCA, PINR, 87468-0 #### [facility] ([id number]) [address] [place] [address] Troponin I.cardiac High sens itivity method [Mass/Vol]on 06-10-2023 1 HOUR TROP I, HIGH SENSITIVITY 6 ng/L Normal <16 [facility] Comment on above: Performed By: #### C BC, 2324-2, 2777-1, 2731-8 #### [facility] ([id number]) [address] [place] [address] TROPONIN I, HIGH SENSITIVITY 6 ng/L Normal <16 [facility] Comment on above: Performed By: #### C BC, 2324-2, 2777-1, 2731-8 #### [facility] ([id number]) [address] [place] [address] aPTT Coag (PPP) [Time]on aPTT Coag (Bld) [Time] 33 s Normal 26-37 Pr [facility] Comment on above: Result Comment: NEW REFERENCE RANGE Performed By: #### C BCA, PINR, 06333-6 #### [facility] ([id number]) [address] [place] [address] US carotid doppler BIon 04-0 US carotid doppler BI [facility] [place] [address] [place] [address] Ultrasound Report Signed Patient: Veronique Gaitan MR#: [id number] : 1950 Acct:[id number] Age/Sex: 73 / F ADM Date: 05/15/23 Loc: [facility]: Harry Alejandro MD Ordering Provider: [...] Harry Alejandro M.D.05/15/2023 10:01 AM Dictation Location: [place] [address] Tech: Tracie Horan Transcribed By: JANE 05/15/23 1001 Dictated By: Harry Alejandro MD 05/15/23 1000 Signed By: 05/15/23 1001 Normal [facility] Office Visiton 04-19-2023 Follow-up visit [id number] Veronique Gaitan 1950 F Date Provider Department Center 04/19/2023 271-DORIE DEWEY [facility] Family History Problem Relation Age of Onset Coronary artery disease Mother Cancer Mother Cancer Father Family Status - Relation Status Age at Mother Father Level of Service:37671 CA OFFICE/OUTPATIENT ESTABLISHED LOW MDM 20 MIN Normal [facility] ALP Isos Sudhir [Interp]on 03-17 ALK PHOS ISOENZYME See Below Normal [facility] Comment on above: Result Comment: NOTE TEST RESULT FLAG UNIT REF.RANGE ------- Alkaline Phosphatase 162 H U/L 34-123 Alk Phos Bone % 78.6 H % 10.7-68.3 Bone Fraction 127.3 H U/L 12.9-52.6 Alk Phos Liver % 21.4 L % 26.0-86.2 Liver Fraction 34.7 U/L 16.0-69.3 Alk Phos Intestine % 0.0 % 0.0-24.2 Intestine Fraction 0.0 U/L 0.0-16.3 Test Performed By: [facility] [address] [place] [address] Digital Media Buyer: Kirill Hathaway III, M.D. CLIA #[id number] Performed By: #### 4 9243-9 #### [facility] ([id number]) [address] [place] [address] COMPLETE BLOOD COUNTon 04-07 Erythrocyte distribution width (RBC) [Ratio] 13.5 % Normal 11.5-15.0 [facility] Comment on above: Performed By: #### Sloane , 2324-2, 2777-1, 2731-8 #### [facility] ([id number]) [address] [place] [address] Hematocrit (Bld) [Volume fraction] 37.7 % Normal 35-47 [facility] Comment on above: Performed By: #### Sloane MARTINEZ, 2324-2, 2777-1, 2731-8 #### [facility] ([id number]) [address] [place] [address] Hemoglobin (Bld) [Mass/Vol] 12.6 g/dL Normal 11.7-15.5 [facility] Comment on above: Performed By: #### Sloane MARTINEZ, 2324-2, 2776-02, 2730-09 #### [facility] ([id number]) [address] [place] [address] MCH (RBC) [Entitic mass] 31.7 pg Normal 27-34 [facility] Comment on above: Performed By: #### Sloane MARTINEZ, 4-2, 2776-, 2730-09 #### [facility] ([id number]) [address] [place] [address] MCHC (RBC) [Mass/Vol] 33.5 g/dL Normal 32-36 [facility] Comment on above: Performed By: #### Sloane MARTINEZ, 4-2, 2776-02, 2730-09 #### [facility] ([id number]) [address] [place] [address] MCV (RBC) [Entitic vol] 95 fL Normal 80-100 [facility] Comment on above: Performed By: #### Sloane MARTINEZ, 2323-2, 2776-02, 2730-09 #### [facility] ([id number]) [address] [place] [address] Platelet mean volume (Bld) [Entitic vol] 7.8 fL Normal 7-12 [facility] Comment on above: Performed By: #### Sloane MARTINEZ, 4-2, 2776-02, 2730-09 #### [facility] ([id number]) [address] [place] [address] Platelets (Bld) [#/Vol] 205 10*3/uL Normal 150-450 [facility] Comment on above: Performed By: #### Sloane MARTINEZ, 2323-2, 2776-02, 2731-8 #### [facility] ([id number]) [address] [place] [address] RBC COUNT 3.98 X10E12/L Normal 3.80-5.20 [facility] Comment on above: Performed By: #### Sloaen MARTINEZ, 2324-2, 7-1, 2730-8 #### [facility] ([id number]) [address] [place] [address] WBC (Bld) [#/Vol] 6.0 10*3/uL Normal 4.0-11.0 [facility] Comment on above: Performed By: #### Sloane MARTINEZ, 2324-2, 2776-, 2730-8 #### [facility] ([id number]) [address] [place] [address] GGTon 04-07-2023 Gamma glutamyl transferase [Catalytic activity/Vol] 14 U/L Normal 7-33 [facility] Comment on above: Performed By: #### Sloane MARTINEZ, 4-2, 2776-1, 2730-8 #### [facility] ([id number]) [address] [place] [address] PHOSPHORUSon 04-07-2023 Phosphate [Mass/Vol] 4.2 mg/dL Normal 2.4-4.9 [facility] Comment on above: Performed By: #### Sloane MARTINEZ, 2324-2, 2776-1, 2730-8 #### [facility] ([id number]) [address] [place] [address] Parathyrin.intact [Mass/Vol] on 04-07-2023 PTH INTACT 76 pg/mL Normal 12-88 [facility] Comment on above: Performed By: #### Sloane MARTINEZ, 2324-2, 7-1, 273-8 #### [facility] ([id number]) [address] [place] [address] URINALYSISon 04-07-2023 Bilirubin Ql (U) Negative Normal NEG [facility] BLOOD/HGB Small Abnormal NEG [facility] Color (U) YELLOW Normal YELLOW [facility] Glucose Ql (U) Negative Normal NEG [facility] Ketones Ql (U) Negative Normal NEG [facility] Leukocyte esterase Test strip Ql (U) Large Abnormal NEG [facility] MUCOUS PRESENT Abnormal NONE [facility] Nitrite Ql (U) Negative Normal NEG [facility] pH (U) 5.5 [pH] Normal 5.0-8.5 [facility] Protein Ql (U) Trace Abnormal NEG [facility] R.B.CELLS 1 /hpf Normal 0-5 [facility] Specific gravity (U) [Rel density] 1.018 Normal 1.003-1.035 [facility] SQUAMOUS EPITHELIUM 2 /hpf Normal 0-5 [facility] TURBIDITY CLEAR Normal CLEAR [facility] Urobilinogen (U) [Mass/Vol] mg/dL Normal <1.1 [facility] W.B.CELLS 7 /hpf High 0-5 [facility] US ankle/arm indiceson 03-27 US ankle/arm indices [facility] [place] [address] [place] [address] Ultrasound Report Signed Patient: Veronique Gaitan MR#: [id number] : 1950 Acct:[id number] Age/Sex: 72 / F ADM Date: 03/27/23 Loc: [facility]ending Dr: Harry Alejandro MD Ordering Provider: [...] Harry Alejandro M.D.03/27/2023 10:20 AM Dictation Location: [place] [address] Tech: Liya Novak Transcribed By: JANE 03/27/23 1020 Dictated By: Harry Alejandro MD 03/27/23 1018 Signed By: 03/27/23 1020 Normal [facility] Bacteria identified Cx Nom ( U)on 03-24-2023 Service comment (Unsp spec) [Interp] NO GROWTH AT <1000 CFU/mL [facility] COMPREHENSIVE METABOLIC PANE [place] 03-23-2023 Albumin [Mass/Vol] 4.3 g/dL Normal 3.2-5.3 [facility] Comment on above: Performed By: #### C DANYA, 85941-9, 59588-1 #### [facility] ([id number]) [address] [place] [address] ALP [Catalytic activity/Vol] 173 U/L High 39-130 [facility] Comment on above: Performed By: #### C DANYA, 24374-3, 21443-4 #### [facility] ([id number]) [address] [place] [address] ALT [Catalytic activity/Vol] 23 U/L Normal 0-31 [facility] Comment on above: Performed By: #### Sloane HAGAN, 43945-4, 25968-7 #### [facility] ([id number]) [address] [place] [address] Anion gap [Moles/Vol] 9 mmol/L Normal 5-15 [facility] Comment on above: Performed By: #### Sloane HAGAN, 79293-3, 00848-5 #### [facility] ([id number]) [address] [place] [address] AST [Catalytic activity/Vol] 27 U/L Normal 0-41 [facility] Comment on above: Performed By: #### Sloane HAGAN, 66422-2, 35741-5 #### [facility] ([id number]) [address] [place] [address] Bilirubin [Mass/Vol] 0.5 mg/dL Normal 0.3-1.2 [facility] Comment on above: Performed By: #### Sloane HAGAN, 91783-1, 73115-9 #### [facility] ([id number]) [address] [place] [address] Calcium [Mass/Vol] 9.7 mg/dL Normal 8.5-10.5 [facility] Comment on above: Performed By: #### Sloane HAGAN, 80307-4, 79334-7 #### [facility] ([id number]) [address] [place] [address] Chloride [Moles/Vol] 104 mmol/L Normal 98-109 [facility] Comment on above: Performed By: #### Sloane HAGAN, 43314-6, 46153-4 #### [facility] ([id number]) [address] [place] [address] CO2 [Moles/Vol] 25 mmol/L Normal 22-32 [facility] Comment on above: Performed By: #### Sloane HAGAN, 50733-7, 71336-7 #### [facility] ([id number]) [address] [place] [address] Creatinine [Mass/Vol] 0.92 mg/dL Normal 0.40-1.00 [facility] Comment on above: Result Comment: METH OD TRACEABLE TO IDMS STANDARD Performed By: #### C DANYA, 10796-2, 38919-2 #### [facility] ([id number]) [address] [place] [address] GFR/1.73 sq M.predicted among non-blacks MDRD (S/P/Bld) [Vol rate/Area] 66 mL/min/{1.73_m2} Normal >59 [facility] Comment on above: Result Comment: Reported eGFR is based on the CKD-EPI 2020 equation that does not use a race coefficient. Performed By: #### Sloane HAGAN, 70038-1, 85429-0 #### [facility] ([id number]) [address] [place] [address] Glucose [Mass/Vol] 91 mg/dL Normal 65-99 [facility] Comment on above: Performed By: #### Sloane HAGAN, 81502-8, 41301-9 #### [facility] ([id number]) [address] [place] [address] Potassium [Moles/Vol] 4.5 mmol/L Normal 3.5-5.0 [facility] Comment on above: Performed By: #### Sloane HAGAN 81329-6, 58240-0 #### [facility] ([id number]) [address] [place] [address] Protein [Mass/Vol] 7.4 g/dL Normal 6.0-8.0 [facility] Comment on above: Performed By: #### Sloane HAGAN, 97834-8, 52350-2 #### [facility] ([id number]) [address] [place] [address] Sodium [Moles/Vol] 138 mmol/L Normal 134-146 [facility] Comment on above: Performed By: #### Sloane HAGAN, 25722-3, 28667-3 #### [facility] ([id number]) [address] [place] [address] Urea nitrogen [Mass/Vol] 24 mg/dL Normal 5-27 [facility] Comment on above: Performed By: #### Sloane HAGAN, 96367-9, 16081-7 #### [facility] ([id number]) [address] [place] [address] Comprehensive metabolic pane prince 03-23-2023 Albumin [Mass/Vol] 4.3 g/dL 3.2 - 5.3 g/dL [facility] ALP [Catalytic activity/Vol] 173 U/L High 39 - 130 U/L [facility] ALT No additional P-5'-P [Catalytic activity/Vol] 23 U/L 0 - 31 U/L [facility] Anion gap [Moles/Vol] 9 mmol/L 5 - 15 mmol/L [facility] AST [Catalytic activity/Vol] 27 U/L 0 - 41 U/L [facility] Bilirubin [Mass/Vol] 0.5 mg/dL 0.3 - 1 .2 mg/dL [facility] Calcium [Mass/Vol] 9.7 mg/dL 8.5 - 10. 5 mg/dL [facility] Chloride [Moles/Vol] 104 mmol/L 98 - 10 9 mmol/L [facility] CO2 [Moles/Vol] 25 mmol/L 22 - 32 mmol/L [facility] Creatinine [Mass/Vol] 0.92 mg/dL 0.40 - 1.00 mg/dL [facility] Comment on above: METHOD TRACEABLE TO IDMD STANDARD eGFR (CKD-EPI)non-race dependent 66 - PINF [facility] Comment on above: Reported eGFR is based on the CKD-EPI 2020 equation that does not use a race coefficient. Glucose [Mass/Vol] 91 mg/dL 65 - 99 mg/dL [facility] Potassium [Moles/Vol] 4.5 mmol/L 3.5 - 5.0 mmol/L [facility] Protein [Mass/Vol] 7.4 g/dL 6.0 - 8.0 g/dL [facility] Sodium [Moles/Vol] 138 mmol/L 134 - 146 mmol/L [facility] Urea nitrogen [Mass/Vol] 24 mg/dL 5 - 27 mg/dL [facility] Lipid 1996 panelon 4 Cholesterol [Mass/Vol] 147 mg/dL Low 150 - 200 mg/dL [facility] Cholesterol in HDL [Mass/Vol] 50 mg/dL 39 - PINF mg/dL [facility] Comment on above: HDL <40 mg/dL - High Risk HDL > or = 40mg/dL- Desirable HDL >60 mg/dL - Negative Risk Cholesterol in LDL [Mass/Vol] 73 mg/dL NINF - 130 mg/dL [facility] Comment on above: LDL <100 mg/dL - Desirable LDL >160 mg/dL - High Risk Cholesterol in VLDL [Mass/Vol] 24 mg/dL 0 - 30 mg/dL [facility] Cholesterol.total/Chol esterol in HDL [Mass ratio] 2.9 {ratio} 1.0 - 5.0 [facility] Triglyceride [Mass/Vol] 121 mg/dL 27 - 150 mg/dL [facility] Cholesterol [Mass/Vol] 147 mg/dL Low 150-200 [facility] Comment on above: Performed By: #### C , 22119-5, 33822-0 #### [facility] ([id number]) [address] [place] [address] Cholesterol in HDL [Mass/Vol] 50 mg/dL Normal >39 [facility] Comment on above: Result Comment: HDL <40 mg/dL - High Risk HDL > or = 40mg/dL- Desirable HDL >60 mg/dL - Negative Risk Performed By: #### Sloane HAGAN, 65971-2, 34963-0 #### [facility] ([id number]) [address] [place] [address] Cholesterol in LDL [Mass/Vol] 73 mg/dL Normal <130 [facility] Comment on above: Result Comment: LDL <100 mg/dL - Desirable LDL >160 mg/dL - High Risk Performed By: #### Sloane HAGAN, 06301-3, 01399-3 #### [facility] ([id number]) [address] [place] [address] Cholesterol in VLDL [Mass/Vol] 24 mg/dL Normal 0-30 [facility] Comment on above: Performed By: #### Sloane HAGAN, 44081-0, 62821-3 #### [facility] ([id number]) [address] [place] [address] CHOLESTEROL:HDL 2.9 Normal 1.0-5.0 [facility] Comment on above: Performed By: #### Sloane HAGAN, 75671-3, 61749-1 #### [facility] ([id number]) [address] [place] [address] Triglyceride [Mass/Vol] 121 mg/dL Normal 27-150 [facility] Comment on above: Performed By: #### Sloane HAGAN, 01365-7, 48988-9 #### [facility] ([id number]) [address] [facility] [address] [place] [address] No Panel Informationon 03-23 Interpretation and review of laboratory results Abnormal [facility] POCT urinalysis dipstick onl yOrdered By: Allie Lou on 03-23-2023 Appearance (U) clear [facility] External Poct Urine Bilirubin Negative [facility] External Poct Urine Blood Moderate [facility] External Poct Urine Color yellow [facility] External Poct Urine Glucose Negative [facility] External Poct Urine Ketones Negative [facility] External Poct Urine Leukocyte Esterase Trace [facility] External Poct Urine Nitrite Negative [facility] External Poct Urine Ph 5.5 Pr [facility] External Poct Urine Protein Negative [facility] External Poct Urine Specific [place] 1.030 [facility] Comment on above: >=1.030 External Poct Urine Urobilinogen 0.2 [facility] URINE CULTUREon 03-23-2023 Bacteria identified Cx Nom (U) CULTURE RESULTS NO GROWTH AT <1000 CFU/mL Normal [facility] Comment on above: Performed By: #### 6 30-4 #### [facility] ([id number]) [address] [place] [address] [address] [place] [address] Vitamin D 25 hydroxyon 03-23 Vitamin D+Metabolites [Mass/Vol] 75.6 ng/mL 30 - 100 ng/mL [facility] Comment on above: Vitamin D status 25 [place] Vitamin D Deficiency <20 ng/mL Insufficiency 20-29 ng/mL Sufficiency 30-100 ng/mL Toxicity >100 ng/mL NOTE: A pediatric reference range has not been established by the baking factory worker of this kit. The [place] [employer] recommends a Vitamin D level of = or >20ng/mL in infants and children. Vitamin D+Metabolites [Mass/ Vol]on 03-23-2023 [facility] VITAMIN D 25 HYD TOT 75.6 ng/mL Normal 30-100 [facility] Comment on above: Result Comment: Vitamin D status 25 [place] Vitamin D Deficiency <20 ng/mL Insufficiency 20-29 ng/mL Sufficiency 30-100 ng/mL Toxicity >100 ng/mL NOTE: A pediatric reference range has not been established by the baking factory worker of this kit. The [place] [employer] recommends a Vitamin D level of = or >20ng/mL in infants and children. Performed By: #### C , 59027-8, 05234-0 #### [facility] ([id number]) [address] [place] [address], [address] [place] [address] XR thoracic spine 3V*on 08-13 XR thoracic spine 3V* [facility] [address] [place] [address] XRay Report Signed Patient: Veronique Gaitan MR#: [id number] : 1950 Acct:[id number] Age/Sex: 72 / F ADM Date: 08/22/22 Loc: XD Room: [facility] Dr: Uday Louis DO Copies to: Uday Louis DO Ordering Provider: Uday Louis DO Date of Service: 08/22/22 XR/XR cervical spine 2V: M54.2 ([id number]) XR/XR thoracic spine 3V*: M54.6, G89,29 ([id number]) XR/XR lumbar spine 2-3V*: M54.6, G89,29 CLINICAL [...] Clementina Arroyo M.D.08/22/2022 4:43 PM Dictation Location: [place] [address] Transcribed By: [facility] 08/22/22 1643 Dictated By: Clementina Arroyo MD 08/22/22 1636 Signed By: 08/22/22 1643 Normal [facility] CBC (INCLUDES DIFF/PLT)on Basophils (Bld) [#/Vol] 0.047 10*3/uL Normal 0-200 [facility] Comment on above: Performed By: #### 6 399 #### [facility] [address], [address] [place], [place] [id number] Billing Rep: Vance Gandhi MD Basophils/100 WBC (Bld) 0.6 % Normal [facility] Comment on above: Performed By: #### 6 399 #### [facility] [address], [address] [place], [place] [id number] Billing Rep: Vance Gandhi MD Eosinophils (Bld) [#/Vol] 0.032 10*3/uL Normal 15-500 [facility] Comment on above: Performed By: #### 6 399 #### [facility] of [address], [address] [place] [address] Billing Rep: Vance Gandhi MD Eosinophils/100 WBC (Bld) 0.4 % Normal [facility] Comment on above: Performed By: #### 6 399 #### [facility] of [address], [address] [place] [address] Billing Rep: Vance Gandhi MD Erythrocyte distribution width (RBC) [Ratio] 12.1 % Normal 11.0-15.0 [facility] Comment on above: Performed By: #### 6 399 #### [facility] of [place] [address] Billing Rep: Vance Gandhi MD Hematocrit (Bld) [Volume fraction] 34.8 % Low 35.0-45.0 [facility] Comment on above: Performed By: #### 6 399 #### [facility] of [place] [address] Billing Rep: Vance Gandhi MD Hemoglobin (Bld) [Mass/Vol] 11.9 g/dL Normal 11.7-15.5 [facility] Comment on above: Performed By: #### 6 399 #### [facility] of [place] [address] Billing Rep: Vance Gandhi MD Lymphocytes (Bld) [#/Vol] 1.983 10*3/uL Normal 850-3900 [facility] Comment on above: Performed By: #### 6 399 #### [facility] of [place] [address] Billing Rep: Vance Gandhi MD Lymphocytes/100 WBC (Bld) 25.1 % Normal [facility] Comment on above: Performed By: #### 6 399 #### [facility] of [place] [address] Billing Rep: Vance Gandhi MD MCH (RBC) [Entitic mass] 34.2 pg High 27.0-33.0 [facility] Comment on above: Performed By: #### 6 399 #### [facility] of [place] [address] Billing Rep: Vance Gandhi MD MCHC (RBC) [Mass/Vol] 34.2 g/dL Normal 32.0-36.[address] [facility] Comment on above: Performed By: #### 6 399 #### [facility] of [place] [address] Billing Rep: Vance Gandhi MD MCV (RBC) [Entitic vol] 100.0 fL Normal 80.0-100.0 [facility] Comment on above: Performed By: #### 6 399 #### [facility] of [place] [address] Billing Rep: Vance Gandhi MD Monocytes (Bld) [#/Vol] 0.909 10*3/uL Normal 200-950 [facility] Comment on above: Performed By: #### 6 399 #### [facility] of [place] [address] Billing Rep: Vance Gandhi MD Monocytes/100 WBC (Bld) 11.5 % Normal [facility] Comment on above: Performed By: #### 6 399 #### [facility] of [place] [address] Billing Rep: Vance Gandhi MD Neutrophils (Bld) [#/Vol] 4.93 10*3/uL Normal 3662-6823 [facility] Comment on above: Performed By: #### 6 399 #### [facility] of [place] [address] Billing Rep: Vance Gandhi MD Neutrophils/100 WBC (Bld) 62.4 % Normal [facility] Comment on above: Performed By: #### 6 399 #### [facility] of [place] [address] Billing Rep: Vance Gandhi MD Platelet mean volume (Bld) [Entitic vol] 9.0 fL Normal 7.5-12.5 [facility] Comment on above: Performed By: #### 6 399 #### [facility] of [place] [address] Billing Rep: Vance Gandhi MD Platelets (Bld) [#/Vol] 232 10*3/uL Normal 140-400 [facility] Comment on above: Performed By: #### 6 399 #### [facility] [place] [address] Billing Rep: Vance Gandhi MD RBC (Bld) [#/Vol] 3.48 10*6/uL Low 3.80-5.10 [facility] Comment on above: Performed By: #### 6 399 #### [facility] [place] [address] Billing Rep: Vance Gandhi MD WBC (Bld) [#/Vol] 7.9 10*3/uL Normal 3.8-10.8 [facility] Comment on above: Performed By: #### 6 399 #### [facility] [place] [address] Billing Rep: Vance Gandhi MD CBC AUTO DIFFon 08-12-2021 BASO # 0.0 103/ul Normal 0.0-0.1 [facility] Comment on above: Performed By: #### C BC #### [facility] [address] [place] [address] Dr. Nathanael Flores Basophils/100 WBC (Bld) 0.6 % Normal 0.2-2.0 [facility] Comment on above: Performed By: #### C BC #### [facility] [address] [place] [address] Dr. Nathaneal Flores EO # 0.0 103/ul Normal 0.0-0.7 [facility] Comment on above: Performed By: #### C BC #### [facility] [address] [place] [address] Dr. Nathanael Flores Eosinophils/100 WBC (Bld) 0.4 % Critically low 0.9-7.0 [facility] Comment on above: Performed By: #### C BC #### [facility] [address] [place] [address] Dr. Nathanael Flores Erythrocyte distribution width (RBC) [Ratio] 13.4 % Normal 11.0-15.0 [facility] Comment on above: Performed By: #### C BC #### [facility] [address] [place] [address] Dr. Nathanael Flores Hematocrit (Bld) [Volume fraction] 34.6 % Critically low 36.0-48.0 [facility] Comment on above: Performed By: #### C BC #### [facility] [address] [place] [address] Dr. Nathanael Flores Hemoglobin (Bld) [Mass/Vol] 11.1 g/dL Critically low 12.0-16.0 [facility] Comment on above: Performed By: #### C BC #### [facility] [address] [place] [address] Dr. Nathanael Flores IG # 0.06 10e3/ul Critically high 0.00-0.03 [facility] Comment on above: Performed By: #### C BC #### [facility] [address] [place] [address] Dr. Nathanael Flores IG % 0.9 % Critically high 0.0-0.5 [facility] Comment on above: Performed By: #### C BC #### [facility] [address] [place] [address] Dr. Nathanael Flores LYMPH # 1.9 103/ul Normal 1.2-3.8 [facility] Comment on above: Performed By: #### C BC #### [facility] [address] [place] [address] Dr. Nathanael Flores Lymphocytes/100 WBC (Bld) 27.1 % Normal 20.5-60.0 [facility] Comment on above: Performed By: #### C BC #### [facility] [address] [place] [address] Dr. Nathanael Flores MANUAL DIFF REQ NO Normal [facility] Comment on above: Performed By: #### C BC #### [facility] [address] [place] [address] [address] Nathanael Flores MCH (RBC) [Entitic mass] 33.6 pg Normal 26.7-34.0 [facility] Comment on above: Performed By: #### C BC #### [facility] [address] [place] [address] Dr. Nathanael Flores MCHC (RBC) [Mass/Vol] 32.1 g/dL Normal 29.9-35.2 [facility] Comment on above: Performed By: #### C BC #### [facility] [address] [place] [address] Dr. Nathanael Flores MCV (RBC) [Entitic vol] 104.8 fL Critically high 81.0-99.0 [facility] Comment on above: Performed By: #### C BC #### [facility] [address] [place] [address] Dr. Nathanael Flores MONO # 0.8 103/ul Normal 0.3-0.8 [facility] Comment on above: Performed By: #### C BC #### [facility] [address] [place] [address] Dr. Nathanael Flores Monocytes/100 WBC (Bld) 10.9 % Normal 1.7-12.0 [facility] Comment on above: Performed By: #### C BC #### [facility] [address] [place] [address] Dr. Nathanael Flores NEUT # 4.2 103/ul Normal 1.4-6.5 [facility] Comment on above: Performed By: #### C BC #### [facility] [address] [place] [address] Dr. Nathanael Flores Neutrophils/100 WBC (Bld) 60.1 % Normal 43.0-75.0 [facility] Comment on above: Performed By: #### C BC #### [facility] [address] [place] [address] Dr. Nathanael Flores Platelet mean volume (Bld) [Entitic vol] 9.2 fL Critically low 9.5-13.5 [facility] Comment on above: Performed By: #### C BC #### [facility] [address] [place] [address] [address] Nathanael Flores PLT 191 103/ul Normal 150-450 [facility] Comment on above: Performed By: #### C BC #### [facility] [address] [place] [address] [address] Nathanael Flores RBC 3.30 106/ul Critically low 4.20-5.40 [facility] Comment on above: Performed By: #### C BC #### [facility] [address] [place] [address] Dr. Nathanael Flores WBC 7.0 103/ul Normal 4.0-11.0 [facility] Comment on above: Performed By: #### C BC #### [facility] [address] [place] [address] Dr. Nathanael Flores LIPID PROFILEon 08-12-2021 CHOL-HDL RATIO NORM SEE BELOW Normal [facility] Comment on above: Result Comment: 3.3 - 4.4 LOW RISK 4.4 - 7.1 AVERAGE RISK 7.1 - 11.0 MODERATE RISK >11.0 HIGH RISK Performed By: #### L IPID, CMP #### [facility] [address] [place] [address] Dr. Nathanael Flores Cholesterol [Mass/Vol] 139 mg/dL Normal <=200 [facility] Comment on above: Performed By: #### L IPID, CMP #### [facility] [address] [place] [address] Dr. Nathanael Flores Cholesterol in HDL [Mass/Vol] 47 mg/dL Normal 40-60 [facility] Comment on above: Performed By: #### L IPID, CMP #### [facility] [address] [place] [address] Dr. Nathanael Flores Cholesterol in LDL [Mass/Vol] 69.2 mg/dL Normal [facility] Comment on above: Performed By: #### L IPID, CMP #### [facility] [address] [place] [address] Dr. Nathanael Flores Cholesterol.total/Chol esterol in HDL [Mass ratio] 3.0 {ratio} Normal [facility] Comment on above: Performed By: #### L IPID, CMP #### [facility] [address] [place] [address] [address] Nathanael Flores HDL NORMAL > or = 60 mg/dl - LOW CARDIOVASCULAR RISK <40 mg/dl - HIGH CARDIOVASCULAR RISK Normal [facility] Comment on above: Performed By: #### L IPID, CMP #### [facility] [address] [place] [address] [address] Nathanael Flores LDL CALC NORMAL SEE BELOW Normal [facility] Comment on above: Result Comment: <100 mg/dl OPTIMAL 100 - 129 mg/dl NEAR OR ABOVE OPTIMAL 130 - 159 mg/dl BORDERLINE HIGH 160 - 189 mg/dl HIGH >190 mg/dl VERY HIGH Performed By: #### L IPID, CMP #### [facility] [address] [place] [address] Dr. Nathanael Flores Triglyceride [Mass/Vol] 114 mg/dL Normal <=150 [facility] Comment on above: Performed By: #### L IPID, CMP #### [facility] [address] [place] [address] [address] Nathanael Flores VLDL CALC 22.8 mg/dL Normal [facility] Comment on above: Performed By: #### L IPID, CMP #### [facility] [address] [place] [address] Dr. Nathanael Flores PROF 14(COMP METB)on 022 Albumin [Mass/Vol] 3.4 g/dL Normal 3.4-5.0 [facility] Comment on above: Performed By: #### L IPID, CMP #### [facility] [address] [place] [address] Dr. Nathanael Flores Albumin/Globulin [Mass ratio] 0.9 {ratio} Normal [facility] Comment on above: Performed By: #### L IPID, CMP #### [facility] [address] [place] [address] [address] Nathanael Flores ALP [Catalytic activity/Vol] 83 U/L Normal 46-116 [facility] Comment on above: Performed By: #### L IPID, CMP #### [facility] [address] [place] [address] [address] Nathanael Flores ALT [Catalytic activity/Vol] 29 U/L Normal 14-59 [facility] Comment on above: Performed By: #### L IPID, CMP #### [facility] [address] [place] [address] [address] Nathanael Flores Anion gap [Moles/Vol] 10.5 mmol/L Normal [facility] Comment on above: Performed By: #### L IPID, CMP #### [facility] [address] [place] [address] [address] Nathanael Flores AST [Catalytic activity/Vol] 21 U/L Normal 15-37 [facility] Comment on above: Performed By: #### L IPID, CMP #### [facility] [address] [place] [address] Dr. Nathanael Flores Bilirubin [Mass/Vol] 0.3 mg/dL Normal 0.2-1.0 [facility] Comment on above: Performed By: #### L IPID, CMP #### [facility] [address] [place] [address] Dr. Nathanael Flores Calcium [Mass/Vol] 9.2 mg/dL Normal 8.5-10.1 [facility] Comment on above: Performed By: #### L IPID, CMP #### [facility] [address] [place] [address] Dr. Nathanael Flores Chloride [Moles/Vol] 106 mmol/L Normal 98-107 [facility] Comment on above: Performed By: #### L IPID, CMP #### [facility] [address] [place] [address] Dr. Nathanael Flores CO2 [Moles/Vol] 25.0 mmol/L Normal 21.0-32.0 [facility] Comment on above: Performed By: #### L IPID, CMP #### [facility] [address] [place] [address] Dr. Nathanael Flores Creatinine [Mass/Vol] 0.91 mg/dL Normal 0.55-1.02 [facility] Comment on above: Performed By: #### L IPID, CMP #### [facility] [address] [place] [address] Dr. Nathanael Flores EGFR-AF [place] >60 Normal >=60 [facility] Comment on above: Performed By: #### L IPID, CMP #### [facility] [address] [place] [address] Dr. Nathanael Flores EGFR-NON AF [place] >60 Normal >=60 [facility] Comment on above: Performed By: #### L IPID, CMP #### [facility] [address] [place] [address] Dr. Nathanael Flores Globulin (S) [Mass/Vol] 3.6 g/dL Normal [facility] Comment on above: Performed By: #### L IPID, CMP #### [facility] [address] [place] [address] Dr. Nathanael Flores Glucose [Mass/Vol] 98 mg/dL Normal 74-106 [facility] Comment on above: Performed By: #### L IPID, CMP #### [facility] [address] [place] [address] Dr. Nathanael Flores Potassium [Moles/Vol] 4.5 mmol/L Normal 3.5-5.1 [facility] Comment on above: Performed By: #### L IPID, CMP #### [facility] [address] [place] [address] Dr. Nathanael Flores Protein [Mass/Vol] 7.0 g/dL Normal 6.4-8.2 [facility] Comment on above: Performed By: #### L IPID, CMP #### [facility] [address] [place] [address] Dr. Nathanael Flores Sodium [Moles/Vol] 137 mmol/L Normal 136-145 [facility] Comment on above: Performed By: #### L IPID, CMP #### [facility] [address] [place] [address] Dr. Nathanael Flores Urea nitrogen [Mass/Vol] 16.0 mg/dL Normal 7.0-18.0 [facility] Comment on above: Performed By: #### L IPID, CMP #### [facility] [address] [place] [address] Dr. Nathanael Flores Urea nitrogen/Creatinine [Mass ratio] 17.6 mg/mg Normal [facility] Comment on above: Performed By: #### L IPID, CMP #### [facility] [address] [place] [address] Dr. Nathanael Flores PROF CHEM 8 (BAS METB)on Anion gap [Moles/Vol] 14.8 mmol/L Normal [facility] Comment on above: Performed By: #### B MP #### [facility] [address] [place] [address] Dr. Nathanael Flores Calcium [Mass/Vol] 9.5 mg/dL Normal 8.4-10.2 [facility] Comment on above: Performed By: #### B MP #### [facility] [address] [place] [address] Dr. Nathanael Flores Chloride [Moles/Vol] 101 mmol/L Normal 98-107 [facility] Comment on above: Performed By: #### B MP #### [facility] [address] [place] [address] Dr. Nathanael Flores CO2 [Moles/Vol] 24.9 mmol/L Normal 22.0-30.0 [facility] Comment on above: Performed By: #### B MP #### [facility] [address] [place] [address] Dr. Nathanael Flores Creatinine [Mass/Vol] 0.98 mg/dL Normal 0.52-1.04 [facility] Comment on above: Performed By: #### B MP #### [facility] [address] [place] [address] Dr. Nathanael Flores EGFR-AF [place] >60 Normal >=60 [facility] Comment on above: Performed By: #### B MP #### [facility] [address] [place] [address] Dr. Nathanael Flores EGFR-NON AF [place] 56 mL/min/1.73m2 Critically low >=60 [facility] Comment on above: Performed By: #### B MP #### [facility] [address] [place] [address] [address] Nathanael Flores Glucose [Mass/Vol] 114 mg/dL Critically high 74-106 [facility] Comment on above: Performed By: #### B MP #### [facility] [address] [place] [address] [address] Nathanael Flores Potassium [Moles/Vol] 4.7 mmol/L Normal 3.4-5.0 [facility] Comment on above: Performed By: #### B MP #### [facility] [address] [place] [address] [address] Nathanael Flores Sodium [Moles/Vol] 136 mmol/L Critically low 137-145 [facility] Comment on above: Performed By: #### B MP #### [facility] [address] [place] [address] [address] Nathanael Flores Urea nitrogen [Mass/Vol] 21.0 mg/dL Critically high 7.0-17.0 [facility] Comment on above: Performed By: #### B MP #### [facility] [address] [place] [address] Dr. Nathanael Flores Urea nitrogen/Creatinine [Mass ratio] 21.4 mg/mg Normal [facility] Comment on above: Performed By: #### B MP #### [facility] [address] [place] [address] [address] Nathanael Flores PROF CHEM 8 (BAS METB)on Anion gap [Moles/Vol] 10.7 mmol/L Normal [facility] Comment on above: Performed By: #### B MP #### [facility] [address] [place] [address] Dr. Nathanael Flores Calcium [Mass/Vol] 9.9 mg/dL Normal 8.4-10.2 [facility] Comment on above: Performed By: #### B MP #### [facility] [address] [place] [address] [address] Nathanael Flores Chloride [Moles/Vol] 102 mmol/L Normal 98-107 [facility] Comment on above: Performed By: #### B MP #### [facility] [address] [place] [address] [address] Nathanael Flores CO2 [Moles/Vol] 28.0 mmol/L Normal 22.0-30.0 [facility] Comment on above: Performed By: #### B MP #### [facility] [address] [place] [address] [address] Nathanael Flores Creatinine [Mass/Vol] 0.95 mg/dL Normal 0.52-1.04 [facility] Comment on above: Performed By: #### B MP #### [facility] [address] [place] [address] Dr. Nathanael Flores EGFR-AF [place] >60 Normal >=60 [facility] Comment on above: Performed By: #### B MP #### [facility] [address] [place] [address] Dr. Nathanael Flores EGFR-NON AF [place] 58 mL/min/1.73m2 Critically low >=60 [facility] Comment on above: Performed By: #### B MP #### [facility] [address] [place] [address] [address] Nathanael Flores Glucose [Mass/Vol] 97 mg/dL Normal 74-106 [facility] Comment on above: Performed By: #### B MP #### [facility] [address] [place] [address] [address] Nathanael Flores Potassium [Moles/Vol] 4.7 mmol/L Normal 3.4-5.0 [facility] Comment on above: Performed By: #### B MP #### [facility] [address] [place] [address] [address] Nathanael Flores Sodium [Moles/Vol] 136 mmol/L Critically low 137-145 [facility] Comment on above: Performed By: #### B MP #### [facility] [address] [place] [address] [address] Nathanael Flores Urea nitrogen [Mass/Vol] 18.0 mg/dL Critically high 7.0-17.0 [facility] Comment on above: Performed By: #### B MP #### [facility] [address] [place], [place] [address] Dr. Nathanael Flores Urea nitrogen/Creatinine [Mass ratio] 18.9 mg/mg Normal [facility] Comment on above: Performed By: #### B MP #### [facility] [address] [place], [place] [address] Dr. Nathanael Flores Dermatopathologyon 1 Dermatopathology [facility] [address] [place] [id number] DERMATOPATHOLOGY REPORT Name:VERONIQUE GAITAN [facility]. Rec #. [id number] Location: [facility] Date of Procedure: 03/10/2020 Race: Date Received: [...] M.D. Electronically Signed Out By MICHELINE LOUIE MD/[facility] By the signature on this report, the [...] is a hawkins piece of skin measuring [id number]. The specimen is inked and embedded in toto. B: Received in formalin is one hawkins-brown piece of skin measuring [id number]. The specimen is inked and embedded in toto in two blocks. mop/03/12/2020 Microscopic Description: A. 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 B. Microscopic examination reveals a specimen that extends into the subcutaneous fat. An area with horizontally oriented collagen and vertically oriented vessels is present. Normal [facility] Comment on above: Performed By: #### D #### Dermatopathology Vital Signs Date Time Vital Sign Value Performing Clinician Facility 05-01-2024 10:16-0400 Body height 154.94 cm [facility] 05-01-2024 10:16-0400 Body mass index (BMI) [Ratio] 28.2 kg/m2 [facility] 05-01-2024 10:16-0400 Body temperature 97.9 [degF] [facility] 05-01-2024 10:16-0400 Body weight 67.81 kg [facility] 05-01-2024 10:16-0400 Diastolic blood pressure 68 mm[Hg] [facility] 05-01-2024 10:16-0400 Heart rate 69 /min [facility] 05-01-2024 10:16-0400 Respiratory rate 16 /min [facility] 05-01-2024 10:16-0400 SaO2% (BldA) [Mass fraction] 95 % [facility] 05-01-2024 10:16-0400 Systolic blood pressure 130 mm[Hg] [facility] 04-08-2024 09:54-0500 Body height 154.94 cm [facility] 04-08-2024 09:54-0500 Body mass index (BMI) [Ratio] 28.5 kg/m2 [facility] 04-08-2024 09:54-0500 Body temperature 98.7 [degF] [facility] 04-08-2024 09:54-0500 Body weight 68.49 kg [facility] 04-08-2024 09:54-0500 Diastolic blood pressure 63 mm[Hg] [facility] 04-08-2024 09:54-0500 Heart rate 72 /min [facility] 04-08-2024 09:54-0500 Respiratory rate 16 /min [facility] 04-08-2024 09:54-0500 SaO2% (BldA) [Mass fraction] 95 % [facility] 04-08-2024 09:54-0500 Systolic blood pressure 108 mm[Hg] [facility] 04-06-2024 11:43-0500 Body height 154.94 cm [facility] 04-06-2024 11:43-0500 Body mass index (BMI) [Ratio] 28.5 kg/m2 [facility] 04-06-2024 11:43-0500 Body temperature 97.1 [degF] [facility] 04-06-2024 11:43-0500 Body weight 68.49 kg [facility] 04-06-2024 11:43-0500 Diastolic blood pressure 71 mm[Hg] [facility] 04-06-2024 11:43-0500 Heart rate 72 /min [facility] 04-06-2024 11:43-0500 Respiratory rate 18 /min [facility] 04-06-2024 11:43-0500 SaO2% (BldA) [Mass fraction] 95 % [facility] 04-06-2024 11:43-0500 Systolic blood pressure 143 mm[Hg] [facility] 03-25-2024 11:05-0500 Body height 154.9 cm [employer] Work Phone: [facility] [employer] [facility] 03-25-2024 11:05-0500 Body mass index (BMI) [Ratio] 28.02 kg/m2 [employer] DO [facility] 03-25-2024 11:05-0500 Body temperature 97.3 [degF] [employer] DO Work Phone: [facility] [employer] [facility] 03-25-2024 11:05-0500 Body weight 67.22 kg [employer] DO Work Phone: [facility] 03-25-2024 11:05-0500 Diastolic blood pressure 68 mm[Hg] Uday Furlong DO Work Phone: [facility] [employer] 03-25-2024 11:05-0500 Heart rate 66 /min Uday Furlong DO Work Phone: [facility] [employer] [facility] 03-25-2024 11:05-0500 Respiratory rate 20 /min Uday Furlong DO Work Phone: [facility] [employer] 03-25-2024 11:05-0500 SaO2% (BldA) [Mass fraction] 97 % Uday Furlong DO Work Phone: [facility] [employer] 03-25-2024 11:05-0500 Systolic blood pressure 124 mm[Hg] Uday Furlong DO Work Phone: [facility] [employer] [facility] 03-12-2024 10:30-0500 Body mass index (BMI) [Ratio] 27.96 kg/m2 Rosie Velazquez MD Work Phone: [facility] [employer] [facility] 03-12-2024 10:30-0500 Body weight 67.13 kg Rosie Velazquez MD Work Phone: [facility] [employer] 03-12-2024 10:30-0500 Diastolic blood pressure 75 mm[Hg] Rosie Velazquez MD Work Phone: [facility] [employer] [facility] 03-12-2024 10:30-0500 Heart rate 67 /min Rosie Velazquez MD Work Phone: [facility] 03-12-2024 10:30-0500 Systolic blood pressure 158 mm[Hg] Rosie Velazquez MD Work Phone: [facility] 12-26-2023 09:31-0500 Blood Pressure Location CORI KAHN [facility] 12-26-2023 09:31-0500 Diastolic blood pressure 79 mm[Hg] CORI KAHN [facility] 12-26-2023 09:31-0500 Heart rate 55 /min CORI KAHN [facility] 12-26-2023 09:31-0500 Respiratory rate 19 /min CORI KAHN [facility] 12-26-2023 09:31-0500 Systolic blood pressure 150 mm[Hg] CORI KAHN [facility] 11-29-2023 10:31-0400 Body height 154.9 cm Uday Furlong DO Work Phone: [facility] [employer] [facility] 11-29-2023 10:31-0400 Body mass index (BMI) [Ratio] 26.7 kg/m2 Uday Furlong DO Work Phone: [facility] [employer] [facility] 11-29-2023 10:31-0400 Body temperature 97.5 [degF] Uday Furlong DO Work Phone: [facility] [employer] [facility] 11-29-2023 10:31-0400 Body weight 64.09 kg Uday Furlong DO Work Phone: [facility] [employer] [facility] 11-29-2023 10:31-0400 Diastolic blood pressure 62 mm[Hg] Uday Furlong DO Work Phone: [facility] [employer] [facility] 11-29-2023 10:31-0400 Heart rate 67 /min Uday Furlong DO Work Phone: [facility] [employer] 11-29-2023 10:31-0400 SaO2% (BldA) [Mass fraction] 95 % Uday Furlong DO Work Phone: [facility] [employer] [facility] 11-29-2023 10:31-0400 Systolic blood pressure 120 mm[Hg] Uday Furlong DO Work Phone: [facility] [employer] [facility] 09-26-2023 08:54-0400 Body height 154.9 cm Uday Furlong DO Work Phone: [facility] [employer] [facility] 09-26-2023 08:54-0400 Body mass index (BMI) [Ratio] 25.56 kg/m2 Uday Furlong DO Work Phone: [facility] [employer] [facility] 09-26-2023 08:54-0400 Body weight 61.37 kg Uday Furlong DO Work Phone: [facility] 09-26-2023 08:54-0400 Diastolic blood pressure 80 mm[Hg] Uday Furlong DO Work Phone: [facility] 09-26-2023 08:54-0400 Systolic blood pressure 140 mm[Hg] Uday Furlong DO Work Phone: [facility] 07-27-2023 11:35-0400 Body mass index (BMI) [Ratio] 22.86 kg/m2 Rosie Velazquez MD Work Phone: [facility] 07-27-2023 11:35-0400 Body weight 54.88 kg Rosie Velazquez MD Work Phone: [facility] 07-27-2023 11:35-0400 Diastolic blood pressure 58 mm[Hg] Rosie Velazquez MD Work Phone: [facility] 07-27-2023 11:35-0400 Heart rate 67 /min Rosie Velazquez MD Work Phone: [facility] 07-27-2023 11:35-0400 Systolic blood pressure 118 mm[Hg] Rosie Velazquez MD Work Phone: [facility] 06-19-2023 16:50-0400 Body height 154.9 cm Uday Furlong DO Work Phone: [facility] 06-19-2023 16:50-0400 Body mass index (BMI) [Ratio] 23.66 kg/m2 Uday Furlong DO Work Phone: [facility] 06-19-2023 16:50-0400 Body temperature 98.01 [degF] Uday Furlong DO Work Phone: [facility] 06-19-2023 16:50-0400 Body weight 56.79 kg Uday Furlong DO Work Phone: [facility] 06-19-2023 16:50-0400 Diastolic blood pressure 80 mm[Hg] Uday Furlong DO Work Phone: [facility] 06-19-2023 16:50-0400 Heart rate 64 /min Uday Furlong DO Work Phone: [facility] 06-19-2023 16:50-0400 SaO2% (BldA) [Mass fraction] 97 % Uday Furlong DO Work Phone: [facility] 06-19-2023 16:50-0400 Systolic blood pressure 130 mm[Hg] Uday Furlong DO Work Phone: [facility] 05-15-2023 10:06-0400 Body height 160.02 cm DO Uday Furlong Work Phone: [facility] 05-15-2023 10:06-0400 Body mass index (BMI) [Ratio] 21.7 kg/m2 DO Uday Furlong Work Phone: [facility] 05-15-2023 10:06-0400 Body temperature 98 [degF] DO Uday Furlong Work Phone: [facility] 05-15-2023 10:06-0400 Body weight 55.79 kg DO Uday Furlong Work Phone: [facility] 05-15-2023 10:06-0400 Diastolic blood pressure 60 mm[Hg] DO Uday Furlong Work Phone: [facility] 05-15-2023 10:06-0400 Heart rate 64 /min DO Uday Furlong Work Phone: [facility] 05-15-2023 10:06-0400 SaO2% (BldA) [Mass fraction] 96 % DO [employer] Work Phone: [facility] 05-15-2023 10:06-0400 Systolic blood pressure 130 mm[Hg] DO [employer] Work Phone: [facility] 03-27-2023 10:30-0500 Body height 160.02 cm Harry Alejandro Other [email or web address] Other 03-27-2023 10:30-0500 Body mass index (BMI) [Ratio] 21.79 kg/m2 Harry Alejandro Other [email or web address] Other 03-27-2023 10:30-0500 Body temperature 97.8 [degF] Harry Alejandro Other [email or web address] Other 03-27-2023 10:30-0500 Body weight 55.79 kg Harry Alejandro Other [email or web address] Other 03-27-2023 10:30-0500 Diastolic blood pressure 64 mm[Hg] Harry Alejandro Other [email or web address] Other 03-27-2023 10:30-0500 SaO2% (BldA) [Mass fraction] 96 % Harry Alejandro Other [email or web address] Other 03-27-2023 10:30-0500 Systolic blood pressure 114 mm[Hg] Harry Beanrer Other [email or web address] Other 03-23-2023 13:42-0500 Body height 162.6 cm [employer] DO Work Phone: [employer] 03-23-2023 13:42-0500 Body mass index (BMI) [Ratio] 21.15 kg/m2 Uday Furlong DO Work Phone: [employer] 03-23-2023 13:42-0500 Body temperature 98.1 [degF] [employer]day[employer]thocare Innovations[employer] DO Work Phone: [employer] 03-23-2023 13:42-0500 Body weight 55.88 kg [employer]day[employer]thocare [employer] DO Work Phone: [employer] 03-23-2023 13:42-0500 Diastolic blood pressure 56 mm[Hg] [employer]ocare [employer] DO Work Phone: [employer] 03-23-2023 13:42-0500 Heart rate 64 /min [employer] DO Work Phone: [employer] 03-23-2023 13:42-0500 SaO2% (BldA) [Mass fraction] 99 % [employer] DO Work Phone: [employer] 03-23-2023 13:42-0500 Systolic blood pressure 104 mm[Hg] [employer] DO Work Phone: [employer] 03-22-2022 11:45-0500 Body height 160.02 cm Harry Alejandro Other [email or web address] Other 03-22-2022 11:45-0500 Body mass index (BMI) [Ratio] 19.13 kg/m2 Harry Alejandro Other [email or web address] Other 03-22-2022 11:45-0500 Body temperature 97.2 [degF] Harry Alejandro Other [email or web address] Other 03-22-2022 11:45-0500 Body weight 48.99 kg Harry Alejandro Other [email or web address] Other 03-22-2022 11:45-0500 Diastolic blood pressure 62 mm[Hg] Harry Alejandro Other [email or web address] Other 03-22-2022 11:45-0500 SaO2% (BldA) [Mass fraction] 98 % Harry Alejandro Other [email or web address] Other 03-22-2022 11:45-0500 Systolic blood pressure 130 mm[Hg] Harry Alejandro Other [email or web address] Other 12-01-2021 17:30-0400 Body height 160.02 cm Lizzie Ananya Other [email or web address] Other 12-01-2021 17:30-0400 Body mass index (BMI) [Ratio] 19.84 kg/m2 Lizzie Ananya Other [email or web address] Other 12-01-2021 17:30-0400 Body temperature 99.1 [degF] Lizzie Ananya Other [email or web address] Other 12-01-2021 17:30-0400 Body weight 50.8 kg Lizzie Ananya Other [email or web address] Other 12-01-2021 17:30-0400 Diastolic blood pressure 72 mm[Hg] Lizzie Ananya Other [email or web address] Other 12-01-2021 17:30-0400 Respiratory rate 18 /min Lizzie Ananya Other [email or web address] Other 12-01-2021 17:30-0400 SaO2% (BldA) [Mass fraction] 99 % Lizzie Hare Other [email or web address] Other 12-01-2021 17:30-0400 Systolic blood pressure 117 mm[Hg] Lizzie Hare Other [email or web address] Other 11-28-2021 10:55-0400 Body height 160.02 cm Hope Nam Other [email or web address] Other 11-28-2021 10:55-0400 Body mass index (BMI) [Ratio] 19.84 kg/m2 Hope Nam Other [email or web address] Other 11-28-2021 10:55-0400 Body temperature 96.2 [degF] Hope Nam Other [email or web address] Other 11-28-2021 10:55-0400 Body weight 50.8 kg Hope Nam Other [email or web address] Other 11-28-2021 10:55-0400 Respiratory rate 18 /min Hope Nam Other [email or web address] Other 11-28-2021 10:55-0400 SaO2% (BldA) [Mass fraction] 99 % Hope Nam Other [email or web address] Other 08-02-2021 10:45-0400 Body height 160.02 cm Harry Alejandro Other [email or web address] Other 08-02-2021 10:45-0400 Body mass index (BMI) [Ratio] 21.96 kg/m2 Harry Buehrer Other [email or web address] Other 08-02-2021 10:45-0400 Body temperature 98 [degF] Harry Buehrer Other [email or web address] Other 08-02-2021 10:45-0400 Body weight 56.25 kg Harry Buehrer Other [email or web address] Other 08-02-2021 10:45-0400 Diastolic blood pressure 62 mm[Hg] Harry Buehrer Other [email or web address] Other 08-02-2021 10:45-0400 SaO2% (BldA) [Mass fraction] 99 % Harry Buehrer Other [email or web address] Other 08-02-2021 10:45-0400 Systolic blood pressure 120 mm[Hg] Harry Buehrer Other [email or web address] Other 06-15-2021 11:45-0400 Body height 160.02 cm Harry Robledoehrer Other [email or web address] Other 06-15-2021 11:45-0400 Body mass index (BMI) [Ratio] 21.96 kg/m2 Harry Buehrer Other [email or web address] Other 06-15-2021 11:45-0400 Body temperature 97.5 [degF] Harry Buehrer Other [email or web address] Other 06-15-2021 11:45-0400 Body weight 56.25 kg Harry Buehrer Other [email or web address] Other 06-15-2021 11:45-0400 Diastolic blood pressure 70 mm[Hg] Harry Buehrer Other [email or web address] Other 06-15-2021 11:45-0400 SaO2% (BldA) [Mass fraction] 98 % Harry Buehrer Other [email or web address] Other 06-15-2021 11:45-0400 Systolic blood pressure 130 mm[Hg] Harry Buehrer Other [email or web address] Other 06-01-2021 11:00-0400 Body height 160.02 cm Harry Robledoehrer Other [email or web address] Other 06-01-2021 11:00-0400 Body mass index (BMI) [Ratio] 21.96 kg/m2 Harry Buehrer Other [email or web address] Other 06-01-2021 11:00-0400 Body temperature 97.5 [degF] Harry Buehrer Other [email or web address] Other 06-01-2021 11:00-0400 Body weight 56.25 kg Harry Buehrer Other [email or web address] Other 06-01-2021 11:00-0400 Diastolic blood pressure 66 mm[Hg] Harry Buehrer Other [email or web address] Other 06-01-2021 11:00-0400 SaO2% (BldA) [Mass fraction] 98 % Harry Buehrer Other [email or web address] Other 06-01-2021 11:00-0400 Systolic blood pressure 130 mm[Hg] Harry Buehrer Other [facility] [employer] Other Encounters Encounter Date Encounter Type Care Provider Facility Start: 06-14-2024 ambulatory CORI Brennan ty:[facility] Start: 05-07-2024 End: 05-07-2024 Refill Uday G Furlong DO Work Phone: [facility] Start: 05-05-2024 End: 05-05-2024 Refill Uday G Furlong DO Work Phone: [facility] Start: 05-01-2024 End: 05-01-2024 ambulatory [facility] Work Phone: Start: 05-01-2024 End: 05-01-[address] [facility] Work Phone: Start: 04-10-2024 ambulatory [facility] Start: 04-08-2024 End: 04-08-2024 ambulatory [facility] Work Phone: Start: 04-08-2024 End: 04-08-[address] [facility] Work Phone: Start: 04-06-2024 End: 04-06-2024 ambulatory [facility] Work Phone: Start: 04-06-2024 End: 04-06-[address] [facility] Work Phone: Start: 04-02-2024 End: 04-02-2024 ambulatory [facility] Start: 03-25-2024 End: 03-25-2024 Office outpatient visit 25 minutes Uday G Furlong DO Work Phone: [facility] Comment on above: Essential hypertensi on (Primary Dx); Strain of lumbar region, initial encounter; Osteoporosis without current pathological fracture, unspecified osteoporosis type; Moderate persistent asthma without complication; Benign hypertensive heart disease with heart failure ([facility]); Chronic obstructive pulmonary disease, unspecified COPD type ([facility]); Overweight Start: 03-25-2024 End: 03-25-2024 [facility] Start: 03-20-2024 End: 03-20-2024 ambulatory [facility] Start: 03-12-2024 End: 03-12-2024 Office outpatient visit 25 minutes Rosie Velazquez MD Work Phone: [facility] Comment on above: High potassium (Prim mariusz Dx); Nontraumatic hemorrhage of left cerebral hemisphere ([facility]) Start: 03-12-2024 End: 03-12-2024 Orders Only Uday G Celia DO Work Phone: [facility] Start: 02-09-2024 End: 02-09-2024 Refill Uday Stevenpepitokiersten DO Work Phone: [facility] Start: 02-05-2024 End: 02-05-2024 [facility] Start: 01-02-2024 End: 01-02-2024 Bamboo Clear[employer]eng Garcia MD Work Phone: [facility] Start: 01-02-2024 End: 01-02-2024 Bamboo flowsfeng Garcia MD Work Phone: [facility] Start: 01-02-2024 End: 01-02-2024 Telephone encounter [facility] Start: 01-02-2024 End: 01-02-2024 Office outpatient visit 15 minutes Marlene Garcia MD Work Phone: [facility] Comment on above: Seborrheic keratosis (Primary Dx); Capillary angioma; Lentigines; History of SCC (squamous cell carcinoma) of skin; Actinic keratosis Start: 01-02-2024 End: 01-02-2024 ambulatory MARLENE GARCIA Not Available Start: 12-26-2023 End: 12-26-2023 ambulatory CORI KAHN Facility:[facility] Start: 12-26-2023 End: 12-26-2023 Lab Drop off CORI KAHN [facility] Start: 12-26-2023 End: 12-26-2023 ambulatory CORI KAHN Facility:[facility] Start: 12-26-2023 End: 12-26-2023 Patient encounter procedure CORI KAHN [facility] Start: 12-21-2023 End: 12-21-2023 Telephone encounter Mayte Wells CMA [facility] Start: 12-01-2023 End: 12-04-2023 [facility] Start: 11-29-2023 End: 11-29-[address] [facility] Start: 11-29-2023 End: 11-29-2023 Office outpatient visit 25 minutes Uday Sofiya Stevenpepito DO Work Phone: [facility] Comment on above: Essential hypertensi on (Primary Dx); Encounter for screening mammogram for malignant neoplasm of breast; Osteoporosis with current pathological fracture, unspecified osteoporosis type, sequela; Overweight; Moderate persistent asthma without complication; Primary osteoarthritis involving multiple joints Start: 11-29-2023 End: 11-29-2023 ambulatory [facility] Start: 11-23-2023 End: 11-23-2023 [facility] Work [facility]: [facility] Start: 11-13-2023 End: 11-13-2023 Refill Uday Sofiya Stevenrichardson DO Work Phone: [facility] Start: 10-10-2023 ambulatory UDAY LOUIS Facility :[facility] Start: 09-26-2023 End: 09-26-2023 Patient encounter procedure Uday Louis DO Work Phone: [facility] Comment on above: Medicare annual well ness visit, subsequent (Primary Dx); Screening for depression Start: 09-26-2023 End: 09-26-2023 ambulatory [facility] Start: 08-21-2023 End: 08-21-2023 ambulatory AB [facility] Start: 08-15-2023 ambulatory [facility] [place] Start: 08-08-2023 End: 08-09-2023 Emergency department [facility] Start: 08-03-2023 End: 08-03-2023 Refill Uday Louis DO Work Phone: [facility] Start: 07-27-2023 End: 07-27-2023 Office outpatient visit 25 minutes Rosie Velazquez MD Work Phone: [facility] Comment on above: Nontraumatic hemorrh age of left cerebral hemisphere ([facility]) (Primary Dx) Start: 07-27-2023 End: 07-27-2023 ambulatory [facility] Start: 07-12-2023 End: 07-12-2023 ambulatory PHONG VALLEJO [facility] Start: 06-19-2023 End: 06-19-2023 Transitional care manage srvc 7 day discharge Uday Louis DO Work Phone: [facility] Comment on above: Nontraumatic cortica l hemorrhage of left cerebral hemisphere ([facility]) (Primary Dx); Essential hypertension; Atherosclerosis of [place] coronary artery of [place] heart without angina pectoris; Peripheral arterial disease with history of revascularization ([facility]) Start: 06-19-2023 End: 06-19-2023 ambulatory UDAYBHUPENDRA STEVENLONG [facility] Start: 06-19-2023 End: 06-19-2023 ambulatory E[facility] Start: 06-12-2023 End: 06-12-2023 ambulatory NOAM RODRIGUEZ [facility] Start: 06-11-2023 End: 06-11-2023 Refill Uday G Furlong DO Work Phone: [facility] Start: 06-10-2023 End: 06-12-2023 Evaluation and management of inpatient GENAROSAMSON AMIN [facility] Start: 06-10-2023 End: 06-11-2023 Emergency department patient visit NOAM RODRIGUEZ [facility] Start: 05-15-2023 End: 05-15-2023 ambulatory Uday Tenishalong Facility:[facility] Start: 05-15-2023 End: 05-15-2023 ambulatory DO Uday Furlong Work Phone: [facility] Work Phone: Start: 05-15-2023 End: 05-15-2023 Patient encounter procedure DO Uday Furlong Work Phone: [facility] V[facility] Work Phone: Start: 05-06-2023 Refill Uday G Furlo ng DO Work Phone: [facility] Start: 04-28-2023 Refill Uday G Furlo ng DO Work Phone: [facility] Start: 04-19-2023 End: 04-19-2023 ambulatory AB [facility] Start: 04-14-2023 ambulatory UDAY FURLONG Facility :[facility] Start: 04-12-2023 Orders Only Uday G Furlo ng DO Work Phone: [facility] Comment on above: Hematuria, unspecifi ed type (Primary Dx); Recurrent UTI Start: 04-07-2023 End: 04-07-2023 [facility] Start: 03-27-2023 Office outpatient vi sit 25 minutes Harry HERNANDEZ [facility] Start: 03-27-2023 End: 03-27-2023 ambulatory Uday Furlong Facility:[facility] Start: 03-27-2023 End: 03-27-2023 ambulatory DO Uday Furlong Work Phone: [facility] [employer] Other Start: 03-27-2023 End: 03-27-2023 Patient encounter procedure DO Uday Furlong Work Phone: [facility] Start: 03-24-2023 Orders Only Uday Cramer ng DO Work Phone: [facility] Comment on above: Elevated alkaline ph osphatase level (Primary Dx) Start: 03-23-2023 End: 03-23-2023 [facility] Start: 03-23-2023 End: 03-23-2023 Office outpatient visit 25 minutes Uday Louis DO Work Phone: [facility] Comment on above: Essential hypertensi on (Primary Dx); Dysuria; Mixed hyperlipidemia; Vitamin D deficiency; Moderate persistent asthma without complication Start: 02-03-2023 Refill Uady Cramer ng DO Work Phone: [facility] Start: 08-22-2022 End: 08-22-2022 ambulatory Uday Furlong Facility:[facility] Start: 08-22-2022 End: 08-22-2022 ambulatory DO Uday Furlong Work Phone: [facility] Work Phone: Start: 08-22-2022 End: 08-22-2022 Patient encounter procedure DO Uday Furlong Work Phone: [facility] [place] Work Phone: Start: 03-22-2022 End: 03-22-2022 ambulatory Harry Alejandro Other [email or web address] Other Start: 03-22-2022 Office outpatient vi sit 25 minutes Harry Alejandro [facility] Start: 03-03-2022 End: 03-03-2022 ambulatory DO Uday Furlong Work Phone: [facility] Work Phone: Start: 03-03-2022 End: 03-03-2022 Departed Referred DO Uday Furlong Work Phone: [facility]-Lab [facility] Work Phone: Start: 02-01-2022 End: 02-01-2022 ambulatory DO Uday Furlong Work Phone: [facility] Work Phone: Start: 02-01-2022 End: 02-01-2022 Patient encounter procedure DO Uday Furlong Work Phone: [facility] Start: 12-01-2021 End: 12-01-2021 ambulatory Lizzie Hare Other [email or web address] Other Start: 12-01-2021 Office outpatient vi sit 15 minutes Lizzie Hare [facility] [place] Start: 11-28-2021 End: 11-28-2021 ambulatory Hope Nam Other [email or web address] Other Start: 11-28-2021 Office outpatient vi sit 25 minutes Hope Nam [facility] [place] Start: 08-12-2021 End: 08-13-2021 ambulatory EMILY CARLOS Facility: Start: 08-02-2021 End: 08-02-2021 ambulatory Harry Alejandro Other [email or web address] Other Start: 08-02-2021 Office outpatient vi sit 25 minutes Harry Buchasityrer [facility] Start: 06-15-2021 End: 06-15-2021 ambulatory Harry Buchasityrer Other [email or web address] Other Start: 06-15-2021 Office outpatient vi sit 25 minutes Harry Buehrer [facility] Start: 06-09-2021 End: 06-09-2021 ambulatory Harry Buehrer Other [email or web address] Other Start: 06-09-2021 Telephone encounter Harryrobert Beanrer [facility] Start: 06-01-2021 End: 06-01-2021 ambulatory Harry Buehrer Other [email or web address] Other Start: 06-01-2021 Office outpatient ne w 45 minutes Harry Buchasityrer [facility] Start: 02-25-2021 ambulatory DAMIEN MOORE Facility:H 1 Start: 02-08-2021 End: 02-09-[address] DORIE DEWEY Facility:[facility]1 Start: 12-02-2020 End: 12-03-2020 ambulatory DEMETRICE FOX Facility:H1 Start: 10-06-2020 End: 10-07-[address] HENRY MERRILL Facility:[facility]1 Start: 03-12-2018 End: 03-13-2018 Patient encounter procedure DEFAULT PHYSICIAN Facility:[facility] Procedures Date Procedure Procedure Detail Performing Clinician Start: 03-25-2024 Adult depression scr eening assessment Uday Furlong DO Work Phone: Start: 03-12-2024 Adult depression scr eening assessment Uday Furlong DO Work Phone: Start: 01-02-2024 CRYOTHERAPY SKIN LESION Marlene Garcia MD Work Phone: Start: 12-20-2023 Mammography Mayte spain ENERGY ANALYST Start: 11-29-2023 Adult depression scr eening assessment Uday Furlong DO Work Phone: Start: 09-26-2023 Adult depression scr eening assessment Udaybhupendra Stevenlong DO Work Phone: Start: 07-27-2023 Adult depression scr eening assessment Rosie Velazquez MD Work Phone: Start: 06-19-2023 Follow-up visit Follow-up UDAY LOUIS Start: 06-19-2023 Adult depression scr eening assessment Uday Furlong DO Work Phone: Start: 06-10-2023 Adult depression scr eening assessment Uday Tenishalong DO Work Phone: Start: 05-15-2023 Doppler ultrasonogra phy of bilateral carotid arteries DO Uday Furlong Work Phone: Start: 03-27-2023 Ankle brachial press ure index DO Uday Furlong Work Phone: Start: 03-23-2023 Urnls dip stick/tabl et rgnt non-auto w/o micrscp Uday Cramerng DO Work Phone: Start: 03-23-2023 Adult depression scr eening assessment Uday Stevenlong DO Work Phone: Start: 09-19-2022 Adult depression scr eening assessment Udaybhupendra Stevenlong DO Work Phone: Start: 09-12-2022 Mammography Uday Steven long DO Work Phone: Start: 08-22-2022 Radiography of thora cic spine DO Uday Furlong Work Phone: Start: 08-22-2022 X-ray of cervical spine DO Uday Furlong Work Phone: Start: 08-22-2022 X-ray of lumbar spin e, two or three views DO Uday Furlong Work Phone: Start: 02-01-2022 Ankle brachial press ure index DO Uday Furlong Work Phone: Appendectomy CORI CRISS Cardiac catheterization MANAV KAHN Cholecystectomy CORI PHILLIPS Colonoscopy CORI KAHN Extraction of cataract ALEXUS KAHN Hysterectomy CORI KAHN Vascular surgery (qu alifier value) CORI KAHN Plan of Treatment Date Care Activity Detail Author Start: 03-25-2025 Adult BMI Screening Adult BMI Screen ing [facility] Start: 03-25-2025 Depression Screening Depression Scre ening [facility] Start: 03-25-2025 Fall Risk Screening Fall Risk Screen ing [facility] Start: 03-25-2025 Tobacco Screening Tobacco Screening [facility] Start: 03-12-2025 Adult BMI Screening Adult BMI Screen ing [facility] Start: 03-12-2025 Depression Screening Depression Scre ening [facility] Start: 03-12-2025 Tobacco Screening Tobacco Screening [facility] Start: 03-11-2025 Screening for malign ant neoplasm of colon [facility] Start: 01-01-2025 End: 01-01-2025 Patient encounter procedure 01/01/2025 9:00 AM EST Office Visit [facility] [address] [place] [address] Marlene Garcia MD [address] [place] [address] [facility] Start: 12-19-2024 Screening for malign ant neoplasm of breast Mammogram [facility] Start: 11-28-2024 Adult BMI Screening Adult BMI Screen ing [facility] Start: 11-28-2024 Depression Screening Depression Scre ening [facility] Start: 11-28-2024 Fall Risk Screening Fall Risk Screen ing [facility] Start: 11-28-2024 Tobacco Screening Tobacco Screening [facility] Start: 09-26-2024 End: 09-26-2024 Patient encounter procedure 09/26/2024 9:00 AM EDT Office Visit [facility] Internal Medicine - Family Medicine [address] [place] [address] [facility] Medicine - Family Medicine Start: 09-25-2024 Adult BMI Screening Adult BMI Screen ing [facility] Start: 09-25-2024 Depression Screening Depression Scre ening [facility] Start: 09-25-2024 Fall Risk Screening Fall Risk Screen ing [facility] Start: 09-25-2024 Medicare Annual Well ness Visit Medicare Annual Wellness Visit [facility] Start: 09-25-2024 Tobacco Screening Tobacco Screening [facility] Start: 09-23-2024 End: 09-23-2024 Patient encounter procedure 09/23/2024 9:30 AM EDT Office Visit [facility] Internal Medicine - Family Medicine [address] [place] [address] Uday Louis, DO [address], [facility] [place] [address] [facility] - Family Medicine Start: 07-26-2024 Adult BMI Screening Adult BMI Screen ing [facility] Start: 07-26-2024 Depression Screening Depression Scre ening [facility] Start: 06-18-2024 Adult BMI Screening Adult BMI Screen ing [facility] Start: 06-18-2024 Depression Screening Depression Scre ening [facility] Start: 06-18-2024 Fall Risk Screening Fall Risk Screen ing [facility] Start: 06-18-2024 Tobacco Screening Tobacco Screening [facility] Start: 06-10-2024 Adult BMI Screening Adult BMI Screen ing [facility] Start: 06-09-2024 Depression Screening Depression Scre ening [facility] Start: 06-09-2024 Tobacco Screening Tobacco Screening [facility] Start: 05-29-2024 End: 05-29-2024 Patient encounter procedure 05/29/2024 9:30 AM EDT Office Visit [facility] - Family Medicine [address] [place] [address] Uday Louis DO [address], [place] [address] [facility] Start: 03-25-2024 End: 03-25-2025 XR Lumbar spine 2 or 3 Views X-ray spine lumbar 2 or 3 views Imaging Routine Strain of lumbar region, initial encounter Expected: 03/25/2024, Expires: 03/25/2025 [facility] Work Phone: Comment on above: Expected: 03/25/2024 , Expires: 03/25/2025 Start: 03-25-2024 End: 03-25-2024 Patient encounter procedure 03/25/2024 11:00 AM EST Office Visit [facility] - Family Medicine [address] [place] [address] Uday Louis, [address], [place] [address] [facility] Start: 03-23-2024 Adult BMI Screening Adult BMI Screen ing [facility] Start: 03-23-2024 Depression Screening Depression Scre ening [facility] Start: 03-23-2024 Fall Risk Screening Fall Risk Screen ing [facility] Start: 03-23-2024 Tobacco Screening Tobacco Screening [facility] Start: 03-12-2024 End: 03-12-2024 Patient encounter procedure 03/12/2024 10:30 AM EST Office Visit [facility] [address] [place] [id number] Rosie Velazquez MD [address] [place] [address], [address], [address] [place] [address] [facility] Start: 02-22-2024 End: 02-22-2024 Patient encounter procedure 02/22/2024 9:30 AM EST Office Visit [facility] [address] [place] [address] [facility] Start: 01-02-2024 End: 01-02-2024 Patient encounter procedure 01/02/2024 1:35 PM EST Office Visit [facility] [address] [place] [phone] Marlene Garcia MD [address] [place] [address] Arrived [facility] Comment on above: Arrived Start: 12-06-2023 Influenza vaccination Influenza Vacc ine [facility] Comment on above: Postponed from 10/14 (Patient Refused) Start: 11-29-2023 End: 11-28-2024 DBT Breast - bilateral screening Mammography screening bilateral with CAD Imaging Routine Encounter for screening mammogram for malignant neoplasm of breast Expected: 11/29/2023, Expires: 11/28/2024 [facility] Work Phone: Comment on above: Expected: 11/29/2023 , Expires: 11/28/2024 Start: 11-29-2023 End: 11-29-2023 Patient encounter procedure 11/29/2023 10:30 AM EDT Office Visit [facility] - [facility] Medicine [address] [place] [address] Uday Louis, [address], [place] [address] [facility] Start: 10-27-2023 Adult BMI Screening Adult BMI Screen ing [facility] Start: 10-27-2023 Tobacco Screening Tobacco Screening [facility] Start: 10-15-2023 COVID-19 Vaccine ( season) COVID-19 Vaccine () [facility] Start: 10-15-2023 COVID-19 Vaccine ( season) COVID-19 Vaccine ( season) [facility] Start: 10-15-2023 Influenza vaccination [facility] Start: 09-26-2023 End: 09-26-2023 Patient encounter procedure 09/26/2023 9:00 AM EDT Office Visit [facility] Internal Medicine - Family Medicine [address] [place] [address] [facility] - [facility] Start: 09-20-2023 Depression Screening Depression Scre ening [facility] Start: 09-13-2023 Screening for malign ant neoplasm of breast Mammogram [facility] Start: 08-30-2023 Fall Risk Screening Fall Risk Screen ing [facility] Start: 07-27-2023 End: 07-27-2023 Patient encounter procedure 07/27/2023 11:30 AM EDT Office Visit [facility] [address] [place] [phone] [facility] Start: 07-12-2023 End: 07-12-2023 Patient encounter procedure 07/12/2023 9:15 AM EDT Appointment [facility] [address] [place] [phone] [facility] Start: 03-22-2023 End: 03-22-2023 Patient encounter procedure 03/22/2023 9:40 AM EST Office Visit [facility] Internal Medicine - Family Medicine [address] [place] [address] Uday Louis DO [address], [facility] [place] [address] [facility] - Family Medicine Start: 10-14-2022 COVID-19 Vaccine ( season) COVID-19 Vaccine ( season) [facility] Start: 10-14-2022 Influenza vaccination Influenza Vacc ine [facility] Start: 03-03-2022 Superficial Wound Culture Supe rficial Wound Culture [facility] Start: 02-01-2022 Ankle brachial press ure index [facility] Start: 11-14-2017 Pneumococcal Vaccine : 65+ Years (2 of 2 - PCV) Pneumococcal Vaccine: 65+ Years (2 of 2 - PCV) [facility] Start: 2000 Administration of varicella zoster vaccine Zoster (Shingles) Vaccine (1 of 2) [facility] [employer] [facility] Start: 1969 DTaP,Tdap and Td Vac cines (1 - Tdap) DTaP,Tdap and Td Vaccines (1 - Tdap) [facility] [employer] [facility] Start: 1968 Adult BMI Follow Up Plan [facility] Start: [facility] Medicare Annual Well ness Visit Medicare Annual Wellness Visit [facility] [employer] [facility] Start: 1950 Screening for malign ant neoplasm of colon [facility] End: 03-24-2024 Alkaline phosphatase, isoenzymes Alkaline phosphatase, isoenzymes Lab Routine Elevated alkaline phosphatase level 1 Occurrences starting 03/24/2023 until 03/24/2024 [employer] Work Phone: Comment on above: 1 Occurrences starti ng 03/24/2023 until 03/24/2024 Ankle brachial press ure [facility] Bacteria identified in Unspecified specimen by Aerobe culture [facility] End: 03-12-2025 Basic metabolic 2000 panel - Serum or Plasma Basic Metabolic Panel Lab Routine High potassium 1 Occurrences starting 03/12/2024 until 03/12/2025 [employer] Work Phone: Comment on above: 1 Occurrences starti ng 03/12/2024 until 03/12/2025 End: 03-24-2024 CBC panel - Blood by Automated count CBC Lab Routine Elevated alkaline phosphatase level 1 Occurrences starting 03/24/2023 until 03/24/2024 [facility] Comment on above: 1 Occurrences starti ng 03/24/2023 until 03/24/2024 DIAGNOSTIC CEREBRAL ANGIOGRAM DIAGNOSTIC CEREBRAL ANGIOGRAM ICH [facility] End: 03-24-2024 Gamma glutamyl transferase [Enzymatic activity/volume] in Serum or Plasma GGT Lab Routine Elevated alkaline phosphatase level 1 Occurrences starting 03/24/2023 until 03/24/2024 [facility] Comment on above: 1 Occurrences starti ng 03/24/2023 until 03/24/2024 End: 03-24-2024 Parathyroid Hormone, intact Parathyroid Hormone, intact Lab Routine Elevated alkaline phosphatase level 1 Occurrences starting 03/24/2023 until 03/24/2024 [facility] Comment on above: 1 Occurrences starti ng 03/24/2023 until 03/24/2024 End: 03-24-2024 Phosphate [Mass/volume] in Serum or Plasma Phosphorus Lab Routine Elevated alkaline phosphatase level 1 Occurrences starting 03/24/2023 until 03/24/2024 [facility] Comment on above: 1 Occurrences starti ng 03/24/2023 until 03/24/2024 End: 03-24-2024 Urinalysis Urinalysis (clean catch) Lab Routine Elevated alkaline phosphatase level 1 Occurrences starting 03/24/2023 until 03/24/2024 [facility] Comment on above: 1 Occurrences starti ng 03/24/2023 until 03/24/2024 US.doppler Carotid arteries - bilateral [facility] Immunizations Immunization Date Immunization Notes Care Provider [facility] 01-22-2022 Influenza, High-dose , Quadrivalent Uday Furlong DO Work Phone: [facility] 01-22-2022 influenza virus vacc ine, unspecified formulation Uday Furlong DO Work Phone: [facility] 10-27-2021 Covid-19, Mrna, Lnp- s, Bivalent, Pf, 30mcg/0.3 ml Uday Furlong DO Work Phone: [facility] 02-02-2021 COVID-19 mRNA, Comir escobar (Pfizer) DO Uday Furlong Work Phone: [facility] 06-04-2020 COVID-19 mRNA-1273 (Moderna) DO Uday Furlong Work Phone: [facility] 05-13-2020 COVID-19 mRNA, Comir escobar (Pfizer) DO Uday Furlong Work Phone: [facility] 04-20-2018 influenza, injectabl e, quadrivalent, preservative free Uday Furlong DO Work Phone: [facility] 11-14-2016 influenza, injectabl e, quadrivalent, preservative free Uday Furlong DO Work Phone: [facility] 11-14-2016 pneumococcal polysaccharide vaccine, 23 valent Uday Furlong DO Work Phone: [facility] Payers Date Payer Category Payer Self-pay [id number] 2021 Medicare ANTHEM MEDICARE ANTHEM MEDICARE ADVANTAGE [id number] 2021-Present [phone] [address] [place] [phone] [id number] 2021 Medicare (Managed Care) [facility] ADVANTAGE Member Subscriber Plan / Payer (Effective 2021-Present) Name: Veronique Gaitan Relation to Subscriber: Self Name: Veronique Gaitan Payer ID: Not on file Group ID: [id number] Type: Not on file Address: [address] [place] [id number] [facility] MEDICARE Member Subscriber Plan / Payer (Effective 2021-Present) Name: Veronique Gaitan Relation to Subscriber: Self Name: Veronique Gaitan Payer ID: [id number] (NAIC) Group ID: [id number] Type: Not on file Address: [address] [place] [id number] [id number] 2021 Medicare [id number] 1959 Medicare [id number] [id number] 1950 Unknown [id number] 2.16.840.1.773898.3.579. 2.647 1950 Unknown [id number] 2.16.840.1.646082.3.579. 2.593 1950 Unknown [id number] 2.16.840.1.898335.3.579. 2.593 1950 Unknown [id number] 2.16.840.1.711476.3.579. 2.593 1950 Unknown [id number] 2.16.840.1.641381.3.579. 2.593 1950 Unknown [id number] 2.16.840.1.274918.3.579. 2.593 1950 Unknown [id number] 2.16.840.1.304803.3.579. 2.1286 1950 Unknown [id number] 2.16.840.1.861932.3.579. 2.1286 1950 Unknown [id number] 2.16.840.1.358245.3.579. 2.1286 1950 Unknown [id number] 2.16.840.1.760131.3.579. 2.1286 1950 Unknown [id number] 2.16.840.1.266666.3.579. 2.1259 1950 Unknown [id number] 2.16.840.1.301375.3.579. 2.727 1950 Unknown [id number] 2.16.840.1.472003.3.579. 2.727 1950 Unknown [id number] 2.16.840.1.446694.3.579. 2.1285 1950 Unknown [id number] 2.16.840.1.565389.3.579. 2.1285 1950 Unknown [id number] 2.16.840.1.772467.3.579. 2.1285 1950 Unknown [id number] 2.16.840.1.175070.3.579. 2.1285 1950 Unknown [id number] 2.16.840.1.069575.3.579. 2.1285 1950 Unknown [id number] 2.16.840.1.854902.3.579. 2.1285 1950 Unknown [id number] 2.16.840.1.672268.3.579. 2.1285 1950 Unknown [id number] 2.16.840.1.169416.3.579. 2.1285 1950 Unknown [id number] 2.16.840.1.286760.3.579. 2.1285 1950 Unknown [id number] 2.16.840.1.659663.3.579. 2.1285 1950 Unknown [id number] 2.16.840.1.016311.3.579. 2.1285 1950 Unknown [id number] 2.16.840.1.018323.3.579. 2.1285 1950 Unknown [id number] 2.16.840.1.924027.3.579. 2.1285 1950 Unknown [id number] 2.16.840.1.047789.3.579. 2.1285 1950 Unknown [id number] 2.16.840.1.142077.3.579. 2.1286 Unknown Unknown [id number] 2..840.1.638055.3.579. 2.531 Unknown [id number] 2..840.1.257226.3.579. 2.531 Unknown [id number] 2.16.840.1.489752.3.579. 2.531 Social History Date Type Detail Facility Unknown if ever smoked [email or web address] Other Start: 09-19-2022 End: 12-23-2022 Sex Assigned At [facility] Start: 07-08-2021 End: 06-10-2023 Tobacco smoking status NHIS Ex-smoker (finding) [facility] Start: 1950 Sex Assigned At Female F [facility] Start: 03-07-2022 End: 12-26-2023 Tobacco smoking status Never smoked tobacco (finding) [facility] Start: 12-23-2022 End: 06-10-2023 Tobacco use and exposure Smokeless tobacco non-user [facility] Start: 08-08-2023 End: 01-02-2024 Alcoholic beverage intake Lifetime non-drinker (finding) [facility] Start: 09-19-2022 End: 12-23-2022 History of Social function [facility] Start: 12-23-2022 Alcohol Comment caffeine 2-3 cups/da y [facility] Start: 1950 Sex assigned at Not on file [facility] History of tobacco use Current smoker [facility] History of tobacco use Cigarette Smoker P [facility] Start: 11-29-2023 End: 03-25-2024 Alcoholic beverage intake Ex-drinker (finding) [facility] Has the Inf[facility], or [facility] threatened to shut off services in your home in past 12Mo No [facility] Are you now , , , , never or living with a partner? [facility] How often to you hav e a drink containing alcohol? Never [facility] How many standard drinks containing alcohol do you have on a typical day? Patient does not drink [facility] How hard is it for y ou to pay for the very basics like food, housing, medical care, and heating Not very hard [facility] Do you feel stress - tense, restless, nervous, or anxious, or unable to sleep at night because your mind is troubled all the time - these days [OSQ] Rather much [facility] Start: 09-18-2014 End: 05-01-2024 Sex Female (finding) [facility] How hard is it for y ou to pay for the very basics like food, housing, medical care, and heating Somewhat hard [facility] Do you feel stress - tense, restless, nervous, or anxious, or unable to sleep at night because your mind is troubled all the time - these days [OSQ] To some extent [facility] Medical Equipment Procedure Code Equipment Code Equipment Origin al Text Equipment Identifier Dates Multiple periphe ral artery stent, bare-metal ()[id number] FDA Start: 07-08-2021 Multiple periphe ral artery stent, bare-metal ()[id number] FDA Start: 07-08-2021 Multiple periphe ral artery stent, bare-metal ()[id number] FDA Start: 07-08-2021 Multiple periphe ral artery stent, bare-metal ()[id number] FDA Start: 07-08-2021 Goals Date Patient Goal Desired Activity /State Personal health goal Comment on above: Formatting of this n ote might be different from the original. Evaluation of progress towards goal: home self care Functional Status Date Assessment Result Facility 12-26-2023 Functional Status N/A [facility] Clinical Notes 10-06-2020 to 04-06-2024 Note Date & Type Note Facility 04-06-2024 Evaluation note Diagnosis Onset Date Resolution Left otitis media acute uar y 2024 10:53am Acute bilateral otitis media acute April 08, 2 025 9:12am COVID acute April 08, 2024 9:12am [facility] Work Phone: 1(817) 798-859102-10-2025 History of Present illness Narrative* Uday Louis, DO - 03/25/2024 11:00 AM EST Images from the original note were not included. Subjective Patient ID: Veronique Gaitan is a 73 y.o. female. Jazzmine presents today for a blood pressure rechecked. She was started on hydrochlorothiazide and the scrap iron cutter stopped her metoprolol placed her on carvedilol. She was on carvedilol in the past in her blood pressure went too low. She has not had any symptoms of hypotension. She has a loop recorder in place and a stress test coming up. She uses her rescue inhaler about 4 times a week. She gets SOB with exercises. She stopped the Symbicort because it was too expensive. She did take Trelegy in the past and did really well with it. That was while she was in the hospital. She believes she had pulmonary function tests done several years ago at [facility]. She hurt her back about 2.5 weeks ago. She was shoveling. She had a big boulder of snow in the middle of her driveway from a snowplow and tried to lift snow up and hurt her back. She is trying to lose weight. She has started exercising by following it instruct her on face book.She was also changed her diet and is eating healthier. She is frustrated that she is still overweight. The following portions of the patient's history were reviewed and updated as appropriate: allergies, current medications, past family history, past medical history, past social history, past surgicalhistory, problem list, and medication reconciliation was completed including current medication andpost discharge medication. Review of Systems Objective Physical Exam Vitals reviewed. Exam conducted with a rubber goods assembler present (Oc Hutchinson MS3). Constitutional: General: She is not in acute [...] tenderness. Musculoskeletal: General: Deformity (Thoracic kyphosis) present. Lumbar back: Tenderness and bony tenderness present. Back: Right lower leg: No edema. Left lower leg: No edema. Comments: Pain across the lower back and up a bit in the midline Lymphadenopathy: Cervical: No cervical adenopathy. Neurological: General: [...] normal. Assessment/Plan Veronique was seen today for bp/follow up from - may . Diagnoses and all orders for this visit: Essential hypertension Her blood pressure appears to be at goal with medication changes. Continue current regimen. Follow up with specialists as directed. Strain of lumbar region, initial encounter - X-ray spine lumbar 2 or 3 views; Future Check x-ray of lumbar spine. She has a history of wedge compression fractures. She is tender over the vertebrae. Need to rule out compression fractures. Osteoporosis without current pathological fracture, unspecified osteoporosis type She has osteoporosis and increased risk for compression fractures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 sleeping too much: Not at all Feeling tired or having little energy: Not at all Poor appetite or overeating: Not at all Feeling bad about yourself - or that you are a failure or have let yourself or your family down: Not at all Trouble concentrating on things, such as reading the newspaper or watching television: Not at all Moving or speaking so slowly that other people could have noticed. Or the opposite - being so fidgety or restless that you have been moving around a lot more than usual: Not at all Thoughts that you would be better off , or of hurting yourself in some way: Not at all PEG Scale What number best describes your pain on average in the past week?: 6 Safety Assessment Do you have throw rugs on the floor?: No Do you feel safe at your home?: Yes Do you feel unsteady when walking?: (!) Yes Are you having difficulty with driving?: No Do you have trouble seeing?: No What assistive device do you use? (check all that apply): None Hearing Assessment Do you strain or struggle to hear/understand conversations?: No Do you have trouble hearing the television or radio when others do not?: No Does your family ever voice concerns about your hearing?: No Do you wear hearing aid/s?: No Personal Health During the past 4 weeks, how would you rate your overall health?: Good Do you understand how to take all of your medications?: Yes How confident are you that you can control and manage most of your health problems?: Very confident In the past 12 months, how many times have you been hospitalized?: (!) One End of Life Planning Do you have a living will?: Yes Do you have a durable power of patent attorney?: Yes Cognitive Screening Do you have trouble remembering or recalling facts or events?: No Do family members or caregivers report that you have difficulty remembering things?: No Clock Drawing Test: Normal REVIEW OF SYSTEMS: Review of Systems Objective PHYSICAL EXAMINATION: Vitals: 09/26/23 0854 Weight: 61.4 kg (135 lb 4.8 oz) Height: 154.9 cm (5' 1 ) Physical Exam Assessment/Plan ASSESSMENT/PLAN Encounter Diagnoses Name Primary? Medicare annual wellness visit, subsequent Yes Screening for depression Health maintenance discussed. Depression screen was negative. At least 3 minute spent administering and discussing. Cognitive evaluation did not reveal any impairment. She has advanced directives in place. Return in about 1 year (around 09/25/2024). documented in this encounterOhioHealth [facility] Center07-08-20[facility] Chief Complaint: Chief Complaint: [...] performed last month. Sees vascular surgery in [place] and had recent LE dopplers. Scheduled for carotid dopplers next month. PCP advised her to cut amlodipine dose in half last month for hypotension Recently admitted to [facility] for a small temporal intracerebral hemorrhage Thankfully, she has no residual neurological deficits She denies chest pain, she has intermittent palpitations, she has no new cardiovascular symptoms Admitting Provider: Genaro Amin MD Discharge Provider: Genaro Amin MD Primary Care Physician at Discharge: Uday Louis DO [phone] Admission Date: 06/10/2023 Discharge Date: No discharge [...] Time Provider Department Center 07/27/2023 11:30 AM [facility] VASCULAR FELLOW [facility] NEURO NSC 09/26/2023 9:00 AM [facility] IM/FM NURSE [facility] Referrals and Follow-ups to Schedule MR brain with and without contrast Does this patient need sedation?: No Sedation Release to patient via MyChart?: Immediate Patients may NOT have an MRI if they have an implanted cardiac defibrillator or cardiac pacemaker UNLESS pacemaker is Medtronic Revo, Medtronic Advisa, [employer], Vela/St. Eamon or Biotronik brand. Obtain [...] aortic aneurysm), COPD (chronic obstructive pulmonary disease) ([facility]), Coronary artery disease, Diastolic dysfunction, Hyperlipidemia, Hypertension, and PVD (peripheral vascular disease) ([facility]). Surgical History She has a past surgical [...] , Rfl: ergocalciferol (Vitamin D-2) 1.25 MG (75574 Units) capsule, Take 1 capsule every week by oral route., Disp: , Rfl: montelukast (Singulair) 10 mg tablet, Take 1 tablet every day by oral route., Disp: , Rfl: nitroglycerin (Nitrostat) 0.4 mg SL tablet, Place 1 tablet as needed by sublingual route., Disp: , Rfl: spironolactone (Aldactone) 25 mg tablet, Take 0.5 tablets (more content not included)...[facility]06-13[facility] History of Present illness Narrative* Deisi Mijares MD - 07/27/2023 11:30 AM EDT Images from the original note were not included. [facility] [address] [facility] [id number] Patient: Veronique Gaitan Date of : 1950 Encounter Date: 07/27/2023 Patient Care Team: Uday Louis DO as PCP - General (Family Medicine) Phong Vallejo MD as Resident (Neurology) Genaro Amin MD as Referring Physician (Neurology) Reason for visit: Hospital Follow up History of Present Illness: Subjective: Veronique Gaitan is a right handed 73 y.o. 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 Patient is being seen in clinic today for routine follow up. As you may remember from previous note, patient initially presented with chief complaint of difficulty finding words. Initial any H was 2. Initial blood pressure at outside hospital was 151/87. She did have CT brain which showed small left temporal ICH with ICH score of 0. Patient denies any trauma, she was only on aspirin and no anticoagulation. During her hospital stay, patient continued to improve clinically. Brain MRI confirmed the previously mentioned findings. No extensive amyloid angiopathy noted however, she does have moderate burden of T2 FLAIR hyperintensity. She did have diagnostic repair angiogram which came back negative for vascular malformation. Repeated brain MRI showed resolving hematoma with no underlying mass. Veronique Gaitan is accompanied in the office by her daughter. Past Medical, Family, Surgical, and Social History Update: The following portions of the patient's history were reviewed and updated as appropriate: allergies, current medications, past family history, past medical history, past social history, past surgicalhistory and problem list. Review of Systems Review of Systems Constitutional: Negative for decreased appetite, malaise/fatigue, weight gain and weight loss. HENT: Negative for nosebleeds. Eyes: Negative for blurred vision, double vision, vision loss in left eye, vision loss in right eyeand visual disturbance. Cardiovascular: Positive for palpitations. Negative for irregular heartbeat, leg swelling, near-syncope and syncope. Respiratory: Negative for shortness of breath and sleep disturbances due to breathing. Hematologic/Lymphatic: Negative for bleeding problem. Does not bruise/bleed easily. Skin: Negative for poor wound healing. Musculoskeletal: Positive for arthritis, muscle cramps, neck pain and stiffness. Negative for falls, muscle weakness and myalgias. Gastrointestinal: Negative for dysphagia. Neurological: Positive for headaches. Negative for aphonia, difficulty with concentration, disturbances in coordination, dizziness, focal weakness, light- headedness, loss of balance, numbness, paresthesias, seizures, sensory change, vertigo and weakness. Psychiatric/Behavioral: Negative for altered mental status, depression and memory loss. The patientdoes not have insomnia and is not nervous/anxious. Past Medical History: Diagnosis Date Back pain, chronic Heart disease High cholesterol ICH (intracerebral hemorrhage) ([facility]) 06/10/2023 Osteoarthritis Palpitations Vitamin D deficiency Family History Problem Relation Age of Onset Heart disease Mother at age 81 Thyroid cancer Mother Aortic aneurysm Mother Hyperlipidemia Mother Lung cancer Father 74 Cancer Father bladder-cause of at age 82 Hyperlipidemia Sister Sinusitis Brother Hyperlipidemia Daughter Hyperlipidemia Son Deep vein thrombosis Son 51 x 2 Pulmonary embolism Son 52 No Known Problems Son at age 19-MVA Hyperlipidemia Maternal Grandmother Past Surgical History: Procedure Laterality Date AORTA - FEMORAL ARTERY BYPASS GRAFT Bilateral Dr. Alejandro CARDIAC CATHETERIZATION x 2 with stents Diagnostic cerebral angiogram N/A 06/12/2023 Performed by Genaro Amin MD at [facility] CARDIAC CATH LABS Current Outpatient Medications Medication Sig Dispense Refill albuterol (PROVENTIL HFA;VENTOLIN HFA) 90 mcg/actuation inhaler Inhale 2 puffs every 6 (six) hours as needed for wheezing or shortness of breath. 18 g 1 amLODIPine (NORVASC) 10 mg tablet Take 1 tablet (10 mg total) by mouth in the morning. atorvastatin (LIPITOR) 40 mg tablet Take 1 tablet (40 mg total) by mouth nightly. budesonide-formoteroL (SYMBICORT) 80-4.5 mcg/actuation inhaler Inhale 2 puffs in the morning and 2 puffs before bedtime. ergocalciferol (DRISDOL) 1,250 mcg (50,000 unit) capsule take 1 capsule by mouth once weekly 12 capsule 1 montelukast (SINGULAIR) 10 mg tablet TAKE ONE TABLET BY MOUTH ONCE NIGHTLY 90 tablet 1 curxxaomviyy-ehl-kpzr-FA-vit K 45 mg iron- 800 mcg-120 mcg capsule Take 1 tablet by mouth in the morning. nitroglycerin (NITROSTAT) 0.4 MG SL tablet nitroglycerin 0.4 mg sublingual tablet spironolactone (ALDACTONE) 25 mg tablet Take 1 tablet (25 mg total) by mouth in the morning for 180days. 90 tablet 1 valsartan (DIOVAN) 320 mg tablet Take 1 tablet (320 mg total) by mouth in the morning. No current facility-administered medications for this visit. (All medications reviewed and updated by provider since last office visit or hospitalization) Tobacco History: Social History Tobacco Use Smoking Status Former Types: Cigarettes Smokeless Tobacco Never (If patient a smoker, smoking cessation counseling offered) Social History: Social History Substance and Sexual Activity Alcohol Use Not Currently Allergies: Allergies Allergen Reactions Nalbuphine Objective: There were no vitals taken for this visit. Last Neuro Imaging: Repeated brain MRI (06/2023) :showed resolving temporal ICH with no underlying mass Physical Exam: Neurology Physical Exam NIH Stroke Scale 1a Level of consciousness: [...] 0=Normal 11. Extinction and Inattention: 0=No abnormality Total: 0 General Appearance: Alert, active, cooperative, and in no distress Head: Normocephalic, without obvious abnormality, atraumatic NIHSS0 MRS:1 Risk Factor Management: Hypertension target range <130/80 Lipid range - LDL < 70 and checked every 6 months, fasting Diabetes - HgB A1C <7 Assessment/Plan: Assessment: Veronique Gaitan is a right handed [...] routine follow up. Plan: Strict blood pressure control , Goal < 130/80, Instructed to check her BP regularly and follow up with PCP Ok to resume aspirin at this point Age appropriate malignancy screening test 6 months follow up In addition I did review the signs/ symptoms of stroke including BE FAST (B) balance issues, (E) acute eye/ vision changes, (F) facial droop, (A) Arm/ leg weakness, (S) speech disturbance and (T) time to call 911 if these symptoms occur. This note was completed using a voice veneer marker system. Every effort was made to ensure accuracy; however, inadvertent computerized veneer marker errors may be present Deisi Mijares MD Stroke Fellow * Rosie Velazquez MD - 07/27/2023 11:30 AM EDT Attending Attestation: I saw the patient. I participated and was physically present during the critical/colmenares portions of the service. I was directly involved in the management and treatment plan of the patient. I reviewed the resident's note. documented in this encounterOhioHealth [facility] Center06-13-2024 Instructions* Patient Instructions* Deisi Mijares MD - 07/27/2023 11:30 AM EDT Please note that ok to resume Aspirin 81 mg daily Please continue to check your blood pressure under control with goal <130/80 Please discuss with your PCP age appropriate screening test for cancers Will see you back in 6 months documented in this encounterOhioHealth Grant Medical Center05-06-2024 History of Present illness Narrative* Uday Louis DO - 06/19/2023 4:30 PM EDT Subjective Patient ID: Veronique Gaitan is a 73 y.o. female. The patient is here today for discharge follow up from hospital. Transition of Care Med Rec completed? Yes Discharged medications: Medications have been reviewed and reconciled with the most recent facilitydischarge document. Veronique presents for hospital follow up. She had trouble speaking over a few hour period of time while talking on the phone to a friend then her son. They recommended she go to the ER so she did. There was an intracerebral hemorrhage and she was transferred to [facility]. She was admitted for 2days then discharged. Her speech has fully returned. She was taken off the aspirin. She saw her scrap iron cutter and they questioned her about that so now she is concerned that she should be taking aspirin. She also would like to know how active she can be. She mows her own lawn with a self propelled mower and she walks behind it. Her blood pressure was running low prior to her last visit with me so we decreased her amlodipine from 10 mg to 5 mg. It was running pretty well until just prior to her stroke it started to go up. They increased back up to 10 mg at the hospital and also increased her spironolactone to 25 mg daily The following portions of the patient's history were reviewed and updated as appropriate: allergies, current medications, past family history, past medical history, past social history, past surgicalhistory, problem list, and medication reconciliation was completed including current medication andpost discharge medication. Review of Systems Constitutional: Negative. Respiratory: Negative. Cardiovascular: Negative. Gastrointestinal: Negative. Genitourinary: Negative. Musculoskeletal: Negative. Neurological: Negative. Objective Physical Exam Vitals reviewed. Exam conducted with a rubber goods assembler present ([facility]). Cardiovascular: Rate and Rhythm: Normal rate and regular rhythm. Pulses: Normal pulses. Heart sounds: Murmur heard. Pulmonary: Effort: Pulmonary effort is normal. No respiratory distress. Breath sounds: Normal breath sounds. Neurological: General: No focal deficit present. Mental Status: She is oriented to person, place, and time. Psychiatric: Attention and Perception: Attention normal. Mood and Affect: Mood and affect normal. Speech: Speech normal. Behavior: Behavior normal. Behavior is cooperative. Thought Content: Thought content normal. Cognition and Memory: Cognition and memory normal. Judgment: Judgment normal. Assessment/Plan Veronique was seen today for follow-up. 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 Follow up with neurology as directed. Avoid aspirin until cleared by neurology and then may be able to restart. Avoid strenuous activity Essential hypertension BP at goal right now. Monitor BP periodically. Continue current regimen. Atherosclerosis of [place] ir[place] coronary artery of [place] heart without angina pectoris Stable. Stay off aspirin for now. Peripheral arterial disease with history of revascularization (CMS-HCC) Stay off aspirin for now Other orders - atorvastatin (LIPITOR) 40 mg tablet; Take 1 tablet (40 mg total) by mouth nightly. documented in this encounterOhioHealth [facility] Center05-06-2024 [facility] Note Chief Complaint: Patient here for follow up [facility] admission for stroke. Carvedilol was stopped. Since she had intracerebral hemorrhage, aspirin was also stopped. Denies chest pain, SOB, and lightheadedness. She has follow up in July with neurologist. HPI: Veronique Gaitan is a 73 y.o. female CAD, hypertension, PVD, hyperlipidemia, and diastolic dysfunction. She had routine labs performed last month. Sees vascular surgery in [place] and had recent LE dopplers. Scheduled for carotid dopplers next month. PCP advised her to cut amlodipine dose in half last month for hypotension Recently admitted to [facility] for a small temporal intracerebral hemorrhage Thankfully, she has no residual neurological deficits She denies chest pain, she has intermittent palpitations, she has no new cardiovascular symptoms Admitting Provider: Genaro Amin MD Discharge Provider: Genaro Amin MD Primary Care Physician at Discharge: Uday Louis DO [phone] Admission Date: 06/10/2023 Discharge Date: No discharge [...] Time Provider Department Center 07/27/2023 11:30 AM [facility] VASCULAR FELLOW [facility] NEURO NSC 09/26/2023 9:00 AM [facility] IM/FM NURSE [facility] Referrals and Follow-ups to Schedule MR brain with and without contrast Does this patient need sedation?: No Sedation Release to patient via MyChart?: Immediate Patients may NOT have an MRI if they have an implanted cardiac defibrillator or cardiac pacemaker UNLESS pacemaker is Medtronic Revo, Medtronic Advisa, [employer], Vela/St. Eamon or Biotronik brand. Obtain [...] aortic aneurysm), COPD (chronic obstructive pulmonary disease) ([facility]), Coronary artery disease, Diastolic dysfunction, Hyperlipidemia, Hypertension, and PVD (peripheral vascular disease) ([facility]). Surgical History She has a past surgical [...] Rfl: 3 ergocalciferol (Vitamin D-2) 1.25 MG (91500 Units) capsule, Take 1 capsule every week [...] kg/m??? Physical Examination: GE (more content not included)...[facility] Note Chief Complaint: Patient here for 1 year follow up CAD, hypertension, PVD, hyperlipidemia, and diastolic dysfunction. She had routine labs performed last month. Sees vascular surgery in [place] and had recent LE dopplers. Scheduled for [...] aortic aneurysm), COPD (chronic obstructive pulmonary disease) ([facility]), Coronary artery disease, Diastolic dysfunction, Hyperlipidemia, Hypertension, and PVD (peripheral vascular disease) ([facility]). Surgical History She has a past surgical [...] Rfl: 3 ergocalciferol (Vitamin D-2) 1.25 MG (43605 Units) capsule, Take 1 capsule every week [...] beneficial effects in p (more content not included)...[facility]02-12-2024 Evaluation note* Encounter Date Diagnosis Assessment Notes Treatment Notes Treatment Clinical Notes Mar, Peripheral artery disease (ICD-10 - I73.9) Mar, Left carotid stenosis (ICD-10 - I65.22) Mar, Other [Peripheral art erial occlusive disease Will continue to follow her [...] completed to review the findings with her. [email or web address] Other 02-08-2024 History of Present illness Narrative* Uday Louis, DO - 03/23/2023 1:30 PM EST Subjective Patient [...] inhaler adjusted. Consider PFTs. documented in this encounterOhioHealth [facility] Medical Center02-07-2023 Evaluation note* Encounter Date Diagnosis [...] necrosis but she denies any distant injury. [email or web address] Other 10-19-2022 Evaluation note* Encounter Date Diagnosis [...] the ER for worsening symptoms or concerns. [email or web address] Other 10-16-2022 Evaluation note* Encounter Date Diagnosis [...] bronchiti s home care material was printed [email or web address] Other 06-20-2022 Evaluation note* Encounter Date Diagnosis [...] follow again in May 2022 with ultrasound [email or web address] Other 05-03-2022 Evaluation note* Encounter Date Diagnosis [...] problematic. I will send her films to [employer] for review and also discuss her findings with Dr. Shetty. She may require repair of the aneurysm to exclude thrombus as well as revascularization of the iliacs. Femoral-femoral bypass graft is also a possibility for her with a unilimb graft.] [email or web address] Other 04-19-2022 Evaluation note* Encounter Date Diagnosis [...] She understands and agrees with that plan. [email or web address] Other 08-24-2021 NotePAIN MANAGEMENT Consultation Date: 10-06-20 [...] to GI distress. The patient also takes [id number], however, it helps to a certain degree. [...] and would like to proceed. cc:Dr. Meek. [facility] Signed and Approved by: DR HENRY MERRILL 10/20/2020 09:19:00[facility]Evalunemours foundation noteNo InformationNort CityHawk Other Evaluation noteNo assessment information available [facility] Work Phone: Evaluation note* Diagnosis Onset Date Resolution Status Left carotid stenosis acute [facility] Work Phone: Evaluation note* Diagnosis Seborrheic keratosis- Primary Capillary angioma Nevus, non-neoplastic Lentigines History of SCC (squamous cell carcinoma) of skin Personal history of other malignant neoplasm of skin Actinic keratosis [facility] Diagnosis High potassium- Primary Hyperpotassemia Nontraumatic hemorrhage of left cerebral hemisphere ([facility]) [facility] Diagnosis 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 ([facility])- Primary Essential hypertension Unspecified essential hypertension Atherosclerosis of [place] ir[place] coronary artery of [place] heart without angina pectoris Peripheral arterial disease with history of revascularization ([facility]) documented in this encounter [facility]* Diagnosis Essential hypertension- Primary Unspecified essential hypertension Strain of lumbar region, initial encounter Osteoporosis without current pathological fracture, unspecified osteoporosis type Moderate persistent asthma without complication Benign hypertensive heart disease with heart failure ([facility]) Chronic obstructive pulmonary disease, unspecified COPD type [place] [place] Overweight documented in this encounter [facility]* Diagnosis Essential hypertension- Primary Unspecified essential hypertension Dysuria Mixed hyperlipidemia Vitamin D deficiency Moderate persistent asthma without complication documented in this encounter [facility]* Diagnosis Nontraumatic hemorrhage of left cerebral hemisphere ([facility] Primary documented in this encounter [facility]* Diagnosis Elevated alkaline phosphatase level- Primary documented in this encounter [facility]* Diagnosis Hematuria, unspecified type- Primary Recurrent UTI Urinary tract infection, site not specified documented in this encounter [facility]* Diagnosis Medicare annual wellness visit, subsequent- Primary Screening for depression documented in this encounter [facility]* Diagnosis Essential hypertension- Primary Unspecified essential hypertension Encounter for screening mammogram for malignant neoplasm of breast Osteoporosis with current pathological fracture, unspecified osteoporosis type, sequela Overweight Moderate persistent asthma without complication Primary osteoarthritis involving multiple joints documented in this encounter [facility] Narrative - Reported* Type Description [...] tonsillectomy and adenoidectomy Surgical History [ ] [email or web address] Other [facility] general Narrative - Reported* Type Description Date Medical History Benign essential HTN Medical History Hypercholesteremia Medical History Osteoporosis Medical History Coronary artery dise ase with prior percutaneous coronary angioplasty and stenting x2 Medical History Skin cancer Surgical History appendectomy Surgical History cholecystectomy Surgical History colonoscopy Surgical History hysterectomy Surgical History sinus surgery Surgical History tonsillectomy and adenoidectomy [email or web address] Other [place] general Narrative - Reported* Type Description Date [...] placement June 202106/2021 Hospitalization History See Above [email or web address] Other history general Narrative - Reported* Type Description Date [...] SKIN CANCER REMOVED Hospitalization History See Above [email or web address] Other Hospital course Narrative No data available for this section [facility] Hospital Discharge instructions No data available for this section [facility] InstructionsNot on filedocumented in this encounter [facility] [...] available for this section [facility] reason for referral (narrative)* Consultation (Routine) - Pending Review Specialty Diagnoses / Procedures Referred By Contnohemi t Referred To Contact Urology Diagnoses Hematuria, unspecified type Recurrent UTI Uday Louis DO [address] [place] [address] Pino Ang MD [address] [place] [address] Referral ID Status Reason Start Date Expiration Date Visits Requested Visits Authorized [id number] Pending Review Specialty Services Required 04/12/2023 04/11/2024 1 1 [facility] [employer] System Summary Purpose Family History Relationship Condition Age at Onset Recorded Date/T laith Not Specified Abdominal aortic aneurysm (AAA) Unknown Heart disease Unknown Hypertension Unknown Relationship Condition Age at Onset Recorded Date/T laith Not Specified Abdominal aortic aneurysm (AAA) Unknown father Unknown family member Unknown Not Specified Hypertension Unknown Heart disease Unknown Unknown Relationship Condition Age at Onset Recorded Date/T laith Not Specified Abdominal aortic aneurysm (AAA) Unknown father Unknown family member Unknown mother Hypertension Unknown Heart disease Unknown Unknown Advance Directives Advance Directive Response Recorded Date/ Time Advance Directives No May 15 3:22pm Advance Directive Response Recorded Date/ Time Advance Directives No May 15 4:22pm Advance Directive Response Recorded Date/ Time Advance Directives No March 10:28am Date Activated Date Inactivated Comments 06/10/2023 3:04 AM 06/12/2023 4:51 PM Date Activated Date Inactivated Comments 06/10/2023 3:04 AM Chief Complaint and Reason for Visit Chief Complaint I70.213 Chief Complaint M54.50 G89.29 M54.2 Chief Complaint I70.213 To go over Carotid U/S; Carotid U/S at 9:30am I65.23 Reason for Visit Left carotid stenosi s Chief Complaint Admit Date earache April 06, 2024 10:53am Chief Complaint Admit Date earache April 06, 2024 10:53am left ear pain, chills April 08 9:12am Reason for Visit Admit Date Left otitis media April 06, 2024 10:53am Acute bilateral otitis media April 082024 9:12am COVID April 08, 2024 9:12am Chief Complaint Admit Date earache April 06, 2024 10:53am left ear pain, chills April 08 9:12am Cough May 01, 2024 10: 14am Additional Source Comments INFORMATION SOURCE (unrecogn ized section and content) DATE CREATED AUTHOR 03/27/2018 [facility] DATE CREATED AUTHOR AUTHOR'S ORGANIZ ATION 03/14/2020 [facility] DATE CREATED AUTHOR AUTHOR'S ORGANIZ ATION 08/20/2021 [facility] DATE CREATED AUTHOR AUTHOR'S ORGANIZ ATION 08/31/2021 [facility] DATE CREATED AUTHOR AUTHOR'S ORGANIZ ATION 05/25/[address] [facility] DATE CREATED AUTHOR AUTHOR'S ORGANIZ ATION 12/02/2023 [facility] DATE CREATED AUTHOR AUTHOR'S ORGANIZ ATION 12/28/[address] [facility] DATE CREATED AUTHOR AUTHOR'S ORGANIZ ATION 01/01/[address] [facility] DATE CREATED AUTHOR AUTHOR'S ORGANIZ ATION 01/05/2024 [facility] DATE CREATED AUTHOR AUTHOR'S ORGANIZ ATION 02/04/[address] [facility] DATE CREATED AUTHOR AUTHOR'S ORGANIZ ATION 03/26/2024 [facility] DATE CREATED AUTHOR AUTHOR'S ORGANIZ ATION 04/04/2024 [facility] DATE CREATED AUTHOR AUTHOR'S ORGANIZ ATION 04/12/2024 [facility] REASON FOR VISIT (unrecogniz ed section and content) Reason Comments Skin Check Reason Comments Med Refill Reason Comments Follow-up Reason Comments bp/follow up from stroke- May Bp, labs Reason Comments Urinary Tract Infection Hypertension Hyperlipidemia Reason Comments MAW Reason Comments Hypertension Hyperlipidemia Care Teams (unrecognized sec tion and content) [...] Primary Care Provider, Attending Tommy srinivasan Active Team Status: Inactive Member Role Status Dates Uday Louis DO Primary Care Provider Active Start: March 27, 2023 End: March 27, 2023 Harry Alejandro MD Attending Provider Active S tart: March 27, 2023 End: March 27, 2023 Team Status: Inactive Member Role Status Dates Uday Louis DO Primary Care Provider Active Start: May 15, 2023 End: May 15, 2023 Harry Alejandro MD Attending Provider Active S tart: May 15, 2023 End: May 15, 2023 [employer] Relationship Specialty Start Date End Date TenishapepitoUday burch [address] [place] [address] PCP - General Family Medicine 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 Start Date End Date TenisharichardsonUday [address] [place] [address] PCP - General Family Medicine 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 Start Date End Date TenisharichardsonUday [address] [place] [address] PCP - General Family Medicine 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 Start Date End Date Uday Louis DO [address] [place] [address] PCP - General Family Medicine 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 Start Date End Date Uday Louis DO [address] [place] [address] PCP - General Family Medicine 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 Relationship Specialty Start Date End Date Uday Louis DO [address] [place] [address] PCP - General Family Medicine 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 Relationship Specialty Start Date End Date Uday Louis DO [address] [place] [address] PCP - General Family Medicine 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 Relationship Specialty Start Date End Date Uday Louis DO [address] [place] [address] PCP - General Family Medicine 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 Start Date End Date Uday Louis DO [address] [place] [address] PCP - General Family Medicine 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 Relationship Specialty Start Date End Date TenishapepitoUday burch DO [address] [place] [address] PCP - General Family Medicine 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 Relationship Specialty Start Date End Date Uday Louis DO [address], [place] [address] PCP - General Family Medicine 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 Relationship Specialty Start Date End Date Uday Louis DO [address], [place] [address] PCP - General Family Medicine 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 Relationship Specialty Start Date End Date Uday Louis DO [address], [place] [address] PCP - General Family Medicine 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 Start Date End Date Uday Louis DO [address], [place] [address] PCP - General Family Medicine 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 Start Date End Date Uday Luois DO [address], [place] [address] PCP - General Family Medicine 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 Start Date End Date Uday Louis DO [address], [place] [address] PCP - General Family Medicine 08/08/23 Team Status: Inactive Member Role Status Dates Uday Stevenrichardson DO Primary Care Provider Active Start: April 06, 2024 End: April 06, 2024 Bridgette Gamble APRN Attending Provider Active Start: April 06, 2024 End: April 06, 2024 Team Status: Inactive Member Role Status Dates Uday TenishaDO richardson Primary Care Provider Active Start: April 08, 2024 End: April 08, 2024 Jazmin Hawkins APRN Attending Provider Active S tart: April 08, 2024 End: April 08, 2024 Team Status: Inactive Member Role Status Dates Uday Louis DO Primary Care Provider Active Start: May 01, 2024 End: May 01, 2024 Bridgette Gamble APRN Attending Provider Active Start: May 01, 2024 End: May 01, 2024 [employer]ic Relationship Specialty Start Date End Date TenisharichardsonAlfredoUday Sofiya [address] [place] [address] PCP - General Family Medicine 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 [employer] provides no warranty or guarantee of the accuracy or completeness of information in this document.
[2024-05-13] MEDS: REGADENOSON 0.4 MG/5 ML SYRINGE IV (10:06)
--- NOTE | 2024-05-13 10:06 | PC.NURSE ---
Nursing Note Cardiac Stress Test Reviewed: Medication, allergies and patient history reviewed. Stress Test: [x ] Patient tolerated stress test well. [ ] Patient unable to tolerate walking on treadmill. Switched to Lexiscan stress test. [x ] No chest pain noted per patient [ ] Chest pain that resolved prior to leaving stress lab. [ x] No dyspnea noted. [ ] Dyspnea that resolved prior to leaving stress lab. [x ] Patient left stress lab asymptomatic and hemodynamically stable. [ ] Patient taken to the Emergency Room due to non-resolving symptoms following stress test. [ ] Patient achieved target heart rate. [ ] Patient unable to achieve target heart rate. [ ] Aminophylline administered as reversal agent to Lexiscan (Regadenoson). [ ] Nitro administered. Nursing Comments:Pt had Lexiscan test done. Tolerated well. NO CP or SOB noted. Pt ambulated to cafeteria after test for breakfast.
== END 2024-05-13 08:32 | disposition home or self-care (01) ==
LOC: NM 08:31
PROVIDERS: PCP Family Medicine; Visit Provider Internal Medicine Interventional Cardiology
DX: I25.10 Atherosclerotic heart disease of native coronary artery without angina pectoris (principal); R07.89 Other chest pain
CPT/HCPCS: 78452; 93017; A9500; J2785